=== PATIENT | female | born 1985 | race Caucasian/White ===

== ENCOUNTER 2025-08-10 18:17 | Emergency (ER) | payer MEDICAID, SELFPAY ==
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
--- OUTSIDE RECORDS SUMMARY | 2025-07-23 18:41 | XMS_ITS | Encounter Summary ---
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 [address] [facility] , [place] [address] * (ABNORMAL) SEDIMENTATION RATE AUTOMATED (07/23/2025 9:02 PM EDT) [facility] Sed Rate 26(H) 0 - 20 mm/hr 07/23/2025 9:26 PM EDT [facility] Blood VENOUS BLOOD / Unknown Venipuncture / Unknown 07/23/2025 9:02 PM EDT 07/23/2025 9:14 PM EDT Suzanne Donovan APRN HEMATOLOGY ORDERABLES Barbara l Result [facility] [address] [place] [address] * HUMAN CHORIONIC GONADOTROPIN QUANTITATIVE (07/23/2025 9:02 PM EDT) [facility] Hcg Quant <1 <5 mIU/mL 07/23/2025 9:34 PM EDT [facility] Blood VENOUS BLOOD / Unknown Venipuncture / Unknown 07/23/2025 9:02 PM EDT 07/23/2025 9:14 PM EDT Narrative [facility] - 07/23/2025 9:34 PM EDT Female (non-): 0-4.9 mIU/mL Female (postmenopausal): 0-8.1 mIU/mL Indeterminate values for (e.g., 5-25 mIU/mL) may be confirmed with a repeat test in 48-72 hours. Values in should double every 2-3 days for the first six weeks. Ingestion of alise doses of biotin (>5 mg/day) taken within 8 hours of drawing blood sample can interfere with this immunoassay test. Suzanne Donovan APRN CHEMISTRY ORDERABLES Final Result Performing Organization Address City/[facility]/ZIP Co de Phone Number [facility] [address] [place] [address] * PROCALCITONIN (07/23/2025 9:02 PM EDT) Procalcitonin 0.05 <=0.49 ng/mL 07/24/2025 9:41 AM EDT [facility] Blood VENOUS BLOOD / Unknown Venipuncture / Unknown 07/23/2025 9:02 PM EDT 07/23/2025 9:14 PM EDT Narrative [facility] - 07/24/2025 9:41 AM EDT Procalcitonin <0.50 ng/mL: Procalcitonin levels below 0.50 ng/mL on the first day of ICU admission represent a low risk for progression to severe sepsis and/or septic shock Procalcitonin >=0.50 ng/mL and <=2.00 ng/mL: If the procalcitonin measurement is performed shortly after the systemic infection process has started (usually less than 6 hours), this value may still be low. As various non-infectious conditions are known to induce procalcitonin as well, procalcitonin levels between 0.50 ng/mL and 2.00 ng/mL should be reviewed carefully to take into account the specific clinical background and condition(s) of the patient. Procalcitonin >2.00 ng/mL: Procalcitonin levels above 2.00 ng/mL on the first day of ICU admission represent a high risk for progression to severe sepsis and/or septic shock. Suzannenorth Donovan APRN CHEMISTRY ORDERABLES Final Result [facility] [address] [facility] , [place] [address] * LACTIC ACID (07/23/2025 9:02 PM EDT) Pathologist [facility] Lactic Acid 1.0 0.5 - 1.9 mmol/L 07/23/2025 9:31 PM EDT [facility] Blood VENOUS BLOOD / Unknown Venipuncture / Unknown 07/23/2025 9:02 PM EDT 07/23/2025 9:14 PM EDT Suzanne Donovan EQUINE DENTIST CHEMISTRY ORDERABLES Final Result [facility] [address] [place] [address] * (ABNORMAL) COMPREHENSIVE METABOLIC PANEL (07/23/2025 9:02 PM EDT) Pathologist [facility] Sodium 136 136 - 145 mmol/L 07/23/2025 9:35 PM EDT [facility] Potassium 3.2(L) 3.5 - 5.0 mmol/L 07/23/2025 9:35 PM EDT [facility] Chloride 103 98 - 107 mmol/L 07/23/2025 9:35 PM EDT [facility] Total CO2 22 22 - 29 mmol/L 07/23/2025 9:35 PM EDT [facility] Anion Gap 11 7 - 16 mmol/L 07/23/2025 9:35 PM EDT [facility] Calcium 8.9 8.6 - 10.4 mg/dL 07/23/2025 9:35 PM EDT [facility] Glucose Lvl 91 70 - 99 mg/dL 07/23/2025 9:35 PM EDT [facility] BUN 5(L) 6 - 20 mg/dL 07/23/2025 9:35 PM EDT [facility] Creatinine 0.74 0.51 - 1.30 mg/dL 07/23/2025 9:35 PM EDT [facility] Albumin 4.0 3.5 - 5.2 gm/dL 07/23/2025 9:35 PM EDT [facility] Total Protein 7.2 6.4 - 8.3 gm/dL 07/23/2025 9:35 PM EDT [facility] Bili Total 1.0 0.2 - 1.3 mg/dL 07/23/2025 9:35 PM EDT [facility] ALT 9 <=41 U/L 07/23/2025 9:35 PM EDT [facility] AST 18 <=40 U/L 07/23/2025 9:35 PM EDT [facility] Alk Phos 100 36 - 123 U/L 07/23/2025 9:35 PM EDT [facility] eGFR (CKD-EPIcr 2020) 105 >=60 mL/min/1.7 3 m2 07/23/2025 9:35 PM EDT [facility] Comment:Estimated GFR was ca lculated using the CKD-EPIcr (2020) equation refit without race. The equation is recommended by the [employer] - [place] [employer] of Nephrology Task Force. Blood VENOUS BLOOD / Unknown Venipuncture / Unknown 07/23/2025 9:02 PM EDT 07/23/2025 9:14 PM EDT us Suzanne Donovan EQUINE DENTIST CHEMISTRY ORDERABLES Final Result [facility] [address] [place] [address] * (ABNORMAL) CBC WITH DIFF (07/23/2025 9:02 PM EDT) WBC 8.8 3.7 - 10.3 x10(3)/mcL 07/23/2025 9:17 PM EDT [facility] RBC 3.36(L) 3.90 - 5.20 x10(6)/mcL 07/23/2025 9:17 PM EDT [facility] Hgb 10.8(L) 11.2 - 15.7 g/dL 07/23/2025 9:17 PM EDT [facility] Hct 32.8(L) 34.0 - 45.0 % 07/23/2025 9:17 PM EDT [facility] MCV 97.6 80.0 - 100.0 fL 07/23/2025 9:17 PM [facility] MCH 32.1 26.0 - 34.0 pg 07/23/2025 9:17 PM [facility] MCHC 32.9 30.7 - 35.5 g/dL 07/23/2025 9:17 PM [facility] RDW 13.2 <=14.9 % 07/23/2025 9:17 PM [facility] Platelet 307 155 - 369 x10(3)/mcL 07/23/2025 9:17 PM [facility] MPV 9.8 8.8 - 12.5 fL 07/23/2025 9:17 PM [facility] Neut Percent 75.9 % 07/23/2025 9:17 PM [facility] Comment:Neutrophils equals s egs plus bands Imm Gran% 0.1 % 07/23/2025 9:17 PM [facility] Comment:Automated count of m etamyelocytes, myelocytes and promyelocytes. Lymph Percent 17.8 % 07/23/2025 9:17 PM [facility] [place] Percent 5.7 % 07/23/2025 9:17 PM [facility] Eos Percent 0.3 % 07/23/2025 9:17 PM [facility] Baso Percent 0.2 % 07/23/2025 9:17 PM [facility] Neut # 6.7(H) 1.6 - 6.1 x10(3)/mcL 07/23/2025 9:17 PM [facility] Comment:Neutrophils equals s egs plus bands IMMGRAN# 0.0 0.0 - 0.1 x10(3)/mcL 07/23/2025 9:17 PM [facility] Comment:Automated count of m etamyelocytes, myelocytes and promyelocytes. An absolute IG <0.1 is reported as 0.0. Lymph # 1.6 1.2 - 3.9 x10(3)/mcL 07/23/2025 9:17 PM [facility] [place] # 0.5 0.3 - 0.9 x10(3)/mcL 07/23/2025 9:17 PM EDT [facility] Eos# 0.0 0.0 - 0.5 x10(3)/mcL 07/23/2025 9:17 PM EDT [facility] Baso # 0.0 0.0 - 0.1 x10(3)/mcL 07/23/2025 9:17 PM EDT [facility] Blood VENOUS BLOOD / Unknown Venipuncture / Unknown 07/23/2025 9:02 PM EDT 07/23/2025 9:14 PM EDT us Suzanne Komichelle EQUINE DENTIST HEMATOLOGY ORDERABLES Barbara l Result [facility] [address] [place], [place] [id number] * XR RADIUS ULNA RIGHT AP AND LATERAL (07/23/2025 8:46 PM EDT) Anatomical Region Laterality Modality Forearm Radiographic Rosio ging 07/23/2025 8:46 PM EDT Impressions 07/23/2025 8:48 PM EDT No change compared with 07/20/2025 in the fracture of the distal radius along the lateral margin This exam does not constitute a diagnostic evaluation of either the wrist or the elbow. If symptoms are centered over those areas, dedicated imaging recommended. - Note: Radiology results need to be interpreted within a comprehensive clinical context. If you have questions about the radiology report, please contact the office of the ordering clinician. Narrative 07/23/2025 8:48 PM EDT XR RADIUS ULNA RIGHT AP AND LATERAL, 07/23/2025 8:46 PM CLINICAL HISTORY: -recent dog bit with fracture now with increased swelling and infection. COMPARISON: 07/20/2025 PROCEDURE COMMENTS: Orthogonal views of the forearm. Minimum two views. FINDINGS: No change in the appearance of the comminuted fracture along the lateral margin of the distal radius. No new osseous destruction. Small bone fragments are present. Soft tissue swelling is present. Procedure Note Norman Gusman MD - 07/23/2025 XR RADIUS ULNA RIGHT AP AND LATERAL, 07/23/2025 8:46 PM CLINICAL HISTORY: -recent dog bit with fracture now with increasedswelling and infection. COMPARISON: 07/20/2025 PROCEDURE COMMENTS: Orthogonal views of the forearm. Minimum two views. FINDINGS: No change in the appearance of the comminuted fracture alongthe lateral margin of the distal radius. No new osseous destruction. Smallbone fragments are present. Soft tissue swelling is present. IMPRESSION: No change compared with 07/20/2025 in the fracture of the distal radius along the lateral margin This exam does not constitute a diagnostic evaluation of either the wristor the elbow. If symptoms are centered over those areas, dedicated imagingrecommended. - Note: Radiology results need to be interpreted within a comprehensiveclinical context. If you have questions about the radiology report, please contactthe office of the ordering clinician. Suzanne Donovan APRN IMG DIAGNOSTIC IMAGING ORD ERABLES Final Result documented in this encounter Visit Diagnoses Diagnosis Wound infection Posttraumatic wound infection not elsewhere classified Type I or II open fracture of distal end of right radius, unspecified fracture morphology, initial encounter History of dog bite Non compliance w medication regimen Personal history of noncompliance with medical treatment, presenting hazards to health Hypokalemia Hypopotassemia Wound infection Posttraumatic wound infection not elsewhere classified documented in this encounter Administered Medications Inactive Administered Medications - up to 1 most recent administrations Medication Order MAR Action Action Date Dose Rate Site acetaminophen (TYLENOL) tablet 650 mg 650 mg, Oral, EVERY 4 HOURS PRN, Starting on 07/23/25 at 2023, Until 07/24/25 at 0214, Pain, Fever, Maximum adult dose of acetaminophen is 4000 mg from all sources in 24 hours. ampicillin-sulbactam (UNASYN) 3 g in sodium chloride 0.9 % 100 mL IVPB 3 g, Intravenous, ONCE, 1 dose, On 07/23/25 at 2230, Administer over 30 Minutes, Reason for Therapy: Infection Documented, Indication: Skin/soft tissue IV Started 07/23/2025 10:44 PM EDT 3 g 200 mL/hr ketorolac (TORADOL) injection 15 mg 15 mg, Intravenous, ONCE, 1 dose, On 07/23/25 at 2015, For IV Administration: Give undiluted over at least 15 seconds. Maximum IV dose is 30mg. For IM Administration: Give undiluted, slowly and deeply into the muscle. Given 07/23/2025 10:02 PM EDT 15 mg melatonin tablet 5-10 mg 5-10 mg, Oral, NIGHTLY PRN, Starting on 07/23/25 at 2023, Until 07/24/25 at 021, Sleep morphine injection 4 mg 4 mg, Intravenous, ONCE, 1 dose, On 07/23/25 at 2014 Given 07/23/2025 9:58 PM EDT 4 mg ondansetron (ZOFRAN) injection 4 mg 4 mg, Intravenous, ONCE, 1 dose, On 07/23/25 at 2014 Given 07/23/2025 9:56 PM EDT 4 mg ondansetron (ZOFRAN) injection 4 mg 4 mg, Intravenous, EVERY 6 HOURS PRN, Starting on 07/23/25 at 2023, Until 07/24/25 at 021, Nausea pantoprazole (PROTONIX) 40 mg in sodium chloride 0.9% 10 mL injection 40 mg, Intravenous, DAILY, First dose on 07/23/25 at 2030, Until Discontinued, Administer IV Push if patient cannot swallow pantoprazole tablets Given 07/23/2025 10:05 PM EDT 40 mg pantoprazole (PROTONIX) tablet 40 mg 40 mg, Oral, DAILY, First dose on 07/23/25 at 2030, Until Discontinued, Do not crush or chew potassium chloride (KLOR-CON) tablet 40 mEq 40 mEq, Oral, ONCE, 1 dose, On 07/23/25 at 2145 Given 07/23/2025 10:11 PM EDT 40 mEq sodium chloride 0.9 % 1,000 mL IV bolus Intravenous, ONCE, 1 dose, On 07/23/25 at 2014, at 983.6 mL/hr IV Started 07/23/2025 10:15 PM EDT 983.6 mL/hr sodium chloride 0.9% IV line flush 50 mL 50 mL, Intravenous, at 999 mL/hr, PRN, Starting on 07/23/25 at 1956, Until 07/24/25 at 021, Line Care, Flush with 50 mL after IVPB to insure complete administration of the dose. May use the saline infusion to back flush IVPB tubing as needed., Use this order to document priming and flushing IV line after medication administration. sodium chloride 0.9% syringe 5-10 mL 5-10 mL, Intravenous, PRN, Starting on 07/23/25 at 1956, Until 07/24/25 at 0214, Line Care, Flush with 5 mL saline pre/post IVP, and 5 mL prior to IVPB or blood product administration. Protocol for PERIPHERAL IV saline lock maintenance, flush with 3-5 mL saline syringe every 8 hours., Flush peripheral lines every 12 hours, central lines every 8 hours, and after IV medication documented in this encounter Active and Recently Administered Medications Times are shown in EDT. Scheduled Medication Order 07/22/2025 07/23/2025 07/24/2025 ampicillin-sulbactam (UNASYN) 3 g in sodium chloride 0.9 % 100 mL IVPB (COMPLETED) 3 g, Intravenous, ONCE, 1 dose, On 07/23/25 at 2230, Administer over 30 Minutes, Reason for Therapy: Infection Documented, Indication: Skin/soft tissue 2244 (IV Started - Provider: Gabriel Garza RN) 0024 (Stopped - Provider: Gabriel Garza RN) ketorolac (TORADOL) injection 15 mg (COMPLETED) 15 mg, Intravenous, ONCE, 1 dose, On 07/23/25 at 2014, For IV Administration: Give undiluted over at least 15 seconds. Maximum IV dose is 30mg. For IM Administration: Give undiluted, slowly and deeply into the muscle. 2201 (Given - Provider: Gabriel Garza RN - Comment: Pt very difficulty IV stick) morphine injection 4 mg (COMPLETED) 4 mg, Intravenous, ONCE, 1 dose, On 07/23/25 at 2014 2157 (Given - Provider: Gabriel Garza RN - Comment: pt very difficulty IV stick) ondansetron (ZOFRAN) injection 4 mg (COMPLETED) 4 mg, Intravenous, ONCE, 1 dose, On 07/23/25 at 2014 2155 (Given - Provider: Gabriel Garza RN - Comment: Pt very difficult IV stick) pantoprazole (PROTONIX) 40 mg in sodium chloride 0.9% 10 mL injection(Linked Group 1) 40 mg, Intravenous, DAILY, First dose on 07/23/25 at 2030, Until Discontinued, Administer IV Push if patient cannot swallow pantoprazole tablets 2204 (Given - Provider: Gabriel Garza, SHANIA) pantoprazole (PROTONIX) tablet 40 mg(Linked Group 1) 40 mg, Oral, DAILY, First dose on 07/23/25 at 2030, Until Discontinued, Do not crush or chew 2204 (See Alternative - Provider: Gabriel Garza, SHANIA) potassium chloride (KLOR-CON) tablet 40 mEq (COMPLETED) 40 mEq, Oral, ONCE, 1 dose, On 07/23/25 at 2145 221 (Given - Provider: Gabriel Garza, SHANIA) sodium chloride 0.9 % 1,000 mL IV bolus (COMPLETED) Intravenous, ONCE, 1 dose, On 07/23/25 at 2014, at 983.6 mL/hr 2214 (IV Started - Provider: Gabriel Garza RN - Comment: pt. very difficulty IV stick) 0024 (Stopped - Provider: Gabriel Garza RN) PRN Medication Order 07/22/2025 07/23/2025 07/24/2025 acetaminophen (TYLENOL) tablet 650 mg 650 mg, Oral, EVERY 4 HOURS PRN, Starting on 07/23/25 at 2023, Until 07/24/25 at 213, Pain, Fever, Maximum adult dose of acetaminophen is 4000 mg from all sources in 24 hours. melatonin tablet 5-10 mg 5-10 mg, Oral, NIGHTLY PRN, Starting on 07/23/25 at 2023, Until 07/24/25 at 213, Sleep ondansetron (ZOFRAN) injection 4 mg 4 mg, Intravenous, EVERY 6 HOURS PRN, Starting on 07/23/25 at 2023, Until 07/24/25 at 213, Nausea sodium chloride 0.9% IV line flush 50 mL 50 mL, Intravenous, at 999 mL/hr, PRN, Starting on 07/23/25 at 1955, Until 07/24/25 at 213, Line Care, Flush with 50 mL after IVPB to insure complete administration of the dose. May use the saline infusion to back flush IVPB tubing as needed., Use this order to document priming and flushing IV line after medication administration. sodium chloride 0.9% syringe 5-10 mL 5-10 mL, Intravenous, PRN, Starting on 07/23/25 at 1956, Until 07/24/25 at 0214, Line Care, Flush with 5 mL saline pre/post IVP, and 5 mL prior to IVPB or blood product administration. Protocol for PERIPHERAL IV saline lock maintenance, flush with 3-5 mL saline syringe every 8 hours., Flush peripheral lines every 12 hours, central lines every 8 hours, and after IV medication Linked Groups Order Group 1: pantoprazole (PROTONIX) 40 mg in sodium chloride 0.9% 10 mL injectionJump to med 40 mg, Intravenous, DAILY, First dose on 07/23/25 at 2030, Until Discontinued, Administer IV Push if patient cannot swallow pantoprazole tablets Or pantoprazole (PROTONIX) tablet 40 mgJump to med 40 mg, Oral, DAILY, First dose on 07/23/25 at 2030, Until Discontinued, Do not crush or chew documented in this encounter Orders Medications Ordered That Jorge Alberto ht Not Have Been Administered Count Last Ordered Date First Ordered Date acetaminophen (TYLENOL) tablet 650 mg 1 ampicillin-sulbactam (UNASYN ) 3 gram injection 3 g 1 07/23/2025 melatonin tablet 5-10 mg 1 07/23/2025 ondansetron (ZOFRAN) injection 4 mg 1 07/23 pantoprazole (PROTONIX) tablet 40 mg 1 07/06 sodium chloride 0.9% IV line flush 50 mL 1 07/23/2025 sodium chloride 0.9% syringe 5-10 mL 1 07/06 Nursing Count Last Ordered Date First Orde red Date SHORT ARM SPLINT 1 07/23/2025 Admission Count Last Ordered Date First Orde red Date ADMIT 1 07/23/2025 documented in this encounter 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
--- OUTSIDE RECORDS SUMMARY | 2025-07-24 01:14 | XMS_ITS | Encounter Summary ---
Author Organization [place] [address] Care Team Providers Care Beauty Advisor Name Role Phone Nonstaff, Referring Primary Care Provider Troy francois Reason for Referral * Consultation (Routine) - Pending Review Specialty Diagnoses / Procedures Referred By Norma oliveros Referred To Contact Cardiology Diagnoses Acute on chronic HFrEF (heart failure with reduced ejection fraction) ([facility]) Procedures OR OFFICE/OUTPATIENT NEW MODERATE MDM 45 MINUTES Danielle Mclean APRN [address] [place] [address] Phone: tel: fax: [facility] [address] [place] [address] Phone: tel: fax: Referral ID Status Reason Start Date Expiration Date V isits Requested Visits Authorized [id number] Pending Review 08/01/2025 08/01/2026 1 1 Question Answer Requested Services Heart Failure Management Reason for Visit * Auth/Cert/Inpt Specialty Diagnoses / Procedures Referred By Norma oliveros Referred To Contact Diagnoses Wound infection distal radial fracture Procedures N/A Referral ID Status Reason Start Date Expiration Date Visits Re quested Visits Authorized [id number] 1 1 Encounter Details Date Type Department Care Team (Latest Contact Info) Description 07/24/2025 2:14 AM EDT - 08/03/2025 6:10 PM EDT Hospital Encounter [facility] [address] [place] [address] Freddie Cruz MD [address] [place] [address] Acute on chronic HFrEF (heart failure with reduced ejection fraction) (HCC) (Primary Dx); Dog bite, initial encounter Discharge Disposition: Jail Facility Social History Tobacco Use Types Packs/Day Years [...] and heating? Not hard at all 07/24/2025 [facility] [place] [facility] - Occupational Stress [...] money to get more. Never true 07/24/2025 [facility] Utilities Answer Date Recorded In the past 12 months has th e electric, gas, oil, or water company threatened to shut off services in your home? No 07/24/2025 [facility] IP Transportation Answer D ate Recorded In [...] Sign Reading Time Taken Comments Blood Pressure 131/89 08/03/2025 5:52 PM EDT Pulse 106 08/03/2025 5:52 PM EDT Temperature 36.7 C (98.1 F) 08/03/2025 1:05 PM EDT Respiratory Rate 14 08/03/2025 1:05 PM EDT Oxygen Saturation 100% 08/03/2025 1:05 PM EDT Inhaled Oxygen Concentration - - Weight 60.3 kg (132 lb 15 oz) 08/03/2025 5:03 AM EDT Height 165.1 cm (5' 5 ) 07/24/2025 2:18 AM EDT Body Mass Index 22.12 07/24/2025 2:18 AM EDT documented in this encounter Functional Status * Alcohol Screening Score Answer Date of Assessment Author 0 07/24/2025 2:00 AM EDT Adi Avilez RN * Question Answer Date of Assessment Author How often do you have a drin k containing alcohol? 0 07/24/2025 2:00 AM EDT Abbi Avilez R N How many drinks containing a lcohol do you have on a typical day when you are drinking? 0 07/24/2025 2:00 AM EDT Abbi Avilez R N How often do you have six or more drinks on one occasion? 0 07/24/2025 2:00 AM EDT Pipe Avilez RN AUDIT-C to Determine Rows 4-10 0 07/24/2025 2:00 AM EDT Abbi Avilez RN * Question Answer Date of Assessment Author Drug Screening Score 1 07/24/2025 2:00 AM E DT Abbi Avilez RN * Question Answer Date of Assessment Author Little interest or pleasure in doing things 0 07/24/2025 4:03 PM EDT Lori Jones RN Feeling down, depressed, or hopeless 0 07/06 4:03 PM EDT Lori Jones RN PHQ-2 Total Score 0 07/24/2025 4:03 PM EDT Lori Jones RN * PHQ-9 Total Score Answer Date of Assessment Author 0 07/24/2025 4:03 PM EDT Ovidio Jones RN * PHQ-2 Total Score Answer Date of Assessment Author 0 07/24/2025 4:03 PM EDT Ovidio Jones RN * Suicide Severity Rating Answer Date of Assessment Author No Risk 07/24/2025 2:16 AM EDT Adi Avilez RN * [place] Suicide Severity Rating Scale (Q shift for moderate and high) Question Answer Date of Assessment Author 1. In the past month, have y ou wished you were or wished you could go to sleep and not wake up? 0 07/24/2025 2:16 AM EDT Abbi Mae RN 2. In the past month, have y ou actually had any thoughts of killing yourself? (If no, skip to question 6) 0 07/24/2025 2:16 AM EDT Abbi Avilez R N 6. Have you ever done anythi ng, started to do anything, or prepared to do anything to end your life? 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 CT RUE 07/24: Acute comminuted fracture oflateral distal radial metaphysis with complete fracture extraction and displaced fracture cortical bone fragment. Vertical Cortical bone with focal acute inflammation (being treated as osteomyelitis)S/p OR Right type II open distal radius fracture irrigation and debridement 07-25-2025 of Radial fracture. Osteomyelitis could not be ruled out on imaging and ID managing antibiotics. Hx of IVDU and plans Continue IV ampicillin-sulbactam to cover for these streps, but also anaerobes given nature ofwound. Per ortho no further interventions. Given bone involvement will need to do 6 weeks of IV ABX1 - 09/04/25 . D/c to [facility]. Need to complete rest of Rabies Vaccine Schedule 7 (08/01), 14 (08/08/25), and 28 (08/22/25) Needs to follow up with ortho Return to see Dr. Sen in clinic in 10 to 14 days after discharge for wound check Of note, consulted cardiology for acute HFrEF, VHD. Echo 07/31/25 EF 15-20%, global HK, G2DD, mild MR. Medications adjusted/added. Entresto added 07/31. Coreg decreased to 3.125mg due to soft pressures on 03.30. Labs and imaging follow-up needed: Pending Labs Order Current Status Collection Date and Time FUNGUS CULTURE (NO STAIN) Preliminary result 07/25/2025 5:29 PM Consultants: Treatment Team: Consulting Physician: Helder Pham DO Consulting Physician: Jeromy Austin MD Discharge Exam: Vitals: 08/03/25 1305 BP: 105/70 Pulse: 90 Resp: 14 Temp: 98.1 ??F (36.7 ??C) SpO2: 100% CONSTITUTIONAL: Alert and oriented x 3. NAD. CARDIOVASCULAR: normal rate and regular rhythm. No murmur heard. PULMONARY/CHEST: CTA bilat.. No W/R/R. ABDOMINAL: soft, non-tender; normal BS. MUSCULOSKELETAL: no atrophy or effusions. No edema. NEURO: non-focal, no lateralizing weakness. PSYCHIATRIC: normal mood and affect. Not suicidal/homicidal. Correct Full Discharge Med List: Medication List START taking these medications acetaminophen 325 mg Tab Dose: 650 mg Refills: 0 Commonly known as: TYLENOL 650 mg, Oral, EVERY 4 HOURS PRN ampicillin-sulbactam 3 g in sodium chloride 0.9 % 100 mL Dose: 3 g Refills: 0 3 g, Intravenous, EVERY 6 HOURS SCHEDULED carvediloL 6.25 mg Tab Dose: 3.125 mg Refills: 0 Commonly known as: COREG 3.125 mg, Oral, 2 TIMES DAILY WITH MEALS, Hold for sbp <110 or hr <60 pantoprazole 40 mg Tbec Dose: 40 mg Refills: 0 Start: August 04, 2025 Commonly known as: PROTONIX 40 mg, Oral, DAILY prochlorperazine edisylate 10 mg/2 mL (5 mg/mL) Soln Dose: 10 mg Refills: 0 Commonly known as: COMPAZINE 10 mg, Intravenous, EVERY 6 HOURS PRN Saccharomyces boulardii 250 mg Cap Dose: 250 mg Refills: 0 Commonly known as: FLORASTOR 250 mg, Oral, 2 TIMES DAILY sacubitriL-valsartan 49-51 mg Tab Dose: 1 Tablet Refills: 0 Commonly known as: ENTRESTO 1 Tablet, Oral, 2 TIMES DAILY CONTINUE taking these medications dapagliflozin propanediol 10 mg Tab Dose: 10 mg Qty: 90 Tablet Refills: 3 Commonly known as: FARXIGA 10 mg, Oral, DAILY fUROsemide 40 mg Tab Dose: 40 mg Qty: 90 Tablet Refills: 3 Commonly known as: LASix 40 mg, Oral, DAILY naproxen 500 mg Tab Dose: 500 mg Qty: 30 Tablet Refills: 0 Commonly known as: NAPROSYN 500 mg, Oral, 2 TIMES DAILY PRN potassium chloride SA 10 mEq Tbtq Dose: 10 mEq Qty: 90 Tablet Refills: 3 Commonly known as: KLOR-CON M 10 mEq, Oral, DAILY spironolactone 25 mg Tab Dose: 25 mg Qty: 90 Tablet Refills: 3 Commonly known as: ALDACTONE 25 mg, Oral, DAILY STOP taking these medications amoxicillin-clavulanate 875-125 mg Tab Commonly known as: AUGMENTIN losartan 50 mg Tab Commonly known as: COZAAR Where to Get Your Medications Information about where to get these medications is not yet available Ask your nurse or doctor about these medications acetaminophen 325 mg Tab ampicillin-sulbactam 3 g in sodium chloride 0.9 % 100 mL carvediloL 6.25 mg Tab pantoprazole 40 mg Tbec prochlorperazine edisylate 10 mg/2 mL (5 mg/mL) Soln Saccharomyces boulardii 250 mg Cap sacubitriL-valsartan 49-51 mg Tab Condition at Discharge: stable 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 [phone] Follow up [facility] [address] [facility] [address] Helder Arriaga MD [address] [place] [address] Follow up in 1 week(s) Andre Sen MD [address] [place] [address] Follow up hospital follow up Spent 34 minutes CAROL Robertson 08/03/2025 Cosigned by Ashvin Belcher MD at 08/03/2025 4:14 PM EDT Associated attestation - Ashvin Belcher MD - 08/03/2025 4:14 PM EDT Agree w CAROL GREEN Summary as below documented in this encounter Discharge Instructions * Discharge Instructions* Sanjuanita Byrd RN - 07/25/2025 3:47 PM EDT Images from the original note were not included. Call [facility] at to schedule the remaining 3 injections of your vaccine series. These are due on approximately day 3, day 7 and day 14. +++++++++++++++++++++++++++++++++++++++++++++++++++++++++++++++++++ [facility] Discharge Instructions - Following Anesthesia We appreciate the opportunity to care for you today! Here are a few reminders as you head home: A responsible adult, 18 years or older must be in attendance until tomorrow morning. Rest quietly today. May resume usual diet as tolerated or as directed by your surgeon. Do not drive or operate any machinery until tomorrow morning or as instructed. Do not make any legal or important decisions for the next 24 hours. Do not drink alcoholic beverages or take sleeping pills for 24 hours unless otherwise directed. If you received a nerve block for post-operative pain control, protect your blocked arm/leg. It maybe numb. Carefully pad your limb to prevent pressure sores and other injuries. Be careful with applying cold/warm to the blocked limb. Numbness will alter the sensation of the limb and could damage your skin if you cannot correctly feel the temperature. If you have questions or concerns regarding your anesthesia experience, please call our office at . Get Well Soon! [facility] +++++++++++++++++++++++++++++++++++++++++++++++++++++++++++++++++++ [facility] Failure [facility] [address], [place] [address] Call: [phone] Check out our web site: [email or web address], Right Here At [facility] [place], we have assembled an entire team of experts to help patients with heart failure. If you have a diagnosis of heart failure, sometimes called congestive heart failure, you can be assured that there are a number of things you can do to manage this chronic illness and live a full life. Our experts have the experience and the tools to help youdo just that. What Is Heart Failure? Your heart is a muscle that pumps blood to all parts of your body. Heart failure means that your body may not be getting all the blood or oxygen it needs to function properly. A weakness of the heartmuscle may lead to decreased pump power and less blood being supplied to your body. It does not mean that your heart has stopped working. Although it may sound frightening, heart failure is usually achronic condition treated with medications and your symptoms can be managed. Often the power of theheart can improve with specific medical management alone. Your Heart Failure Team We offer some of the most comprehensive heart failure care in [facility] and [facility]. Our heart failure team has vast experience treating some of the most complex heart failure patients. Our team includes: Dr. Charlie Devine, Religion Department Chair Dr. Alexandre Song All of our heart failure specialists have experience in some of the busiest heart failure centers in the country. Our team also includes nurse practitioners, physician assistants, pharmacists, dietitians, palliative care providers and nurse navigators who provide added personalized care for our alla ents. The heart failure team works closely with your current billet heater operator and primary care providerin managing your congestive heart failure. How to prepare for your visit: Write down any symptoms you are experiencing. Write down bishop family medical history. Make a list of all of your medications, including vitamins. Bring all pill bottles to your first appointment. If possible, bring a family member or friend. Sometimes it is hard to remember all the information discussed during your visit. Write down your questions to discuss with your physician. Make An Appointment Our heart failure navigators and coordinators understand that heart failure can be frightening and are committed to providing you a supportive patient experience. To learn more about your diagnosis, or to make an appointment at the [facility] [place], we encourage you to call us at . Dressing change: Xeroform and oswaldo wrap daily and PRN * Attachments The following attachments cannot be sent through Care Everywhere. * Heart failure in adults ??? Discharge instructions (Czech) documented in this encounter Medications at Time [...] by mouth daily. 90 Tablet 3 11/04/2024 documented as of this encounter Ordered Prescriptions Prescription Sig Dispense Quantity Refills Last Filled Start Date End Date Saccharomyces boulardii (FLORASTOR) 250 mg Oral Capsule Take 1 Capsule by mouth 2 times daily. 08/03/2025 sacubitriL-valsart an (ENTRESTO) 49-51 mg Oral Tablet Take 1 Tablet by mouth 2 times daily. 08/03/2025 pantoprazole (PROTONIX) 40 mg Oral Tablet, Delayed Release (E.C.) Take 1 Tablet by mouth daily. 08/04/2025 prochlorperazine edisylate (COMPAZINE) 10 mg/2 mL (5 mg/mL) Inj Solution Inject 2 mL into the vein every 6 hours as needed for Nausea or Vomiting. 08/03/2025 carvediloL (COREG) 6.25 mg Oral Tablet Take 0.5 Tablets by mouth 2 times daily (with meals). Hold for sbp <110 or hr <60 08/03/2025 acetaminophen 325 mg Oral Tab Take 2 Tablets by mouth every 4 hours as needed for Pain or Fever. 08/03/2025 ampicillin-sulbact am 3 g in sodium chloride 0.9 % 100 mL Inject 3 g into the vein every 6 hours for 131 doses. 08/03/2025 5 documented in this encounter Discharge Disposition Disposition Code Departure Means Destination Comment s Jail Facility Ambulance [facility] documented in this encounter Progress Notes * Jaclyn Issa RN - 08/03/2025 6:12 PM EDT Report called and given to RN at [facility]. * Marely Fernández BSW - 08/03/2025 4:05 PM EDT 08/03/25 1604 Ongoing Discharge Planning Evaluation Actual Discharge Plan 08/03 SW: [facility] insurance approval and able to accept pttoday. Per [facility] policy pt must transport via ambulance to their facility. [facility] arranged ambulance for 6pm pickup. Facility aware. SW will SIGN OFF. * Porsche Storey, Clerical Staff - 08/03/2025 2:58 PM EDT Received referral for Post Acute form. Post Acute form provided and patient signed. Post Acute FormFax or Electronic: E-consent located in Chart Review/Consent activity 08/03/25 0469 Discharge Planning Evaluation Referral Type Post Acute Consent Post Acute Facility [facility] Post Acute Form Completed Yes * Porsche Storey, Clerical Staff - 08/03/2025 2:36 PM EDT Followed up with patient re: request for transportation assistance. Scheduled with: [facility]. Trip #: [id number] @ 1800 for 08-03-25 to T [facility]. Patient and RN aware of tentative plan. 08/03/25 1435 Discharge Planning Evaluation Referral Type Transportation Transportation at Discharge Ambulance (Trip #: [id number]) Transportation Options Private Pay Date Expected 08/03/25 Time Expected 1800 Transportation Location [facility] Transportation setup completed by [employer] Yes * Naima Oconnor PA - 08/03/2025 2:19 PM EDTAssociated Problem(s): Infection of wound due to dog bite - Dog bite on 07/20 - 07/20: Received tetanus vaccine, PO Augmentin, wounds were sutured - 07/23: in ED with worsening swelling to her R arm, sutures removed, wound cleansed at bedside - CT RUE 07/24: Acute comminuted fracture of lateral distal radial metaphysis with complete fracture extraction and displaced fracture cortical bone fragment. Vertical Cortical bone with focal acute inflammation (being treated as osteomyelitis) - Rabies IG 07/25, 07/28, Will need 08/01, 08/08/25, and 08/22/25 - Ortho consulted, 07/25: I & D open distal radial fracture - Wound culture: Rare GNR - Intra-OP cultures: + S. Galloyticus, S. Sanguinis - Plans for 6 wks IV ATB per ID, cannot be at home w/HX of IVDU - On IV Unasyn - asked RN to reach out to ortho for dressing orders --PRN xeroform and soft wrap * Naima Oconnor PA - 08/03/2025 2:19 PM EDTAssociated Problem(s): Fracture of right radius - Dog bite on 07/20 - 07/20: Received tetanus vaccine, PO Augmentin, wounds were sutured - 07/23: in ED with worsening swelling to her R arm, sutures removed, wound cleansed at bedside - CT RUE 07/24: Acute comminuted fracture of lateral distal radial metaphysis with complete fracture extraction and displaced fracture cortical bone fragment. Vertical Cortical bone with focal acute inflammation (being treated as osteomyelitis) - Rabies IG 07/25, 07/28, Will need 08/01, 08/08/25, and 08/22/25 - Ortho consulted, 07/25: I & D open distal radial fracture - Wound culture: Rare GNR - Intra-OP cultures: + S. Galloyticus, S. Sanguinis - Plans for 6 wks IV ATB per ID, cannot be at home w/HX of IVDU - On IV Unasyn - asked RN to reach out to ortho for dressing orders --PRN xeroform and soft wrap * Naima Oconnor PA - 08/03/2025 2:18 PM EDTAssociated Problem(s): Nonischemic cardiomyopathy (HCC) - NICM - LVSF: 26% per NEG stress test 12/13/2024 - Lost to f/u w/cardiology - CXR 07/30: NAF - NT-ProBNP >18,000 07/30 - EF 15-20% 07/31 - PO lasix 40 daily BOX TURNER - GDMT: Coreg, Entresto, Jardiance, IV Lasix, spironolactone - K 3.8 today - Follow BMP - Cardiology following - appears compensated with fluid restriction * Naima Oconnor PA - 08/03/2025 2:18 PM EDTAssociated Problem(s): Acute on chronic HFrEF (heart failure with reduced ejection fraction) (HCC) - NICM - LVSF: 26% per NEG stress test 12/13/2024 - Lost to f/u w/cardiology - CXR 07/30: NAF - NT-ProBNP >18,000 07/30 - EF 15-20% 07/31 - PO lasix 40 daily BOX TURNER - GDMT: Coreg, Entresto, Jardiance, IV Lasix, spironolactone - K 3.8 today - Follow BMP - Cardiology following - appears compensated with fluid restriction * Naima Oconnor PA - 08/03/2025 2:18 PM EDTAssociated Problem(s): Primary hypertension - 105/70 - Continue Coreg, Entresto, Lasix, spironolactone, Jardiance - Improved w/IV diuresis & addition of Coreg this admission - Monitor * Naima Oconnor PA - 08/03/2025 2:18 PM EDTAssociated Problem(s): Anxiety -Mood stable * Marely Fernández BSW - 08/03/2025 11:49 AM EDT 08/03/25 1148 Ongoing Discharge Planning Evaluation Actual Discharge Plan 08/03 SW: Await insurance determination for [facility]. If approved, facility has beds available. SW continue to follow. * Naima Oconnor PA - 08/03/2025 10:34 AM EDTAssociated Problem(s): JUAN (obstructive sleep apnea) -Home CPAP * Naima Oconnor PA - 08/03/2025 10:34 AM EDTAssociated Problem(s): Antibiotic-associated diarrhea -resolved -Cont Florastor * Naima Oconnor PA - 08/03/2025 10:34 AM EDT PROGRESS NOTE Admit date: 07/24/2025 LOS: 8 days Medically Ready for Discharge?: No EDOD: 08/03/2025 Not Ready for Discharge because: precert to [facility] pending Assessment & Plan Infection of wound due to dog bite Fracture of right radius - Dog bite on 07/20 - 07/20: Received tetanus vaccine, PO Augmentin, wounds were sutured - 07/23: in ED with worsening swelling to her R arm, sutures removed, wound cleansed at bedside - CT RUE 07/24: Acute comminuted fracture of lateral distal radial metaphysis with complete fracture extraction and displaced fracture cortical bone fragment. Vertical Cortical bone with focal acute inflammation (being treated as osteomyelitis) - Rabies IG 07/25, 07/28, Will need 08/01, 08/08/25, and 08/22/25 - Ortho consulted, 07/25: I & D open distal radial fracture - Wound culture: Rare GNR - Intra-OP cultures: + S. Galloyticus, S. Sanguinis - Plans for 6 wks IV ATB per ID, cannot be at home w/HX of IVDU - On IV Unasyn - asked RN to reach out to ortho for dressing orders --PRN xeroform and soft wrap Nonischemic cardiomyopathy (HCC) Acute on chronic HFrEF (heart failure with reduced ejection fraction) ([facility]) - NICM - LVSF: 26% per NEG stress test 12/13/2024 - Lost to f/u w/cardiology - CXR 07/30: NAF - NT-ProBNP >18,000 07/30 - EF 15-20% 07/31 - PO lasix 40 daily BOX TURNER - GDMT: Coreg, Entresto, Jardiance, IV Lasix, spironolactone - K 3.8 today - Follow BMP - Cardiology following - appears compensated with fluid restriction Primary hypertension - 105/70 - Continue Coreg, Entresto, Lasix, spironolactone, Jardiance - Improved w/IV diuresis & addition of Coreg this admission - Monitor Anxiety -Mood stable JUAN (obstructive sleep apnea) -Home CPAP Antibiotic-associated diarrhea -resolved -Cont Florastor VTE Prophylaxis: Qualifying Pharmacologic Prophylaxis enoxaparin (LOVENOX) injection 40 mg DAILY - LMWH/Xa Active Hospital Problems Diagnosis *Infection of wound due to dog bite Acute on chronic HFrEF (heart failure with reduced ejection fraction) ([facility]) Antibiotic-associated diarrhea Primary hypertension 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 Denies shortness of breath or cp. Objective: BP 127/76 (BP Location: Left leg) Pulse 85 Temp 97.5 ??F (36.4 ??C) (Oral) Resp 14 Ht 5' 5 (1.651 m) Wt 132 lb 15 oz (60.3 kg) LMP 07/18/2025 Comment: SERUM HCG NEGATIVE SpO2 100% BMI 22.12 kg/m?? I/O last 3 completed shifts: In: 1323 [P.O.:901; I.V.:40.4; IV Piggyback:381.6] Out: 1450 [Urine:1450] Weight: 132 lb 15 oz (60.3 kg) Constitutional: Alert and oriented to person, place, and time. No distress. Cardiovascular: Normal rate and regular rhythm. Exam reveals no friction rub. No murmur heard. Pulmonary/Chest: Effort normal and breath sounds normal. No respiratory distress. There are no wheezes. Abdominal: Soft. Bowel sounds are normal. No distension. There is no tenderness. There is no rebound and no guarding. Musculoskeletal: No edema. Dressing appears c/d/i Neurological: Grossly normal. Skin: Skin is warm and dry. No erythema. Labs: Laboratory data and diagnostic testing reviewed 08/03/25. CAROL Robertson 08/03/2025 10:34 AM * Timi Forman MD - 08/03/2025 10:04 AM EDT SEP Infectious Diseases Progress Note Date of Admission: 07/24/2025 Hospital Day: 11 Primary Care Physician: Nonstaff, Referring Antibiotics: Current Antibiotics - IV Amp/Sul Assessment: # Infected dog bite right arm// Right Radial Fracture On 07/20 patient sustained a bite from an unknown dog. Went to the ED where she was found to have right radial fracture. She was given tetanus vaccine, prescribed Augmentin and wounds were sutured. Presented again to the ED on 07/23 with worsening swelling to her right arm. Sutures removed at bedside and wound spread open/cleansed to allow drainage. ESR [address] right upper extremity done on 07/24 which showed acute comminuted fracture ofthe lateral distal radial metastasis with complete fracture extraction and displaced fracture cortical bone fragment. Patient evaluated by Ortho SP I/D of open distal radius fracture on 09/24/25. Wound Cx with rare GNR. Path with Viable cortical bone with focal acute inflammation. Must treat as osteomyelitis. Intra-op cx growing S. gallolyticus and S. sanguinis. MRSA nares +. # History of IV drug use # Rabies PEP SP Rabies IG 07/25 SP Rabies Vaccine 07/25/25 (Day 0), Day 3 (07/28), Day 7 (08/01) Plan - Continue IV Ampicillin-Sulbactam to cover for these streps, but also anaerobes given nature of wound. Per ortho no further interventions. Given bone involvement will need to do 6 weeks of IV ABX 07/24 - 09/04/25 - Cannot do IV at home due to hx of IVDU. - Need to complete rest of Rabies Vaccine Schedule (08/08/25), and (08/22/25) - Will be transferred to [facility] ([facility]), please consult ID once arrives Subjective: No episodes of fever. No major overnight events. Physical Exam General Appearance: Alert, cooperative, no distress Head: Normocephalic Eyes: conjunctiva/corneas clear Nose: Nares normal, no drainage Mouth: mucosa moist, teeth and gums normal Lungs: Good AE B/L, respirations unlabored Heart: Regular rate and rhythm, S1 and S2 normal, no murmur, rub or gallop Abdomen: Soft, non-tender, bowel sounds active Extremities: + RUE with dressing in place, RUE swelling Skin: no rashes or lesions, + tattoos Neurologic: Grossly normal Line: +PIV Active LDAs PICC Line Duration PICC Single Lumen 07/29/25 Left Basilic 4 days Wound Duration Incision/Wound Arm Right 10 days Incision/Wound Closed Surgical Arm Right 8 days Vitals Patient Vitals for the past 24 hrs: BP Temp Temp src Pulse Resp SpO2 Weight 08/03/25 0959 90/81 97.5 ??F (36.4 ??C) Oral 85 14 100 % -- 08/03/25 0503 -- -- -- -- -- -- 132 lb 15 oz (60.3 kg) 08/02/252041 112/57 97.5 ??F (36.4 ??C) Oral 89 14 99 % -- 08/02/25 1839 -- -- -- -- -- -- 122 lb 12.7 oz (55.7 kg) 08/02/25 1828 108/49 -- -- 113 -- -- -- 08/02/25 1556 104/62 -- -- 79 -- -- -- 08/02/25 1303 92/68 98.1 ??F (36.7 ??C) Oral 83 16 99 % -- Oxygenation Oxygen Therapy Flowsheet Row Most Recent Value Oxygen Therapy SpO2 100 % Pulse Oximeter Location Left hand Patient Position/Status Resting Awake O2 Device Room Air O2 Flow Rate (L/min) 2 lpm FiO2 (%) 21 % Assistive Devices Flowsheet Row Most Recent Value Assistive Devices Assistive Devices None Respiratory Assistive Devices BiPap/CPAP Home BiPap/CPAP settings? CPAP Home BIPAP/CPAP Frequency PRN (as needed) DME At Home Flowsheet Row Most Recent Value DME Used at Home None Weight Weight: 132 lb 15 oz (60.3 kg) Intake/Output past 24 hours Intake/Output Summary (Last 24 hours) at 08/03/2025 1004 Last data filed at 08/03/2025 0115 Gross per 24 hour Intake 1187.69 ml Output 1450 ml Net -262.31 ml Intake/Output throughout Admission Net IO Since Admission: 12,367.51 mL [08/03/25 1004] Allergies Allergies[1] Current Outpatient Medications Medication Instructions dapagliflozin propanediol (FARXIGA) 10 mg, Oral, DAILY fUROsemide (LASIX) 40 mg, Oral, DAILY losartan (COZAAR) 50 mg, Oral, DAILY naproxen (NAPROSYN) 500 mg, Oral, 2 TIMES DAILY PRN potassium chloride SA (KLOR-CON M) 10 mEq Oral Tab Sust.Rel. Particle/Crystal 10 mEq, Oral, DAILY spironolactone (ALDACTONE) 25 mg, Oral, DAILY Current Medications[2] Immunization History Administered Date(s) Administered [employer] SARS-CoV-2 Vaccine 01/01/2021 Moderna SARS-CoV-2 Vaccine 12+ Yrs (Light blue border) 05/16/2022 Pfizer SARS-CoV-2 Bivalent Booster Vaccine 12+ Years (Wiley border) 07/25/2022 Pfizer SARS-CoV-2 Vaccine Gil-sucrose 12+ Yrs 08/26/2024 Rabies IM, Fibroblast Culture 07/25/2025, 07/28/2025, 08/01/2025 Tdap 07/20/2025 Labs: Lab Results Component Value Date WBC 9.7 08/03/2025 HGB 12.6 08/03/2025 HCT 37.8 08/03/2025 MCV 95.9 08/03/2025 PLT 437 (H) 08/03/2025 Lab Results Component Value Date GLU 96 08/03/2025 NA 136 08/03/2025 K 3.8 08/03/2025 CO2 24 08/03/2025 CL 104 08/03/2025 BUN 15 08/03/2025 CREATININE 0.79 08/03/2025 Results for orders placed or performed during the hospital encounter of 07/24/25 (from the past 2 weeks) BLOOD CULTURE (NO STAIN) Collection Time: 07/24/25 2:52 AM Specimen: Blood, Venous Result Value Ref Range Culture Result No Growth at 120 hours. BLOOD CULTURE (NO STAIN) Collection Time: 07/24/25 2:52 AM Specimen: Blood, Venous Result Value Ref Range Culture Result No Growth at 120 hours. STAPHYLOCOCCUS AUREUS SCREEN Collection Time: 07/24/25 10:58 AM Specimen: Nares; Swab Result Value Ref Range Staph aureus PCR Detected (A) Not Detected MRSA PCR Detected (A) Not Detected ANAEROBIC CULTURE (NO STAIN) Collection Time: 07/25/25 5:29 PM Specimen: Hand, Right; Swab Result Value Ref Range Culture Positive Growth (A) Culture Sparse growth of Anaerobic gram negative marlena, suspect Prevotella species. Beta Lactamase Positive Culture Sparse growth of Anaerobic Gram Positive Rods WOUND CULTURE (STAIN INCLUDED) Collection Time: 07/25/25 5:29 PM Specimen: Hand, Right; Swab Result Value Ref Range Culture Positive Growth (A) Culture Very sparse growth of Streptococcus gallolyticus Culture Very sparse growth of Streptococcus sanguinis Stain Rare WBCs (A) Stain Rare Gram negative rods (A) Susceptibility Streptococcus sanguinis - SUSCEPTIBILITY RESULT Amoxicillin/Clavulanate Ampicillin <=0.06 Susceptible ug/mL Azithromycin <=0.25 Susceptible ug/mL Cefaclor Cefepime <=0.25 Susceptible ug/mL Cefotaxime <=0.25 Susceptible ug/mL Ceftriaxone <=0.25 Susceptible ug/mL Cefuroxime Chloramphenicol <=1 Susceptible ug/mL Clindamycin <=0.06 Susceptible ug/mL Erythromycin <=0.06 Susceptible ug/mL Gatifloxacin Levofloxacin <=0.25 Susceptible ug/mL Meropenem <=0.06 Susceptible ug/mL Penicillin 0.12 Susceptible ug/mL Tetracycline <=0.5 Susceptible ug/mL Trimethoprim/Sulfamethoxazole Vancomycin 0.5 Susceptible ug/mL Streptococcus gallolyticus - SUSCEPTIBILITY RESULT Amoxicillin/Clavulanate Ampicillin <=0.06 Susceptible ug/mL Azithromycin <=0.25 Susceptible ug/mL Cefaclor Cefepime <=0.25 Susceptible ug/mL Cefotaxime <=0.25 Susceptible ug/mL Ceftriaxone <=0.25 Susceptible ug/mL Cefuroxime Chloramphenicol <=1 Susceptible ug/mL Clindamycin 0.12 Susceptible ug/mL Erythromycin <=0.06 Susceptible ug/mL Gatifloxacin Levofloxacin 1 Susceptible ug/mL Meropenem <=0.06 Susceptible ug/mL Penicillin 0.06 Susceptible ug/mL Tetracycline <=0.5 Susceptible ug/mL Trimethoprim/Sulfamethoxazole Vancomycin 0.5 Susceptible ug/mL FUNGUS CULTURE (NO STAIN) Collection Time: 07/25/25 5:29 PM Specimen: Hand, Right; Swab Result Value Ref Range Culture No growth of fungus at 5 days. FECAL WHITE BLOOD CELLS Collection Time: 07/30/25 3:14 PM Specimen: Colon; Stool Result Value Ref Range Fecal WBCs Negative Negative Lab Results Component Value Date SEDRATE 18 08/03/2025 Lab Results Component Value Date CRP <3.00 08/03/2025 No results found. Pertinent laboratory and imaging results personally reviewed. Patient seen and examined. Timi Neville MD [1] No Known Allergies [2] Current Facility-Administered Medications Medication Dose Route Frequency Provider Last Rate Last Admin acetaminophen (TYLENOL) tablet 650 mg 650 mg Oral Q4H PRN Andre Sen MD 650 mg at 08/02/25 1542 alteplase (ACTIVASE) injection 1 mg 1 mg Intercatheter PRN Timi Forman MD ampicillin-sulbactam (UNASYN) 3 g in sodium chloride 0.9 % 100 mL IVPB 3 g Intravenous 4 times per day Timi Forman MD Stopped at 08/03/25 0533 carvediloL (COREG) tablet 6.25 mg 6.25 mg Oral BID Vida Kruger APRN 6.25 mg at 08/02/25 1828 empagliflozin (JARDIANCE) tablet 25 mg 25 mg Oral Daily Andre Sen MD 25 mg at 08/02/25 1008 enoxaparin (LOVENOX) injection 40 mg 40 mg Subcutaneous Daily - LMWH/Xa Edmond Cannon MD 40 mgat 08/02/25 1542 fUROsemide (LASix) tablet 40 mg 40 mg Oral Daily Danielle Mclean APRN 40 mg at 08/02/25 1005 loperamide (IMODIUM) capsule 2 mg 2 mg Oral QID PRN Vida Kruger APRN melatonin tablet 5-10 mg 5-10 mg Oral Nightly PRN Andre Sen MD 10 mg at 08/02/252131 mupirocin (BACTROBAN) 2 % ointment Nasal BID Timi Forman MD Given at 08/02/252049 naproxen (NAPROSYN) tablet 500 mg 500 mg Oral BID PRN Andre Sen MD 500 mg at 07/29/25 155 pantoprazole (PROTONIX) 40 mg in sodium chloride 0.9% 10 mL injection 40 mg Intravenous Daily Andre Sen MD Or pantoprazole (PROTONIX) tablet 40 mg 40 mg Oral Daily Andre Sen MD 40 mg at potassium chloride (KLOR-CON) tablet 10 mEq 10 mEq Oral Daily WM Andre Sne MD 10 mEqat 08/02/25 1005 prochlorperazine edisylate (COMPAZINE) injection 10 mg 10 mg Intravenous Q6H PRN Edmond Cannon MD 10 mg at 08/02/25 1541 [START ON 08/08/2025] rabies vaccine, PCEC (RABAVERT) injection 1 mL 1 mL Intramuscular Once Timi Forman MD Saccharomyces boulardii (FLORASTOR) capsule 250 mg 250 mg Oral BID Vida Kruger APRN 250 mg at 08/02/252049 sacubitriL-valsartan (ENTRESTO) 49-51 mg tablet 1 Tablet 1 Tablet Oral BID Adalbertoato, Jacqueline R, DO 1 Tablet at 08/02/25 2050 sodium chloride 0.9% IV line flush 20-50 mL 20-50 mL Intravenous PRN Timi Forman MD 150 mL/hr at 08/02/25 1550 50 mL at 08/02/25 1550 sodium chloride 0.9% IV line flush 20-50 mL 20-50 mL Intravenous PRN Juju, S, DO Stopped at 07/29/25 1122 sodium chloride 0.9% syringe 10 mL 10 mL Intravenous 3 times per day Timi Forman MD 10 mL at 08/03/25 0503 sodium chloride 0.9% syringe Intravenous PRN Timi Forman MD sodium chloride 0.9% syringe Intravenous PRN Juju S, DO spironolactone (ALDACTONE) tablet 25 mg 25 mg Oral Daily Andre Sen MD 25 mg at 08/02/25 1005 * Naima Oconnor PA - 08/02/2025 2:53 PM EDTAssociated Problem(s): Infection of wound due to dog bite - Dog bite on 07/20 - 07/20: Received tetanus vaccine, PO Augmentin, wounds were sutured - 07/23: in ED with worsening swelling to her R arm, sutures removed, wound cleansed at bedside - CT RUE 07/24: Acute comminuted fracture of lateral distal radial metaphysis with complete fracture extraction and displaced fracture cortical bone fragment. Vertical Cortical bone with focal acute inflammation (being treated as osteomyelitis) - Rabies IG 07/25, 07/28, Will need 08/01, 08/08/25, and 08/22/25 - Ortho consulted, 07/25: I & D open distal radial fracture - Wound culture: Rare GNR - Intra-OP cultures: + S. Galloyticus, S. Sanguinis - Plans for 6 wks IV ATB per ID, cannot be at home w/HX of IVDU -On IV Unasyn * Naima Oconnor PA - 08/02/2025 2:53 PM EDTAssociated Problem(s): Fracture of right radius - Dog bite on 07/20 - 07/20: Received tetanus vaccine, PO Augmentin, wounds were sutured - 07/23: in ED with worsening swelling to her R arm, sutures removed, wound cleansed at bedside - CT RUE 07/24: Acute comminuted fracture of lateral distal radial metaphysis with complete fracture extraction and displaced fracture cortical bone fragment. Vertical Cortical bone with focal acute inflammation (being treated as osteomyelitis) - Rabies IG 07/25, 07/28, Will need 08/01, 08/08/25, and 08/22/25 - Ortho consulted, 07/25: I & D open distal radial fracture - Wound culture: Rare GNR - Intra-OP cultures: + S. Galloyticus, S. Sanguinis - Plans for 6 wks IV ATB per ID, cannot be at home w/HX of IVDU -On IV Unasyn * Naima Oconnor PA - 08/02/2025 2:53 PM EDTAssociated Problem(s): Nonischemic cardiomyopathy (HCC) - NICM - LVSF: 26% per NEG stress test 12/13/2024 - Lost to f/u w/cardiology - CXR 07/30: NAF - NT-ProBNP >18,000 07/30 - EF 15-20% 07/31 - PO lasix 40 daily BOX TURNER - GDMT: Coreg, Entresto, Jardiance, IV Lasix, spironolactone - Repleted K 3.1 w/40 PO x 1 dose - Follow BMP - Cardiology following * Naima Oconnor PA - 08/02/2025 2:53 PM EDTAssociated Problem(s): Acute on chronic HFrEF (heart failure with reduced ejection fraction) (HCC) - NICM - LVSF: 26% per NEG stress test 12/13/2024 - Lost to f/u w/cardiology - CXR 07/30: NAF - NT-ProBNP >18,000 07/30 - EF 15-20% 07/31 - PO lasix 40 daily BOX TURNER - GDMT: Coreg, Entresto, Jardiance, IV Lasix, spironolactone - Repleted K 3.1 w/40 PO x 1 dose - Follow BMP - Cardiology following * Naima Oconnor PA - 08/02/2025 2:53 PM EDTAssociated Problem(s): Primary hypertension - - Continue Coreg, Entresto, Lasix, spironolactone, Jardiance - Improved w/IV diuresis & addition of Coreg this admission - Monitor * Naima Oconnor PA - 08/02/2025 2:53 PM EDTAssociated Problem(s): Anxiety -Mood stable 07/30 * Naima Oconnor PA - 08/02/2025 2:53 PM EDTAssociated Problem(s): JUAN (obstructive sleep apnea) -Home CPAP * Naima Oconnor PA - 08/02/2025 2:53 PM EDTAssociated Problem(s): Antibiotic-associated diarrhea -resolved -Cont Florastor * Naima Oconnor PA - 08/02/2025 2:47 PM EDT PROGRESS NOTE Admit date: 07/24/2025 LOS: 7 days Medically Ready for Discharge?: No EDOD: 08/03/2025 Not Ready for Discharge because: pending LTACH precert Assessment & Plan Infection of wound due to dog bite Fracture of right radius - Dog bite on 07/20 - 07/20: Received tetanus vaccine, PO Augmentin, wounds were sutured - 07/23: in ED with worsening swelling to her R arm, sutures removed, wound cleansed at bedside - CT RUE 07/24: Acute comminuted fracture of lateral distal radial metaphysis with complete fracture extraction and displaced fracture cortical bone fragment. Vertical Cortical bone with focal acute inflammation (being treated as osteomyelitis) - Rabies IG 07/25, 07/28, Will need 08/01, 08/08/25, and 08/22/25 - Ortho consulted, 07/25: I & D open distal radial fracture - Wound culture: Rare GNR - Intra-OP cultures: + S. Galloyticus, S. Sanguinis - Plans for 6 wks IV ATB per ID, cannot be at home w/HX of IVDU -On IV Unasyn Nonischemic cardiomyopathy (HCC) Acute on chronic HFrEF (heart failure with reduced ejection fraction) (HCC) - NICM - LVSF: 26% per NEG stress test 12/13/2024 - Lost to f/u w/cardiology - CXR 07/30: NAF - NT-ProBNP >18,000 07/30 - EF 15-20% 07/31 - PO lasix 40 daily BOX TURNER - GDMT: Coreg, Entresto, Jardiance, IV Lasix, spironolactone - Repleted K 3.1 w/40 PO x 1 dose - Follow BMP - Cardiology following Primary hypertension - - Continue Coreg, Entresto, Lasix, spironolactone, Jardiance - Improved w/IV diuresis & addition of Coreg this admission - Monitor Anxiety -Mood stable 07/30 JUAN (obstructive sleep apnea) -Home CPAP Antibiotic-associated diarrhea -resolved -Cont Florastor VTE Prophylaxis: Qualifying Pharmacologic Prophylaxis enoxaparin (LOVENOX) injection 40 mg DAILY - LMWH/Xa Active Hospital Problems Diagnosis *Infection of wound due to dog bite Acute on chronic HFrEF (heart failure with reduced ejection fraction) ([facility]) Antibiotic-associated diarrhea Primary hypertension 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 JUAN (obstructive sleep apnea) Nonischemic cardiomyopathy (HCC) Hypokalemia Fracture of right radius Anxiety Subjective: Feeling ok. No fevers. Shortness of breath is better. Denies cp. Objective: BP 92/68 (BP Location: Left leg) Pulse 83 Temp 98.1 ??F (36.7 ??C) (Oral) Resp 16 Ht 5' 5 (1.651 m) Wt 125 lb 1 oz (56.7 kg) LMP 07/18/2025 Comment: SERUM HCG NEGATIVE SpO2 99% BMI 20.81 kg/m?? I/O last 3 completed shifts: In: 2965.3 [P.O.:2676; IV Piggyback:289.3] Out: 700 [Urine:700] Weight: 125 lb 1 oz (56.7 kg) Constitutional: Alert and oriented to person, place, and time. No distress. Cardiovascular: Normal rate and regular rhythm. Exam reveals no friction rub. No murmur heard. Pulmonary/Chest: Effort normal and breath sounds normal. No respiratory distress. There are no wheezes. Abdominal: Soft. Bowel sounds are normal. No distension. There is no tenderness. There is no rebound and no guarding. Musculoskeletal: No lower extremity edema. R arm in dressing Neurological: Grossly normal. Skin: Skin is warm and dry. No erythema. Labs: Laboratory data and diagnostic testing reviewed 08/02/25. CAROL Robertson 08/02/2025 2:47 PM * Haley Souza RN - 08/02/2025 12:05 PM EDT Clinical Outcomes Saw patient for Heart Failure education. LWHF book and HF Zone Card given and reviewed. Reinforced sodium and fluid restrictions, daily weights and early symptom recognition. Encouraged compliance and adherence to all HF management guidelines. Discussed importance of close hospital follow up including scheduling/attending MD appts, timely symptom reporting, and medication adjustments based on DC instructions from the physician. Patient verbalized understanding and able to make own MD appts, declined my help at this time. She states non-compliance with meds and f/u prior to admit. Agreeable to [id number] expresses importance of obtaining MD. She cannot identify barriers to taking meds or f/u with MD. Reviewed all her medications and their purpose and compared them to meds cardio prescribed back in October. She talked about how she wore a LifeVest in the past while she was in halfway. Pt was engaged in the HF education. * Vida Kruger APRN - 08/01/2025 8:33 PM EDTAssociated Problem(s): Infection of wound due to dog bite -Dog bite on 07/20 -07/20: Received tetanus vaccine, PO Augmentin, wounds were sutured -07/23: in ED with worsening swelling to her R arm, sutures removed, wound cleansed at bedside -CT RUE 07/24: Acute comminuted fracture of lateral distal radial metaphysis with complete fractureextraction and displaced fracture cortical bone fragment. Vertical Cortical bone with focal acute inflammation (being treated as osteomyelitis) -Rabies IG 07/25, 07/28, Will need 08/01, 08/08/25, and 08/22/25 -Ortho consulted, 07/25: I & D open distal radial fracture -Wound culture: Rare GNR -Intra-OP cultures: + S. Galloyticus, S. Sanguinis -Plans for 6 wks IV ATB per ID, cannot be at home w/HX of IVDU -On IV Unasyn * Vida Kruger APRN - 08/01/2025 8:33 PM EDTAssociated Problem(s): Fracture of right radius -Dog bite on 07/20 -07/20: Received tetanus vaccine, PO Augmentin, wounds were sutured -07/23: in ED with worsening swelling to her R arm, sutures removed, wound cleansed at bedside -CT RUE 07/24: Acute comminuted fracture of lateral distal radial metaphysis with complete fractureextraction and displaced fracture cortical bone fragment. Vertical Cortical bone with focal acute inflammation (being treated as osteomyelitis) -Rabies IG 07/25, 07/28, Will need 08/01, 08/08/25, and 08/22/25 -Ortho consulted, 07/25: I & D open distal radial fracture -Wound culture: Rare GNR -Intra-OP cultures: + S. Galloyticus, S. Sanguinis -Plans for 6 wks IV ATB per ID, cannot be at home w/HX of IVDU -On IV Unasyn * Vida Kruger APRN - 08/01/2025 8:33 PM EDTAssociated Problem(s): Nonischemic cardiomyopathy (HCC) - NICM - LVSF: 26% per NEG stress test 12/13/2024 - Lost to f/u w/cardiology - CXR 07/30: NAF - NT-ProBNP >18,000 07/30 - EF 15-20% 07/31 - PO lasix 40 daily BOX TURNER - GDMT: Coreg, Entresto, Jardiance, IV Lasix, spironolactone - Repleted K 3.1 w/40 PO x 1 dose - Follow BMP - Cardiology following * Vida Kruger APRN - 08/01/2025 8:33 PM EDTAssociated Problem(s): Acute on chronic HFrEF (heart failure with reduced ejection fraction) (HCC) - NICM - LVSF: 26% per NEG stress test 12/13/2024 - Lost to f/u w/cardiology - CXR 07/30: NAF - NT-ProBNP >18,000 07/30 - EF 15-20% 07/31 - PO lasix 40 daily BOX TURNER - GDMT: Coreg, Entresto, Jardiance, IV Lasix, spironolactone - Repleted K 3.1 w/40 PO x 1 dose - Follow BMP - Cardiology following * Vida Kruger APRN - 08/01/2025 8:33 PM EDTAssociated Problem(s): Primary hypertension - Improved 08/01 - Continue Coreg, Entresto, Lasix, spironolactone, Jardiance - Improved w/IV diuresis & addition of Coreg this admission - Monitor * Vida Kruger APRN - 08/01/2025 8:33 PM EDTAssociated Problem(s): Anxiety -Mood stable 07/30 * Vida Kruger APRN - 08/01/2025 8:33 PM EDTAssociated Problem(s): Antibiotic-associated diarrhea -resolved -Cont Florastor * Vida Kruger APRN - 08/01/2025 8:46 AM EDTAssociated Problem(s): Leukocytosis (Resolved 08/01/2025) -WBC 12.3 07/30, most recently WNL -Denies, fever/chills -On IV Atb for wound infection as above, ID following -UA: reviewed and OK -Fecal WBC: Reviewed and NEG - Follow CBC * Vida Kruger APRN - 08/01/2025 8:46 AM EDTAssociated Problem(s): JUAN (obstructive sleep apnea) -Home CPAP * Vida Kruger APRN - 08/01/2025 8:46 AM EDT PROGRESS NOTE Handoff Completed: Yes Disposition Perspective - Medically ready for discharge: No Anticipated ready for discharge timeframe?: 2 days Ready for discharge when / if?: pending precert to select specialty. Admitted on 07/24/2025: with: Infected bite wound from an unknown dog. She went to OR 07/25 for ORIF of R Radial Fracture. Osteomyelitis could not be ruled out on imaging. ID managing ATB. Receiving Rabies Vaccines. HX of IVDU, plans for 6 wks ATB per ID in SNF/[facility]. Estimated Date of Discharge: 08/02-08/03/2025 Assessment & Plan Infection of wound due to dog bite Fracture of right radius -Dog bite on 07/20 -07/20: Received tetanus vaccine, PO Augmentin, wounds were sutured -07/23: in ED with worsening swelling to her R arm, sutures removed, wound cleansed at bedside -CT RUE 07/24: Acute comminuted fracture of lateral distal radial metaphysis with complete fractureextraction and displaced fracture cortical bone fragment. Vertical Cortical bone with focal acute inflammation (being treated as osteomyelitis) -Rabies IG 07/25, 07/28, Will need 08/01, 08/08/25, and 08/22/25 -Ortho consulted, 07/25: I & D open distal radial fracture -Wound culture: Rare GNR -Intra-OP cultures: + S. Galloyticus, S. Sanguinis -Plans for 6 wks IV ATB per ID, cannot be at home w/HX of IVDU -On IV Unasyn Nonischemic cardiomyopathy (HCC) Acute on chronic HFrEF (heart failure with reduced ejection fraction) ([facility]) - NICM - LVSF: 26% per NEG stress test 12/13/2024 - Lost to f/u w/cardiology - CXR 07/30: NAF - NT-ProBNP >18,000 07/30 - EF 15-20% 07/31 - PO lasix 40 daily BOX TURNER - GDMT: Coreg, Entresto, Jardiance, IV Lasix, spironolactone - Repleted K 3.1 w/40 PO x 1 dose - Follow BMP - Cardiology following Leukocytosis (Resolved: 08/01/2025) -WBC 12.3 07/30, most recently WNL -Denies, fever/chills -On IV Atb for wound infection as above, ID following -UA: reviewed and OK -Fecal WBC: Reviewed and NEG - Follow CBC Primary hypertension - Improved 08/01 - Continue Coreg, Entresto, Lasix, spironolactone, Jardiance - Improved w/IV diuresis & addition of Coreg this admission - Monitor Anxiety -Mood stable 07/30 JUAN (obstructive sleep apnea) -Home CPAP Antibiotic-associated diarrhea -resolved -Cont Florastor FEN: CARDIAC DIET Dispo: Pending Pre-cert to [facility] Prophylaxis: Qualifying Pharmacologic Prophylaxis enoxaparin (LOVENOX) injection 40 mg DAILY - LMWH/Xa Active Hospital Problems Diagnosis *Infection of wound due to dog bite Acute on chronic HFrEF (heart failure with reduced ejection fraction) (HCC) Leukocytosis Antibiotic-associated diarrhea Primary hypertension 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 Not SOB at rest. Still feels SOB w/exertion, even walking to the bathroom. Denies fevers/chills. Slept OK overnight. Reports urinating a lot since getting IV lasix. Objective: BP 130/87 (BP Location: Left leg, Patient Position: Semi Fowlers) Pulse 76 Temp 97.5 ??F (36.4 ??C) (Oral) Resp 14 Ht 5' 5 (1.651 m) Wt 125 lb 1 oz (56.7 kg) LMP 07/18/2025 Comment: SERUM HCG NEGATIVE SpO2 100% BMI 20.81 kg/m?? I/O last 3 completed shifts: In: 3614.8 [P.O.:2147; I.V.:393.3; IV Piggyback:1074.4] Out: 4000 [Urine:4000] Weight: 125 lb 1 oz (56.7 kg) Constitutional: A&O to person, place, and time. No acute distress. Cardiovascular: RRR. Pulmonary/Chest:Normal Effort and breath sounds are normal. No respiratory distress. There are no wheezes. Abdominal: Soft. Bowel sounds are normal. No distension. There is no tenderness. There is no rebound and no guarding. Musculoskeletal: RUE surgical site, w/dressing/OSWALDO in place. Neurological: Grossly normal. Skin: Skin is warm and dry. No erythema. Labs: Laboratory data and diagnostic testing personally reviewed 08/01/25. Findings are detailed above. Imaging: I have personally reviewed all new imaging as of 08/01/25. Findings are detailed above. Vida Devine APRN 08/01/2025 8:46 AM * Sunday Heard MD - 08/01/2025 8:30 AM EDT Heart & Vascular Progress Note PATIENT: Nita B Arslan 7 Cardiology following for: HFrEF Subjective: Feeling well this morning, laying flat. No leg swelling. States she is still getting short of breath with exertion. Objective: Vitals: 08/01/25 0359 BP: 130/87 Pulse: 76 Resp: 14 Temp: 97.5 ??F (36.4 ??C) SpO2: 100% I/O 24 hours: Intake/Output Summary (Last 24 hours) at 08/01/2025 0830 Last data filed at 08/01/2025 0629 Gross per 24 hour Intake 3134.77 ml Output 4000 ml Net -865.23 ml Physical Exam: Physical Exam Cardiovascular: Pulses: Normal pulses. Heart sounds: Normal heart sounds. No murmur heard. Pulmonary: Effort: Pulmonary effort is normal. No respiratory distress. Breath sounds: Normal breath sounds. Musculoskeletal: Cervical back: Normal range of motion and neck supple. Right lower leg: No edema. Left lower leg: No edema. Skin: General: Skin is warm and dry. Neurological: Mental Status: She is alert and oriented to person, place, and time. Medication: ampicillin-sulbactam (UNASYN) IVPB (Orderable) 3 g Intravenous 4 times per day carvediloL 6.25 mg Oral BID WM empagliflozin 25 mg Oral Daily enoxaparin 40 mg Subcutaneous Daily - LMWH/Xa fUROsemide 40 mg Intravenous BID Diuretic mupirocin Nasal BID pantoprazole (PROTONIX) 40 mg Intravenous Daily Or pantoprazole 40 mg Oral Daily potassium chloride 10 mEq Oral Daily WM rabies vaccine, PCEC 1 mL Intramuscular Once Followed by [START ON 08/08/2025] rabies vaccine, PCEC 1 mL Intramuscular Once Saccharomyces boulardii 250 mg Oral BID sacubitriL-valsartan 1 Tablet Oral BID sodium chloride 0.9% 10 mL Intravenous 3 times per day spironolactone 25 mg Oral Daily Labs & Studies: All pertinent labs & radiologic studies for the past 24 hours have been reviewed Telemetry: not on tele Assessment: Ao HFrEF VHD -Echo 07/31/25 EF 15-20%, global HK, G2DD, mild MR -nonischemic stress 12/13/24 but with low EF -BNP 18,000 -BOX TURNER Farxiga, lasix, losartan, aldactone - unclear if she was taking -losartan changed to Entresto 07/31 -s/p IV lasix -does not appear overloaded by exam -continue coreg, aldactone, Entresto -consider cMRI as outpatient Infected dog bite Right radial fracture -abx per primary Tobacco use Cannabis use History substance abuse -needs cessation Hypokalemia -K+ 3.1 -replete potassium Plan: - Will give additional dose IV lasix today, then transition back to PO -Continue coreg, Jardiance, Entresto, aldactone -Consider cMRI as outpatient -Replace potassium Further input from Dr Heard. Danielle Mclean APRN, Heart and Vascular 08/01/2025 Disposition Perspective - Medically Ready for Discharge: No Anticipated Discharge: tomorrow Discharge when / if: Pending improvement in shortness of breath Pt was seen in conjunction with a mid-level provider. Pt has no chest pain, sob is better Head atraumatic. Neck supple, no JVD CVS-s1,s2 rrr. RS- no rales or rhonchi. Abd soft Ext no edema. Alert and oriented. Plan: CHF Diuresis Now compensated Compliance with HF meds strongly advised. Rt UE dressing Dog bite Per pcp Close FU, labs. I personally performed medical decision making in its entirety. Sunday Heard MD, FACC * Vida Kruger APRN - 07/31/2025 11:21 AM EDTAssociated Problem(s): Infection of wound due to dog bite -Dog bite on 07/20, unknown dog -07/20: Received tetanus vaccine, PO Augmentin, wounds were sutured -07/23: At ED with worsening swelling to her right arm, sutures removed wound cleansed at bedside -CT RUE 07/24: Acute comminuted fracture of lateral distal radial metaphysis with complete fractureextraction and displaced fracture cortical bone fragment. Vertical Cortical bone with focal acute inflammation (being treated as osteomyelitis) -Rabies IG 07/25, 07/28, Will need 08/01, 08/08/25, and 08/22/25 -Ortho consulted, 07/25: I & D open distal radial fracture -Wound culture: Rare GNR -Intra-OP cultures: + S. Galloyticus, S. Sanguinis -Plans for 6 wks IV ATB per ID, cannot be at home w/HX of IVDU -On IV Unasyn * Vida Kruger APRN - 07/31/2025 11:21 AM EDTAssociated Problem(s): Fracture of right radius -Dog bite on 07/20, unknown dog -07/20: Received tetanus vaccine, PO Augmentin, wounds were sutured -07/23: At ED with worsening swelling to her right arm, sutures removed wound cleansed at bedside -CT RUE 07/24: Acute comminuted fracture of lateral distal radial metaphysis with complete fractureextraction and displaced fracture cortical bone fragment. Vertical Cortical bone with focal acute inflammation (being treated as osteomyelitis) -Rabies IG 07/25, 07/28, Will need 08/01, 08/08/25, and 08/22/25 -Ortho consulted, 07/25: I & D open distal radial fracture -Wound culture: Rare GNR -Intra-OP cultures: + S. Galloyticus, S. Sanguinis -Plans for 6 wks IV ATB per ID, cannot be at home w/HX of IVDU -On IV Unasyn * Vida Kruger APRN - 07/31/2025 11:21 AM EDTAssociated Problem(s): Nonischemic cardiomyopathy (HCC) - Presumed Non-ischemic w/Nml Stress test and HX of Substance abuse - LVSF: 26% per stress test 12/13/2024 - Lost to f/u w/cardiology since, never completed ECHO as OP - Compensated on RA, but feels very SOB, no edema, LCTA 07/30 - CXR 07/30: NAF - GDMT: Coreg, Losartan, Jardiance, Lasix, spironolactone - NT-ProBNP >18,000 07/30 - IV Lasix - Strict I/O (There is ZERO Output documented in last 24hrs. This was discussed w/mid level developer Margie,Primary RN and PROJECT OFFICER) - Daily Wts - 2g Fluid Restriction, 2L Fluid restriction - Monitor Renal function and Electrolytes w/IV diuresis - ECHO today - Cardiology involved * Vida Kruger APRN - 07/31/2025 11:21 AM EDTAssociated Problem(s): Acute on chronic HFrEF (heart failure with reduced ejection fraction) (HCC) - Presumed Non-ischemic w/Nml Stress test and HX of Substance abuse - LVSF: 26% per stress test 12/13/2024 - Lost to f/u w/cardiology since, never completed ECHO as OP - Compensated on RA, but feels very SOB, no edema, LCTA 07/30 - CXR 07/30: NAF - GDMT: Coreg, Losartan, Jardiance, Lasix, spironolactone - NT-ProBNP >18,000 07/30 - IV Lasix - Strict I/O (There is ZERO Output documented in last 24hrs. This was discussed w/mid level developer Margie,Primary RN and PROJECT OFFICER) - Daily Wts - 2g Fluid Restriction, 2L Fluid restriction - Monitor Renal function and Electrolytes w/IV diuresis - ECHO today - Cardiology involved * Vida Kruger APRN - 07/31/2025 11:21 AM EDTAssociated Problem(s): Leukocytosis (Resolved 08/01/2025) -WBC 12.3 07/30, most recently WNL -Denies, fever/chills -On IV Atb for wound infection as above, ID following -UA: reviewed and OK -Fecal WBC: Reviewed and NEG - Follow CBC * Vida Kruger APRN - 07/31/2025 11:21 AM EDTAssociated Problem(s): Primary hypertension - Slight improvement 07/31, does remain labile - Continue Coreg, losartan, Lasix, spironolactone, Jardiance - Suspect some of this is in setting of volume overload - Monitor with continued IV diuresis - Cardiology is also involved * Vida Kruger APRN - 07/31/2025 9:58 AM EDTAssociated Problem(s): Anxiety -Stable 07/30 * Vida Kruger APRN - 07/31/2025 9:58 AM EDTAssociated Problem(s): JUAN (obstructive sleep apnea) -Home CPAP * Vida Kruger APRN - 07/31/2025 9:58 AM EDTAssociated Problem(s): Antibiotic-associated diarrhea -Reported episodes following IV ATB administration -Improving -Cont Florastor -Monitor daily BMP * Vida Kruger APRN - 07/31/2025 9:58 AM EDT PROGRESS NOTE Assessment & Plan Infection of wound due to dog bite Fracture of right radius -Dog bite on 07/20, unknown dog -07/20: Received tetanus vaccine, PO Augmentin, wounds were sutured -07/23: At ED with worsening swelling to her right arm, sutures removed wound cleansed at bedside -CT RUE 07/24: Acute comminuted fracture of lateral distal radial metaphysis with complete fractureextraction and displaced fracture cortical bone fragment. Vertical Cortical bone with focal acute inflammation (being treated as osteomyelitis) -Rabies IG 07/25, 07/28, Will need 08/01, 08/08/25, and 08/22/25 -Ortho consulted, 07/25: I & D open distal radial fracture -Wound culture: Rare GNR -Intra-OP cultures: + S. Galloyticus, S. Sanguinis -Plans for 6 wks IV ATB per ID, cannot be at home w/HX of IVDU -On IV Unasyn Nonischemic cardiomyopathy (HCC) Acute on chronic HFrEF (heart failure with reduced ejection fraction) (HCC) - Presumed Non-ischemic w/Nml Stress test and HX of Substance abuse - LVSF: 26% per stress test 12/13/2024 - Lost to f/u w/cardiology since, never completed ECHO as OP - Compensated on RA, but feels very SOB, no edema, LCTA 07/30 - CXR 07/30: NAF - GDMT: Coreg, Losartan, Jardiance, Lasix, spironolactone - NT-ProBNP >18,000 07/30 - IV Lasix - Strict I/O (There is ZERO Output documented in last 24hrs. This was discussed w/mid level developer Margie,Primary RN and PROJECT OFFICER) - Daily Wts - 2g Fluid Restriction, 2L Fluid restriction - Monitor Renal function and Electrolytes w/IV diuresis - ECHO today - Cardiology involved Leukocytosis -WBC 12.3 07/30, most recently WNL -Denies, fever/chills -On IV Atb for wound infection as above, ID following -UA: reviewed and OK -Fecal WBC: Reviewed and NEG - Follow CBC Primary hypertension - Slight improvement 07/31, does remain labile - Continue Coreg, losartan, Lasix, spironolactone, Jardiance - Suspect some of this is in setting of volume overload - Monitor with continued IV diuresis - Cardiology is also involved Anxiety -Stable 07/30 JUAN (obstructive sleep apnea) -Home CPAP Antibiotic-associated diarrhea -Reported episodes following IV ATB administration -Improving -Cont Florastor -Monitor daily BMP FEN: CARDIAC DIET Dispo: 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 Patient tells me patient tells me she had some shortness ofbreath overnight but is overall feeling slightly better since having IV Lasix yesterday. She reports frequent urination with the IV Lasix feels she is urinating more. Denies any chest pain, fever, chills, nausea. Objective: BP (!) 150/101 (BP Location: Left leg, Patient Position: Semi Fowlers) Pulse 99 Temp 98.1 ??F (36.7 ??C) (Oral) Resp 15 Ht 5' 5 (1.651 m) Wt 125 lb 1 oz (56.7 kg) LMP 07/18/2025 Comment:SERUM HCG NEGATIVE SpO2 99% BMI 20.81 kg/m?? No intake/output data recorded. Weight: 125 lb 1 oz (56.7 kg) Constitutional: A&O to person, place, and time. No acute distress. Cardiovascular: IRRR. Pulmonary/Chest:Normal Effort and breath sounds are normal. No respiratory distress. There are no wheezes. Abdominal: Soft. Bowel sounds are normal. No distension. There is no tenderness. There is no rebound and no guarding. Musculoskeletal: RUE surgical site, w/dressing/OSWALDO in place. Neurological: Grossly normal. Skin: Skin is warm and dry. No erythema. Labs: Laboratory data and diagnostic testing personally reviewed 07/31/25. Findings are detailed above. Imaging: I have personally reviewed all new imaging as of 07/31/25. Findings are detailed above. Vida Devine APRN 07/31/2025 9:58 AM * Vida Kruger APRN - 07/30/2025 12:46 PM EDTAssociated Problem(s): Leukocytosis (Resolved 08/01/2025) -WBC 12.3 07/30, most recently WNL -Afebrile -On IV Atb for wound infection as above, ID following -Check UA -Check Fecal WBC -Monitor CBC * Vida Kruger APRN - 07/30/2025 12:42 PM EDTAssociated Problem(s): Nonischemic cardiomyopathy (HCC) - Presumed Non-ischemic w/Nml Stress test and HX of Substance abuse - LVSF estimated 26% on stress test 12/13/2024 - Lost to f/u w/cardiology since, never completed ECHO as OP - Compensated on RA, but feels very SOB, no edema, LCTA 07/30 - CXR 07/30: NAF - GDMT: Losartan, Jardiance, furosemide 40mg daily - Increase Coreg - NT-ProBNP >18,000 07/30 - 1 x IV Lasix 20mg additional - Hold PO lasix, needing IV diuresis - Strict I/O - Daily Wts - 2g Fluid Restriction, 2L Fluid restriction - Monitor Renal function and Electrolytes w/IV diuresis - Check ECHO today w/low EF and progressive SOB - Cardiology C/s, appreciate recs * Vida Kruger APRN - 07/30/2025 12:42 PM EDTAssociated Problem(s): Primary hypertension - labile, but still higher than acceptable - Increase Coreg, cont losartan - Monitor BP's w/need for IV diuresis * Vida Kruger APRN - 07/30/2025 12:42 PM EDTAssociated Problem(s): Acute on chronic HFrEF (heart failure with reduced ejection fraction) (HCC) - Presumed Non-ischemic w/Nml Stress test and HX of Substance abuse - LVSF estimated 26% on stress test 12/13/2024 - Lost to f/u w/cardiology since, never completed ECHO as OP - Compensated on RA, but feels very SOB, no edema, LCTA 07/30 - CXR 07/30: NAF - GDMT: Losartan, Jardiance, furosemide 40mg daily - Increase Coreg - NT-ProBNP >18,000 07/30 - 1 x IV Lasix 20mg additional - Hold PO lasix, needing IV diuresis - Strict I/O - Daily Wts - 2g Fluid Restriction, 2L Fluid restriction - Monitor Renal function and Electrolytes w/IV diuresis - Check ECHO today w/low EF and progressive SOB - Cardiology C/s, appreciate recs * Vida Kruger APRN - 07/30/2025 12:38 PM EDTAssociated Problem(s): Anxiety -Stable 07/30 * Vida Kruger APRN - 07/30/2025 12:38 PM EDTAssociated Problem(s): JUAN (obstructive sleep apnea) -Home CPAP * Vida Kruger APRN - 07/30/2025 12:38 PM EDTAssociated Problem(s): Antibiotic-associated diarrhea -Reported episodes following IV ATB administration -Improving -Cont Florastor -Monitor daily BMP * Vida Kruger APRN - 07/30/2025 9:41 AM EDTAssociated Problem(s): Infection of wound due to dog bite -Dog bite on 07/20, unknown dog -07/20: Received tetanus vaccine, PO Augmentin, wounds were sutured -07/23: Again at ED with worsening swelling to her right arm, sutures removed wound cleansed at bedside -CT RUE 07/24: Acute comminuted fracture of lateral distal radial metaphysis with complete fractureextraction and displaced fracture cortical bone fragment. Vertical Cortical bone with focal acute inflammation (being treated as osteomyelitis) -Rabies IG 07/25, 07/28, Will need 08/01, 08/08/25, and 08/22/25 -Ortho consulted, 07/25: I & D open distal radial fracture -Wound culture: Rare GNR -Intra-OP cultures: S. Galloyticus, S. Sanguinis -Will need 6 wks IV ATB per ID, not at home w/HX of IVDU -On IV Unasyn, S/P PICC insertion * Vida Kruger APRN - 07/30/2025 9:41 AM EDTAssociated Problem(s): Fracture of right radius -Dog bite on 07/20, unknown dog -07/20: Received tetanus vaccine, PO Augmentin, wounds were sutured -07/23: Again at ED with worsening swelling to her right arm, sutures removed wound cleansed at bedside -CT RUE 07/24: Acute comminuted fracture of lateral distal radial metaphysis with complete fractureextraction and displaced fracture cortical bone fragment. Vertical Cortical bone with focal acute inflammation (being treated as osteomyelitis) -Rabies IG 07/25, 07/28, Will need 08/01, 08/08/25, and 08/22/25 -Ortho consulted, 07/25: I & D open distal radial fracture -Wound culture: Rare GNR -Intra-OP cultures: S. Galloyticus, S. Sanguinis -Will need 6 wks IV ATB per ID, not at home w/HX of IVDU -On IV Unasyn, S/P PICC insertion * Vida Kruger APRN - 07/30/2025 9:41 AM EDTAssociated Problem(s): Nausea (Resolved 07/30/2025) -On initial admission -Now resolved, currently denies * Vida Kruger APRN - 07/30/2025 9:41 AM EDT PROGRESS NOTE Assessment & Plan Infection of wound due to dog bite Fracture of right radius -Dog bite on 07/20, unknown dog -07/20: Received tetanus vaccine, PO Augmentin, wounds were sutured -07/23: Again at ED with worsening swelling to her right arm, sutures removed wound cleansed at bedside -CT RUE 07/24: Acute comminuted fracture of lateral distal radial metaphysis with complete fractureextraction and displaced fracture cortical bone fragment. Vertical Cortical bone with focal acute inflammation (being treated as osteomyelitis) -Rabies IG 07/25, 07/28, Will need 08/01, 08/08/25, and 08/22/25 -Ortho consulted, 07/25: I & D open distal radial fracture -Wound culture: Rare GNR -Intra-OP cultures: S. Galloyticus, S. Sanguinis -Will need 6 wks IV ATB per ID, not at home w/HX of IVDU -On IV Unasyn, S/P PICC insertion Nonischemic cardiomyopathy (HCC) Acute on chronic HFrEF (heart failure with reduced ejection fraction) (HCC) - Presumed Non-ischemic w/Nml Stress test and HX of Substance abuse - LVSF estimated 26% on stress test 12/13/2024 - Lost to f/u w/cardiology since, never completed ECHO as OP - Compensated on RA, but feels very SOB, no edema, LCTA 07/30 - CXR 07/30: NAF - GDMT: Losartan, Jardiance, furosemide 40mg daily - Increase Coreg - NT-ProBNP >18,000 07/30 - 1 x IV Lasix 20mg additional - Hold PO lasix, needing IV diuresis - Strict I/O - Daily Wts - 2g Fluid Restriction, 2L Fluid restriction - Monitor Renal function and Electrolytes w/IV diuresis - Check ECHO today w/low EF and progressive SOB - Cardiology C/s, appreciate recs Leukocytosis -WBC 12.3 07/30, most recently WNL -Afebrile -On IV Atb for wound infection as above, ID following -Check UA -Check Fecal WBC -Monitor CBC Primary hypertension - labile, but still higher than acceptable - Increase Coreg, cont losartan - Monitor BP's w/need for IV diuresis Anxiety -Stable 07/30 JUAN (obstructive sleep apnea) -Home CPAP Nausea (Resolved: 07/30/2025) -On initial admission -Now resolved, currently denies Antibiotic-associated diarrhea -Reported episodes following IV ATB administration -Improving -Cont Florastor -Monitor daily BMP FEN: REGULAR DIET Dispo: Pre-Cert pending for [facility]. 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 Feeling very SOB today, feels worse than yesterday. Denies Fevers/chillsor nausea. Diarrhea is a little better. She does not appear in acute respiratory distress. She denies acute complaints overnight. No c/o pain. Objective: BP (!) 150/108 (BP Location: Left leg, Patient Position: Semi Fowlers) Pulse 107 Temp 97.5 ??F (36.4 ??C) (Oral) Resp 15 Ht 5' 5 (1.651 m) Wt 137 lb (62.1 kg) LMP 07/18/2025 Comment: SERUM HCG NEGATIVE SpO2 99% BMI 22.80 kg/m?? I/O last 3 completed shifts: In: 2494.7 [P.O.:1080; I.V.:271.2; IV Piggyback:1143.6] Out: - Weight: 137 lb (62.1 kg) Constitutional: A&O to person, place, and time. No acute distress. Cardiovascular: IRRR. Pulmonary/Chest:Normal Effort and breath sounds are normal. No respiratory distress. There are no wheezes. Abdominal: Soft. Bowel sounds are normal. No distension. There is no tenderness. There is no rebound and no guarding. Musculoskeletal: RUE surgical site, w/dressing/OSWALDO in place. Neurological: Grossly normal. Skin: Skin is warm and dry. No erythema. Labs: Laboratory data and diagnostic testing personally reviewed 07/30/25. Findings are detailed above. Imaging: I have personally reviewed all new imaging as of 07/30/25. Findings are detailed above. Vida Devine APRN 07/30/2025 9:41 AM * Vida Kruger APRN - 07/29/2025 4:54 PM EDTAssociated Problem(s): Primary hypertension - BP's trending up - Cont Losartan, Lasix - Start Coreg as above - Monitor BP's * Vida Kruger APRN - 07/29/2025 4:53 PM EDTAssociated Problem(s): Antibiotic-associated diarrhea -Reports episodes following IV Antibiotic. -Start Florastor -Monitor BMP * Vida Kruger APRN - 07/29/2025 4:52 PM EDTAssociated Problem(s): Infection of wound due to dog bite -Dog bite on 07/20, unknown dog -07/20: Received tetanus vaccine, PO Augmentin, wounds were sutured -07/23: Again at ED with worsening swelling to her right arm, sutures removed wound cleansed at bedside -CT RUE 07/24: Acute comminuted fracture of lateral distal radial metaphysis with complete fractureextraction and displaced fracture cortical bone fragment. Vertical Cortical bone with focal acute inflammation (being treated as osteomyelitis) -Rabies IG 07/25, 07/28, Will need 08/01, 08/08/25, and 08/22/25 -Ortho consulted, 07/25: I & D open distal radial fracture -Wound culture: Rare GNR -Intra-OP cultures: S. Galloyticus, S. Sanguinis -Will need 6 wks IV ATB per ID, not at home w/HX of IVDU -On IV Unasyn, S/P PICC insertion * Vida Kruger APRN - 07/29/2025 4:52 PM EDTAssociated Problem(s): Fracture of right radius -Dog bite on 07/20, unknown dog -07/20: Received tetanus vaccine, PO Augmentin, wounds were sutured -07/23: Again at ED with worsening swelling to her right arm, sutures removed wound cleansed at bedside -CT RUE 07/24: Acute comminuted fracture of lateral distal radial metaphysis with complete fractureextraction and displaced fracture cortical bone fragment. Vertical Cortical bone with focal acute inflammation (being treated as osteomyelitis) -Rabies IG 07/25, 07/28, Will need 08/01, 08/08/25, and 08/22/25 -Ortho consulted, 07/25: I & D open distal radial fracture -Wound culture: Rare GNR -Intra-OP cultures: S. Galloyticus, S. Sanguinis -Will need 6 wks IV ATB per ID, not at home w/HX of IVDU -On IV Unasyn, S/P PICC insertion * Vida Kruger APRN - 07/29/2025 4:52 PM EDTAssociated Problem(s): Anxiety -Mood stable 07/29 * Vida Kruger APRN - 07/29/2025 4:52 PM EDTAssociated Problem(s): JUAN (obstructive sleep apnea) -Home CPAP nightly * Vida Kruger APRN - 07/29/2025 4:52 PM EDTAssociated Problem(s): Nonischemic cardiomyopathy (HCC) - Compensated, euvolemic by exam - LVSF estimated 26% on stress test 12/13/2024 - Cont GDMT: Losartan, Jardiance, furosemide - Chart reviewed, No noted contraindication to BB therapy - Start Carvedilol 3.125 mg to help w/DBP & HR - Monitor VS - Lost to f/u w/cardiology - Check ECHO * Vida Kruger APRN - 07/29/2025 4:52 PM EDTAssociated Problem(s): Nausea (Resolved 07/30/2025) -On initial admission -Now resolved, currently denies * Marely Fernández BSW - 07/29/2025 3:06 PM EDT 07/29/25 1505 Ongoing Discharge Planning Evaluation Repisodic List provided Yes, Provided information, demonstrated how to access quality and resource utilization data for post acute provider and offered assistance and [facility] Financial Disclosure completed Actual Discharge Plan 07/29 SW: Noted pt need 6 weeks IV abx in a facility. LTACH discussed with ptand agreeable to [facility]. Referral sent and [facility] will start insurance [facility]. SW continue to follow. * Durga Walker RPH - 07/29/2025 12:19 PM EDT S: Nita Oquendo is a(n) 39 y.o. female with female admitted with infected right wrist wound andright radial fracture from a dog bite on 07/20. Allergies: Patient has no known allergies. Day 5 of pharmacy managed vancomycin therapy. ID is following. Other antimicrobials include: Ampicillin/sulbactam (07/23- ) O: Most Recent Labs: Temp Min: 97.3 ??F (36.3 ??C) Max: 98 ??F (36.7 ??C) Recent Labs 07/23/25 2102 07/25/25 0604 07/25/25 0624 07/26/25 0512 07/27/25 0631 07/28/25 0652 07/29/25 0545 WBC 8.8 -- 8.9 10.0 -- -- -- BUN 5* < > -- 9 10 7 8 CREATININE 0.74 < > -- 0.83 0.87 0.72 0.74 < > = values in this interval not displayed. Estimated Creatinine Clearance: 101.1 mL/min (by C-G formula based on SCr of 0.74 mg/dL). Recent Labs 07/26/25 1551 07/26/25 2046 07/29/25 1119 VANCOTROUGH -- -- 12.6 VANCOAUC1 22.9 -- -- VANCOAUC2 -- 15.1 -- Recent Labs 07/23/25 2102 PROCLCTNIN 0.05 Recent Labs 07/23/25 2102 LACTA 1.0 Recent Labs 07/23/25 210 CRP 51.74* No intake/output data recorded. I/O this shift: In: 1774.7 [P.O.:360; I.V.:271.2; IV Piggyback:1143.6] Out: - Height: 5' 5 (165.1 cm) Weight: 137 lb (62.1 kg) Culture & Sensitivities: Results for orders placed or performed during the hospital encounter of 07/24/25 (from the past 2 weeks) BLOOD CULTURE (NO STAIN) Collection Time: 07/24/25 2:52 AM Specimen: Blood, Venous Result Value Ref Range Culture Result No Growth at 120 hours. BLOOD CULTURE (NO STAIN) Collection Time: 07/24/25 2:52 AM Specimen: Blood, Venous Result Value Ref Range Culture Result No Growth at 120 hours. STAPHYLOCOCCUS AUREUS SCREEN Collection Time: 07/24/25 10:58 AM Specimen: Nares; Swab Result Value Ref Range Staph aureus PCR Detected (A) Not Detected MRSA PCR Detected (A) Not Detected ANAEROBIC CULTURE (NO STAIN) Collection Time: 07/25/25 5:29 PM Specimen: Hand, Right; Swab Result Value Ref Range Culture No anaerobic growth to date. WOUND CULTURE (STAIN INCLUDED) Collection Time: 07/25/25 5:29 PM Specimen: Hand, Right; Swab Result Value Ref Range Culture Positive Growth (A) Culture Very sparse growth of Streptococcus gallolyticus Culture Very sparse growth of Streptococcus sanguinis Stain Rare WBCs (A) Stain Rare Gram negative rods (A) A/P: Physician orders and progress notes reviewed. Patient's renal function is stable. Initiated vancomycin therapy with a loading dose of 1,250 mg (~20 mg/kg), followed by a maintenancedose of 1,000 mg (~16 mg/kg) every 12 hours for goal AUC of 400-600. Patient's calculated kinetic parameters based off this regimen at approximately steady state: - Ke = 0.0847 hr^-1 - Half-life = 8.2 hr - Cmax = 29.36 mcg/mL - Cmin = 12.06 mcg/mL - AUCss = 471 mg??hr/L Vancomycin trough today therapeutic 12.6 mcg/mL (~12 hours after dose) Will continue patient's current dosing regimen of 1,000 mg (~16 mg/kg) every 12 hours and check a surveillance trough on 08/01 for goal trough >/= 10 mcg/mL. Pharmacy will continue to follow patient for changes in renal function, efficacy, and signs of toxicity. Other labs: as ordered. Addendum Vancomycin discontinued. Pharmacy will sign off. Please re-consult if needed. Durga Arnold PharmD * Vida Kruger APRN - 07/29/2025 11:34 AM EDT PROGRESS NOTE Assessment & Plan Infection of wound due to dog bite Fracture of right radius -Dog bite on 07/20, unknown dog -07/20: Received tetanus vaccine, PO Augmentin, wounds were sutured -07/23: Again at ED with worsening swelling to her right arm, sutures removed wound cleansed at bedside -CT RUE 07/24: Acute comminuted fracture of lateral distal radial metaphysis with complete fractureextraction and displaced fracture cortical bone fragment. Vertical Cortical bone with focal acute inflammation (being treated as osteomyelitis) -Rabies IG 07/25, 07/28, Will need 08/01, 08/08/25, and 08/22/25 -Ortho consulted, 07/25: I & D open distal radial fracture -Wound culture: Rare GNR -Intra-OP cultures: S. Galloyticus, S. Sanguinis -Will need 6 wks IV ATB per ID, not at home w/HX of IVDU -On IV Unasyn, S/P PICC insertion Nonischemic cardiomyopathy (HCC) - Compensated, euvolemic by exam - LVSF estimated 26% on stress test 12/13/2024 - Cont GDMT: Losartan, Jardiance, furosemide - Chart reviewed, No noted contraindication to BB therapy - Start Carvedilol 3.125 mg to help w/DBP & HR - Monitor VS - Lost to f/u w/cardiology - Check ECHO Primary hypertension - BP's trending up - Cont Losartan, Lasix - Start Coreg as above - Monitor BP's Anxiety -Mood stable 07/29 JUAN (obstructive sleep apnea) -Home CPAP nightly Nausea -On initial admission -Now resolved, currently denies Antibiotic-associated diarrhea -Reports episodes following IV Antibiotic. 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 Is starting to feel little restless after being here 1 week when she can go home. Denies any issues overnight, slept well. Denies pain at this time to me no fevers chills. Objective: BP 130/92 (BP Location: Left arm, Patient Position: Semi Fowlers) Pulse 108 Temp 97.5 ??F (36.4??C) (Oral) Resp 18 Ht 5' 5 (1.651 m) Wt 137 lb (62.1 kg) LMP 07/18/2025 Comment: SERUM HCG NEGATIVE SpO2 99% BMI 22.80 kg/m?? No intake/output data recorded. Weight: 137 lb (62.1 kg) Constitutional: Alert and oriented to person, place, and time. No distress. Cardiovascular: RRR. Pulmonary/Chest: Effort normal and breath sounds normal. No respiratory distress. There are no wheezes. Abdominal: Soft. Bowel sounds are normal. No distension. There is no tenderness. There is no rebound and no guarding. Musculoskeletal: RUE surgical site, w/dressing/OSWALDO in place. Neurological: Grossly normal. Skin: Skin is warm and dry. No erythema. Labs: Laboratory data and diagnostic testing personally reviewed 07/29/25. Findings are detailed above. Imaging: I have personally reviewed all new imaging as of 07/29/25. Findings are detailed above. Vida Devine APRN 07/29/2025 11:34 AM * Timi Forman MD - 07/29/2025 9:21 AM EDT [facility] Infectious Diseases Progress Note Date of Admission: 07/24/2025 Hospital Day: 6 Primary Care Physician: Nonstaff, Referring Antibiotics: Current Antibiotics - IV Amp/Sul - IV VAncomycin Assessment: # Infected dog bite right arm// Right Radial Fracture On 07/20 patient sustained a bite from an unknown dog. Went to the ED where she was found to have right radial fracture. She was given tetanus vaccine, prescribed Augmentin and wounds were sutured. Presented again to the ED on 07/23 with worsening swelling to her right arm. Sutures removed at bedside and wound spread open/cleansed to allow drainage. ESR [address] right upper extremity done on 07/24 which showed acute comminuted fracture ofthe lateral distal radial metastasis with complete fracture extraction and displaced fracture cortical bone fragment. Patient evaluated by Ortho SP I/D of open distal radius fracture on 09/24/25. Wound Cx with rare GNR. Path with Viable cortical bone with focal acute inflammation. Must treat as osteomyelitis. Intra-op cx growing S. gallolyticus and S. sanguinis. MRSA nares +. # History of IV drug use # Rabies PEP SP Rabies IG 07/25 SP Rabies Vaccine 07/25/25 (Day 0), Day 3 (07/28), Plan - Continue IV ampicillin-sulbactam to cover for these streps, but also anaerobes given nature of wound. Per ortho no further interventions. Given bone involvement will need to do 6 weeks of IV ABX 07/24 - 09/04/25 - Stop IV Vancomycin, no growth of MRSA - Cannot do IV at home due to hx of IVDU. Discussed with Dr. Cannon, [employer] and [employer] Project Manager - Need to complete rest of Rabies Vaccine Schedule 7 (08/01), 14 (08/08/25), and 28 (08/22/25) - Ok for PICC insertion. Remove once IV ABX completed - Called lab, they are working on sensitivities for Streps - ID will continue to follow. If trasnferred to [facility] or [facility] consult ID Subjective: Nausea is MUCH improved. She is in better spirits today. No episodes of fever. No major overnight events. Physical Exam General Appearance: Alert, cooperative, no distress Head: Normocephalic Eyes: conjunctiva/corneas clear Nose: Nares normal, no drainage Mouth: mucosa moist, teeth and gums normal Lungs: Good AE B/L, respirations unlabored Heart: Regular rate and rhythm, S1 and S2 normal, no murmur, rub or gallop Abdomen: Soft, non-tender, bowel sounds active Extremities: + RUE with dressing in place, RUE swelling Skin: no rashes or lesions, + tattoos Neurologic: Grossly normal Line: +PIV Active LDAs PIV Line Duration Peripheral IV 07/27/253 Left Forearm 1 day Wound Duration Incision/Wound Arm Right 5 days Incision/Wound Closed Surgical Arm Right 3 days Vitals Patient Vitals for the past 24 hrs: BP Temp Temp src Pulse Resp SpO2 07/29/25 0518 130/95 98 ??F (36.7 ??C) Oral 102 18 100 % 07/28/25 1928 124/95 97.9 ??F (36.6 ??C) Oral 112 18 100 % 07/28/25 1536 120/92 97.3 ??F (36.3 ??C) Oral 75 18 100 % 07/28/25 1119 134/96 97.9 ??F (36.6 ??C) Oral 95 18 100 % Oxygenation Oxygen Therapy Flowsheet Row Most Recent Value Oxygen Therapy SpO2 100 % Pulse Oximeter Location Left hand Patient Position/Status Resting Awake O2 Device Room Air O2 Flow Rate (L/min) 2 lpm FiO2 (%) 21 % Assistive Devices Flowsheet Row Most Recent Value Assistive Devices Assistive Devices None Respiratory Assistive Devices BiPap/CPAP Home BiPap/CPAP settings? CPAP Home BIPAP/CPAP Frequency PRN (as needed) DME At Home Flowsheet Row Most Recent Value DME Used at Home None Weight Weight: 137 lb (62.1 kg) Intake/Output past 24 hours Intake/Output Summary (Last 24 hours) at 07/29/2025 09 Last data filed at 07/29/2025 0727 Gross per 24 hour Intake 1314.71 ml Output -- Net 1314.71 ml Intake/Output throughout Admission Net IO Since Admission: 9,434.46 mL [07/29/25 0921] Allergies Allergies[1] Current Outpatient Medications Medication Instructions amoxicillin-clavulanate (AUGMENTIN) 875-125 mg Oral Tablet 1 Tablet, Oral, 2 TIMES DAILY dapagliflozin propanediol (FARXIGA) 10 mg, Oral, DAILY fUROsemide (LASIX) 40 mg, Oral, DAILY losartan (COZAAR) 50 mg, Oral, DAILY naproxen (NAPROSYN) 500 mg, Oral, 2 TIMES DAILY PRN potassium chloride SA (KLOR-CON M) 10 mEq Oral Tab Sust.Rel. Particle/Crystal 10 mEq, Oral, DAILY spironolactone (ALDACTONE) 25 mg, Oral, DAILY Current Medications[2] Immunization History Administered Date(s) Administered [employer] SARS-CoV-2 Vaccine 01/01/2021 Moderna SARS-CoV-2 Vaccine 12+ Yrs (Light blue border) 05/16/2022 Pfizer SARS-CoV-2 Bivalent Booster Vaccine 12+ Years (Wiley border) 07/25/2022 Pfizer SARS-CoV-2 Vaccine Gil-sucrose 12+ Yrs 08/26/2024 Rabies IM, Fibroblast Culture 07/25/2025, 07/28/2025 Tdap 07/20/2025 Labs: Lab Results Component Value Date WBC 10.0 07/26/2025 HGB 9.3 (L) 07/27/2025 HCT 28.2 (L) 07/27/2025 MCV 96.3 07/26/2025 PLT 286 07/26/2025 Lab Results Component Value Date GLU 103 (H) 07/29/2025 NA 138 07/29/2025 K 4.0 07/29/2025 CO2 17 (L) 07/29/2025 CL 110 (H) 07/29/2025 BUN 8 07/29/2025 CREATININE 0.74 07/29/2025 Results for orders placed or performed during the hospital encounter of 07/24/25 (from the past 2 weeks) BLOOD CULTURE (NO STAIN) Collection Time: 07/24/25 2:52 AM Specimen: Blood, Venous Result Value Ref Range Culture Result No Growth at 120 hours. BLOOD CULTURE (NO STAIN) Collection Time: 07/24/25 2:52 AM Specimen: Blood, Venous Result Value Ref Range Culture Result No Growth at 120 hours. STAPHYLOCOCCUS AUREUS SCREEN Collection Time: 07/24/25 10:58 AM Specimen: Nares; Swab Result Value Ref Range Staph aureus PCR Detected (A) Not Detected MRSA PCR Detected (A) Not Detected ANAEROBIC CULTURE (NO STAIN) Collection Time: 07/25/25 5:29 PM Specimen: Hand, Right; Swab Result Value Ref Range Culture No anaerobic growth to date. WOUND CULTURE (STAIN INCLUDED) Collection Time: 07/25/25 5:29 PM Specimen: Hand, Right; Swab Result Value Ref Range Culture Positive Growth (A) Culture Very sparse growth of Streptococcus gallolyticus Culture Very sparse growth of Streptococcus sanguinis Stain Rare WBCs (A) Stain Rare Gram negative rods (A) Lab Results Component Value Date SEDRATE 26 (H) 07/23/2025 Lab Results Component Value Date CRP 51.74 (H) 07/23/2025 No results found. Pertinent laboratory and imaging results personally reviewed. Patient seen and examined. Timi Neville MD [1] No Known Allergies [2] Current Facility-Administered Medications Medication Dose Route Frequency Provider Last Rate Last Admin acetaminophen (TYLENOL) tablet 650 mg 650 mg Oral Q4H PRN Andre Sen MD 650 mg at 07/28/252011 ampicillin-sulbactam (UNASYN) 3 g in sodium chloride 0.9 % 100 mL IVPB 3 g Intravenous 4 times per day Andre Sen MD Stopped at 07/29/25 0547 empagliflozin (JARDIANCE) tablet 25 mg 25 mg Oral Daily Andre Sen MD 25 mg at 07/28/25 1121 enoxaparin (LOVENOX) injection 40 mg 40 mg Subcutaneous Daily - LMWH/Xa Edmond Cannon MD 40 mgat 07/28/25 1130 fUROsemide (LASix) tablet 40 mg 40 mg Oral Daily Andre Sen MD 40 mg at 07/26/25 1013 losartan (COZAAR) tablet 50 mg 50 mg Oral Daily Andre Sen MD 50 mg at 07/28/25 1121 melatonin tablet 5-10 mg 5-10 mg Oral Nightly PRN Andre Sen MD naproxen (NAPROSYN) tablet 500 mg 500 mg Oral BID PRN Andre Sen MD 500 mg at 07/28/25 1606 pantoprazole (PROTONIX) 40 mg in sodium chloride 0.9% 10 mL injection 40 mg Intravenous Daily Andre Sen MD Or pantoprazole (PROTONIX) tablet 40 mg 40 mg Oral Daily Andre Sen MD 40 mg at 121 potassium chloride (KLOR-CON) tablet 10 mEq 10 mEq Oral Daily WM Andre Sen MD 10 mEqat 07/28/25 1121 prochlorperazine edisylate (COMPAZINE) injection 10 mg 10 mg Intravenous Q6H PRN Edmond Cannon MD 10 mg at 07/28/25 1700 [START ON 08/01/2025] rabies vaccine, PCEC (RABAVERT) injection 1 mL 1 mL Intramuscular Once Timi Forman MD Followed by [START ON 08/08/2025] rabies vaccine, PCEC (RABAVERT) injection 1 mL 1 mL Intramuscular Once Timi Forman MD sodium chloride 0.9% IV line flush 20-50 mL 20-50 mL Intravenous PRN Troy Matute S, DO Stopped at 07/29/25 0608 sodium chloride 0.9% syringe Intravenous PRN Troy Matute S, DO spironolactone (ALDACTONE) tablet 25 mg 25 mg Oral Daily Andre Sen MD 25 mg at 07/28/25 1121 vancomycin (VANCOCIN) 1,000 mg in sodium chloride 0.9 % 275 mL IVPB 1,000 mg Intravenous *Q12H Andre Sen MD Stopped at 07/29/25 0038 * Harshad Lewis, PharmD - 07/28/2025 1:35 PM EDT Pharmacy Consult - Vancomycin S: Nita Oquendo is a(n) 39 y.o. female with female admitted with infected right wrist wound andright radial fracture from a dog bite on 07/20. Allergies: Patient has no known allergies. Day 4 of pharmacy managed vancomycin therapy. Other antimicrobials include: Ampicillin/sulbactam (07/23- ) O: Most Recent Labs: Temp Min: 97.5 ??F (36.4 ??C) Max: 97.9 ??F (36.6 ??C) Recent Labs 07/23/25 2102 07/25/25 0604 07/25/25 0624 07/26/25 0512 07/27/25 0631 07/28/25 0652 WBC 8.8 -- 8.9 10.0 -- -- BUN 5* < > -- 9 10 7 CREATININE 0.74 < > -- 0.83 0.87 0.72 < > = values in this interval not displayed. Estimated Creatinine Clearance: 103.9 mL/min (by C-G formula based on SCr of 0.72 mg/dL). Recent Labs 07/26/25 1551 07/26/252045 VANCOAUC1 22.9 -- VANCOAUC2 -- 15.1 Recent Labs 07/23/252101 PROCLCTNIN 0.05 Recent Labs 07/23/252101 LACTA 1.0 Recent Labs 07/23/252101 CRP 51.74* I/O last 3 completed shifts: In: 2486 [P.O.:720; I.V.:305; IV Piggyback:1461] Out: - No intake/output data recorded. Height: 5' 5 (165.1 cm) Weight: 137 lb (62.1 kg) Culture & Sensitivities: Results for orders placed or performed during the hospital encounter of 07/24/25 (from the past 2 weeks) BLOOD CULTURE (NO STAIN) Collection Time: 07/24/25 2:52 AM Specimen: Blood, Venous Result Value Ref Range Culture Result No Growth at 96 hours. BLOOD CULTURE (NO STAIN) Collection Time: 07/24/25 2:52 AM Specimen: Blood, Venous Result Value Ref Range Culture Result No Growth at 96 hours. STAPHYLOCOCCUS AUREUS SCREEN Collection Time: 07/24/25 10:58 AM Specimen: Nares; Swab Result Value Ref Range Staph aureus PCR Detected (A) Not Detected MRSA PCR Detected (A) Not Detected ANAEROBIC CULTURE (NO STAIN) Collection Time: 07/25/25 5:29 PM Specimen: Hand, Right; Swab Result Value Ref Range Culture Culture in progress. WOUND CULTURE (STAIN INCLUDED) Collection Time: 07/25/25 5:29 PM Specimen: Hand, Right; Swab Result Value Ref Range Culture Positive Growth (A) Culture Very sparse growth of Streptococcus gallolyticus Stain Rare WBCs (A) Stain Rare Gram negative rods (A) A/P: Physician orders and progress notes reviewed. Patient's renal function is stable. Initiated vancomycin therapy with a loading dose of 1,250 mg (~20 mg/kg), followed by a maintenancedose of 1,000 mg (~16 mg/kg) every 12 hours. Goal AUC is 400-600. Patient's calculated kinetic parameters based off this regimen at approximately steady state: - Ke = 0.0847 hr^-1 - Half-life = 8.2 hr - Cmax = 29.36 mcg/mL - Cmin = 12.06 mcg/mL - AUCss = 471 mg??hr/L Will continue patient's current dosing regimen of 1,000 mg (~16 mg/kg) every 12 hours and check a surveillance trough on 07/29 for goal trough >/= 10 mcg/mL. Pharmacy will continue to follow patient for changes in renal function, efficacy, and signs of toxicity. Other labs: as ordered. Thank you, Harshad Lewis, PharmYudi * Edmond Cannon MD - 07/28/2025 11:37 AM EDT [facility] Progress Note Name: Nita Oquendo ADDRESS: [address] [place], [place] [id number] : 1985 AGE: 39 y.o. HPI: 39 y.o., female patient admitted for Wound infection [T14.8XXA, L08.9] SUBJECTIVE: Patient seen and examined at bedside Reports some nausea No fever overnight No chest pain Continues to complain of periods of gasping for air . She says that it happens only when she is relaxing . Afebrile OBJECTIVE: I personally reviewed this patient???s laboratories results: CBC: Lab Results Component Value Date WBC 10.0 07/26/2025 RBC 2.99 (L) 07/26/2025 HGB 9.3 (L) 07/27/2025 HCT 28.2 (L) 07/27/2025 MCV 96.3 07/26/2025 MCHC 33.3 07/26/2025 RDW 13.0 07/26/2025 MPV 9.7 07/26/2025 BMP: Lab Results Component Value Date NA 137 07/28/2025 K 4.5 07/28/2025 CL 110 (H) 07/28/2025 CO2 16 (L) 07/28/2025 BUN 7 07/28/2025 CREATININE 0.72 07/28/2025 CALCIUM 8.6 07/28/2025 GLU 114 (H) 07/28/2025 RADIOGRAPHIC DATA REVIEWED BY ME: No results found. Results for orders placed during the hospital encounter of 11/15/18 EK EKG 12 LEAD Impression Stationary ECG Study [facility] Interpretive Statements SINUS TACHYCARDIA NONSPECIFIC T-WAVE ABNORMALITY No prior studies available for comparison Electronically Signed On 11-15-2018 10:21:40 EST by Ananda Arndt MD PHYSICAL EXAM: BP 134/96 (BP Location: Left arm, Patient Position: Semi Fowlers) Pulse 95 Temp 97.9 ??F (36.6 ??C) (Oral) Resp 18 Ht 5' 5 (1.651 m) Wt 137 lb (62.1 kg) LMP 07/18/2025 Comment: SERUM HCGNEGATIVE SpO2 100% BMI 22.80 kg/m?? GENERAL APPEARANCE: not in any distress, appears comfortable. PSYCHIATRIC: alert and oriented x 4 (time, place, person and situation), normal affect, stable mood. HEENT: head atraumatic, normocephalic NECK: supple, no lymph node palpated LUNGS: clear breath sounds bilaterally, no rales, no wheezes HEART: Regular S1-S2 ABDOMEN: Nondistended and nontender : Not examined EXTREMITIES: Right upper extremity immobilized in a sling SKIN: No new rash, IV site is clean w/o signs of infection NEURO: no tremors ASSESSMENT/PLAN: Active Hospital Problems Diagnosis *Wound infection JUAN (obstructive sleep apnea) Cardiomyopathy (HCC) Hypokalemia Fracture of right radius Anxiety Patient seen and examined at bedside. Continue complain of nausea off-and-on. Will continue IV antiemetics. She is saturating 100% on room air. Auscultation is unremarkable. She was advised to continue the use of the incentive spirometry and to get out of bed and sit up in the chair. Acute hypokalemia Potassium level reviewed personally by me today is 4.5 Dyspnea? Good air entry on auscultation still. Continues to saturate 100% on room air No signs of any acute issues Patient advised to get out of bed and to sit in the chair. Incentive spirometry Intractable nausea Continue IV antiemetics as needed Acute postoperative pain, right wrist Continue pain control Caution with narcotics Continue bowel regimen Type II open distal right radius fracture From dog bite Status post irrigation debridement of right type II open distal fracture of the radius Postop day #3 Continue with the incentive spirometer Continue pain control Out of bed to chair Most recent hemoglobin reviewed by me today is stable at 9.3 Infected dog bite Continue IV antibiotics Cultures are positive for MRSA Will continue to monitor for nephrotoxicity Personally reviewed her renal function today and creatinine is stable at 0.72 Acute metabolic acidosis with normal anion gap CO2 has fluctuate CO2 today is 16 Patient is chronically on diuretics Encourage p.o. intake Incentive spirometry Out of bed to chair No particular acute intervention needed at this time. Will continue to monitor electrolytes and renal function. Acute blood loss anemia Baseline hemoglobin is around 12-14 Most recent hemoglobin reviewed by me today is stable at 9.3 Cardiomyopathy Compensated Continue spironolactone Continue Farxiga Continue Lasix Obstructive sleep apnea CPAP at manager engine respiratory status DVT prophylaxis D/C planning: Will probably need long-term IV antibiotics. Awaiting ID final recommendations. This note was completed using voice recognition technology. Despite this telegraphic typewriter mechanic's best efforts, it may still contain unintended errors. Please contact us if any questions. Edmond Cannon MD07/28/2025 11:38 AM * Timi Forman MD - 07/28/2025 9:09 AM EDT [facility] Infectious Diseases Progress Note Date of Admission: 07/24/2025 Hospital Day: 5 Primary Care Physician: Billtaff, Referring Antibiotics: Current Antibiotics - IV Amp/Sul - IV VAncomycin Assessment: # Infected dog bite right arm// Right Radial Fracture On 07/20 patient sustained a bite from an unknown dog. Went to the ED where she was found to have right radial fracture. She was given tetanus vaccine, prescribed Augmentin and wounds were sutured. Presented again to the ED on 07/23 with worsening swelling to her right arm. Sutures removed at bedside and wound spread open/cleansed to allow drainage. ESR [address] right upper extremity done on 07/24 which showed acute comminuted fracture ofthe lateral distal radial metastasis with complete fracture extraction and displaced fracture cortical bone fragment. Patient evaluated by Ortho SP I/D of open distal radius fracture on 09/24/25. Wound Cx with rare GNR on stain, now growing Strep gallolyticus. MRSA nares +. # History of IV drug use # Rabies PEP SP Rabies IG 07/25 SP Rabies Vaccine 07/25/25 (Day 0), Day 3 (07/28) Plan - Continue IV ampicillin-sulbactam and IV Vancomycin - Need to complete rest of Rabies Vaccine Schedule 7 (08/01), 14 (08/08/25), and 28 (08/22/25) - Follow-up further plans per Ortho - ID will continue to follow Subjective: Patient feels very nauseous still. No fever or chills. Physical Exam General Appearance: Alert, cooperative, no distress Head: Normocephalic Eyes: conjunctiva/corneas clear Nose: Nares normal, no drainage Mouth: mucosa moist, teeth and gums normal Lungs: Good AE B/L, respirations unlabored Heart: Regular rate and rhythm, S1 and S2 normal, no murmur, rub or gallop Abdomen: Soft, non-tender, bowel sounds active Extremities: + RUE with dressing in place, RUE swelling Skin: no rashes or lesions, + tattoos Neurologic: Grossly normal Line: +PIV Active LDAs PIV Line Duration Peripheral IV 07/27/253 Left Forearm <1 day Wound Duration Incision/Wound Arm Right 4 days Incision/Wound Closed Surgical Arm Right 2 days Vitals Patient Vitals for the past 24 hrs: BP Temp Temp src Pulse Resp SpO2 07/28/25 0507 135/94 97.7 ??F (36.5 ??C) Oral 104 -- 94 % 07/27/25 2047 127/88 97.5 ??F (36.4 ??C) Oral 96 19 95 % 07/27/25 1308 131/99 97.3 ??F (36.3 ??C) Oral 92 18 98 % 07/27/25 0956 -- -- -- -- -- 100 % Oxygenation Oxygen Therapy Flowsheet Row Most Recent Value Oxygen Therapy SpO2 94 % Pulse Oximeter Location Left hand Patient Position/Status Resting Awake O2 Device Room Air O2 Flow Rate (L/min) 2 lpm FiO2 (%) 21 % Assistive Devices Flowsheet Row Most Recent Value Assistive Devices Assistive Devices None Respiratory Assistive Devices BiPap/CPAP Home BiPap/CPAP settings? CPAP Home BIPAP/CPAP Frequency PRN (as needed) DME At Home Flowsheet Row Most Recent Value DME Used at Home None Weight Weight: 137 lb (62.1 kg) Intake/Output past 24 hours Intake/Output Summary (Last 24 hours) at 07/28/2025 0909 Last data filed at 07/28/2025 0624 Gross per 24 hour Intake 1988.23 ml Output -- Net 1988.23 ml Intake/Output throughout Admission Net IO Since Admission: 8,119.75 mL [07/28/25 0909] Allergies Allergies[1] Current Outpatient Medications Medication Instructions amoxicillin-clavulanate (AUGMENTIN) 875-125 mg Oral Tablet 1 Tablet, Oral, 2 TIMES DAILY dapagliflozin propanediol (FARXIGA) 10 mg, Oral, DAILY fUROsemide (LASIX) 40 mg, Oral, DAILY losartan (COZAAR) 50 mg, Oral, DAILY naproxen (NAPROSYN) 500 mg, Oral, 2 TIMES DAILY PRN potassium chloride SA (KLOR-CON M) 10 mEq Oral Tab Sust.Rel. Particle/Crystal 10 mEq, Oral, DAILY spironolactone (ALDACTONE) 25 mg, Oral, DAILY Current Medications[2] Immunization History Administered Date(s) Administered [employer] SARS-CoV-2 Vaccine 01/01/2021 Moderna SARS-CoV-2 Vaccine 12+ Yrs (Light blue border) 05/16/2022 Pfizer SARS-CoV-2 Bivalent Booster Vaccine 12+ Years (Wiley border) 07/25/2022 Pfizer SARS-CoV-2 Vaccine Gil-sucrose 12+ Yrs 08/26/2024 Rabies IM, Fibroblast Culture 07/25/2025 Tdap 07/20/2025 Labs: Lab Results Component Value Date WBC 10.0 07/26/2025 HGB 9.3 (L) 07/27/2025 HCT 28.2 (L) 07/27/2025 MCV 96.3 07/26/2025 PLT 286 07/26/2025 Lab Results Component Value Date GLU 114 (H) 07/28/2025 NA 137 07/28/2025 K 4.5 07/28/2025 CO2 16 (L) 07/28/2025 CL 110 (H) 07/28/2025 BUN 7 07/28/2025 CREATININE 0.72 07/28/2025 Results for orders placed or performed during the hospital encounter of 07/24/25 (from the past 2 weeks) BLOOD CULTURE (NO STAIN) Collection Time: 07/24/25 2:52 AM Specimen: Blood, Venous Result Value Ref Range Culture Result No Growth at 96 hours. BLOOD CULTURE (NO STAIN) Collection Time: 07/24/25 2:52 AM Specimen: Blood, Venous Result Value Ref Range Culture Result No Growth at 96 hours. STAPHYLOCOCCUS AUREUS SCREEN Collection Time: 07/24/25 10:58 AM Specimen: Nares; Swab Result Value Ref Range Staph aureus PCR Detected (A) Not Detected MRSA PCR Detected (A) Not Detected ANAEROBIC CULTURE (NO STAIN) Collection Time: 07/25/25 5:29 PM Specimen: Hand, Right; Swab Result Value Ref Range Culture Culture in progress. WOUND CULTURE (STAIN INCLUDED) Collection Time: 07/25/25 5:29 PM Specimen: Hand, Right; Swab Result Value Ref Range Culture Culture in progress. Stain Rare WBCs (A) Stain Rare Gram negative rods (A) Lab Results Component Value Date SEDRATE 26 (H) 07/23/2025 Lab Results Component Value Date CRP 51.74 (H) 07/23/2025 No results found. Pertinent laboratory and imaging results personally reviewed. Patient seen and examined. Timi Neville MD [1] No Known Allergies [2] Current Facility-Administered Medications Medication Dose Route Frequency Provider Last Rate Last Admin acetaminophen (TYLENOL) tablet 650 mg 650 mg Oral Q4H PRN Andre Sen MD 650 mg at 07/27/25 205 ampicillin-sulbactam (UNASYN) 3 g in sodium chloride 0.9 % 100 mL IVPB 3 g Intravenous 4 times per day Andre Sen MD Stopped at 07/28/25 0535 empagliflozin (JARDIANCE) tablet 25 mg 25 mg Oral Daily Andre Sen MD 25 mg at 07/27/25 0834 enoxaparin (LOVENOX) injection 40 mg 40 mg Subcutaneous Daily - LMWH/Xa Edmond Cannon MD 40 mgat 07/27/25 1055 fUROsemide (LASix) tablet 40 mg 40 mg Oral Daily Andre Sen MD 40 mg at 07/26/25 1013 losartan (COZAAR) tablet 50 mg 50 mg Oral Daily Andre Sen MD 50 mg at 07/27/25 0834 melatonin tablet 5-10 mg 5-10 mg Oral Nightly PRN Andre Sen MD naproxen (NAPROSYN) tablet 500 mg 500 mg Oral BID PRN Andre Sen MD 500 mg at 07/27/258 pantoprazole (PROTONIX) 40 mg in sodium chloride 0.9% 10 mL injection 40 mg Intravenous Daily Andre Sen MD Or pantoprazole (PROTONIX) tablet 40 mg 40 mg Oral Daily Andre Sen MD 40 mg at 834 potassium chloride (KLOR-CON) tablet 10 mEq 10 mEq Oral Daily WM Andre Sen MD 10 mEqat 07/27/25 0834 prochlorperazine edisylate (COMPAZINE) injection 10 mg 10 mg Intravenous Q6H PRN Edmond Cannon MD 10 mg at 07/27/25 1527 rabies vaccine, PCEC (RABAVERT) injection 1 mL 1 mL Intramuscular Once Timi Forman MD Followed by [START ON 08/01/2025] rabies vaccine, PCEC (RABAVERT) injection 1 mL 1 mL Intramuscular Once Timi Forman MD Followed by [START ON 08/08/2025] rabies vaccine, PCEC (RABAVERT) injection 1 mL 1 mL Intramuscular Once Timi Forman MD sodium chloride 0.9% IV line flush 20-50 mL 20-50 mL Intravenous PRN Juju, Troy S, DO Stopped at 07/28/25 0557 sodium chloride 0.9% syringe Intravenous PRN Juju, S, DO spironolactone (ALDACTONE) tablet 25 mg 25 mg Oral Daily Andre Sen MD 25 mg at 07/27/25 0834 vancomycin (VANCOCIN) 1,000 mg in sodium chloride 0.9 % 275 mL IVPB 1,000 mg Intravenous *Q12H Andre Sen MD Stopped at 07/28/25 0056 * Andre Sen MD - 07/27/2025 7:30 PM EDT Orthopaedic Surgery Progress Note Admit Date: 07/24/2025 Subjective: Resting in bed comfortably. Reports some improvement in her numbness and tingling in the hand, but unchanged in the dorsal middle finger. Pain has been well-controlled. Objective: Right upper extremity: Dressing is clean dry and intact. Able to flex, extend, abduct, adduct, and oppose digits and thumb. Sensation intact to light touch in the radial, ulnar, and median distributions. Digits are pink with adequate capillary refill. Other Studies: Pathology from 07-25-2025: Viable cortical bone with focal acute inflammation Cultures from 07-25-2025: Strep gallolyticus and strep sanguinous Assessment and Plan: Nita Oquendo is a 39 y.o. female with Right type II open distal radius fracture irrigation and debridement 07-25-2025 - 1 pound weightbearing to the right upper extremity, okay for full range of motion and light dailyuse - Okay for discharge from my perspective once antibiotic plan in place - Appreciate infectious disease recommendations, agreed to treat as osteomyelitis given pathology and prolonged period without antibiotic prophylaxis - Return to see me in clinic in 10 to 14 days after discharge for wound check Andre Sen MD Orthopaedic Surgery [facility] * Dalton Virk - 07/27/2025 4:12 PM EDT Images from the original note were not included. 07/27/25 1302 Reason for Visit Date of visit 07/27/25 Visited With Patient Visited By [employer] Operator Reason for Visit Spiritual, emotional or social support Patient Assessment Patient Appears Sad Patient Cheondoism at Registration None Spiritual Strengths and Coping Resources Other (Comment) (Patient credits God for help in her life.) Patient Spiritual Wellbeing Low Acuity - Spiritual Discomfort Interventions with Patient Relationship Building Interventions Cultivated a relationship of care and support;Listened empathetically Latter Day Interventions Prayer with patient or family Exploration Interventions Provided caring and supportive presence Outcomes Expressed Outcomes Appreciative of prayer/ritual;Appreciative of visit Care Plan Plan for Follow-Up Unionmelt Operator(s) remains available as needed Dalton Virk Unionmelt Operator, Pastoral and Spiritual Care For non-urgent requests, please place a Pastoral Care consult in [facility]. For all urgent matters, please send an urgent [facility] Secure Chat to the Pastoral Care group at your location. Between 11pm and 7am, please use On-Call Finder to send an [employer] Secure Chat to the on-call paper cutting machine operator. [facility] office phone numbers: EDG/COV/GRT [phone], [place]LIN [phone], FTT [phone], DBN [phone] * Timi Forman MD - 07/27/2025 9:26 AM EDT SEP Infectious Diseases Progress Note Date of Admission: 07/24/2025 Hospital Day: 4 Primary Care Physician: Annmarie, Referring Antibiotics: Current Antibiotics - IV Amp/Sul - IV VAncomycin Assessment: # Infected dog bite right arm// Right Radial Fracture On 07/20 patient sustained a bite from an unknown dog. Went to the ED where she was found to have right radial fracture. She was given tetanus vaccine, prescribed Augmentin and wounds were sutured. Presented again to the ED on 07/23 with worsening swelling to her right arm. Sutures removed at bedside and wound spread open/cleansed to allow drainage. ESR [address] right upper extremity done on 07/24 which showed acute comminuted fracture ofthe lateral distal radial metastasis with complete fracture extraction and displaced fracture cortical bone fragment. Patient evaluated by Ortho SP I/D of open distal radius fracture on 09/24/25. Wound Cx with rare GNR. MRSA nares +. # History of IV drug use # Rabies PEP SP Rabies IG 07/25 SP Rabies Vaccine 07/25/25 (Day 0) Plan - Continue IV ampicillin-sulbactam and IV Vancomycin - Need to complete rest of Rabies Vaccine Schedule Day 3 (07/28), 7 (08/01), 14 (08/08/25), and 28 (08/22/25) - Follow-up further plans per Ortho - ID will continue to follow Subjective: Patient feels nauseous since early this AM. Otherwise no major complains. Physical Exam General Appearance: Alert, cooperative, no distress Head: Normocephalic Eyes: conjunctiva/corneas clear Nose: Nares normal, no drainage Mouth: mucosa moist, teeth and gums normal Lungs: Good AE B/L, respirations unlabored Heart: Regular rate and rhythm, S1 and S2 normal, no murmur, rub or gallop Abdomen: Soft, non-tender, bowel sounds active Extremities: + RUE with dressing in place, RUE swelling Skin: no rashes or lesions, + tattoos Neurologic: Grossly normal Line: +PIV Active LDAs PIV Line Duration Peripheral IV 07/26/25 1551 Left;Anterior Forearm Ultrasound guided <1 day Wound Duration Incision/Wound Arm Right 3 days Incision/Wound Closed Surgical Arm Right 1 day Vitals Patient Vitals for the past 24 hrs: BP Temp Temp src Pulse Resp SpO2 07/27/25 0832 110/83 97.7 ??F (36.5 ??C) Oral 99 18 100 % 07/27/25 0248 114/85 98.1 ??F (36.7 ??C) Oral 93 20 100 % 07/26/25 2149 106/80 98.2 ??F (36.8 ??C) Oral 99 16 99 % 07/26/25 1601 118/85 97.9 ??F (36.6 ??C) Oral 98 16 100 % 07/26/25 0935 -- -- -- -- 18 -- Oxygenation Oxygen Therapy Flowsheet Row Most Recent Value Oxygen Therapy SpO2 100 % Pulse Oximeter Location Left hand Patient Position/Status Resting Awake O2 Device Room Air O2 Flow Rate (L/min) 2 lpm FiO2 (%) 21 % Assistive Devices Flowsheet Row Most Recent Value Assistive Devices Assistive Devices None Respiratory Assistive Devices BiPap/CPAP Home BiPap/CPAP settings? CPAP Home BIPAP/CPAP Frequency PRN (as needed) DME At Home Flowsheet Row Most Recent Value DME Used at Home None Weight Weight: 137 lb (62.1 kg) Intake/Output past 24 hours Intake/Output Summary (Last 24 hours) at 07/27/2025925 Last data filed at 07/27/2025 0726 Gross per 24 hour Intake 2245.29 ml Output -- Net 2245.29 ml Intake/Output throughout Admission Net IO Since Admission: 6,131.52 mL [07/27/25925] Allergies Allergies[1] Current Outpatient Medications Medication Instructions amoxicillin-clavulanate (AUGMENTIN) 875-125 mg Oral Tablet 1 Tablet, Oral, 2 TIMES DAILY dapagliflozin propanediol (FARXIGA) 10 mg, Oral, DAILY fUROsemide (LASIX) 40 mg, Oral, DAILY losartan (COZAAR) 50 mg, Oral, DAILY naproxen (NAPROSYN) 500 mg, Oral, 2 TIMES DAILY PRN potassium chloride SA (KLOR-CON M) 10 mEq Oral Tab Sust.Rel. Particle/Crystal 10 mEq, Oral, DAILY spironolactone (ALDACTONE) 25 mg, Oral, DAILY Current Medications[2] Immunization History Administered Date(s) Administered [employer] SARS-CoV-2 Vaccine 01/01/2021 Moderna SARS-CoV-2 Vaccine 12+ Yrs (Light blue border) 05/16/2022 Pfizer SARS-CoV-2 Bivalent Booster Vaccine 12+ Years (Wiley border) 07/25/2022 Pfizer SARS-CoV-2 Vaccine Gil-sucrose 12+ Yrs 08/26/2024 Rabies IM, Fibroblast Culture 07/25/2025 Tdap 07/20/2025 Labs: Lab Results Component Value Date WBC 10.0 07/26/2025 HGB 9.3 (L) 07/27/2025 HCT 28.2 (L) 07/27/2025 MCV 96.3 07/26/2025 PLT 286 07/26/2025 Lab Results Component Value Date GLU 98 07/27/2025 NA 137 07/27/2025 K 3.1 (L) 07/27/2025 CO2 20 (L) 07/27/2025 CL 106 07/27/2025 BUN 10 07/27/2025 CREATININE 0.87 07/27/2025 Results for orders placed or performed during the hospital encounter of 07/24/25 (from the past 2 weeks) BLOOD CULTURE (NO STAIN) Collection Time: 07/24/25 2:52 AM Specimen: Blood, Venous Result Value Ref Range Culture Result No Growth at 72 hours. BLOOD CULTURE (NO STAIN) Collection Time: 07/24/25 2:52 AM Specimen: Blood, Venous Result Value Ref Range Culture Result No Growth at 72 hours. STAPHYLOCOCCUS AUREUS SCREEN Collection Time: 07/24/25 10:58 AM Specimen: Nares; Swab Result Value Ref Range Staph aureus PCR Detected (A) Not Detected MRSA PCR Detected (A) Not Detected ANAEROBIC CULTURE (NO STAIN) Collection Time: 07/25/25 5:29 PM Specimen: Hand, Right; Swab Result Value Ref Range Culture Culture in progress. WOUND CULTURE (STAIN INCLUDED) Collection Time: 07/25/25 5:29 PM Specimen: Hand, Right; Swab Result Value Ref Range Culture No growth at 16 hours. Stain Rare WBCs (A) Stain Rare Gram negative rods (A) Lab Results Component Value Date SEDRATE 26 (H) 07/23/2025 Lab Results Component Value Date CRP 51.74 (H) 07/23/2025 No results found. Pertinent laboratory and imaging results personally reviewed. Patient seen and examined. Timi Neville MD [1] No Known Allergies [2] Current Facility-Administered Medications Medication Dose Route Frequency Provider Last Rate Last Admin acetaminophen (TYLENOL) tablet 650 mg 650 mg Oral Q4H PRN Andre Sen MD 650 mg at 07/27/25 0249 ampicillin-sulbactam (UNASYN) 3 g in sodium chloride 0.9 % 100 mL IVPB 3 g Intravenous 4 times per day Andre Sen MD Stopped at 07/27/25 0458 empagliflozin (JARDIANCE) tablet 25 mg 25 mg Oral Daily Andre Sen MD 25 mg at 07/27/25 0834 enoxaparin (LOVENOX) injection 40 mg 40 mg Subcutaneous Daily - LMWH/Xa Edmond Cannon MD 40 mgat 07/26/25 1359 fUROsemide (LASix) tablet 40 mg 40 mg Oral Daily Andre Sen MD 40 mg at 07/26/25 1013 losartan (COZAAR) tablet 50 mg 50 mg Oral Daily Andre Sen MD 50 mg at 07/27/25 0834 melatonin tablet 5-10 mg 5-10 mg Oral Nightly PRN Andre Sen MD naproxen (NAPROSYN) tablet 500 mg 500 mg Oral BID PRN Andre Sen MD 500 mg at 07/27/25 0424 pantoprazole (PROTONIX) 40 mg in sodium chloride 0.9% 10 mL injection 40 mg Intravenous Daily Andre Sen MD Or pantoprazole (PROTONIX) tablet 40 mg 40 mg Oral Daily Andre Sen MD 40 mg at 834 potassium chloride (KLOR-CON) tablet 10 mEq 10 mEq Oral Daily Andre Sen MD 10 mEqat 07/27/25 0834 prochlorperazine edisylate (COMPAZINE) injection 10 mg 10 mg Intravenous Q6H PRN Edmond Cannon MD 10 mg at 07/27/25 0911 sodium chloride 0.9% IV line flush 20-50 mL 20-50 mL Intravenous PRN Juju, S, DO Stopped at 07/27/25 0511 sodium chloride 0.9% syringe Intravenous PRN Juju S, DO spironolactone (ALDACTONE) tablet 25 mg 25 mg Oral Daily Andre Sen MD 25 mg at 07/27/25 0834 vancomycin (VANCOCIN) 1,000 mg in sodium chloride 0.9 % 275 mL IVPB 1,000 mg Intravenous *Q12H Andre Sen MD Stopped at 07/27/25 0117 * Edmond Cannon MD - 07/27/2025 8:41 AM EDT [facility] Progress Note Name: Nita Oquendo ADDRESS: [address] [place], [place] [id number] : 1985 AGE: 39 y.o. HPI: 39 y.o., female patient admitted for Wound infection [T14.8XXA, L08.9] SUBJECTIVE: Patient was seen at bedside C/o nausea+ Did not sleep overnight + Afebrile C/o not getting enough air but cannot really explain/describe what she is feeling. No abdominal pain No nausea No vomiting OBJECTIVE: I personally reviewed this patient???s laboratories results: CBC: Lab Results Component Value Date WBC 10.0 07/26/2025 RBC 2.99 (L) 07/26/2025 HGB 9.3 (L) 07/27/2025 HCT 28.2 (L) 07/27/2025 MCV 96.3 07/26/2025 MCHC 33.3 07/26/2025 RDW 13.0 07/26/2025 MPV 9.7 07/26/2025 BMP: Lab Results Component Value Date NA 137 07/27/2025 K 3.1 (L) 07/27/2025 CL 106 07/27/2025 CO2 20 (L) 07/27/2025 BUN 10 07/27/2025 CREATININE 0.87 07/27/2025 CALCIUM 8.2 (L) 07/27/2025 GLU 98 07/27/2025 RADIOGRAPHIC DATA REVIEWED BY ME: No results found. Results for orders placed during the hospital encounter of 11/15/18 EK EKG 12 LEAD Impression Stationary ECG Study [facility] Interpretive Statements SINUS TACHYCARDIA NONSPECIFIC T-WAVE ABNORMALITY No prior studies available for comparison Electronically Signed On 11-15-2018 10:21:40 EST by Ananda Arndt MD PHYSICAL EXAM: BP 110/83 (BP Location: Left arm, Patient Position: Supine) Pulse 99 Temp 97.7 ??F (36.5 ??C) (Oral) Resp 18 Ht 5' 5 (1.651 m) Wt 137 lb (62.1 kg) LMP 07/18/2025 Comment: SERUM HCG NEGATIVE SpO2 100% BMI 22.80 kg/m?? GENERAL APPEARANCE: not in any distress, appears comfortable. PSYCHIATRIC: alert and oriented x 4 (time, place, person and situation), normal affect, stable mood. HEENT: head atraumatic, normocephalic NECK: supple, no lymph node palpated LUNGS: good air entry bilaterally, no rales, no wheezes HEART: Regular S1-S2 ABDOMEN: Nondistended and nontender. : Not examined EXTREMITIES: Right arm is in a clean dressing and bandage, pulses present and equal bilaterally SKIN: No signs of active oozing or bleeding to the dressing on the right upper extremity, IV site is clean w/o signs of infection NEURO: no tremors ASSESSMENT/PLAN: Active Hospital Problems Diagnosis *Wound infection JUAN (obstructive sleep apnea) Cardiomyopathy (HCC) Hypokalemia Fracture of right radius Anxiety Acute hypokalemia Potassium level reviewed by me today is 3.1 Potassium supplement Repeat potassium level in the morning Dyspnea? Good air entry on auscultation Saturation 100% at the time of this encounter. Patient reports that she feels like she is not getting enough air . But she denies being short of breath. She also reports that she does not like the CPAP machine that she was wearing overnight here. She was advised to have family/friends bring her on if that would help. Intractable nausea Zofran discontinued I ordered IV Compazine Acute postoperative pain, right wrist Continue pain control Caution with narcotics Continue bowel regimen Type II open distal right radius fracture From dog bite Status post irrigation debridement of right type II open distal fracture of the radius Postop day #2 Continue pain control Incentive Spirometry Out of bed to chair H&H is stable with a hemoglobin of 9.3 today Infected dog bite IV antibiotics Cultures positive for MRSA Continue IV antibiotics Monitor for nephrotoxicity Labs reviewed personally by me today shows renal function at baseline with a creatinine at 0.87 Acute metabolic acidosis with normal anion gap Her CO2 today is 20 Continue to encourage p.o. intake IV antiemetics switched to Compazine as she is having persistent nausea. Acute blood loss anemia Baseline hemoglobin is around 12-14 Hemoglobin reviewed by me today is 9.3 and stable Will continue to monitor for bleeding Cardiomyopathy Per chart review Currently not on any IV fluids Continue Farxiga Continue Lasix Continue spironolactone Obstructive sleep apnea Per chart review Continue CPAP at night Patient advised to have her friend/family bring her own. DVT prophylaxis D/C planning: Not stable for discharge This note was completed using voice recognition technology. Despite this telegraphic typewriter mechanic's best efforts, it may still contain unintended errors. Please contact us if any questions. Edmond Cannon MD07/27/2025 8:41 AM * Harshad Lewis, PharmD - 07/27/2025 7:49 AM EDT Pharmacy Consult - Vancomycin S: Nita Oquendo is a(n) 39 y.o. female admitted with infected right wrist wound and right radial fracture from a dog bite on 07/20. Allergies: Patient has no known allergies. Day 3 of pharmacy managed vancomycin therapy. Other antimicrobials include: Ampicillin/sulbactam (07/23- ) O: Most Recent Labs: Temp Min: 97.9 ??F (36.6 ??C) Max: 98.2 ??F (36.8 ??C) Recent Labs 07/23/25 2102 07/25/25 0604 07/25/25 0624 07/26/25 0512 07/27/25 0631 WBC 8.8 -- 8.9 10.0 -- BUN 5* 6 -- 9 10 CREATININE 0.74 0.77 -- 0.83 0.87 Estimated Creatinine Clearance: 86 mL/min (by C-G formula based on SCr of 0.87 mg/dL). Recent Labs 07/26/25 1551 07/26/25 2046 VANCOAUC1 22.9 -- VANCOAUC2 -- 15.1 Recent Labs 07/23/25 210 PROCLCTNIN 0.05 Recent Labs 07/23/252101 LACTA 1.0 Recent Labs 07/23/252101 CRP 51.74* I/O last 3 completed shifts: In: 3164.2 [P.O.:1320; I.V.:1445.9; IV Piggyback:398.3] Out: - I/O this shift: In: 497.8 [IV Piggyback:497.8] Out: - Height: 5' 5 (165.1 cm) Weight: 137 lb (62.1 kg) Culture & Sensitivities: Results for orders placed or performed during the hospital encounter of 07/24/25 (from the past 2 weeks) BLOOD CULTURE (NO STAIN) Collection Time: 07/24/25 2:52 AM Specimen: Blood, Venous Result Value Ref Range Culture Result No Growth at 72 hours. BLOOD CULTURE (NO STAIN) Collection Time: 07/24/25 2:52 AM Specimen: Blood, Venous Result Value Ref Range Culture Result No Growth at 72 hours. STAPHYLOCOCCUS AUREUS SCREEN Collection Time: 07/24/25 10:58 AM Specimen: Nares; Swab Result Value Ref Range Staph aureus PCR Detected (A) Not Detected MRSA PCR Detected (A) Not Detected ANAEROBIC CULTURE (NO STAIN) Collection Time: 07/25/25 5:29 PM Specimen: Hand, Right; Swab Result Value Ref Range Culture Culture in progress. WOUND CULTURE (STAIN INCLUDED) Collection Time: 07/25/25 5:29 PM Specimen: Hand, Right; Swab Result Value Ref Range Culture No growth at 16 hours. Stain Rare WBCs (A) Stain Rare Gram negative rods (A) A/P: Physician orders and progress notes reviewed. Patient's renal function is stable. Initiated vancomycin therapy with a loading dose of 1,250 mg (~20 mg/kg), followed by a maintenancedose of 1,000 mg (~16 mg/kg) every 12 hours. This dosing regimen was estimated to result in a predicted AUCss of No data recorded; Goal AUC is 400-600. Patient's calculated kinetic parameters based off this regimen at approximately steady state: - Ke = 0.0847 hr^-1 - Half-life = 8.2 hr - Cmax = 29.36 mcg/mL - Cmin = 12.06 mcg/mL - AUCss = 471 mg??hr/L Will continue patient's current dosing regimen of 1,000 mg (~16 mg/kg) every 12 hours and check a surveillance trough on 07/29 for goal trough >/= 10 mcg/mL. Pharmacy will continue to follow patient for changes in renal function, efficacy, and signs of toxicity. Other labs: as ordered. Thank you, Harshad Lewis, PamelaD * Argelia Lin PharmD - 07/26/2025 9:35 PM EDT Pharmacy Consult: Vancomycin Follow-Up A/P: infected right wrist wound and right radial fracture from a dog bite on 07/20. Initiated vancomycin therapy with a loading dose of 1250 mg (~20 mg/kg), followed by a maintenance dose of 1000 mg (~16 mg/kg) every 12 hours. This dosing regimen was estimated to result in a predicted AUCss of 541 mg??hr/L; Goal AUC is 400-600. Patient's measured first concentration resulted as 22.9 mcg/mL (07/26 1551). Patient's measured second concentration resulted as 15.1 mcg/mL (07/26 2046). Prior dose was administered on 07/26 at 1125. Patient's calculated kinetic parameters based off these concentrations at approximately steady state: - Ke = 0.0847 hr^-1 - Half-life = 8.2 hr - Cmax = 29.36 mcg/mL - Cmin = 12.06 mcg/mL - AUCss = 471 mg??hr/L Will continue patient's current dosing regimen of 1000 mg (~16 mg/kg) every 12 hours and check a surveillance trough on 07/29 for goal trough >/= 10 mcg/mL. Pharmacy will continue to follow patient for changes in renal function, efficacy, and signs of toxicity. Other labs: BMP. Thanks!! Argelia Lin PharmD * Edmond Cannon MD - 07/26/2025 8:37 AM EDT [facility] Progress Note Name: Nita Oquendo ADDRESS: [address] [place], [place] [id number] : 1985 AGE: 39 y.o. HPI: 39 y.o., female patient admitted for Wound infection [T14.8XXA, L08.9] SUBJECTIVE: Patient seen and examined at the bedside Laying in bed Reports significant pain in her right wrist and forearm. Afebrile overnight Denies any chest pain No palpitations No cough No SOB No abdominal pain No nausea No vomiting OBJECTIVE: I personally reviewed this patient???s laboratories results: CBC: Lab Results Component Value Date WBC 10.0 07/26/2025 RBC 2.99 (L) 07/26/2025 HGB 9.6 (L) 07/26/2025 HCT 28.8 (L) 07/26/2025 MCV 96.3 07/26/2025 MCHC 33.3 07/26/2025 RDW 13.0 07/26/2025 MPV 9.7 07/26/2025 BMP: Lab Results Component Value Date NA 136 07/26/2025 K 3.9 07/26/2025 CL 108 (H) 07/26/2025 CO2 19 (L) 07/26/2025 BUN 9 07/26/2025 CREATININE 0.83 07/26/2025 CALCIUM 8.1 (L) 07/26/2025 GLU 137 (H) 07/26/2025 RADIOGRAPHIC DATA REVIEWED BY ME: No results found. Results for orders placed during the hospital encounter of 11/15/18 EK EKG 12 LEAD Impression Stationary ECG Study [facility] Interpretive Statements SINUS TACHYCARDIA NONSPECIFIC T-WAVE ABNORMALITY No prior studies available for comparison Electronically Signed On 11-15-2018 10:21:40 EST by Ananda Arndt MD PHYSICAL EXAM: BP 120/90 Pulse 93 Temp 98 ??F (36.7 ??C) (Oral) Resp 18 Ht 5' 5 (1.651 m) Wt 137 lb (62.1 kg) LMP 07/18/2025 Comment: SERUM HCG NEGATIVE SpO2 94% BMI 22.80 kg/m?? GENERAL APPEARANCE: Not in any apparent distress PSYCHIATRIC: alert and oriented x 4 (time, place, person and situation), normal affect, stable mood. HEENT: head atraumatic, normocephalic NECK: supple, no lymph node palpated LUNGS: Clear breath sounds bilateral auscultation HEART: Regular S1-S2 ABDOMEN: Nondistended and nontender EXTREMITIES: No pitting edema of the lower extremities. Right upper extremity immobilized, pulses present and equal bilaterally SKIN: Right forearm/wrist surgical site covered with a clean dressing and wrapped with clean bandage. No signs of active oozing or bleeding. NEURO: Can move the fingers of the right hand. ASSESSMENT/PLAN: Active Hospital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 08/03/2025 8:06 AM EDT [facility] Blood VENOUS BLOOD / Unknown Venipuncture / Unknown 08/03/2025 4:55 AM EDT 08/03/2025 5:20 AM EDT Peyton Barrett [employer] CHEMISTRY ORDERABLES Final Result [facility] [address] [facility] , [place] [address] * SEDIMENTATION RATE AUTOMATED (08/03/2025 4:55 AM EDT) Pathologist [facility] Sed Rate 18 0 - 20 mm/hr 08/03/2025 5:36 AM EDT [facility] Blood VENOUS BLOOD / Unknown Venipuncture / Unknown 08/03/2025 4:55 AM EDT 08/03/2025 5:20 AM EDT Peyton Barrett [employer] HEMATOLOGY ORDERABLE S Final Result [facility] [address] [place] [address] * (ABNORMAL) CBC WITH DIFF (08/03/2025 4:55 AM EDT) Pathologist [facility] WBC 9.7 3.7 - 10.3 x10(3)/mcL 08/03/2025 5:36 AM EDT [facility] RBC 3.94 3.90 - 5.20 x10(6)/mcL 08/03/2025 5:36 AM EDT [facility] Hgb 12.6 11.2 - 15.7 g/dL 08/03/2025 5:36 AM EDT [facility] Hct 37.8 34.0 - 45.0 % 08/03/2025 5:[address] [facility] MCV 95.9 80.0 - 100.0 fL 08/03/2025 5:[address] [facility] MCH 32.0 26.0 - 34.0 pg 08/03/2025 5:[address] [facility] MCHC 33.3 30.7 - 35.5 g/dL 08/03/2025 5:[address] [facility] RDW 14.5 <=14.9 % 08/03/2025 5:[address] [facility] Platelet 437(H) 155 - 369 x10(3)/mcL 08/03/2025 5:[address] [facility] MPV 9.0 8.8 - 12.5 fL 08/03/2025 5:[address] [facility] Neut Percent 62.4 % 08/03/2025 5:36 AM EDT [facility] Comment:Neutrophils equals s egs plus bands Imm Gran% 0.3 % 08/03/2025 5:36 AM EDT [facility] Comment:Automated count of m etamyelocytes, myelocytes and promyelocytes. Lymph Percent 25.6 % 08/03/2025 5:36 AM EDT [facility] Sanders Percent 9.7 % 08/03/2025 5:36 AM EDT [facility] Eos Percent 1.5 % 08/03/2025 5:36 AM EDT [facility] Baso Percent 0.5 % 08/03/2025 5:36 AM EDT [facility] Neut # 6.1 1.6 - 6.1 x10(3)/mcL 08/03/2025 5:36 AM EDT [facility] Comment:Neutrophils equals s egs plus bands IMMGRAN# 0.0 0.0 - 0.1 x10(3)/mcL 08/03/2025 5:36 AM EDT [facility] Comment:Automated count of m etamyelocytes, myelocytes and promyelocytes. An absolute IG <0.1 is reported as 0.0. Lymph # 2.5 1.2 - 3.9 x10(3)/mcL 08/03/2025 5:36 AM EDT [facility] Sanders # 0.9 0.3 - 0.9 x10(3)/mcL 08/03/2025 5:36 AM EDT [facility] Eos# 0.2 0.0 - 0.5 x10(3)/mcL 08/03/2025 5:36 AM EDT [facility] Baso # 0.1 0.0 - 0.1 x10(3)/mcL 08/03/2025 5:36 AM EDT [facility] Blood VENOUS BLOOD / Unknown Venipuncture / Unknown 08/03/2025 4:55 AM EDT 08/03/2025 5:20 AM EDT Peyton Barrett [employer] HEMATOLOGY ORDERABLE S Final Result [facility] [address] [place] [phone] * COMPREHENSIVE METABOLIC PANEL (08/02/2025 5:01 AM EDT) Sodium 136 136 - 145 mmol/L 08/02/2025 5:58 AM EDT [facility] Potassium 3.7 3.5 - 5.0 mmol/L 08/02/2025 5:58 AM EDT [facility] Chloride 102 98 - 107 mmol/L 08/02/2025 5:58 AM EDT [facility] Total CO2 25 22 - 29 mmol/L 08/02/2025 5:58 AM EDT [facility] Anion Gap 9 7 - 16 mmol/L 08/02/2025 5:58 AM EDT [facility] Calcium 8.6 8.6 - 10.4 mg/dL 08/02/2025 5:58 AM EDT [facility] Glucose Lvl 96 70 - 99 mg/dL 08/02/2025 5:58 AM EDT [facility] BUN 19 6 - 20 mg/dL 08/02/2025 5:58 AM EDT [facility] Creatinine 0.86 0.51 - 1.30 mg/dL 08/02/2025 5:58 AM EDT [facility] Albumin 3.6 3.5 - 5.2 gm/dL 08/02/2025 5:58 AM EDT [facility] Total Protein 6.8 6.4 - 8.3 gm/dL 08/02/2025 5:58 AM EDT [facility] Bili Total 0.5 0.2 - 1.3 mg/dL 08/02/2025 5:58 AM EDT [facility] ALT 29 <=41 U/L 08/02/2025 5:58 AM EDT [facility] AST 33 <=40 U/L 08/02/2025 5:58 AM EDT [facility] Alk Phos 87 36 - 123 U/L 08/02/2025 5:58 AM EDT [facility] eGFR (CKD-EPIcr 2020) 88 >=60 mL/min/1.7 3 m2 08/02/2025 5:58 AM EDT [facility] Comment:Estimated GFR was ca lculated using the CKD-EPIcr (2020) equation refit without race. The equation is recommended by the [employer] - [place] [employer] Neph[employer] Task Force. Blood VENOUS BLOOD / Unknown Venipuncture / Unknown 08/02/2025 5:01 AM EDT 08/02/2025 5:32 AM EDT Vida Devine APRN CHEMISTRY ORDERABLES Fin al Result Performing Organization Address City/State/[facility] Co de Phone Number [facility] [address] [phone] * (ABNORMAL) CBC (08/02/2025 5:01 AM EDT) WBC 11.6(H) 3.7 - 10.3 x10(3)/mcL 08/02/2025 5:35 AM EDT [facility] RBC 4.11 3.90 - 5.20 x10(6)/mcL 08/02/2025 5:35 AM EDT [facility] Hgb 13.4 11.2 - 15.7 g/dL 08/02/2025 5:35 AM EDT [facility] Hct 38.7 34.0 - 45.0 % 08/02/2025 5:35 AM EDT [facility] MCV 94.2 80.0 - 100.0 fL 08/02/2025 5:35 AM EDT [facility] MCH 32.6 26.0 - 34.0 pg 08/02/2025 5:[address] [facility] MCHC 34.6 30.7 - 35.5 g/dL 08/02/2025 5:35 AM EDT [facility] RDW 14.5 <=14.9 % 08/02/2025 5:35 AM EDT [facility] Platelet 479(H) 155 - 369 x10(3)/mcL 08/02/2025 5:35 AM EDT [facility] MPV 9.4 8.8 - 12.5 fL 08/02/2025 5:35 AM EDT [facility] Blood VENOUS BLOOD / Unknown Venipuncture / Unknown 08/02/2025 5:01 AM EDT 08/02/2025 5:32 AM EDT Vida Devine APRN HEMATOLOGY ORDERABLES Fi nal Result Performing Organization Address City/State/[facility] Co de Phone Number [facility] [address] [place] [address] * (ABNORMAL) COMPREHENSIVE METABOLIC PANEL (08/01/2025 5:38 AM EDT) Sodium 136 136 - 145 mmol/L 08/01/2025 6:23 AM EDT [facility] Potassium 3.1(L) 3.5 - 5.0 mmol/L 08/01/2025 6:23 AM EDT [facility] Chloride 99 98 - 107 mmol/L 08/01/2025 6:23 AM EDT [facility] Total CO2 24 22 - 29 mmol/L 08/01/2025 6:23 AM EDT [facility] Anion Gap 13 7 - 16 mmol/L 08/01/2025 6:23 AM EDT [facility] Calcium 8.5(L) 8.6 - 10.4 mg/dL 08/01/2025 6:23 AM EDT [facility] Glucose Lvl 117(H) 70 - 99 mg/dL 08/01/2025 6:23 AM EDT [facility] BUN 15 6 - 20 mg/dL 08/01/2025 6:23 AM EDT [facility] Creatinine 0.86 0.51 - 1.30 mg/dL 08/01/2025 6:23 AM EDT [facility] Albumin 3.5 3.5 - 5.2 gm/dL 08/01/2025 6:23 AM EDT [facility] Total Protein 6.8 6.4 - 8.3 gm/dL 08/01/2025 6:23 AM EDT [facility] Bili Total 0.6 0.2 - 1.3 mg/dL 08/01/2025 6:23 AM EDT [facility] ALT 16 <=41 U/L 08/01/2025 6:23 AM EDT [facility] AST 19 <=40 U/L 08/01/2025 6:23 AM EDT [facility] Alk Phos 86 36 - 123 U/L 08/01/2025 6:23 AM EDT [facility] eGFR (CKD-EPIcr 2020) 88 >=60 mL/min/1.7 3 m2 08/01/2025 6:23 AM EDT [facility] Comment:Estimated GFR was ca lculated using the CKD-EPIcr (2020) equation refit without race. The equation is recommended by the [employer] - [place] [employer] Neph[employer] Task Force. Blood VENOUS BLOOD / Unknown Venipuncture / Unknown 08/01/2025 5:38 AM EDT 08/01/2025 5:42 AM EDT us Vida Devine APRN CHEMISTRY ORDERABLES Fin al Result [facility] [address] [place] [address] * (ABNORMAL) CBC (08/01/2025 5:38 AM EDT) WBC 12.5(H) 3.7 - 10.3 x10(3)/mcL 08/01/2025 5:55 AM EDT [facility] RBC 3.98 3.90 - 5.20 x10(6)/mcL 08/01/2025 5:[address] [facility] Hgb 12.7 11.2 - 15.7 g/dL 08/01/2025 5:55 AM EDT [facility] Hct 37.3 34.0 - 45.0 % 08/01/2025 5:55 AM EDT [facility] MCV 93.7 80.0 - 100.0 fL 08/01/2025 5:55 AM EDT [facility] MCH 31.9 26.0 - 34.0 pg 08/01/2025 5:[address] [facility] MCHC 34.0 30.7 - 35.5 g/dL 08/01/2025 5:55 AM EDT [facility] RDW 14.1 <=14.9 % 08/01/2025 5:55 AM EDT [facility] Platelet 469(H) 155 - 369 x10(3)/mcL 08/01/2025 5:55 AM EDT [facility] MPV 9.4 8.8 - 12.5 fL 08/01/2025 5:55 AM EDT [facility] Blood VENOUS BLOOD / Unknown Venipuncture / Unknown 08/01/2025 5:38 AM EDT 08/01/2025 5:42 AM EDT Vida Devine APRN HEMATOLOGY ORDERABLES Fi nal Result [facility] [address] [place] [address] * (ABNORMAL) DRUG CONFIRMATION, CANNABINOIDS - URINE (07/31/2025 1:59 PM EDT) THC 22(H) Cutoff 10 ng/mL ng/mL 08/02/2025 11:09 AM EDT [facility] THC Glucuronide >200(H) Cutoff 10 ng/mL ng/mL 08/02/2025 11:09 AM EDT [facility] Urine STRUCTURE OF URINARY TRACT PROPER / Unknown 07/31/2025 1:59 PM EDT 07/31/2025 2:02 PM EDT us Jacqueline Payton DO URINE ORDERABLES Final Result [facility] [address] [facility] , [place] [address] * (ABNORMAL) DRUGS OF ABUSE WITH REFLEX TO CONFIRMATION, URINE (07/31/2025 1:59 PM EDT) [facility] Signature 6 AM (Heroin) Absent Cutoff 10 ng/mL 07/31/2025 2:[address] [facility] Amphetamines Absent Cutoff 500 ng/mL 07/31/2025 2:[address] [facility] Barbiturates Absent Cutoff 200 ng/mL 07/31/2025 2:[address] [facility] Benzodiazepines Absent Cutoff 200 ng/mL 07/31/2025 2:[address] [facility] Buprenorphine Absent Cutoff 5 ng/mL 07/31/2025 2:[address] [facility] Cannabinoid Metabolite Presumptive Pos(A) Cutoff 50 ng/mL 07/31/2025 2:[address] [facility] Cocaine Metabolite Absent Cutoff 150 ng/mL 07/31/2025 2:[address] [facility] Fentanyl Absent Cutoff 5 ng/mL 07/31/2025 2:[address] [facility] Methadone and Metabolite Absent Cutoff 300 ng/mL 07/31/2025 2:[address] [facility] Opiate Absent Cutoff 300 ng/mL 07/31/2025 2:[address] [facility] Oxycodone Lvl Absent Cutoff 100 ng/mL 07/31/2025 2:[address] [facility] Urine Creatinine 43.5 mg/dL 07/31/20 2:[address] [facility] Comment: Greater than 20: Consistent with valid sample Greater than 2 but less than 20: Possible dilution Less than 2: Questionable valid sample Urine STRUCTURE OF URINARY TRACT PROPER / Unknown 07/31/2025 1:59 PM EDT 07/31/2025 2:[address] [facility] - 07/31/2025 2:26 PM EDT These drug classes have been qualitatively screened by immunoassay and are for medical purposes only. Results should not be used for non-medical purposes. Results reported as presumptive positive will be sent for confirmation. Due to possible factors, such as, dilute/adulterated urine, concentration of drug/metabolite being below the cut-off, or antibody specificity of test reagent, a negative result does not rule out drug use. These results are only valid for urine specimens. Any contamination with vaginal pool/amniotic fluid could cause erroneous results. us Jacqueline Payton DO URINE ORDERABLES Final Result [facility] [address] [place] [address] * EC ECHOCARDIOGRAM COMPLETE W DOPPLER AND COLOR FLOW MAPPING (07/31/2025 12:31 PM EDT) LV DIASTOLIC PLAX 6.55 cm PYRAMIS AORTIC STENOSIS no PYRAMIS MITRAL REGURGITATION mild PYRAMIS Ejection Fraction 15-20% PYRAMIS Anatomical Region Laterality Modality Electrocardiogra phy 07/31/2025 11:4 4 AM EDT Impressions 07/31/2025 2:03 PM EDT Conclusions * Left ventricular chamber dimension is severely enlarged. * Left ventricular function is severely reduced with an estimated ejection fraction of 15-20%. * Global hypokinesis of the left ventricle. * The left ventricular diastolic function is consistent with grade II diastolic dysfunction (elevated left atrial pressure). * There is mild mitral valve regurgitation. * Right ventricular systolic function is reduced. * Unable to estimate the pulmonary artery systolic pressure. Narrative Procedure Note Jacqueline Payton DO - 07/31/2025 IMPRESSION Conclusions * Left ventricular chamber dimension is severely enlarged. * Left ventricular function is severely reduced with an estimatedejection fraction of 15-20%. * Global hypokinesis of the left ventricle. * The left ventricular diastolic function is consistent with grade II diastolic dysfunction (elevated left atrial pressure). * There is mild mitral valve regurgitation. * Right ventricular systolic function is reduced. * Unable to estimate the pulmonary artery systolic pressure. us Vida Devine APRN IMOnur ECHO ORDERABLES Barbara l Result * (ABNORMAL) COMPREHENSIVE METABOLIC PANEL (07/31/2025 4:21 AM EDT) Sodium 138 136 - 145 mmol/L 07/31/2025 5:04 AM EDT [facility] Potassium 3.5 3.5 - 5.0 mmol/L 07/31/2025 5:04 AM EDT [facility] Chloride 104 98 - 107 mmol/L 07/31/2025 5:04 AM EDT [facility] Total CO2 21(L) 22 - 29 mmol/L 07/31[facility]2025 5:[facility] Anion Gap 13 7 - 16 mmol/L 07/31/2025 5:04 AM EDT [facility] Calcium 8.6 8.6 - 10.4 mg/dL 07/31/2025 5:04 AM EDT [facility] Glucose Lvl 140(H) 70 - 99 mg/dL 07/31/2025 5:04 AM EDT [facility] BUN 13 6 - 20 mg/dL 07/31/2025 5:04 AM EDT [facility] Creatinine 0.82 0.51 - 1.30 mg/dL 07/31/2025 5:04 AM EDT [facility] Albumin 3.4(L) 3.5 - 5.2 gm/dL 07/31/2025 5:04 AM EDT [facility] Total Protein 6.3(L) 6.4 - 8.3 gm/dL 07/31/2025 5:04 AM EDT [facility] Bili Total 0.9 0.2 - 1.3 mg/dL 07/31/2025 5:04 AM EDT [facility] ALT 13 <=41 U/L 07/31/2025 5:04 AM EDT [facility] AST 15 <=40 U/L 07/31/2025 5:04 AM EDT [facility] Alk Phos 77 36 - 123 U/L 07/31/2025 5:04 AM EDT [facility] eGFR (CKD-EPIcr 2020) 93 >=60 mL/min/1.7 3 m2 07/31/2025 5:04 AM EDT [facility] Comment:Estimated GFR was ca lculated using the CKD-EPIcr (2020) equation refit without race. The equation is recommended by the [employer] - [place] [employer] Neph[employer] Task Force. Blood VENOUS BLOOD / Unknown Line / Unknown 07/31/2025 4:21 AM EDT 07/31/2025 4:31 AM EDT Vida Devine APRN CHEMISTRY ORDERABLES Fin al Result [facility] [address] [place] [address] * (ABNORMAL) CBC (07/31/2025 4:21 AM EDT) WBC 11.8(H) 3.7 - 10.3 x10(3)/mcL 07/31/2025 4:34 AM EDT [facility] RBC 3.08(L) 3.90 - 5.20 x10(6)/mcL 07/31/2025 4:34 AM EDT [facility] Hgb 10.2(L) 11.2 - 15.7 g/dL 07/31/2025 4:34 AM EDT [facility] Hct 29.4(L) 34.0 - 45.0 % 07/31/2025 4:34 AM EDT [facility] MCV 95.5 80.0 - 100.0 fL 07/31/2025 4:34 AM EDT [facility] MCH 33.1 26.0 - 34.0 pg 07/31/2025 4:34 AM EDT [facility] MCHC 34.7 30.7 - 35.5 g/dL 07/31/2025 4:34 AM EDT [facility] RDW 13.7 <=14.9 % 07/31/2025 4:34 AM EDT [facility] Platelet 364 155 - 369 x10(3)/mcL 07/31/2025 4:34 AM EDT [facility] MPV 9.5 8.8 - 12.5 fL 07/31/2025 4:34 AM EDT [facility] Blood VENOUS BLOOD / Unknown Line / Unknown 07/31/2025 4:21 AM EDT 07/31/2025 4:31 AM EDT Vida Devine APRN HEMATOLOGY ORDERABLES Fi nal Result Performing Organization Address City/[facility]/ZIP Co de Phone Number [facility] [address] [place] [address] * FECAL WHITE BLOOD CELLS (07/30/2025 3:14 PM EDT) Fecal WBCs Negative Negative 07/30/2025 11:26 PM EDT [facility] Stool COLON STRUCTURE / Unknown 07/30/2025 3:14 PM EDT 07/30/2025 3:20 PM EDT Narrative [facility] - 07/30/2025 11:26 PM EDT NEGATIVE for elevated levels of lactoferrin from white blood cells. Vida Devine APRN MICROBIOLOGY - GENERAL O RDERABLES Final Result Performing Organization Address City/[facility] Co de Phone Number [facility] [address] [facility] , [address] [place] [phone] * EXTRA [place]LEY URINE CX (07/30/2025 2:56 PM EDT) Urine STRUCTURE OF URINARY TRACT PROPER / Unknown 07/30/2025 2:56 PM EDT 07/30/2025 2:59 PM EDT Vida Devine APRN MICROBIOLOGY - GENERAL O RDERABLES Final Result Performing Organization Address [facility]/ZIP Co de Phone Number [facility] [address] [place] [address] * (ABNORMAL) URINALYSIS REFLEX (07/30/2025 2:56 PM EDT) UA Color Yellow 07/30/2025 3:[address] [facility] UA Appear Clear Clear 07/30/2025 3:[address] [facility] UA Glucose 500(A) Negative mg/dL 07/30/2025 3:[address] [facility] UA Ketones Negative Negative mg/dL 07/30/2025 3:[address] [facility] UA Blood Negative Negative 07/30/2025 3:[address] [facility] UA pH 6.5 5.0 - 8.0 pH 07/30/2025 3:[address] [facility] UA Protein Negative Negative mg/dL 07/30/2025 3:[address] [facility] UA Urobilinogen 0.2 <=1 mg/dL 3:[address] [facility] UA Bili Negative Negative 07/30/2025 3:[address] [facility] UA Nitrite Negative Negative 07/30/2025 3:[address] [facility] UA Leuk Est Negative Negative 07/30/2025 3:[address] [facility] UA Spec Grav 1.015 1.001 - 1.035 no units 07/30/2025 3:[address] [facility] Comment:Reference range taylor d for random specimens only. UA WBC <1 0 - 4 /HPF 07/30/2025 3:[address] [facility] UA RBC <1 0 - 3 /HPF 07/30/2025 3:[address] [facility] UA Squam Epi Few /LPF 07/30/2025 3:[address] [facility] Urine STRUCTURE OF URINARY TRACT PROPER / Unknown 07/30/2025 2:56 PM EDT 07/30/2025 2:59 PM EDT us Vida Devine APRN URINE ORDERABLES Final R esult [facility] [address] [place] [address] * (ABNORMAL) BASIC METABOLIC PANEL (07/30/2025 11:31 AM EDT) Sodium 138 136 - 145 mmol/L 07/30/2025 11:56 AM EDT [facility] Potassium 4.2 3.5 - 5.0 mmol/L 07/30/2025 11:56 AM EDT [facility] Chloride 108(H) 98 - 107 mmol/L 07/30/2025 11:56 AM EDT [facility] Total CO2 19(L) 22 - 29 mmol/L 07/30/2025 11:56 AM EDT [facility] Anion Gap 11 7 - 16 mmol/L 07/30/2025 11:56 AM EDT [facility] Calcium 8.4(L) 8.6 - 10.4 mg/dL 07/30/2025 11:56 AM EDT [facility] Glucose Lvl 97 70 - 99 mg/dL 07/30/2025 11:56 AM EDT [facility] BUN 10 6 - 20 mg/dL 07/30/2025 11:56 AM EDT [facility] Creatinine 0.74 0.51 - 1.30 mg/dL 07/30/2025 11:56 AM EDT [facility] eGFR (CKD-EPIcr 2020) 105 >=60 mL/min/1.7 3 m2 07/30/2025 11:56 AM EDT [facility] Comment:Estimated GFR was ca lculated using the CKD-EPIcr (2020) equation refit without race. The equation is recommended by the [employer] Kid[employer] - [place] [employer] Neph[employer] Task Force. Blood VENOUS STRUCTURE / Unknown Arterial / Unknown 07/30/2025 11:31 AM EDT 07/30/2025 11:37 AM EDT Vida Devine APRN CHEMISTRY ORDERABLES Fin al Result [facility] [address] [place] [address] * (ABNORMAL) NT PROBNP (07/30/2025 11:31 AM EDT) NT Pro-BNP 18,119(H) <=192 pg/mL 07/30/2025 11:[address] [facility] Blood VENOUS STRUCTURE / Unknown Arterial / Unknown 07/30/2025 11:31 AM EDT 07/30/2025 11:37 AM EDT Narrative [facility] - 07/30/2025 11:56 AM EDT An NT pro-BNP level less than 300 pg/mL in any patient, regardless of age, effectively rules out acute CHF with a 99% negative predictive value. Ingestion of alise doses of biotin (>5 mg/day) taken within 8 hours of drawing blood sample can interfere with this immunoassay test. Vida Devine APRN CHEMISTRY ORDERABLES Fin al Result Performing Organization Address City/State/[facility] Co de Phone Number [facility] [address] [place] [address] * (ABNORMAL) CBC (07/30/2025 10:23 AM EDT) Pathologist [facility] WBC 12.3(H) 3.7 - 10.3 x10(3)/mcL 07/30/2025 10:29 AM EDT [facility] RBC 3.00(L) 3.90 - 5.20 x10(6)/mcL 07/30/2025 10:29 AM EDT [facility] Hgb 9.9(L) 11.2 - 15.7 g/dL 07/30/2025 10:29 AM EDT [facility] Hct 28.3(L) 34.0 - 45.0 % 07/30/2025 10:29 AM EDT [facility] MCV 94.3 80.0 - 100.0 fL 07/30/2025 10:29 AM EDT [facility] MCH 33.0 26.0 - 34.0 pg 07/30/2025 10:29 AM EDT [facility] MCHC 35.0 30.7 - 35.5 g/dL 07/30/2025 10:29 AM EDT [facility] RDW 13.9 <=14.9 % 07/30/2025 10:29 AM EDT [facility] Platelet 364 155 - 369 x10(3)/mcL 07/30/2025 10:29 AM EDT [facility] MPV 9.3 8.8 - 12.5 fL 07/30/2025 10:29 AM EDT [facility] Blood VENOUS BLOOD / Unknown Venipuncture / Unknown 07/30/2025 10:23 AM EDT 07/30/2025 10:27 AM EDT Vida Devine APRN HEMATOLOGY ORDERABLES Fi nal Result [facility] [address] [place] [address] * XR CHEST AP PORTABLE (07/30/2025 10:06 AM EDT) Anatomical Region Laterality Modality Chest Radiographic Rosio ging 07/30/2025 10:0 6 AM EDT Impressions 07/30/2025 10:10 AM EDT No acute finding. - Note: Radiology results need to be interpreted within a comprehensive clinical context. If you have questions about the radiology report, please contact the office of the ordering clinician. Narrative 07/30/2025 10:10 AM EDT XR CHEST AP PORTABLE, 07/30/2025 10:06 AM CLINICAL HISTORY: -SOB COMPARISON: 11/15/2018 PROCEDURE COMMENTS: AP portable technique. FINDINGS: Support devices: Left upper cavity PICC tip projects over the lower SVC. Heart and mediastinal contours within normal limits for technique. No active failure, pneumonia, or visible effusion. No visible pneumothorax. Procedure Note Ralph Calvo MD - 07/30/2025 XR CHEST AP PORTABLE, 07/30/2025 10:06 AM CLINICAL HISTORY: -SOB COMPARISON: 11/15/2018 PROCEDURE COMMENTS: AP portable technique. FINDINGS: Support devices: Left upper cavity PICC tip projects over the lower SVC. Heart and mediastinal contours within normal limits for technique. Noactive failure, pneumonia, or visible effusion. No visible pneumothorax. IMPRESSION: No acute finding. - Note: Radiology results need to be interpreted within a comprehensiveclinical context. If you have questions about the radiology report, please contactthe office of the ordering clinician. us Edmond Cannon MD IMG DIAGNOSTIC IMAGING ORDER ASHLEY Final Result * EK EKG 12 LEAD (07/30/2025 1:12 AM EDT) Anatomical Region Laterality Modality Electrocardiogra phy 07/30/2025 1:37 AM EDT Impressions 07/30/2025 9:[address] [facility] Test Date: 2025-07-30 Pat Name: [facility] Department: DEPID Room: [facility] Gender: Female Assistance Representative: : 1985 Requested By: FAHAD PEARSON Order Number: [id number] Reading MD: Jacqueline Payton DO Measurements Intervals [place] Rate: 105 P: 51 OR: 172 QRS: 25 QRSD: 158 T: 42 QT: 409 QTc: 541 Interpretive Statements SINUS TACHYCARDIA LEFT ATRIAL ENLARGEMENT LEFT BUNDLE BRANCH BLOCK Electronically Signed On 07-30-2025 09:41:26 EDT by Jacqueline Payton DO Narrative Procedure Note Jacqueline Payton DO - 07/30/[address] [facility] Test Date: 2025-07-30 Pat Name: [facility] Department: DEPID Room: [facility] Gender: Female Assistance Representative: : 1985 Requested By: FAHAD PEARSON Order Number: [id number] Reading MD: Jacqueline Payton DO Measurements Intervals [place] Rate: 105 P: 51 OR: 172 QRS: 25 QRSD: 158 T: 42 QT: 409 QTc: 541 Interpretive Statements SINUS TACHYCARDIA LEFT ATRIAL ENLARGEMENT LEFT BUNDLE BRANCH BLOCK Electronically Signed On 07-30-2025 09:41:26 EDT by Jacqueline Payton DO us Fahad Pearson APRN IMG ECG ORDERABLES Final Resu lt * BEDSIDE PICC INSERTION (PICC TEAM RN) (07/29/2025 2:10 PM EDT) Narrative [facility] - 07/29/2025 2:10 PM EDT Rodolfo Vyas RN 07/29/2025 2:12 PM Procedure was performed by Krystal Jeffery RN VAT. Patient was informed of risks and benefit of procedure and consent was given. Ultrasound interrogation performed of the left basilic vein. Left side PICC due to Infected dog bite right arm// Right Radial Fracture. It is shown to be patent and compressible. This was documented with a permanent image. The catheter was placed using all elements of maximal sterile barrier technique as well as all elements of sterile ultrasound technique. Following sterile skin preparation and local anesthesia under ultrasound guidance the vein was punctured. This allowed guide wire and introducer sheath insertion. Guidewire was removed and verified by second individual. Through the introducer sheath a PICC was inserted. Catheter tip was positioned in the lower 1/3 cavoatrial junction per measurement/3cg technology. Catheter was cut to 43 cm with internal measurement at 43 cm. Catheter aspirated and flushed freely. The catheter was secured to the skin surface. Sterile CHG dressing was applied. Patient tolerated the procedure well. us Timi Neville MD PROCEDURE/MINOR SURG ICAL ORDERABLES Final Result [facility] [address] [place] [address] * VANCOMYCIN LEVEL TROUGH (07/29/2025 11:19 AM EDT) Vanco Tr 12.6 10.0 - <20.0 mcg/mL 07/29/2025 12:03 PM EDT [facility] Blood VENOUS BLOOD / Unknown Venipuncture / Unknown 07/29/2025 11:19 AM EDT 07/29/2025 11:41 AM EDT Narrative [facility] - 07/29/2025 12:03 PM EDT Minimum serum concentration for infection control is 10 mcg/mL; a target therapeutic range of 15-20 mcg/mL is recommended for significant infections such as S. aureus. Toxicity does not correlate well with serum concentrations. Supratherapeutic levels are considered to be > 20 mcg/mL. Edmond Cannon MD CHEMISTRY ORDERABLES Final R esult [facility] [address] [place] [address] * (ABNORMAL) BASIC METABOLIC PANEL (07/29/2025 5:45 AM EDT) Sodium 138 136 - 145 mmol/L 07/29/2025 6:22 AM EDT [facility] Potassium 4.0 3.5 - 5.0 mmol/L 07/29/2025 6:22 AM EDT [facility] Chloride 110(H) 98 - 107 mmol/L 07/29/2025 6:22 AM EDT [facility] Total CO2 17(L) 22 - 29 mmol/L 07/29/2025 6:22 AM EDT [facility] Anion Gap 11 7 - 16 mmol/L 07/29/2025 6:22 AM EDT [facility] Calcium 8.3(L) 8.6 - 10.4 mg/dL 07/29/2025 6:22 AM EDT [facility] Glucose Lvl 103(H) 70 - 99 mg/dL 07/29/2025 6:22 AM EDT [facility] BUN 8 6 - 20 mg/dL 07/29/2025 6:22 AM EDT [facility] Creatinine 0.74 0.51 - 1.30 mg/dL 07/29/2025 6:22 AM EDT [facility] eGFR (CKD-EPIcr 2020) 105 >=60 mL/min/1.7 3 m2 07/29/2025 6:22 AM EDT [facility] Comment:Estimated GFR was ca lculated using the CKD-EPIcr (2020) equation refit without race. The equation is recommended by the National Kid[employer] - [place] [employer] Nephrology Task Force. Blood VENOUS BLOOD / Unknown Venipuncture / Unknown 07/29/2025 5:45 AM EDT 07/29/2025 5:53 AM EDT Troy S Juju DO CHEMISTRY ORDERABLES Final Re sult Performing Organization Address City/[facility] Co de Phone Number [facility] [address] [place] [address] * MAGNESIUM LEVEL (07/28/2025 6:52 AM EDT) Pathologist [facility] Magnesium 1.8 1.6 - 2.4 mg/dL 07/28/2025 7:22 AM EDT [facility] Blood VENOUS BLOOD / Unknown Venipuncture / Unknown 07/28/2025 6:52 AM EDT 07/28/2025 6:57 AM EDT us Edmond Cannon MD CHEMISTRY ORDERABLES Final R esult Performing Organization Address [facility] Co de Phone Number [facility] [address] [place] [address] * (ABNORMAL) BASIC METABOLIC PANEL (07/28/2025 6:52 AM EDT) [facility] Sodium 137 136 - 145 mmol/L 07/28/2025 7:22 AM EDT [facility] Potassium 4.5 3.5 - 5.0 mmol/L 07/28/2025 7:22 AM EDT [facility] Chloride 110(H) 98 - 107 mmol/L 07/28/2025 7:22 AM EDT [facility] Total CO2 16(L) 22 - 29 mmol/L 07/28/2025 7:22 AM EDT [facility] Anion Gap 11 7 - 16 mmol/L 07/28/2025 7:22 AM EDT [facility] Calcium 8.6 8.6 - 10.4 mg/dL 07/28/2025 7:22 AM EDT [facility] Glucose Lvl 114(H) 70 - 99 mg/dL 07/28/2025 7:22 AM EDT [facility] BUN 7 6 - 20 mg/dL 07/28/2025 7:22 AM EDT [facility] Creatinine 0.72 0.51 - 1.30 mg/dL 07/28/2025 7:22 AM EDT [facility] eGFR (CKD-EPIcr 2020) 108 >=60 mL/min/1.7 3 m2 07/28/2025 7:22 AM EDT [facility] Comment:Estimated GFR was ca lculated using the CKD-EPIcr (2020) equation refit without race. The equation is recommended by the [employer] - [place] [employer] Nephrology Task Force. Blood VENOUS BLOOD / Unknown Venipuncture / Unknown 07/28/2025 6:52 AM EDT 07/28/2025 6:57 AM EDT Troy Matute DO CHEMISTRY ORDERABLES Final Re sult Performing Organization Address [facility]/ZIP Co de Phone Number [facility] [address] [place] [address] * (ABNORMAL) HEMOGLOBIN AND HEMATOCRIT (07/27/2025 6:31 AM EDT) Hgb 9.3(L) 11.2 - 15.7 g/dL 07/27/2025 6:37 AM EDT [facility] Hct 28.2(L) 34.0 - 45.0 % 07/27/2025 6:[address] [facility] Blood VENOUS BLOOD / Unknown Venipuncture / Unknown 07/27/2025 6:31 AM EDT 07/27/2025 6:34 AM EDT Edmond Cannon MD HEMATOLOGY ORDERABLES Final Result Performing Organization Address [facility] Co de Phone Number [facility] [address] [place] [address] * (ABNORMAL) BASIC METABOLIC PANEL (07/27/2025 6:31 AM EDT) Sodium 137 136 - 145 mmol/L 07/27/2025 6:54 AM EDT [facility] Potassium 3.1(L) 3.5 - 5.0 mmol/L 07/27/2025 6:54 AM EDT [facility] Chloride 106 98 - 107 mmol/L 07/27/2025 6:54 AM EDT [facility] Total CO2 20(L) 22 - 29 mmol/L 07/27/2025 6:54 AM EDT [facility] Anion Gap 11 7 - 16 mmol/L 07/27/2025 6:54 AM EDT [facility] Calcium 8.2(L) 8.6 - 10.4 mg/dL 07/27/2025 6:54 AM EDT [facility] Glucose Lvl 98 70 - 99 mg/dL 07/27/2025 6:54 AM EDT [facility] BUN 10 6 - 20 mg/dL 07/27/2025 6:54 AM EDT [facility] Creatinine 0.87 0.51 - 1.30 mg/dL 07/27/2025 6:54 AM EDT [facility] eGFR (CKD-EPIcr 2020) 86 >=60 mL/min/1.7 3 m2 07/27/2025 6:54 AM EDT [facility] Comment:Estimated GFR was ca lculated using the CKD-EPIcr (2020) equation refit without race. The equation is recommended by the [employer] - [place] [employer] Nephrology Task Force. Blood VENOUS BLOOD / Unknown Venipuncture / Unknown 07/27/2025 6:31 AM EDT 07/27/2025 6:34 AM EDT us S Juju DO CHEMISTRY ORDERABLES Final Re sult [facility] [address] [place] [address] * (ABNORMAL) GLUCOSE METER POC (07/26/2025 9:14 PM EDT) [facility] Glucose Meter POC 106(H) 70 - 100 mg/dL 07/26/2025 9:15 PM EDT [facility] Sample Type Capillary 07/26/2025 9:15 PM EDT [facility] Patient Status Non-Critical Patient 07/26/2025 9:15 PM EDT [facility] Blood BLOOD SPECIMEN / Unknown 07/26/2025 9:14 PM EDT 07/26/2025 9:15 PM EDT Freddie Cruz MD POINT OF CARE TEST ORDERABLES F inal Result Performing Organization Address [facility] de Phone Number [facility] [address] [place] [address] * VANCOMYCIN LEVEL AUC2 (07/26/2025 8:46 PM EDT) Pathologist [facility] Vancomycin AUC2 15.1 mcg/mL 9:09 PM EDT [facility] Blood VENOUS BLOOD / Unknown Venipuncture / Unknown 07/26/2025 8:46 PM EDT 07/26/2025 8:51 PM EDT Edmond Cannon MD CHEMISTRY ORDERABLES Final R esult Performing Organization Address [facility] de Phone Number [facility] [address] [place] [address] * VANCOMYCIN LEVEL AUC1 (07/26/2025 3:51 PM EDT) [facility] Vancomycin AUC1 22.9 mcg/mL 4:17 PM EDT [facility] Blood VENOUS BLOOD / Unknown Venipuncture / Unknown 07/26/2025 3:51 PM EDT 07/26/2025 3:55 PM EDT Edmond Cannon MD CHEMISTRY ORDERABLES Final R esult Performing Organization Address [facility] de Phone Number [facility] [address] [place] [address] * (ABNORMAL) BASIC METABOLIC PANEL (07/26/2025 5:12 AM EDT) [facility] Sodium 136 136 - 145 mmol/L 07/26/2025 5:51 AM EDT [facility] Potassium 3.9 3.5 - 5.0 mmol/L 07/26/2025 5:51 AM EDT [facility] Chloride 108(H) 98 - 107 mmol/L 07/26/2025 5:51 AM EDT [facility] Total CO2 19(L) 22 - 29 mmol/L 07/26/2025 5:51 AM EDT [facility] Anion Gap 9 7 - 16 mmol/L 07/26/2025 5:51 AM EDT [facility] Calcium 8.1(L) 8.6 - 10.4 mg/dL 07/26/2025 5:51 AM EDT [facility] Glucose Lvl 137(H) 70 - 99 mg/dL 07/26/2025 5:51 AM EDT [facility] BUN 9 6 - 20 mg/dL 07/26/2025 5:51 AM EDT [facility] Creatinine 0.83 0.51 - 1.30 mg/dL 07/26/2025 5:51 AM EDT [facility] eGFR (CKD-EPIcr 2020) 91 >=60 mL/min/1.7 3 m2 07/26/2025 5:51 AM EDT [facility] Comment:Estimated GFR was ca lculated using the CKD-EPIcr (2020) equation refit without race. The equation is recommended by the [employer] Kid[employer] - [place] [employer] Nephrology Task Force. Blood VENOUS BLOOD / Unknown Venipuncture / Unknown 07/26/2025 5:12 AM EDT 07/26/2025 5:23 AM EDT us Andre Sen MD CHEMISTRY ORDERABLES F inal Result [facility] [address] [place] [address] * (ABNORMAL) CBC (07/26/2025 5:12 AM EDT) WBC 10.0 3.7 - 10.3 x10(3)/mcL 07/26/2025 5:28 AM EDT [facility] RBC 2.99(L) 3.90 - 5.20 x10(6)/mcL 07/26/2025 5:28 AM EDT [facility] Hgb 9.6(L) 11.2 - 15.7 g/dL 07/26/2025 5:28 AM EDT [facility] Hct 28.8(L) 34.0 - 45.0 % 07/26/2025 5:28 AM EDT [facility] MCV 96.3 80.0 - 100.0 fL 07/26/2025 5:28 AM EDT [facility] MCH 32.1 26.0 - 34.0 pg 07/26/2025 5:28 AM EDT [facility] MCHC 33.3 30.7 - 35.5 g/dL 07/26/2025 5:28 AM EDT [facility] RDW 13.0 <=14.9 % 07/26/2025 5:28 AM EDT [facility] Platelet 286 155 - 369 x10(3)/mcL 07/26/2025 5:28 AM EDT [facility] MPV 9.7 8.8 - 12.5 fL 07/26/2025 5:28 AM EDT [facility] Blood VENOUS BLOOD / Unknown Venipuncture / Unknown 07/26/2025 5:12 AM EDT 07/26/2025 5:23 AM EDT us Andre Sen MD HEMATOLOGY ORDERABLES Final Result [facility] [address] [place], [place] [id number] * ECG AND WAVEFORMS - TELEMETRY (07/25/2025 6:30 PM EDT) ECG INTERPRET [facility]R [facility] Comment:BBB 07/25/2025 6:[address] [facility] - 07/25/2025 6:38 PM EDT OR 0.14 QRS 0.13 See Clinical Report link for waveform capture us Unknown Provider POINT OF CARE CARDIOLOGY Final Result Performing Organization Address [facility]/ZIP Co de Phone Number [facility] [address] [place] [address] * PATHOLOGY TISSUE REQUEST (07/25/2025 5:37 PM EDT) CASE REPORT Surgical Pathology Case: [id number] Authorizing Provider: Andre Sen, Collected: 07/25/2025 1737 Ordering Location: [facility] Received: 07/25/2025 1833 Pathologist: Leticia Nye MD Specimen: Arm, Right, right distal radius bone for pathology 07/28/2025 3:[address] [facility] FINAL DIAGNOSIS Bone, right distal radius, excision: - Viable cortical bone with focal acute inflammation. 07/28/2025 3:[address] [facility] at 1516 EDT GROSS DESCRIPTION A. Received in formalin in a container labeled with the patient's name, hospital number, and right distal radius bone for pathology , is a 1.7 x 0.5 x 0.2 cm luna-white, irregular, jagged bone fragment. The specimen entirely submitted following decalcification in A1. MARIN Delgado PA (ASCP) 07/26/2025 07/28/2025 3:16 PM EDT [facility] MICROSCOPIC DESCRIPTION The microscopic examination may have been rendered in whole, or in part, by analyzing high-resolution digital images (whole slide images) on the PROFICIOra Digital Pathology platform validated at [facility]. 07/28/2025 3:[address] [facility] EMBEDDED IMAGES 07/28/2025 3:[address] [facility] Tissue STRUCTURE OF PART OF RIGHT UPPER LIMB / Unknown 07/25/2025 5:37 PM EDT 07/25/2025 6:33 PM EDT us Andre Sen MD PATHOLOGY ORDERABLES F inal Result [facility] [address] [place] [address] [address] * (ABNORMAL) WOUND CULTURE (STAIN INCLUDED) (07/25/2025 5:29 PM EDT) Culture Positive Growth(A) 07/31/2025 9:59 AM EDT [facility] Culture Very sparse growth of Streptococcus gallolyticus SUSCEPTIBI LITY RESULT 07/31/2025 9:59 AM EDT [facility] Culture Very sparse growth of Streptococcus sanguinis SUSCEPTIBI LITY RESULT 07/31/2025 9:59 AM EDT [facility] Stain Rare WBCs(A) 07/31/2025 9:59 AM EDT [facility] Stain Rare Gram negative rods(A) 07/31/2025 9:59 AM EDT [facility] Swab STRUCTURE OF RIGHT HAND / Unknown 07/25/2025 5:29 PM EDT 07/25/2025 6:35 PM EDT Narrative Organism Antibiotic Method Susceptibility Streptococcus gallolyticus Amoxicillin/Clavulanat e SUSCEPTIBILITY RESULT Streptococcus gallolyticus Ampicillin SUSCEPTIBILITY RESULT <=0.06 ug/mL: Susceptible Streptococcus gallolyticus Azithromycin SUSCEPTIBILITY RESULT <=0.25 ug/mL: Susceptible Streptococcus gallolyticus Cefaclor SUSCEPTIBILITY RESULT Streptococcus gallolyticus Cefepime SUSCEPTIBILITY RESULT <=0.25 ug/mL: Susceptible Streptococcus gallolyticus Cefotaxime SUSCEPTIBILITY RESULT <=0.25 ug/mL: Susceptible Streptococcus gallolyticus Ceftriaxone SUSCEPTIBILITY RESULT <=0.25 ug/mL: Susceptible Streptococcus gallolyticus Cefuroxime SUSCEPTIBILITY RESULT Streptococcus gallolyticus Chloramphenicol SUSCEPTIBILITY RESULT <=1 ug/mL: Susceptible Streptococcus gallolyticus Clindamycin SUSCEPTIBILITY RESULT 0.12 ug/mL: Susceptible Streptococcus gallolyticus Erythromycin SUSCEPTIBILITY RESULT <=0.06 ug/mL: Susceptible Streptococcus gallolyticus Gatifloxacin SUSCEPTIBILITY RESULT Streptococcus gallolyticus Levofloxacin SUSCEPTIBILITY RESULT 1 ug/mL: Susceptible Streptococcus gallolyticus Meropenem SUSCEPTIBILITY RESULT <=0.06 ug/mL: Susceptible Streptococcus gallolyticus Penicillin SUSCEPTIBILITY RESULT 0.06 ug/mL: Susceptible Streptococcus gallolyticus Tetracycline SUSCEPTIBILITY RESULT <=0.5 ug/mL: Susceptible Streptococcus gallolyticus Trimethoprim/Sulfameth oxazole SUSCEPTIBILITY RESULT Streptococcus gallolyticus Vancomycin SUSCEPTIBILITY RESULT 0.5 ug/mL: Susceptible Streptococcus sanguinis Amoxicillin/Clavulanat e SUSCEPTIBILITY RESULT Streptococcus sanguinis Ampicillin SUSCEPTIBILITY RESULT <=0.06 ug/mL: Susceptible Streptococcus sanguinis Azithromycin SUSCEPTIBILITY RESULT <=0.25 ug/mL: Susceptible Streptococcus sanguinis Cefaclor SUSCEPTIBILITY RESULT Streptococcus sanguinis Cefepime SUSCEPTIBILITY RESULT <=0.25 ug/mL: Susceptible Streptococcus sanguinis Cefotaxime SUSCEPTIBILITY RESULT <=0.25 ug/mL: Susceptible Streptococcus sanguinis Ceftriaxone SUSCEPTIBILITY RESULT <=0.25 ug/mL: Susceptible Streptococcus sanguinis Cefuroxime SUSCEPTIBILITY RESULT Streptococcus sanguinis Chloramphenicol SUSCEPTIBILITY RESULT <=1 ug/mL: Susceptible Streptococcus sanguinis Clindamycin SUSCEPTIBILITY RESULT <=0.06 ug/mL: Susceptible Streptococcus sanguinis Erythromycin SUSCEPTIBILITY RESULT <=0.06 ug/mL: Susceptible Streptococcus sanguinis Gatifloxacin SUSCEPTIBILITY RESULT Streptococcus sanguinis Levofloxacin SUSCEPTIBILITY RESULT <=0.25 ug/mL: Susceptible Streptococcus sanguinis Meropenem SUSCEPTIBILITY RESULT <=0.06 ug/mL: Susceptible Streptococcus sanguinis Penicillin SUSCEPTIBILITY RESULT 0.12 ug/mL: Susceptible Streptococcus sanguinis Tetracycline SUSCEPTIBILITY RESULT <=0.5 ug/mL: Susceptible Streptococcus sanguinis Trimethoprim/Sulfameth oxazole SUSCEPTIBILITY RESULT Streptococcus sanguinis Vancomycin SUSCEPTIBILITY RESULT 0.5 ug/mL: Susceptible Andre Sen MD MICROBIOLOGY - GENERAL ORDERABLES Final Result [facility] [address] [facility] , [place] [address] * (ABNORMAL) ANAEROBIC CULTURE (NO STAIN) (07/25/2025 5:29 PM EDT) Culture Positive Growth(A) 07/31/2025 10:20 AM EDT [facility] Culture Sparse growth of Anaerobic gram negative marlena, suspect Prevotella species. SUSCEPTIBI LITY RESULT 07/31/2025 10:20 AM EDT [facility] Comment:No further workup. Beta Lactamase Positive 07/31/2025 10:20 AM EDT [facility] Culture Sparse growth of Anaerobic Gram Positive Rods SUSCEPTIBI LITY RESULT 07/31/2025 10:20 AM EDT [facility] Comment: Unable to identify by Maldi-tof. No further workup. Swab STRUCTURE OF RIGHT HAND / Unknown 07/25/2025 5:29 PM EDT 07/25/2025 6:35 PM EDT us Andre Sen MD MICROBIOLOGY - GENERAL ORDERABLES Final Result [facility] [employer] [facility] [address] [facility], [address] [place] [id number] * (ABNORMAL) CBC (07/25/2025 6:24 AM EDT) WBC 8.9 3.7 - 10.3 x10(3)/mcL 07/25/2025 6:30 AM EDT [facility] RBC 2.90(L) 3.90 - 5.20 x10(6)/mcL 07/25/2025 6:30 AM EDT [facility] Hgb 9.5(L) 11.2 - 15.7 g/dL 07/25/2025 6:30 AM EDT [facility] Hct 27.4(L) 34.0 - 45.0 % 07/25/2025 6:30 AM EDT [facility] MCV 94.5 80.0 - 100.0 fL 07/25/2025 6:30 AM EDT [facility] MCH 32.8 26.0 - 34.0 pg 07/25/2025 6:30 AM EDT [facility] MCHC 34.7 30.7 - 35.5 g/dL 07/25/2025 6:30 AM EDT [facility] RDW 13.3 <=14.9 % 07/25/2025 6:30 AM EDT [facility] Platelet 259 155 - 369 x10(3)/mcL 07/25/2025 6:30 AM EDT [facility] MPV 9.5 8.8 - 12.5 fL 07/25/2025 6:30 AM EDT [facility] Blood VENOUS BLOOD / Unknown Venipuncture / Unknown 07/25/2025 6:24 AM EDT 07/25/2025 6:28 AM EDT us Juju DO HEMATOLOGY ORDERABLES Final R esult [facility] [address] [place] [address] * (ABNORMAL) BASIC METABOLIC PANEL (07/25/2025 6:04 AM EDT) Sodium 140 136 - 145 mmol/L 07/25/2025 6:30 AM EDT [facility] Potassium 4.1 3.5 - 5.0 mmol/L 07/25/2025 6:30 AM EDT [facility] Chloride 110(H) 98 - 107 mmol/L 07/25/2025 6:30 AM EDT [facility] Total CO2 20(L) 22 - 29 mmol/L 07/25/2025 6:30 AM EDT [facility] Anion Gap 10 7 - 16 mmol/L 07/25/2025 6:30 AM EDT [facility] Calcium 8.6 8.6 - 10.4 mg/dL 07/25/2025 6:30 AM EDT [facility] Glucose Lvl 86 70 - 99 mg/dL 07/25/2025 6:30 AM EDT [facility] BUN 6 6 - 20 mg/dL 07/25/2025 6:30 AM EDT [facility] Creatinine 0.77 0.51 - 1.30 mg/dL 07/25/2025 6:30 AM EDT [facility] eGFR (CKD-EPIcr 2020) 100 >=60 mL/min/1.7 3 m2 07/25/2025 6:30 AM EDT [facility] Comment:Estimated GFR was ca lculated using the CKD-EPIcr (2020) equation refit without race. The equation is recommended by the [employer] - [place] [employer]ph[employer] Task Force. Blood VENOUS BLOOD / Unknown Venipuncture / Unknown 07/25/2025 6:04 AM EDT 07/25/2025 6:09 AM EDT S Juju DO CHEMISTRY ORDERABLES Final Re sult [facility] [address] [place] [id number] * CT UPPER EXTREMITY RIGHT WO CONTRAST (07/24/2025 1:16 PM EDT) Anatomical Region Laterality Modality Arm Computed Tomogra phy 07/24/2025 1:16 PM EDT Impressions 07/24/2025 1:29 PM EDT 1. Acute comminuted fracturing of the lateral distal radial metadiaphysis with complete fracture extension and displaced fracture cortical bone fragments. 2. Soft tissue laceration injury compatible with dogbite noted at and proximal to the aforementioned distal radial fracture. Suspect injury to the extensor carpi radialis regional to the fracture. 3. Additional proximal forearm soft tissue injury also compatible with dogbite. - Note: Radiology results need to be interpreted within a comprehensive clinical context. If you have questions about the radiology report, please contact the office of the ordering clinician. Narrative 07/24/2025 1:[address] UPPER EXTREMITY RIGHT WO CONTRAST, 07/24/2025 1:16 PM CLINICAL HISTORY: -right radius fracture from dog bite, eval for complete fracture / evidence of punctures in bone COMPARISON: Radiographs 07/23/2025, 07/20/2025. PROCEDURE COMMENTS: Noncontrast multidetector CT with multiplanar reconstructions per ordered protocol. Dose 1 : CT DLP Total : 257.56 mGycm DLP Spiral Max : 252.21 mGycm Maximum CTDI Vol : 6.96 mGy FINDINGS: BONES & JOINTS: Redemonstrated acute comminuted fracturing of the lateral distal radial metadiaphysis with extension from the volar to dorsal margins of the bone indicating complete fracture. Cortical fracture fragment displacement noted including within the medullary cavity and in the regional soft tissues. No fracture of the more proximal radius. No ulnar fracture. The distal radioulnar joint is congruent. Status post scaphoid ORIF. No carpal bone fracture. Joint spaces are maintained. SOFT TISSUES: Soft tissue laceration injury compatible with dogbite noted at and proximal to the aforementioned distal radial fracture. Suspect injury to the extensor carpi radialis regional to the fracture. Subcutaneous edema noted at this area as well as in the distal portions of the forearm. Additional soft tissue injury noted proximally towards the elbow. No evidence of fluid collection. No worrisome tracking soft tissue gas. -- Procedure Note Dragan Herrera MD - 07/24/2025 CT UPPER EXTREMITY RIGHT WO CONTRAST, 07/24/2025 1:16 PM CLINICAL HISTORY: -right radius fracture from dog bite, eval forcomplete fracture / evidence of punctures in bone COMPARISON: Radiographs 07/23/2025, 07/20/2025. PROCEDURE COMMENTS: Noncontrast multidetector CT with multiplanar reconstructions per ordered protocol. Dose 1 : CT DLP Total : 257.56 mGycm DLP Spiral Max : 252.21 mGycm Maximum CTDI Vol : 6.96 mGy FINDINGS: BONES & JOINTS: Redemonstrated acute comminuted fracturing of thelateral distal radial metadiaphysis with extension from the volar to dorsalmargins of the bone indicating complete fracture. Cortical fracture fragmentdisplacement noted including within the medullary cavity and in the regional softtissues. No fracture of the more proximal radius. No ulnar fracture. The distalradioulnar joint is congruent. Status post scaphoid ORIF. No carpal bone fracture. Joint spaces aremaintained. SOFT TISSUES: Soft tissue laceration injury compatible with dogbite notedat and proximal to the aforementioned distal radial fracture. Suspect injury tothe extensor carpi radialis regional to the fracture. Subcutaneous edema notedat this area as well as in the distal portions of the forearm. Additionalsoft tissue injury noted proximally towards the elbow. No evidence of fluid collection. No worrisome tracking soft tissue gas. -- IMPRESSION: 1. Acute comminuted fracturing of the lateral distal radial metadiaphysiswith complete fracture extension and displaced fracture cortical bonefragments. 2. Soft tissue laceration injury compatible with dogbite noted at andproximal to the aforementioned distal radial fracture. Suspect injury to theextensor carpi radialis regional to the fracture. 3. Additional proximal forearm soft tissue injury also compatible withdogbite. - Note: Radiology results need to be interpreted within a comprehensiveclinical context. If you have questions about the radiology report, please contactthe office of the ordering clinician. Andre Sen MD IM CT ORDERABLES Barbara l Result * (ABNORMAL) STAPHYLOCOCCUS AUREUS SCREEN (07/24/2025 10:58 AM EDT) Staph aureus PCR Detected( A) Not Detected 07/24/2025 2:38 PM EDT [facility] MRSA PCR Detected( A) Not Detected 07/24/2025 2:38 PM EDT [facility] Swab BOTH ANTERIOR NARES / Unknown 07/24/2025 10:58 AM EDT 07/24/2025 11:02 AM EDT Narrative [facility] - 07/24/2025 2:38 PM EDT MRSA target DNA sequences are detected. SA target DNA sequence is detected. This qualitative assay is intended for the detection of Staphylococcus aureus proprietary sequences for the staphylococcal protein A (spa) gene, the gene for methicillin resistance (mecA), and the staphylococcal cassette chromosome mec (SCCmec) inserted into the SA chromosomal attB site. This assay utilizes real time PCR on the [employer] Inf[employer], and its performance has been verified by the [facility]. A negative result does not rule out the presence of the Staphylococcus aureus or Methicillin resistant Staphylococcus aureus in concentrations below the limit of detection for the assay. This assay is FDA cleared to test on nares swabs collected on patients >21 years of age. Testing on patients < 21 years of age and on umbilicus sources is not FDA approved by this methodology, but has been developed and validated by the [facility] laboratory. Detailed methodology is available upon request. S Juju DO MICROBIOLOGY - GENERAL ORDERA BLES Final Result [id number] , [address] [place], [place] [id number] * BLOOD CULTURE (NO STAIN) (07/24/2025 2:52 AM EDT) Pathologist [facility] Culture Result No Growth at 120 hours. BLOOD CULTURE (NO STAIN) 07/29/2025 6:00 AM EDT [facility] Blood VENOUS BLOOD / Unknown Venipuncture / Unknown 07/24/2025 2:52 AM EDT 07/24/2025 2:54 AM EDT Fahad Pearson APRN MICROBIOLOGY - GENERAL ORDERA BLES Final Result Performing Organization Address City/[facility]/ZIP Co de Phone Number [facility] [address] [facility] , [place] [address] * BLOOD CULTURE (NO STAIN) (07/24/2025 2:52 AM EDT) Culture Result No Growth at 120 hours. BLOOD CULTURE (NO STAIN) 07/29/2025 6:00 AM EDT [facility] Blood VENOUS BLOOD / Unknown Venipuncture / Unknown 07/24/2025 2:52 AM EDT 07/24/2025 2:54 AM EDT Fahad Pearson APRN MICROBIOLOGY - GENERAL ORDERA BLES Final Result Performing Organization Address [facility] Co de Phone Number [facility] [address] [facility] , [place] [address] documented in this encounter Visit Diagnoses Diagnosis Infection of wound due to dog bite- Primary Dog bite, initial encounter Acute on chronic HFrEF (heart failure with reduced ejection fraction) (HCC) Hypokalemia Hypopotassemia Fracture of right radius Closed fracture of unspecified part of radius (alone) Anxiety Anxiety state, unspecified JUAN (obstructive sleep apnea) Obstructive sleep apnea (adult) (pediatric) Nonischemic cardiomyopathy (HCC) Other primary cardiomyopathies 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 Nausea Nausea alone Antibiotic-associated diarrhea Diarrhea Primary hypertension Unspecified essential hypertension Acute on chronic HFrEF (heart failure with reduced ejection fraction) (HCC) Leukocytosis Leukocytosis, unspecified documented in this encounter Admitting Diagnoses Diagnosis Wound infection Posttraumatic wound infection not elsewhere classified documented in this encounter Administered Medications Inactive Administered Medications - up to 1 most recent administrations Medication Order MAR Action Action Date Dose Rate Site acetaminophen (TYLENOL) tablet 650 mg 650 mg, Oral, EVERY 4 HOURS PRN, Starting on Fri07/24/25 at 0234, Until Fri08/03/25 at 1847, Pain, Fever, Maximum adult dose of acetaminophen is 4000 mg from all sources in 24 hours. Given 08/02/2025 3:42 PM EDT 650 mg alteplase (ACTIVASE) injection 1 mg 1 mg, Intercatheter, PRN, Starting on Fri07/29/25 at 1401, Until Fri08/03/25 at 1847, Clotted line, For catheter occlusion. Instill alteplase into occluded catheter and allow to dwell for 30 minutes. If catheter function not restored, continue to dwell for an additional 90 minutes (120 minutes total). May repeat x 1 for a total of 2 mg. Contact pharmacy for dose. ampicillin-sulbactam (UNASYN) 3 g in sodium chloride 0.9 % 100 mL IVPB 3 g, Intravenous, EVERY 6 HOURS SCHEDULED (4 times per day), 171 doses, First dose on Fri07/24/25 at 1200, Last dose on Fri09/04/25 at 2200, Administer over 30 Minutes, Reason for Therapy: Infection Suspected, Indication: Skin/soft tissue IV Started 08/03/2025 3:43 PM EDT 3 g 200 mL/hr carvediloL (COREG) tablet 3.125 mg 3.125 mg, Oral, 2 TIMES DAILY WITH MEALS, First dose on Fri07/29/25 at 1815, Until Discontinued, Take with a meal. Given 07/30/2025 8:13 AM EDT 3.125 mg carvediloL (COREG) tablet 6.25 mg 6.25 mg, Oral, 2 TIMES DAILY WITH MEALS, First dose (after last modification) on Fri07/30/25 at 1800, Until Discontinued, Hold for sbp <110 or HR <60 Take with a meal. Given 08/03/2025 5:53 PM EDT 6.25 mg empagliflozin (JARDIANCE) tablet 25 mg 25 mg, Oral, DAILY, First dose on Fri07/24/25 at 0900, Until Discontinued, Therapeutic interchange for dapagliflozin (FARXIGA) tablet Given 08/03/2025 10:29 AM EDT 25 mg enoxaparin (LOVENOX) injection 40 mg 40 mg, Subcutaneous, DAILY - LMWH/Xa, First dose on Fri07/26/25 at 1445, Until Discontinued Given 08/03/2025 11:40 AM EDT 40 mg Abdominal Tissue fentaNYL (SUBLIMAZE) injection 25 mcg 25 mcg, Intravenous, EVERY 5 MIN PRN, Starting on Fri07/25/25 at 1804, Until Fri07/25/25 at 2000, Pain, For initial pain. Maximum dose not to exceed 100 mcg., PACU Given 07/25/2025 7:14 PM EDT 25 mcg fUROsemide (LASix) injection 20 mg 20 mg, Intravenous, ONCE, 1 dose, On 07/30/25 at 1200, Give IV push at 20 to 40 mg/min. MAX ADMIN RATE = 40 mg/min Given 07/30/2025 11:39 AM EDT 20 mg fUROsemide (LASix) injection 20 mg 20 mg, Intravenous, ONCE, 1 dose, On [facility] 07/30/25 at 2045, Give IV push at 20 to 40 mg/min. MAX ADMIN RATE = 40 mg/min Given 07/30/2025 8:39 PM EDT 20 mg fUROsemide (LASix) injection 40 mg 40 mg, Intravenous, TWICE DAILY DIURETIC, First dose on Fri07/31/25 at 0900, Until Discontinued, Give IV push at 20 to 40 mg/min. MAX ADMIN RATE = 40 mg/min Given 07/31/2025 8:22 AM EDT 40 mg fUROsemide (LASix) injection 40 mg 40 mg, Intravenous, TWICE DAILY DIURETIC, First dose (after last reorder) on [place] 07/31/25 at 1700, Until Discontinued, Give IV push at 20 to 40 mg/min. MAX ADMIN RATE = 40 mg/min Given 08/01/2025 4:28 PM EDT 40 mg fUROsemide (LASix) tablet 40 mg 40 mg, Oral, DAILY, First dose on Fri07/24/25 at 0900, Until Discontinued Given 07/26/2025 10:13 AM EDT 40 mg fUROsemide (LASix) tablet 40 mg 40 mg, Oral, DAILY, First dose on Fri08/02/25 at 0900, Until Discontinued Given 08/03/2025 10:29 AM EDT 40 mg lidocaine 10 mg/mL (1 %) injection (PF) 1 mL 1 mL, Subcutaneous, ONCE, 1 dose, On Fri07/29/25 at 1545, Use 1% Lidocaine 1 mL intradermally and subcutaneously at insertion site for local anesthetic. Given by Other 07/29/2025 2:10 PM EDT 1 mL Left Arm loperamide (IMODIUM) capsule 2 mg 2 mg, Oral, 4 TIMES DAILY PRN, 2 doses, Starting on Fri07/29/25 at 1043, Until Fri08/03/25 at 1847, Diarrhea, After each loose stool - Max 16 mg (8 caps) per 24 hours. If administering via enteral tube, empty contents of the capsules into 30 ml of water. losartan (COZAAR) tablet 50 mg 50 mg, Oral, DAILY, First dose on Fri07/24/25 at 0900, Until Discontinued, +++ARB Medication+++ Given 07/31/2025 8:19 AM EDT 50 mg magnesium oxide (MAG-OX) tablet 400 mg 400 mg, Oral, ONCE, 1 dose, On Fri07/24/25 at 1200 Given 07/24/2025 12:07 PM EDT 400 mg melatonin tablet 5-10 mg 5-10 mg, Oral, NIGHTLY PRN, Starting on Fri07/24/25 at 0234, Until Fri08/03/25 at 1847, Sleep Given 08/02/2025 9:32 PM EDT 10 mg metoclopramide HCl (REGLAN) injection 10 mg 10 mg, Intravenous, ONCE, 1 dose, On Fri07/27/25 at 0645 Given 07/27/2025 5:13 AM EDT 10 mg mupirocin (BACTROBAN) 2 % ointment Nasal, 2 TIMES DAILY, 10 doses, First dose on Fri07/29/25 at 2100, Last dose on Fri08/03/25 at 0900 Given 08/03/2025 10:29 AM EDT Both Nares naproxen (NAPROSYN) tablet 500 mg 500 mg, Oral, 2 TIMES DAILY PRN, Starting on Fri07/24/25 at 0235, Until Fri08/03/25 at 1847, Pain Given 07/29/2025 3:53 PM EDT 500 mg ondansetron (ZOFRAN) injection 4 mg 4 mg, Intravenous, EVERY 6 HOURS PRN, Starting on Fri07/24/25 at 0234, Until Fri07/27/25 at 0841, Nausea Given 07/27/2025 4:21 AM EDT 4 mg oxyCODONE (ROXICODONE) immediate release tablet 5 mg 5 mg, Oral, EVERY 1 HOUR PRN, Starting on 07/25/25 at 1804, Until Fri07/25/25 at 2001, Pain, When tolerating oral intake. Maximum dose not to exceed 10 mg unless otherwise directed by the Anesthesia Coordinator., PACU Given 07/25/2025 6:54 PM EDT 5 mg pantoprazole (PROTONIX) 40 mg in sodium chloride 0.9% 10 mL injection 40 mg, Intravenous, DAILY, First dose (after last modification) on Fri07/24/25 at 0900, Until Discontinued, Administer IV Push if patient cannot swallow pantoprazole tablets pantoprazole (PROTONIX) tablet 40 mg 40 mg, Oral, DAILY, First dose (after last modification) on Fri07/24/25 at 0900, Until Discontinued, Do not crush or chew Given 08/03/2025 10:29 AM EDT 40 mg potassium chloride (KLOR-CON) tablet 10 mEq 10 mEq, Oral, DAILY WITH MEAL, First dose on Fri07/24/25 at 0800, Until Discontinued Given 08/03/2025 10:28 AM EDT 10 mEq potassium chloride (KLOR-CON) tablet 40 mEq 40 mEq, Oral, *EVERY 6 HOURS, 2 doses, First dose on Fri07/27/25 at 1100, Last dose on Fri07/27/25 at 1700 Given 07/27/2025 3:31 PM EDT 40 mEq potassium chloride (KLOR-CON) tablet 40 mEq 40 mEq, Oral, ONCE, 1 dose, On Fri08/01/25 at 0900 Given 08/01/2025 11:55 AM EDT 40 mEq prochlorperazine edisylate (COMPAZINE) injection 10 mg 10 mg, Intravenous, EVERY 6 HOURS PRN, Starting on Fri07/27/25 at 0841, Until Fri08/03/25 at 1847, Nausea, Vomiting Given 08/03/2025 10:35 AM EDT 10 mg rabies immune globulin (PF) injection 1,230 Units 1,230 Units (rounded from 1,242 Units = 20 Units/kg 62.1 kg), Intramuscular, ONCE, 1 dose, On Fri07/25/25 at 1245, Do not administer IV. If feasible, the full rabies IG dose should be infiltrated around and into the wound(s); remaining volume should be given IM in the deltoid muscle of the upper arm or lateral thigh muscle. The gluteal area should be avoided. Do not administer rabies vaccine in the same syringe or at the same administration site as rabies IG. For more information on proper administration, please reference clinical skills. Given 07/25/2025 11:55 AM EDT 1,230 Units Other rabies vaccine, PCEC (RABAVERT) injection 1 mL 1 mL, Intramuscular, ONCE, 1 dose, On Fri08/08/25 at 0900, Message the main pharmacy for dose if the patient is still admitted. Saccharomyces boulardii (FLORASTOR) capsule 250 mg 250 mg, Oral, 2 TIMES DAILY, First dose on Fri07/29/25 at 1315, Until Discontinued, If for feeding tube administration, open capsule/packet outside of patient's room and dissolve contents in 8-12 oz. of liquid Given 08/03/2025 10:29 AM EDT 250 mg sacubitriL-valsartan (ENTRESTO) 49-51 mg tablet 1 Tablet 1 Tablet, Oral, 2 TIMES DAILY, First dose on Fri07/31/25 at 1445, Until Discontinued, If switching from an OSWALOD inhibitor, allow a 36-hour washout period after last dose of OSWALDO-I before initiating Entresto. Given 08/03/2025 10:29 AM EDT 1 Tablet sodium chloride 0.9% IV line flush 20-50 mL 20-50 mL, Intravenous, at 150-600 mL/hr, PRN, Starting on Fri07/25/25 at 2229, Until Fri08/03/25 at 1847, Line Care, Flush with a minimum of 20 mL after IVPB to insure complete administration of the dose. May use the saline infusion to back flush IVPB tubing as needed. IV Restarted 07/29/2025 10:56 AM EDT 150 mL/hr sodium chloride 0.9% IV line flush 20-50 mL 20-50 mL, Intravenous, at 150-600 mL/hr, PRN, Starting on Fri07/29/25 at 1401, Until Fri08/03/25 at 1847, Line Care, *Not to be used for red and blue lumen on dialysis catheters* Flush with a minimum of 20 mL after IVPB to insure complete administration of the dose. May use the saline infusion to back flush IVPB tubing as needed. IV Started 08/03/2025 3:43 PM EDT 50 mL 150 mL/hr sodium chloride 0.9% IV line flush 50 mL 50 mL, Intravenous, at 999 mL/hr, PRN, Starting on Fri07/24/25 at 0234, Until Fri07/25/25 at 2133, Line Care, Flush with 50 mL after IVPB to insure complete administration of the dose. May use the saline infusion to back flush IVPB tubing as needed., Use this order to document priming and flushing IV line after medication administration. IV Started 07/25/2025 9:26 PM EDT 50 mL 999 mL/hr sodium chloride 0.9% syringe 10 mL 10 mL, Intravenous, EVERY 8 HOURS SCHEDULED (3 times per day), First dose on Fri07/29/25 at 1545, Until Discontinued, Saline locked lumens on central lines should be checked for blood return and flushed every 8 hours. Lumens with running IVF/drips should be checked for blood return and flushed whenever tubing is changed, a minimum of every 7 days. Given 08/03/2025 3:42 PM EDT 10 mL sodium chloride 0.9% syringe Intravenous, PRN, Starting on Fri07/25/25 at 2229, Until Fri08/03/25 at 1847, Line Care, Flush with 5-10 mL saline pre/post IVP, and 5 mL prior to IVPB or blood product administration. sodium chloride 0.9% syringe Intravenous, PRN, Starting on Fri07/29/25 at 1401, Until Fri08/03/25 at 1847, Line Care, *Not to be used for red and blue lumen on dialysis catheters* Flush with 5-10 mL saline pre/post IVP, 10 mL prior to IVPB or blood product administration, and 20 mL post blood draws for CENTRAL lines. Given 08/03/2025 10:35 AM EDT 10 mL spironolactone (ALDACTONE) tablet 25 mg 25 mg, Oral, DAILY, First dose on 07/24/25 at 0900, Until Discontinued Given 08/03/2025 10:29 AM EDT 25 mg traZODone (DESYREL) tablet 50 mg 50 mg, Oral, ONCE, 1 dose, On 07/30/25 at 0300, Take shortly after a meal or light snack. Given 07/30/2025 2:44 AM EDT 50 mg vancomycin (VANCOCIN) 1,000 mg in sodium chloride 0.9 % 275 mL IVPB 1,000 mg, Intravenous, *EVERY 12 HOURS, 14 doses, First dose on Fri07/25/25 at 2200, Last dose on 08/01/25 at 1130, Administer over 90 Minutes, VESICANT , Reason for Therapy: Infection Documented, Indication: Skin/soft tissue IV Started 07/28/2025 11:08 PM EDT 1,000 mg 183.3 mL/hr vancomycin (VANCOCIN) 1,250 mg in sodium chloride 0.9 % 275 mL IVPB 1,250 mg, Intravenous, ONCE, 1 dose, On Fri07/25/25 at 1000, Administer over 90 Minutes, VESICANT , Reason for Therapy: Infection Documented, Indication: Skin/soft tissue IV Started 07/25/2025 10:18 AM EDT 1,250 mg 183.3 mL/hr documented in this encounter Discontinued Medications Medication Sig Discontinue Reason Start Date End Da te losartan (COZAAR) 50 mg Oral Tablet Take 1 Tablet by mouth daily. Stop Taking at Discharge 11/04/2024 08/03/2025 amoxicillin-clavulanat e (AUGMENTIN) 875-125 mg Oral Tablet Take 1 Tablet by mouth 2 times daily for 10 days. Stop Taking at Discharge 07/20/2025 08/03/2025 documented as of this encounter Active and Recently Administered Medications Times are shown in EDT. Scheduled Medication Order 08/01/2025 08/02/2025 08/03/2025 ampicillin-sulbactam (UNASYN) 3 g in sodium chloride 0.9 % 100 mL IVPB 3 g, Intravenous, EVERY 6 HOURS SCHEDULED (4 times per day), 171 doses, First dose on 07/24/25 at 1200, Last dose on 09/04/25 at 2200, Administer over 30 Minutes, Reason for Therapy: Infection Suspected, Indication: Skin/soft tissue 0359 (IV Started - Provider: Ira Fernández RN)0429 (Stopped - Provider: Ira Fernández RN)1204 (IV Started - Provider: Flori Cagle RN)1234 (Stopped - Provider: Flori Cagle RN)1632 (IV Started - Provider: Flori Cagle RN)1701 (Stopped - Provider: Geovanna Felix RN)1702 (Stopped - Provider: Flori Cagle RN)2130 (IV Started - Provider: Geovanna Felix RN)2200 (Stopped - Provider: Geovanna Felix RN) 0507 (IV Started - Provider: Geovanna Felix RN)0537 (Stopped - Provider: Geovanna Felix RN)0912 (IV Started - Provider: Matteo Browne, Dean Of Women)0942 (Stopped - Provider: Flori Cagle RN)1551 (IV Started - Provider: Flori Cagle RN)1621 (Stopped - Provider: Flori Cagle RN)2132 (IV Started - Provider: Geovanna Felix RN)2202 (Stopped - Provider: Geovanna Felix, SHANIA) 0503 (IV Started - Provider: Geovanna Felix RN)0533 (Stopped - Provider: Geovanna Felix RN)1041 (IV Started - Provider: Jaclyn Issa RN)1111 (Stopped - Provider: Jaclyn Issa RN)1543 (IV Started - Provider: Jaclyn Issa RN)1613 (Stopped - Provider: Jaclyn Issa RN) carvediloL (COREG) tablet 6.25 mg 6.25 mg, Oral, 2 TIMES DAILY WITH MEALS, First dose (after last modification) on 07/30/25 at 1800, Until Discontinued, Hold for sbp <110 or HR <60 Take with a meal. 0850 (Given - Provider: Flori Cagle RN)1719 (Given - Provider: Flori Cagle RN) 1008 (Given - Provider: Flori Cagle RN)1828 (Given - Provider: Flori Cagle RN) 1023 (Hold - Provider: Jaclyn Issa RN - Reason: Hold - Comment: hold per hospitalist)1753 (Given - Provider: Jaclyn Issa RN) empagliflozin (JARDIANCE) tablet 25 mg 25 mg, Oral, DAILY, First dose on 07/24/25 at 0900, Until Discontinued, Therapeutic interchange for dapagliflozin (FARXIGA) tablet 0851 (Given - Provider: Flori Cagle RN) 1008 (Given - Provider: Flori Cagle RN) 1029 (Given - Provider: Jaclyn Issa RN) enoxaparin (LOVENOX) injection 40 mg 40 mg, Subcutaneous, DAILY - LMWH/Xa, First dose on Fri07/26/25 at 1445, Until Discontinued 1154 (Given - Provider: Flori Cagle RN) 1542 (Given - Provider: Flori Cagle RN) 1140 (Given - Provider: Jaclyn Issa, RN) fUROsemide (LASix) injection 40 mg (CANCELED) 40 mg, Intravenous, TWICE DAILY DIURETIC, First dose (after last reorder) on Fri07/31/25 at 1700, Until Discontinued, Give IV push at 20 to 40 mg/min. MAX ADMIN RATE = 40 mg/min 1155 (Given - Provider: Flori Cagle RN)1628 (Given - Provider: Flori Cagle RN) fUROsemide (LASix) tablet 40 mg 40 mg, Oral, DAILY, First dose on Fri08/02/25 at 0900, Until Discontinued 1005 (Given - Provider: Flori Cagle RN) 1029 (Given - Provider: Jaclyn Issa, RN) mupirocin (BACTROBAN) 2 % ointment (COMPLETED) Nasal, 2 TIMES DAILY, 10 doses, First dose on Fri07/29/25 at 2100, Last dose on Fri08/03/25 at 0900 0849 (Given - Provider: Flori Cagle RN)2127 (Given - Provider: Geovanna Felix RN) 1009 (Given - Provider: Flori Cagle RN)2049 (Given - Provider: Geovanna Felix RN) 1029 (Given - Provider: Jaclyn Issa, RN) pantoprazole (PROTONIX) 40 mg in sodium chloride 0.9% 10 mL injection(Linked Group 1) 40 mg, Intravenous, DAILY, First dose (after last modification) on Fri07/24/25 at 0900, Until Discontinued, Administer IV Push if patient cannot swallow pantoprazole tablets 0849 (See Alternative - Provider: Flori Cagle RN) 1008 (See Alternative - Provider: Flori Cagle RN) 1029 (See Alternative - Provider: Jaclyn Issa, SHANIA) pantoprazole (PROTONIX) tablet 40 mg(Linked Group 1) 40 mg, Oral, DAILY, First dose (after last modification) on Fri07/24/25 at 0900, Until Discontinued, Do not crush or chew 0849 (Given - Provider: Flori Cagle RN) 1008 (Given - Provider: Flori Cagle RN) 1029 (Given - Provider: Jaclyn Issa, RN) potassium chloride (KLOR-CON) tablet 10 mEq 10 mEq, Oral, DAILY WITH MEAL, First dose on Fri07/24/25 at 0800, Until Discontinued 0851 (Given - Provider: Flori Cagle RN) 1005 (Given - Provider: Flori Cagle RN) 1028 (Given - Provider: Jaclyn Issa RN) potassium chloride (KLOR-CON) tablet 40 mEq (COMPLETED) 40 mEq, Oral, ONCE, 1 dose, On Fri08/01/25 at 0900 1155 (Given - Provider: Flori Cagle RN) rabies vaccine, PCEC (RABAVERT) injection 1 mL(Linked Group 2) 1 mL, Intramuscular, ONCE, 1 dose, On Fri08/08/25 at 0900, Message the main pharmacy for dose if the patient is still admitted. Saccharomyces boulardii (FLORASTOR) capsule 250 mg 250 mg, Oral, 2 TIMES DAILY, First dose on Fri07/29/25 at 1315, Until Discontinued, If for feeding tube administration, open capsule/packet outside of patient's room and dissolve contents in 8-12 oz. of liquid 0850 (Given - Provider: Flori Cagle RN)2125 (Given - Provider: Geovanna Felix RN) 1007 (Not Given - Provider: Flori Cagle RN - Reason: Patient Declined - Comment: pt. refused due to not having diarrhea)2049 (Given - Provider: Geovanna Felix RN) 102 (Given - Provider: Jaclyn Issa, SHANIA) sacubitriL-valsartan (ENTRESTO) 49-51 mg tablet 1 Tablet 1 Tablet, Oral, 2 TIMES DAILY, First dose on Fri07/31/25 at 1445, Until Discontinued, If switching from an OSWALDO inhibitor, allow a 36-hour washout period after last dose of OSWALDO-I before initiating Entresto. 0850 (Given - Provider: Flori Cagle RN)2125 (Given - Provider: Geovanna Felix RN) 1011 (Given - Provider: Flori Cagle RN)2049 (Given - Provider: Geovanna Felix RN) 1029 (Given - Provider: Jaclyn Issa RN) sodium chloride 0.9% syringe 10 mL 10 mL, Intravenous, EVERY 8 HOURS SCHEDULED (3 times per day), First dose on Fri07/29/25 at 1545, Until Discontinued, Saline locked lumens on central lines should be checked for blood return and flushed every 8 hours. Lumens with running IVF/drips should be checked for blood return and flushed whenever tubing is changed, a minimum of every 7 days. 0538 (Given - Provider: Ira Fernández RN)1631 (Given - Provider: Flori Cagle RN)2130 (Given - Provider: Geovanna Felix, SHANIA) 0509 (Given - Provider: Geovanna Felix RN)1548 (Given - Provider: Flori Cagle RN)2139 (Given - Provider: Geovanna Felix RN) 0503 (Given - Provider: Geovanna Felix RN)1542 (Given - Provider: Jaclyn Issa RN) spironolactone (ALDACTONE) tablet 25 mg 25 mg, Oral, DAILY, First dose on Fri07/24/25 at 0900, Until Discontinued 0851 (Given - Provider: Flori Cagle RN) 1005 (Given - Provider: Flori Cagle RN) 1029 (Given - Provider: Jaclyn Issa RN) PRN Medication Order 08/01/2025 08/02/2025 08/03/2025 acetaminophen (TYLENOL) tablet 650 mg 650 mg, Oral, EVERY 4 HOURS PRN, Starting on Fri07/24/25 at 0234, Until Fri08/03/25 at 1847, Pain, Fever, Maximum adult dose of acetaminophen is 4000 mg from all sources in 24 hours. 0402 (Given - Provider: Ira Fernández RN)0848 (Given - Provider: Flori Cagle RN)1627 (Given - Provider: Flori Cagle RN)2126 (Given - Provider: Geovanna Felix RN) 1005 (Given - Provider: Flori Cagle RN)1542 (Given - Provider: Flori Cagle RN) alteplase (ACTIVASE) injection 1 mg 1 mg, Intercatheter, PRN, Starting on Fri07/29/25 at 1401, Until Fri08/03/25 at 1847, Clotted line, For catheter occlusion. Instill alteplase into occluded catheter and allow to dwell for 30 minutes. If catheter function not restored, continue to dwell for an additional 90 minutes (120 minutes total). May repeat x 1 for a total of 2 mg. Contact pharmacy for dose. loperamide (IMODIUM) capsule 2 mg 2 mg, Oral, 4 TIMES DAILY PRN, 2 doses, Starting on Fri07/29/25 at 1043, Until Fri08/03/25 at 1847, Diarrhea, After each loose stool - Max 16 mg (8 caps) per 24 hours. If administering via enteral tube, empty contents of the capsules into 30 ml of water. melatonin tablet 5-10 mg 5-10 mg, Oral, NIGHTLY PRN, Starting on Fri07/24/25 at 0234, Until Fri08/03/25 at 1847, Sleep 2125 (Given - Provider: Geovanna Felix RN) 213 (Given - Provider: Geovanna Felix RN) naproxen (NAPROSYN) tablet 500 mg 500 mg, Oral, 2 TIMES DAILY PRN, Starting on Fri07/24/25 at 0235, Until Fri08/03/25 at 1847, Pain prochlorperazine edisylate (COMPAZINE) injection 10 mg 10 mg, Intravenous, EVERY 6 HOURS PRN, Starting on Fri07/27/25 at 0841, Until Fri08/03/25 at 1847, Nausea, Vomiting 1217 (Given - Provider: Flori Cagle RN)1844 (Given - Provider: Flori Cagle RN) 0927 (Given - Provider: Matteo Browne, Dean Of Women)1541 (Given - Provider: Flori Cagel RN) 1035 (Given - Provider: Jaclyn Issa RN) sodium chloride 0.9% IV line flush 20-50 mL 20-50 mL, Intravenous, at 150-600 mL/hr, PRN, Starting on 07/25/25 at 2229, Until Fri08/03/25 at 1847, Line Care, Flush with a minimum of 20 mL after IVPB to insure complete administration of the dose. May use the saline infusion to back flush IVPB tubing as needed. sodium chloride 0.9% IV line flush 20-50 mL 20-50 mL, Intravenous, at 150-600 mL/hr, PRN, Starting on Fri07/29/25 at 1401, Until Fri08/03/25 at 1847, Line Care, *Not to be used for red and blue lumen on dialysis catheters* Flush with a minimum of 20 mL after IVPB to insure complete administration of the dose. May use the saline infusion to back flush IVPB tubing as needed. 1203 (IV Started - Provider: Flori Cagle RN)1203 (IV Paused - Provider: Flori Cagle RN)1236 (IV Restarted - Provider: Flori Cagle, RN)1240 (Stopped - Provider: Flori Cagle RN)1240 (Stopped - Provider: Flori Cagle RN)1632 (IV Started - Provider: Flori Cagle RN)1632 (IV Paused - Provider: Flori Cagle, RN)1707 (IV Restarted - Provider: Flori Cagle RN)1718 (Stopped - Provider: Flori Cagle RN) 0911 (IV Started - Provider: Matteo Browne, Dean Of Women)1550 (IV Started - Provider: Flori Cagle RN) 1041 (IV Started - Provider: Jaclyn Issa, SHANIA)1543 (IV Started - Provider: Jaclyn Issa, RN)1635 (Stopped - Provider: Jaclyn Issa, RN) sodium chloride 0.9% syringe Intravenous, PRN, Starting on Fri07/25/25 at 2229, Until Fri08/03/25 at 1847, Line Care, Flush with 5-10 mL saline pre/post IVP, and 5 mL prior to IVPB or blood product administration. sodium chloride 0.9% syringe Intravenous, PRN, Starting on Fri07/29/25 at 1401, Until Fri08/03/25 at 1847, Line Care, *Not to be used for red and blue lumen on dialysis catheters* Flush with 5-10 mL saline pre/post IVP, 10 mL prior to IVPB or blood product administration, and 20 mL post blood draws for CENTRAL lines. 1035 (Given - Provider: Jaclyn Issa RN) Linked Groups Order Group 1: pantoprazole (PROTONIX) 40 mg in sodium chloride 0.9% 10 mL injectionJump to med 40 mg, Intravenous, DAILY, First dose (after last modification) on 07/24/25 at 0900, Until Discontinued, Administer IV Push if patient cannot swallow pantoprazole tablets Or pantoprazole (PROTONIX) tablet 40 mgJump to med 40 mg, Oral, DAILY, First dose (after last modification) on 07/24/25 at 0900, Until Discontinued, Do not crush or chew Group 2: rabies vaccine, PCEC (RABAVERT) injection 1 mL (COMPLETED) 1 mL, Intramuscular, ONCE, 1 dose, On Verena 07/28/25 at 0900, Message the main pharmacy for dose if the patient is still admitted. Followed by rabies vaccine, PCEC (RABAVERT) injection 1 mL (COMPLETED) 1 mL, Intramuscular, ONCE, 1 dose, On 08/01/25 at 0900, Message the main pharmacy for dose if the patient is still admitted. Followed by rabies vaccine, PCEC (RABAVERT) injection 1 mLJump to med 1 mL, Intramuscular, ONCE, 1 dose, On 08/08/25 at 0900, Message the main pharmacy for dose if the patient is still admitted. documented in this encounter Orders Medications Ordered That Jorge Alberto ht Not Have Been Administered Count Last Ordered Date First Ordered Date fUROsemide (LASix) injection 40 mg 2 202407/26/2025 0.9 % NaCl infusion 1 07/29/2025 alteplase (ACTIVASE) injection 1 mg 1 07/29 loperamide (IMODIUM) capsule 2 mg 1 025 rabies vaccine, PCEC (RABAVE RT) injection 1 mL 1 07/27/2025 aprepitant (EMEND) capsule 40 mg 1 07/25/20 25 dimenhyDRINATE (DRAMAMINE) 1 2.5-25 mg in sodium chloride 0.9% injection 1 07/25/2025 droPERidol (INAPSINE) injection 0.625 mg 1 07/25/2025 HYDROmorphone (DILAUDID) injection 0.25 mg 1 07/25/2025 ondansetron (ZOFRAN) injection 4 mg 1 07/25 ondansetron (ZOFRAN-ODT) dis integrating tablet 8 mg 1 07/25/2025 promethazine (PHENERGAN) 12. 5 mg in sodium chloride 0.9% 10 mL injection 1 07/25/2025 promethazine (PHENERGAN) 6.2 5 mg in sodium chloride 0.9% 10 mL injection 1 07/25/2025 sodium chloride 0.9% syringe 1 07/25/2025 pantoprazole (PROTONIX) 40 m g in sodium chloride 0.9% 10 mL injection 1 07/24/2025 sodium chloride 0.9% syringe 5-10 mL 1 07/06 Lab Orders Without Results Count Last Ordered D ate First Ordered Date BASIC METABOLIC PANEL 1 07/30/2025 Consult Count Last Ordered Date First Orde red Date IP CONSULT TO CARDIOLOGY 1 07/30/2025 IP CONSULT TO PHARMACY 3 07/27/202507/25 IP CONSULT TO INFECTIOUS DISEASES 1 025 IP CONSULT TO ORTHOPEDIC SURGERY 1 07/24/20 Admission Count Last Ordered Date First Orde red Date ADMIT 2 07/26/2025 07/24/2025 Discharge Count Last Ordered Date First Orde red Date DISCHARGE PATIENT 1 08/03/2025 documented in this encounter Additional Health Concerns Infection Onset Date Last Indicated Resolved Time MRSA 07/24/2025 07/24/2025 documented as of this encounter Care Teams Beauty Advisor Relationship Specialty Start Date End Date Nonstaff, Referring PCP - General 07/20/25 documented as of this encounter
--- OUTSIDE RECORDS SUMMARY | 2025-07-25 16:00 | XMS_ITS | Encounter Summary ---
Author Organization [place] [address] Care Team Providers Care Shell Sorter Name Role Phone Nonstaff, Referring Primary Care Provider Troy francois Reason for Visit * Auth/Cert/Inpt Specialty Diagnoses / Procedures Referred By Norma t Referred To Contact Diagnoses Wound infection distal radial fracture Procedures N/A Referral ID Status Reason Start Date Expiration Date Visits Re quested Visits Authorized [id number] 1 1 Encounter Details Date Type Department Care Team (Late st Contact Info) Description 07/25/2025 5:00 PM EDT - 07/25/2025 6:10 PM EDT Surgery [facility] [address] [place] [address] Andre Sen MD [address] [place] [address] HAND/ WRIST/FOREARM/ ARM/ INCISION AND DRAINAGE OR DEBRIDEMENT Surgery Details Date/Time Status Location OR Service Patient Class Case Class Case Type Trauma Case? 07/25/2025 5:00 PM Posted [facility] Hand Inpatient Urgent - 24hr Panel 1 Procedure [facility] Anes Op Region Wound Class Comments HAND/ WRIST/FOREARM/ ARM/ INCISION AND DRAINAGE OR DEBRIDEMENT Right General Hand/Wrist Dirty or Infected RIGHT FOREARM AND DISTAL RADIUS INCISION AND DRAINAGE Surgeon Surgeon Role Service Panel Andre Sen MD Primary Hand 1 Special Needs OK to stay on pt bed, supine/hand table, cysto tubing, large basin, 9 Ltr salineMD available at 4:30pm documented in this encounter Social History Tobacco Use Types Packs/Day Years [...] and heating? Not hard at all 07/24/2025 [facility] - Occupational Stress Questionnaire Answer Date Recorded [...] money to get more. Never true 07/24/2025 [facility] Utilities Answer Date Recorded In the past 12 months has e electric, gas, oil, or water company threatened to shut off services in your home? No 07/24/2025 [facility] HRSN CMS IP Transportation Answer D ate Recorded In [...] Sign Reading Time Taken Comments Blood Pressure 126/84 07/25/2025 3:53 PM EDT Pulse 100 07/25/2025 3:53 PM EDT Temperature 37.1 C (98.7 F) 07/25/2025 3:53 PM EDT Respiratory Rate 18 07/25/2025 3:53 PM EDT Oxygen Saturation 98% 07/25/2025 3:53 PM EDT Inhaled Oxygen Concentration - - Weight 62.1 kg (137 lb) 07/24/2025 2:18 AM EDT Height 165.1 cm (5' 5 [...] 2:16 AM EDT Adi Avilez RN * [place] Suicide Severity Rating Scale (Q shift for moderate and high) Question Answer Date of Assessment Author 1. In the past month, have y ou wished you were or wished you could go to sleep and not wake up? 0 07/24/2025 2:16 AM EDT Abbi Mae, RN 2. In the past month, have [...] Oconnor PA - 08/03/2025 2:38 PM EDT [facility] Patient Name: Nita Oquendo : [...] to 3.125mg due to soft pressures on 6.25. Labs and imaging follow-up needed: Pending Labs [...] mg Tab Condition at Discharge: stable Disposition: snf acute care hospital Follow-up: MD Referral Line [id number] Please Call This Number To Establish A Family Physician. [phone] Follow up [facility] [address] [facility] [facility] [address] Helder Arriaga MD [address] [place] [address] [place] [address] Follow up in 1 week(s) Andre Sen MD [address] [facility] [address] Follow up hospital follow up Spent 34 minutes CAROL Robertson 08/03/2025 Cosigned by Ashvin Belcher MD at 08/03/2025 4:14 PM EDT Associated attestation - Ashvin Belcher MD - 08/03/2025 4:14 PM EDT Agree w CAROL DC Summary as below documented in this encounter Discharge Instructions * Discharge Instructions* Sanjuanita Byrd RN - 07/25/2025 3:47 PM EDT Images from the original note were not included. Call [facility] at to schedule the remaining 3 injections of your vaccine series. These are due on approximately day 3, day 7 and day 14. +++++++++++++++++++++++++++++++++++++++++++++++++++++++++++++++++++ [facility] Discharge Instructions - Following Anesthesia We appreciate [...] our office at . Get Well Soon! [facility] +++++++++++++++++++++++++++++++++++++++++++++++++++++++++++++++++++ [facility] [address] [place] [address], [address] [place] [address] Call: [phone] Check out our web site: [email or web address] Failure Experts, Right Here At [facility] [place], we have assembled an entire team of [...] the most comprehensive heart failure care in [facility] and [facility]. Our heart failure team has vast experience treating some of the most complex heart failure patients. Our team includes: Dr. Charlie Devine, Rope Tier Dr. Alexandre Song All of our heart failure specialists have experience in some of the busiest heart failure centers in the country. Our team also includes nurse practitioners, physician assistants, pharmacists, dietitians, palliative care providers and nurse navigators who provide added personalized care for our alla ents. The heart failure team works closely with your current transition assistant and primary care providerin managing your congestive [...] or to make an appointment at the [facility] [place], we encourage you to call us at . Dressing change: Xeroform and oswaldo wrap daily and PRN * Attachments The following attachments cannot be sent through Care Everywhere. * Heart failure in adults ??? Discharge instructions (Gambian) documented in this encounter Medications at Time [...] Disposition Code Departure Means Destination Comment s Assisted Facility [facility] documented in this encounter Progress Notes * Jaclyn Issa RN - 08/03/2025 6:12 PM EDT Report called and given to RN at [facility]. * Marely Fernández BSW - 08/03/2025 4:05 PM EDT 08/03/25 1604 Ongoing Discharge Planning Evaluation Actual Discharge Plan 08/03 SW[facility]. Per [facility] policy pt must transport via ambulance to their facility. [facility] arranged ambulance for 6pm pickup. Facility aware. SW will SIGN OFF. * Porsche Storey, Clerical Staff - 08/03/2025 2:58 PM EDT Received referral for Post Acute form. Post Acute form provided and patient signed. Post Acute FormFax or Electronic: E-consent located in Chart Review/Consent activity 08/03/25 5545 Discharge Planning Evaluation Referral Type Post Acute Consent Post Acute Facility [facility] Form Completed Yes * Porsche Storey, Clerical Staff - 08/03/2025 2:36 PM EDT Followed up with patient re: request for transportation assistance. Scheduled with: [facility]. Trip #: [id number] @ 1800 for 08-03-25 to [facility]. Patient and RN aware of tentative plan. 08/03/25 1435 Discharge Planning Evaluation Referral Type Transportation Transportation at Discharge Ambulance (Trip #: [phone]) Transportation Options Private Pay Date Expected 08/03/25 Time Expected 1800 Transportation Location [facility]tt [facility] Transportation setup completed by PETER Mann Yes * Naima Oconnor PA - 08/03/2025 [...] 15-20% 07/31 - PO lasix 40 daily FINANCIAL SALES PROFESSIONAL - GDMT: Coreg, Entresto, Jardiance, IV Lasix, [...] 15-20% 07/31 - PO lasix 40 daily FINANCIAL SALES PROFESSIONAL - GDMT: Coreg, Entresto, Jardiance, IV Lasix, [...] PM EDTAssociated Problem(s): Anxiety -Mood stable * Maerly Fernández BSW - 08/03/2025 11:49 AM EDT [...] HFrEF (heart failure with reduced ejection fraction) ([facility]) - NICM - LVSF: 26% per NEG stress test 12/13/2024 - Lost to f/u w/cardiology - CXR 07/30: NAF - NT-ProBNP >18,000 07/30 - EF 15-20% 07/31 - PO lasix 40 daily FINANCIAL SALES PROFESSIONAL - GDMT: Coreg, Entresto, Jardiance, IV Lasix, [...] HFrEF (heart failure with reduced ejection fraction) ([facility]) Antibiotic-associated diarrhea Primary hypertension Infection due to [...] 07/24/2025 Hospital Day: 11 Primary Care Physician: Billtaff, Referring Antibiotics: Current [...] to complete rest of Rabies Vaccine Schedule 14 (08/08/25), and 28 (08/22/25) - Will be transferred to [facility] (FTT), please consult ID once arrives Subjective: [...] -- 132 lb 15 oz (60.3 kg) 08/02/25 2042 112/57 97.5 ??F (36.4 ??C) Oral 89 [...] Current Medications[2] Immunization History Administered Date(s) Administered Eons SARS-CoV-2 Vaccine 01/01/2021 Moderna SARS-CoV-2 Vaccine 12+ [...] Daily WM Andre Sen MD 10 mEqat 08/02/25 100 prochlorperazine edisylate (COMPAZINE) injection 10 mg 10 [...] tablet 1 Tablet 1 Tablet Oral BID Pivato, Jacqueline R, DO 1 Tablet at 08/02/252049 sodium chloride 0.9% IV line flush 20-50 mL 20-50 mL Intravenous PRN Timi Forman MD 150 mL/hr at 08/02/25 1550 50 mL at 08/02/25 155 sodium chloride 0.9% IV line flush 20-50 mL 20-50 mL Intravenous PRN Troy Matute S, DO Stopped at 07/29/25 1122 sodium chloride 0.9% syringe 10 mL 10 mL Intravenous 3 times per day Timi Forman MD 10 mL at 08/03/25 0503 sodium chloride 0.9% syringe Intravenous PRN Timi Forman MD sodium chloride 0.9% syringe Intravenous PRN Troy Matute S, spironolactone (ALDACTONE) tablet 25 mg 25 mg [...] 15-20% 07/31 - PO lasix 40 daily FINANCIAL SALES PROFESSIONAL - GDMT: Coreg, Entresto, Jardiance, IV Lasix, [...] 15-20% 07/31 - PO lasix 40 daily FINANCIAL SALES PROFESSIONAL - GDMT: Coreg, Entresto, Jardiance, IV Lasix, [...] Problem(s): Antibiotic-associated diarrhea -resolved -Cont Florastor * aNima Oconnor PA - 08/02/2025 2:47 PM EDT [...] HFrEF (heart failure with reduced ejection fraction) ([facility]) - NICM - LVSF: 26% per NEG stress test 12/13/2024 - Lost to f/u w/cardiology - CXR 07/30: NAF - NT-ProBNP >18,000 07/30 - EF 15-20% 07/31 - PO lasix 40 daily FINANCIAL SALES PROFESSIONAL - GDMT: Coreg, Entresto, Jardiance, IV Lasix, [...] HFrEF (heart failure with reduced ejection fraction) ([facility]) Antibiotic-associated diarrhea Primary hypertension 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 Agreeable to [id number] expresses importance of obtaining MD. She cannot identify barriers to taking meds or f/u with MD. Reviewed all her medications and their purpose and compared them to meds cardio prescribed back in October. She talked about how she wore a LifeVest in the past while she was in retirement. Pt was engaged in the HF education. [...] 15-20% 07/31 - PO lasix 40 daily FINANCIAL SALES PROFESSIONAL - GDMT: Coreg, Entresto, Jardiance, IV Lasix, [...] 15-20% 07/31 - PO lasix 40 daily FINANCIAL SALES PROFESSIONAL - GDMT: Coreg, Entresto, Jardiance, IV Lasix, [...] Problem(s): Anxiety -Mood stable 07/30 * Vida Kurger APRN - 08/01/2025 8:33 PM EDTAssociated Problem(s): [...] HFrEF (heart failure with reduced ejection fraction) ([facility]) - NICM - LVSF: 26% per NEG stress test 12/13/2024 - Lost to f/u w/cardiology - CXR 07/30: NAF - NT-ProBNP >18,000 07/30 - EF 15-20% 07/31 - PO lasix 40 daily FINANCIAL SALES PROFESSIONAL - GDMT: Coreg, Entresto, Jardiance, IV Lasix, [...] HFrEF (heart failure with reduced ejection fraction) ([facility]) Leukocytosis Antibiotic-associated diarrhea Primary hypertension 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 This was discussed w/plastic sewer Margie,Primary RN and FIBERGLASS BOAT BUILDER) - Daily Wts - 2g Fluid Restriction, [...] documented in last 24hrs. This was discussed w/plastic sewer Margie,Primary RN and FIBERGLASS BOAT BUILDER) - Daily Wts - 2g Fluid Restriction, [...] documented in last 24hrs. This was discussed w/plastic sewer Kaila,Primary RN and FIBERGLASS BOAT BUILDER) - Daily Wts - 2g Fluid Restriction, [...] of 07/31/25. Findings are detailed above. Vida Kruger I, POULTRY SLAUGHTERER 07/31/2025 9:58 AM * Vida Kruger APRN [...] post acute provider and offered assistance and [facility] Financial Disclosure completed Actual Discharge Plan 07/29 [...] of 0.74 mg/dL). Recent Labs 07/26/25 1551 07/26/256 07/29/25 1119 VANCOTROUGH -- -- 12.6 VANCOAUC1 22.9 -- -- VANCOAUC2 -- 15.1 -- Recent Labs 07/23/252101 PROCLCTNIN 0.05 Recent Labs 07/23/252101 LACTA 1.0 Recent Labs 07/23/252101 CRP 51.74* No intake/output data recorded. I/O [...] Dispo: Plan for DC to LTAC or [place] 7D VTE Prophylaxis: Qualifying Pharmacologic Prophylaxis enoxaparin [...] 07/24/2025 Hospital Day: 6 Primary Care Physician: Billtaff, Referring Antibiotics: Current [...] due to hx of IVDU. Discussed with Slick Donahue APRN and Eyeglass Lens Generator - Need to complete rest of Rabies [...] Active LDAs PIV Line Duration Peripheral IV 07/27/25 2233 Left Forearm 1 day Wound Duration Incision/Wound [...] hours Intake/Output Summary (Last 24 hours) at 07/29/2025920 Last data filed at 07/29/2025 0727 Gross [...] Current Medications[2] Immunization History Administered Date(s) Administered Eons SARS-CoV-2 Vaccine 01/01/2021 Moderna SARS-CoV-2 Vaccine 12+ [...] tablet 40 mg 40 mg Oral Daily Ander Sen MD 40 mg at 07/26/25 1013 [...] flush 20-50 mL 20-50 mL Intravenous PRN Juju Troy S, DO Stopped at 07/29/25 0608 sodium chloride 0.9% syringe Intravenous PRN Juju [...] of 0.72 mg/dL). Recent Labs 07/26/25 1551 07/26/25 2046 [...] Other labs: as ordered. Thank you, Harshad Lewis PharmD * Edmond Cannon MD - 07/28/2025 11:37 AM EDT [facility] Progress Note Name: Nita Oquendo ADDRESS: [address] [place] [id number] : 1985 AGE: 39 y.o. HPI: 38 [...] EKG 12 LEAD Impression Stationary ECG Study [facility] Interpretive Statements SINUS TACHYCARDIA NONSPECIFIC T-WAVE ABNORMALITY [...] Continue Lasix Obstructive sleep apnea CPAP at fire observer respiratory status DVT prophylaxis D/C planning: Will probably need long-term IV antibiotics. Awaiting ID final recommendations. This note was completed using voice recognition technology. Despite this keno writer/runner's best efforts, it may still contain unintended [...] Active LDAs PIV Line Duration Peripheral IV 07/27/252232 Left Forearm <1 day Wound Duration Incision/Wound [...] hours Intake/Output Summary (Last 24 hours) at 07/28/2025908 Last data filed at 07/28/2025 0624 Gross per 24 hour Intake 1987.23 ml Output -- Net 1987.23 ml Intake/Output throughout Admission Net IO Since Admission: 8,119.75 mL [07/28/2509] Allergies Allergies[1] Current Outpatient Medications Medication Instructions [...] Current Medications[2] Immunization History Administered Date(s) Administered Eons SARS-CoV-2 Vaccine 01/01/2021 Moderna SARS-CoV-2 Vaccine 12+ [...] PRN Andre Sen MD 650 mg at 07/27/252051 ampicillin-sulbactam (UNASYN) 3 g in sodium chloride [...] PRN Andre Sen MD 500 mg at 07/27/252147 pantoprazole (PROTONIX) 40 mg in sodium chloride 0.9% 10 mL injection 40 mg Intravenous Daily Andre Sen MD Or pantoprazole (PROTONIX) tablet 40 mg 40 mg Oral Daily Andre Sen MD 40 mg at 834 potassium chloride (KLOR-CON) tablet 10 mEq 10 mEq Oral Daily Andre Sen MD 10 mEqat 07/27/25 0834 prochlorperazine edisylate (COMPAZINE) injection 10 mg 10 mg Intravenous Q6H PRN dEmond Cannon MD 10 mg at 07/27/25 1527 [...] Intravenous PRN Juju, S, DO Stopped at 07/28/25 0557 sodium [...] wound check [facility] * Dalton Virk - 07/27/2025 4:12 PM EDT Images from the original note were not included. 07/27/25 1302 Reason for Visit Date of visit 07/27/25 Visited With Patient Visited By Newborn Photographer Reason for Visit Spiritual, emotional or social support Patient Assessment Patient Appears Sad Patient Congregational at Registration None Spiritual Strengths and Coping Resources Other (Comment) (Patient credits God for help in her life.) Patient Spiritual Wellbeing Low Acuity - Spiritual Discomfort Interventions with Patient Relationship Building Interventions Cultivated a relationship of care and support;Listened empathetically Rastafari Interventions Prayer with patient or family Exploration Interventions Provided caring and supportive presence Outcomes Expressed Outcomes Appreciative of prayer/ritual;Appreciative of visit Care Plan Plan for Follow-Up Newborn Photographer(s) remains available as needed Dalton Virk Newborn Photographer, Pastoral and Spiritual Care For non-urgent requests, please place a Pastoral Care consult in [facility]. For all urgent matters, please send an urgent [facility] Secure Chat to the Pastoral Care group at your location. Between 11pm and 7am, please use On-Call Finder to send an [facility] Secure Chat to the on-call percussion instructor. Pastoral Care office phone numbers: EDG/COV/GRT [phone], [place] [phone], FTT [phone], DBN [phone] * Timi Forman MD - 07/27/2025 9:26 [...] hours Intake/Output Summary (Last 24 hours) at 07/27/2025 09 Last data filed at 07/27/2025 07 Gross per 24 hour Intake 2245.29 ml [...] Current Medications[2] Immunization History Administered Date(s) Administered Gabriella SARS-CoV-2 [...] 0511 sodium chloride 0.9% syringe Intravenous PRN Juju, S, DO spironolactone (ALDACTONE) tablet 25 mg 25 mg Oral Daily Andre Sen MD 25 mg at 07/27/25 0834 vancomycin (VANCOCIN) 1,000 mg in sodium chloride 0.9 % 275 mL IVPB 1,000 mg Intravenous *Q12H Andre Sen MD Stopped at 07/27/25 0117 * Edmond Cannon MD - 07/27/2025 8:41 AM EDT [facility] Progress Note Name: Nita Oquendo ADDRESS: [address] [place], [place] [phone] : 1985 AGE: 39 y.o. HPI: 38 [...] EKG 12 LEAD Impression Stationary ECG Study [facility] Interpretive Statements SINUS TACHYCARDIA NONSPECIFIC T-WAVE ABNORMALITY [...] completed using voice recognition technology. Despite this keno writer/runner's best efforts, it may still contain unintended [...] Other labs: as ordered. Thank you, Harshad Lewis PharmD * Argelia Lin PharmD - 07/26/2025 9:35 [...] Cannon MD - 07/26/2025 8:37 AM EDT [facility] Progress Note Name: Nita Oquendo ADDRESS: [address] [place], [place] [id number] : 1985 AGE: 39 y.o. HPI: 38 [...] EKG 12 LEAD Impression Stationary ECG Study [facility] Interpretive Statements SINUS TACHYCARDIA NONSPECIFIC T-WAVE ABNORMALITY [...] completed using voice recognition technology. Despite this keno writer/runner's best efforts, it may still contain unintended [...] on SCr of 0.83 mg/dL). Recent Labs 07/23/252101 PROCLCTNIN 0.05 Recent Labs 07/23/252101 LACTA 1.0 Recent Labs 07/23/25 210 CRP 51.74* I/O last 3 completed shifts: [...] Other labs: BMP daily. Thank you, Harshad Lewis PharmD * Anali Novoa RN - 07/25/2025 6:48 [...] daily. Thank you, Harshad Lewis, PharmD * Troy Matute Rachelle DO - 07/25/2025 8:24 AM EDT PROGRESS [...] Matute DO 07/25/2025 8:24 AM * Lori Jones RN - 07/24/2025 4:14 PM EDT 07/24/25 1607 Discharge Planning Evaluation Completed by CC/SW Yes [...] Raine Oquendo- Mother Caregiver Does patient need red leader? No Activities of Daily Living Prior to Admission Independent with ADLS DME Used at Home None Patient's Living Arrangments Prior to Admission? Private Residence Alone Private Residence With Other(s) Spouse/Significant Other Support Systems Spouse/Significant Other Is PCP listed on facesheet correct? (301- DOCS added to AVS) Quality of Support System Good Follow Up Assigned To: Referral not needed concern identified and addressed by Eyeglass Lens Generator APS/CPS Report Made No Anticipated post-acute care needs Home Discussed discharge plans with Patient/Family/Caregiver/Support Person Yes, Discussed with patient Discussed discharge plans with Care Team at [facility] Yes, with nurse in attendance Patient's goals [...] completed- no concerns. Family to transport at [place]. * Lori Jones RN - 07/24/2025 4:04 [...] has the electric, gas, oil, or water [employer] threatened to shut off services in your [...] Do you speak a language other than Gambian at home? No Do you want help [...] from the original note were not included. [facility] History and Physical Name: Nita Oquendo : 1985 AGE: 39 y.o. PCP: Annmarie, Referring Admitting Physician: Troy Matute DO Date [...] -Monitor I/Os while admitted DVT Prophylaxis -SCDs Rachelle Matute DO 07/24/2025 7:52 AM [1] Past [...] Insecurity: No Food Insecurity (04/15/2024) Received from [employer] ([place], [place], [place], [place]) Food Insecurity Food run out past 12 months: Not on file Food did not last past 12 months: Not on file Social Connections: Low Risk (04/15/2024) Received from [employer] ([place], [place], [place], [place]) Family and Community Support Help with [...] Nita Oquendo 5 PCP: Nonstaff, Referring Primary Wetlands Conservation Laborer: Bart I would like to thank Freddie [...] melena. Past Medical History Past Medical History[2] FINANCIAL SALES PROFESSIONAL Medications: Prior to Admission medications Medication Sig [...] most recent cardiovascular imaging studies available in [facility] EMR were reviewed at time of consultation [...] -on good GDMT with losartan, aldacton SGLT2i FINANCIAL SALES PROFESSIONAL -added coreg this admit Dog bite -per ID Tobacco abuse Plan: Continue IV lasix await echo. Daily weights, strict I&O. Further input from Dr. Fito Valente APRN [facility] Disposition Perspective - Medically Ready for Discharge: No Anticipated Discharge: 1-2 days Discharge when / if: diuresis and echo Attending Addendum: Ms. Oquendo is a 39 year old F with a history of HFrEF/NICM, tobacco use, HTN, JUAN, h/o IVDU whopresented following a dog bite. We are consulted for CHF. She admits to havign chronic JUAREZ with moderate or more exertion. States [...] - We will follow. Jacqueline Payton DO [facility] [1] Family History Problem Relation Age of [...] AND DRAINAGE; Surgeon: Andre Sen MD; Location: [facility] MAIN OR; Service: Hand WRIST SURGERY 2014 [...] true Transportation Needs: No Transportation Needs (07/24/2025) [facility] Transportation In the past 12 months, has lack of reliable transportation kept you from medical appointments, meetings, work or from getting things needed for daily living?: No Physical Activity: Inactive (07/24/2025) Exercise Vital Sign Days of Exercise per Week: 0 days Minutes of Exercise per Session: 0 min Stress: No Stress Concern Present (07/24/2025) [facility] [place] [facility] - Occupational Stress Questionnaire Feeling of Stress: Only a little Social Connections: Low Risk (04/15/2024) Received from [employer] ([place], [place], [place], [place]) Family and Community [...] weight gain, weight loss, loss of appetite PRODUCT DEVELOPMENT SPECIALIST: Negative for dizzy/vertigo, headache, focal weakness, numbness/tingling, [...] ??C) Oral 103 16 100 % 07/24/25 205 119/88 98 ??F (36.7 ??C) Oral 104 16 100 % 07/24/25 1247 123/96 97.5 ??F (36.4 ??C) Oral 101 16 100 % Weight: 137 lb (62.1 kg) Immunization History Administered Date(s) Administered Eons SARS-CoV-2 Vaccine 01/01/2021 Moderna SARS-CoV-2 Vaccine 12+ Yrs (Light blue border) 05/16/2022 Ceres SARS-CoV-2 Bivalent Booster Vaccine 12+ Years (Wiley border) 07/25/2022 Ceres SARS-CoV-2 Vaccine Gil-sucrose 12+ Yrs 08/26/2024 Tdap [...] ID will continue to follow. Peyton Barrett, POULTRY SLAUGHTERER 07/25/25 [1] Past Medical History: Diagnosis Date [...] 650 mg 650 mg Oral Q4H PRN Michel, Fahad, POULTRY SLAUGHTERER 650 mg at 07/25/25 0438 ampicillin-sulbactam (UNASYN) 3 g in sodium chloride 0.9 % 100 mL IVPB 3 g Intravenous 4 times per day Troy Matute S, DO Stopped at 07/25/25 0514 empagliflozin (JARDIANCE) tablet 25 mg 25 mg Oral Daily Michel, Fahad, POULTRY SLAUGHTERER 25 mg at 07/24/25 0755 fUROsemide (LASix) tablet 40 mg 40 mg Oral Daily Pearson, Fahad, POULTRY SLAUGHTERER losartan (COZAAR) tablet 50 mg 50 mg Oral Daily Pearson, Fahad, POULTRY SLAUGHTERER 50 mg at 07/24/25 0755 melatonin tablet 5-10 mg 5-10 mg Oral Nightly PRN Pearson, Fahad, POULTRY SLAUGHTERER naproxen (NAPROSYN) tablet 500 mg 500 mg Oral BID PRN Pearson, Fahad, POULTRY SLAUGHTERER 500 mg at 07/25/25 0757 ondansetron (ZOFRAN) injection 4 mg 4 mg Intravenous Q6H PRN Pearson, Fahad, POULTRY SLAUGHTERER pantoprazole (PROTONIX) 40 mg in sodium chloride 0.9% 10 mL injection 40 mg Intravenous Daily Pearson, Fahad, POULTRY SLAUGHTERER Or pantoprazole (PROTONIX) tablet 40 mg 40 mg Oral Daily Pearson, Fahad, POULTRY SLAUGHTERER 40 mg at 07/25/25 0756 potassium chloride (KLOR-CON) tablet 10 mEq 10 mEq Oral Daily WM Michel, Fahad, POULTRY SLAUGHTERER 10 mEq at 07/24/25 0755 sodium chloride 0.9% IV line flush 50 mL 50 mL Intravenous PRN Pearson, Fahad, POULTRY SLAUGHTERER 999 mL/hr at 07/25/25 0443 50 mL at 07/25/25 0443 sodium chloride 0.9% syringe 5-10 mL 5-10 mL Intravenous PRN Fahad Pearson APRN spironolactone (ALDACTONE) tablet 25 mg 25 mg Oral Daily Fahad Pearson APRN 25 mg at 07/24/25 0755 Cosigned by [...] with Jayne Barrett APRN. Reviewed documentation per JOSÉ MIGUEL. Timi Neville MD * Andre Sen MD [...] ordering clinician. 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 Ip order in [facility]. Cont stay review.sp 07/25/25 RIGHT FOREARM AND [...] Admit as ip 07/26/25. Ip order in [facility]. Cont stay review. 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 Farxiga, lasix, losartan, aldactone - unclear if [...] Cannon MD - 07/29/2025 2:46 PM EDT [facility] CDI / HIM Coding Query Documentation PATIENT: NITA OQUENDO : 1985 ADMIT DATE: 07/24/2025 2:14 AM DISCH DATE: RESPONDING PROVIDER #: [id number] PROVIDER QUERY RESPONSE TEXT: Anemia Unspecified CDI [...] patient's clinical indicators include: H/H: 07/25 - .5/.4 07/26 - ./.8 PLEASE ALSO DOCUMENT DIAGNOSIS IN PROVIDER NOTES [...] or assistance please contact Piyush Rivas, CDI Crtts [phone]) Options provided: -- Anemia Unspecified -- Other - I will add my own diagnosis -- Disagree - Not applicable / Not valid Query created by: Cecilia Herrera on 07/26/2025 11:44 AM Electronically signed by: Edmond Cannon MD 07/29/2025 2:46 PM * Utilization Review Notes - Gill Kessler RN - 07/29/2025 9:54 AM EDT Admit as ip 07/26/25 ip order in [facility]. Cont stay review. Sp 07/25/25 RIGHT FOREARM [...] Admit as ip 1 ip orde rin [facility]. Cont stay review. Dx Wound Infection Sp [...] Admit as ip 07/26/25 ip order in [facility]. Cont stay review. Sp 07/25/25 RIGHT FOREARM [...] Admit as ip 07/26/25. ip order in epic. Cont stay review. [...] Admit as obs 07/24/25. Obs order in epic. Cont stay review. Sp [...] EDT ADMIT OBS 07/24/25. OBS ORDER IN [facility]. CONT STAY REVIEW. DX Wound Infection CONSULT [...] EST Appointment [facility] [address] [place] [address] [place] [address] VonCorona hernandez MD [address] [place] [address] Pending Results Name Type Priority Associated Diagnoses Date /Time FUNGUS CULTURE (NO STAIN) Microbiology Routine Dog bite, initial encounter 07/25/2025 5:29 PM EDT Scheduled Orders Name Type Priority Associated Diagnoses Orde r Schedule BASIC METABOLIC PANEL Lab Routine Acute on chronic HFrEF (heart failure with reduced ejection fraction) ([facility]) Expected: 08/08/2025, Expires: 08/01/2026 Scheduled Referrals Name Type Priority Associated Diagnoses Orde r Schedule AMB REFERRAL TO HEART FAILURE CENTER Outpatient Referral Routine Acute on chronic HFrEF (heart failure with reduced ejection fraction) ([facility]) Ordered: 08/01/2025 documented as of this encounter [...] 12:15 PM EDT Procedure Note - Jacqueline Payton, DO - 07/31/2025 7:57 AM EDTThis note is in progress. Heart & Vascular Consult Note PATIENT: Nita Oquendo 6 PCP: Nonstaff, Referring Primary Wetlands Conservation Laborer: Bart I would like to thank Freddie Cruz MD for requesting me to see Nita Raza for cardiac consultation for HFrEF. History provided [...] melena. 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 11/04/24 07/23/2025 Helder Arriaga MD fUROsemide (LASIX) 40 mg Oral Tablet Take 1 Tablet by mouth daily. 11/04/2509 Helder Arraiga MD losartan (COZAAR) 50 mg Oral Tablet Take 1 Tablet by mouth daily. 11/04/2509 at 9:00 AM Helder Arriaga MD naproxen (NAPROSYN) 500 mg Oral Tablet Take 1 Tablet by mouth 2 timesdaily as needed for Pain for up to 30 days. 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 Daily weights, strict I&O. Further input from Dr. Fito Valente, JOSÉ MIGUEL [facility] Disposition Perspective - Medically Ready for Discharge: No Anticipated Discharge: 1-2 days Discharge when / if: diuresis and echo Attending Addendum: Ms. Oquendo is a 39 year old F with a history of HFrEF/NICM, tobaccouse, HTN, JUAN, h/o IVDU who presented following a dog bite. We areconsulted for CHF. [facility] with moderate or more exertion. Statesshe [...] - We will follow. Jacqueline Payton DO [facility] [1] Family History Problem Relation Age of [...] INCISION AND DRAINAGE; Surgeon:Andre Sen MD; Location: [facility] MAIN OR; Service: Hand WRIST SURGERY 2014 [...] of the donovan and bit her. XR right radiusrevealed a radial fracture. She was given a tdap vaccine, prescribedAugmentin, and provided an ortho referral for outpatient evaluation. Susanurned to the ED on 07/23 due to [...] true Transportation Needs: No Transportation Needs (07/24/2025) [facility] In the past 12 months, has lack of reliable transportation kept you frommedical appointments, meetings, work or from getting things needed fordaily living?: No Physical Activity: Inactive (07/24/2025) Exercise Vital Sign Days of Exercise per Week: 0 days Minutes of Exercise per Session: 0 min Stress: No Stress Concern Present (07/24/2025) [employer] [place] [employer] - Occupational StressQuestionnaire Feeling of Stress: Only a little Social Connections: Low Risk (04/15/2024) Received from [employer] ([place], [place], [place], [place]) Family and Community Support Help with Day to Day Activities: Not on file Feeling Lonely or Isolated: Not on file Intimate Partner Violence: Not on file Housing Stability: Not on file Prescriptions Prior to Admission[4] Current Medications[5] Review of Systems: Constitutional: negative for fever, chills and night sweats, feels ill,fatigued, generally weak, weight gain, weight loss, loss of appetite PRODUCT DEVELOPMENT SPECIALIST: Negative for dizzy/vertigo, headache, focal weakness,numbness/tingling, speech [...] (36.5 C) Oral 107 16 100 % 10/20/25 0437 -- 98.5 F (36.9 C) Oral 103 16 100 % 07/24/252055 119/88 98 F (36.7 C) Oral 104 16 100 % 07/24/25 1247 123/96 97.5 F (36.4 C) Oral 101 16 100 % Weight: 137 lb (62.1 kg) Immunization History Administered Date(s) Administered Eons SARS-CoV-2 Vaccine 01/01/2021 Moderna SARS-CoV-2 Vaccine 12+ Yrs (Light blue border) 05/16/2022 Pfizer SARS-CoV-2 Bivalent Booster Vaccine 12+ Years (Wiley border)07/25/2022 Pfizer SARS-CoV-2 Vaccine Gil-sucrose 12+ Yrs 08/26/2024 [...] permanent lines until surveillance blood cx negative [id number] hours. Monitor fever/BP curve, I/O's, serum electrolytes, WBC & platelet trend,Liver and renal function Case reviewed and patient seen with Dr. Adams Discussed with patient. Thanks for consulting. ID will continue tofollow. Peyton Barrett, POULTRY SLAUGHTERER 07/25/25 [1] Past Medical History: Diagnosis Date [...] 650 mg 650 mg Oral Q4H PRN Pearson,Fahad, POULTRY SLAUGHTERER 650 mg at 07/25/25 0438 ampicillin-sulbactam (UNASYN) 3 g in sodium chloride 0.9 % 100 mL IVPB 3g Intravenous 4 times per day Juju, S, DO Stopped at 514 empagliflozin (JARDIANCE) tablet 25 mg 25 mg Oral Daily Pearson, Fahad,POULTRY SLAUGHTERER 25 mg at 07/24/25 0755 fUROsemide (LASix) tablet 40 mg 40 mg Oral Daily Pearson, Fahad, POULTRY SLAUGHTERER losartan (COZAAR) tablet 50 mg 50 mg Oral Daily Pearson, Fahad, APRN50 mg at 07/24/25 0755 melatonin tablet 5-10 mg 5-10 mg Oral Nightly PRN Pearson, Fahad, POULTRY SLAUGHTERER naproxen (NAPROSYN) tablet 500 mg 500 mg Oral BID PRN Michel, Fahad,POULTRY SLAUGHTERER 500 mg at 07/25/25 0757 ondansetron (ZOFRAN) injection 4 mg 4 mg Intravenous Q6H PRN Pearson,Fahad, POULTRY SLAUGHTERER pantoprazole (PROTONIX) 40 mg in sodium chloride 0.9% 10 mL injection 40mg Intravenous Daily Pearson, Fahad, POULTRY SLAUGHTERER Or pantoprazole (PROTONIX) tablet 40 mg 40 mg Oral Daily Pearson, Fahad,POULTRY SLAUGHTERER 40 mg at 07/25/25 0756 potassium chloride (KLOR-CON) tablet 10 mEq 10 mEq Oral Daily WM Aline Pearsone, POULTRY SLAUGHTERER 10 mEq at 07/24/25 0755 sodium chloride 0.9% IV line flush 50 mL 50 mL Intravenous PRN Pearson,Fahad, POULTRY SLAUGHTERER 999 mL/hr at 07/25/25 0443 50 mL at 07/25/25 0443 sodium chloride 0.9% syringe 5-10 mL 5-10 mL Intravenous PRN Pearson,Fahad, POULTRY SLAUGHTERER spironolactone (ALDACTONE) tablet 25 mg 25 mg Oral Daily Pearson, Fahad,POULTRY SLAUGHTERER 25 mg at 07/24/25 0755 STAPHYLOCOCCUS AUREUS [...] infected dog bites with open radius fracture [id number] -Sutures removed at bedside and wounds spread [...] theordering clinician. Andre Sen MD Orthopaedic Surgery [facility] [1] Past Medical History: Diagnosis Date Acid [...] - 145 mmol/L 08/03/2025 5:43 AM EDT [facility] Potassium 3.8 3.5 - 5.0 mmol/L 08/03/2025 5:43 AM EDT [facility] Chloride 104 98 - 107 mmol/L 08/03/2025 5:43 AM EDT [facility] Total CO2 24 22 - 29 mmol/L 08/03/2025 5:43 AM EDT [facility] Anion Gap 8 7 - 16 mmol/L 08/03/2025 5:43 AM EDT [facility] Calcium 8.8 8.6 - 10.4 mg/dL 08/03/2025 5:43 AM EDT [facility] Glucose Lvl 96 70 - 99 mg/dL 08/03/2025 5:43 AM EDT [facility] BUN 15 6 - 20 mg/dL 08/03/2025 5:43 AM EDT [facility] Creatinine 0.79 0.51 - 1.30 mg/dL 08/03/2025 5:43 AM EDT [facility] Albumin 3.6 3.5 - 5.2 gm/dL 08/03/2025 5:43 AM EDT [facility] Total Protein 6.7 6.4 - 8.3 gm/dL 08/03/2025 5:43 AM EDT [facility] Bili Total 0.5 0.2 - 1.3 mg/dL 08/03/2025 5:43 AM EDT [facility] ALT 22 <=41 U/L 08/03/2025 5:43 AM EDT [facility] AST 20 <=40 U/L 08/03/2025 5:43 AM EDT [facility] Alk Phos 81 36 - 123 U/L 08/03/2025 5:43 AM EDT [facility] eGFR (CKD-EPIcr 2020) 97 >=60 mL/min/1.7 3 m2 08/03/2025 5:43 AM EDT [facility] Comment:Estimated GFR was ca lculated using the CKD-EPIcr (2020) equation refit without race. The equation is recommended by the National Kidney Foundation - [place] [employer] Nephrology Task Force. Blood VENOUS BLOOD / Unknown Venipuncture / Unknown 08/03/2025 4:55 AM EDT 08/03/2025 5:20 AM EDT Vida Devine APRN CHEMISTRY ORDERABLES Fin al Result [facility] [address] [place] [address] * C-REACTIVE PROTEIN (08/03/2025 4:55 AM EDT) CRP <3.00 <=5.00 mg/L 08/03/2025 8:06 AM EDT [facility], [facility] Blood VENOUS BLOOD / Unknown Venipuncture / Unknown 08/03/2025 4:55 AM EDT 08/03/2025 5:20 AM EDT Peyton Barrett POULTRY SLAUGHTERER CHEMISTRY ORDERABLES Final Result [facility] [place], [facility] [address] [place] [address] * SEDIMENTATION RATE AUTOMATED (08/03/2025 4:55 AM EDT) Sed Rate 18 0 - 20 mm/hr 08/03/2025 5:36 AM EDT [facility] Blood VENOUS BLOOD / Unknown Venipuncture / Unknown 08/03/2025 4:55 AM EDT 08/03/2025 5:20 AM EDT Peyton Barrett POULTRY SLAUGHTERER HEMATOLOGY ORDERABLE S Final Result Performing Organization Address City/[facility]/ZIP Co de Phone Number [facility] [address] [phone] * (ABNORMAL) CBC WITH DIFF (08/03/2025 4:55 AM EDT) Pathologist [facility] WBC 9.7 3.7 - 10.3 x10(3)/mcL 08/03/2025 5:36 AM EDT [facility] RBC 3.94 3.90 - 5.20 x10(6)/mcL 08/03/2025 5:36 AM EDT [facility] Hgb 12.6 11.2 - 15.7 g/dL 08/03/2025 5:36 AM EDT [facility] Hct 37.8 34.0 - 45.0 % 08/03/2025 5:36 AM EDT [facility] MCV 95.9 80.0 - 100.0 fL 08/03/2025 5:36 AM EDT [facility] MCH 32.0 26.0 - 34.0 pg 08/03/2025 5:36 AM EDT [facility] MCHC 33.3 30.7 - 35.5 g/dL 08/03/2025 5:36 AM EDT [facility] RDW 14.5 <=14.9 % 08/03/2025 5:36 AM EDT [facility] Platelet 437(H) 155 - 369 x10(3)/mcL 08/03/2025 5:36 AM EDT [facility] MPV 9.0 8.8 - 12.5 fL 08/03/2025 5:36 AM EDT [facility] Neut Percent 62.4 % 08/03/2025 5:36 AM EDT [facility] Comment:Neutrophils equals s egs plus bands Imm Gran% 0.3 % 08/03/2025 5:36 AM EDT [facility] Comment:Automated count of m etamyelocytes, myelocytes and promyelocytes. Lymph Percent 25.6 % 08/03/2025 5:36 AM EDT [facility] Schley Percent 9.7 % 08/03/2025 5:36 AM EDT [facility] Eos Percent 1.5 % 08/03/2025 5:36 AM EDT [facility] Baso Percent 0.5 % 08/03/2025 5:36 AM EDT [facility] Neut # 6.1 1.6 - 6.1 x10(3)/mcL 08/03/2025 5:36 AM EDT [facility] Comment:Neutrophils equals s egs plus bands IMMGRAN# 0.0 0.0 - 0.1 x10(3)/mcL 08/03/2025 5:36 AM EDT [facility] Comment:Automated count of m etamyelocytes, myelocytes and promyelocytes. An absolute IG <0.1 is reported as 0.0. Lymph # 2.5 1.2 - 3.9 x10(3)/mcL 08/03/2025 5:36 AM EDT [facility] Schley # 0.9 0.3 - 0.9 x10(3)/mcL 08/03/2025 5:36 AM EDT [facility] Eos# 0.2 0.0 - 0.5 x10(3)/mcL 08/03/2025 5:36 AM EDT [facility] Baso # 0.1 0.0 - 0.1 x10(3)/mcL 08/03/2025 5:36 AM EDT [facility] Blood VENOUS BLOOD / Unknown Venipuncture / Unknown 08/03/2025 4:55 AM EDT 08/03/2025 5:20 AM EDT Peyton Barrett POULTRY SLAUGHTERER HEMATOLOGY ORDERABLE S Final Result [facility] [address] [place] [address] * COMPREHENSIVE METABOLIC PANEL (08/02/2025 5:01 AM EDT) Sodium 136 136 - 145 mmol/L 08/02/2025 5:58 AM EDT [facility] Potassium 3.7 3.5 - 5.0 mmol/L 08/02/2025 5:58 AM EDT [facility] Chloride 102 98 - 107 mmol/L 08/02/2025 5:58 AM EDT [facility] Total CO2 25 22 - 29 mmol/L 08/02/2025 5:58 AM EDT [facility] Anion Gap 9 7 - 16 mmol/L 08/02/2025 5:58 AM EDT [facility] Calcium 8.6 8.6 - 10.4 mg/dL 08/02/2025 5:58 AM EDT [facility] Glucose Lvl 96 70 - 99 mg/dL 08/02/2025 5:58 AM EDT [facility] BUN 19 6 - 20 mg/dL 08/02/2025 5:58 AM EDT [facility] Creatinine 0.86 0.51 - 1.30 mg/dL 08/02/2025 5:58 AM EDT [facility] Albumin 3.6 3.5 - 5.2 gm/dL 08/02/2025 5:58 AM EDT [facility] Total Protein 6.8 6.4 - 8.3 gm/dL 08/02/2025 5:58 AM EDT [facility] Bili Total 0.5 0.2 - 1.3 mg/dL 08/02/2025 5:58 AM EDT [facility] ALT 29 <=41 U/L 08/02/2025 5:58 AM EDT [facility] AST 33 <=40 U/L 08/02/2025 5:58 AM EDT [facility] Alk Phos 87 36 - 123 U/L 08/02/2025 5:58 AM EDT [facility] eGFR (CKD-EPIcr 2020) 88 >=60 mL/min/1.7 3 m2 08/02/2025 5:58 AM EDT [facility] Comment:Estimated GFR was ca lculated using the CKD-EPIcr (2020) equation refit without race. The equation is recommended by the National Kidney Foundation - [place] [employer] of Nephrology Task Force. Blood VENOUS BLOOD / Unknown Venipuncture / Unknown 08/02/2025 5:01 AM EDT 08/02/2025 5:32 AM EDT Vida Devine APRN CHEMISTRY ORDERABLES Fin al Result Performing Organization Address City/State/[facility] Co de Phone Number [facility] [address] [place] [address] * (ABNORMAL) CBC (08/02/2025 5:01 AM EDT) WBC 11.6(H) 3.7 - 10.3 x10(3)/mcL 08/02/2025 5:35 AM EDT [facility] RBC 4.11 3.90 - 5.20 x10(6)/mcL 08/02/2025 5:35 AM EDT [facility] Hgb 13.4 11.2 - 15.7 g/dL 08/02/2025 5:35 AM EDT [facility] Hct 38.7 34.0 - 45.0 % 08/02/2025 5:35 AM EDT [facility] MCV 94.2 80.0 - 100.0 fL 08/02/2025 5:35 AM EDT [facility] MCH 32.6 26.0 - 34.0 pg 08/02/2025 5:35 AM EDT [facility] MCHC 34.6 30.7 - 35.5 g/dL 08/02/2025 5:35 AM EDT [facility] RDW 14.5 <=14.9 % 08/02/2025 5:35 AM EDT [facility] Platelet 479(H) 155 - 369 x10(3)/mcL 08/02/2025 5:35 AM EDT [facility] MPV 9.4 8.8 - 12.5 fL 08/02/2025 5:35 AM EDT [facility] Blood VENOUS BLOOD / Unknown Venipuncture / Unknown 08/02/2025 5:01 AM EDT 08/02/2025 5:32 AM EDT Vida Devine APRN HEMATOLOGY ORDERABLES Fi nal Result [facility] [address] [place], [place] [id number] * (ABNORMAL) COMPREHENSIVE METABOLIC PANEL (08/01/2025 5:38 AM EDT) Sodium 136 136 - 145 mmol/L 08/01/2025 6:23 AM EDT [facility] Potassium 3.1(L) 3.5 - 5.0 mmol/L 08/01/2025 6:23 AM EDT [facility] Chloride 99 98 - 107 mmol/L 08/01/2025 6:23 AM EDT [facility] Total CO2 24 22 - 29 mmol/L 08/01/2025 6:23 AM EDT [facility] Anion Gap 13 7 - 16 mmol/L 08/01/2025 6:23 AM EDT [facility] Calcium 8.5(L) 8.6 - 10.4 mg/dL 08/01/2025 6:23 AM EDT [facility] Glucose Lvl 117(H) 70 - 99 mg/dL 08/01/2025 6:23 AM EDT [facility] BUN 15 6 - 20 mg/dL 08/01/2025 6:23 AM EDT [facility] Creatinine 0.86 0.51 - 1.30 mg/dL 08/01/2025 6:23 AM EDT [facility] Albumin 3.5 3.5 - 5.2 gm/dL 08/01/2025 6:23 AM EDT [facility] Total Protein 6.8 6.4 - 8.3 gm/dL 08/01/2025 6:23 AM EDT [facility] Bili Total 0.6 0.2 - 1.3 mg/dL 08/01/2025 6:23 AM EDT [facility] ALT 16 <=41 U/L 08/01/2025 6:23 AM EDT [facility] AST 19 <=40 U/L 08/01/2025 6:23 AM EDT [facility] Alk Phos 86 36 - 123 U/L 08/01/2025 6:23 AM EDT [facility] eGFR (CKD-EPIcr 2020) 88 >=60 mL/min/1.7 3 m2 08/01/2025 6:23 AM EDT [facility] Comment:Estimated GFR was ca lculated using the CKD-EPIcr (2020) equation refit without race. The equation is recommended by the National Kidney Foundation - [place] [employer] of Nephrology Task Force. Blood VENOUS BLOOD / Unknown Venipuncture / Unknown 08/01/2025 5:38 AM EDT 08/01/2025 5:42 AM EDT Vida Devine APRN CHEMISTRY ORDERABLES Fin al Result [facility] [address] [phone] * (ABNORMAL) CBC (08/01/2025 5:38 AM EDT) WBC 12.5(H) 3.7 - 10.3 x10(3)/mcL 08/01/2025 5:55 AM EDT [facility] RBC 3.98 3.90 - 5.20 x10(6)/mcL 08/01/2025 5:55 AM EDT [facility] Hgb 12.7 11.2 - 15.7 g/dL 08/01/2025 5:55 AM EDT [facility] Hct 37.3 34.0 - 45.0 % 08/01/2025 5:55 AM EDT [facility] MCV 93.7 80.0 - 100.0 fL 08/01/2025 5:55 AM EDT [facility] MCH 31.9 26.0 - 34.0 pg 08/01/2025 5:55 AM EDT [facility] MCHC 34.0 30.7 - 35.5 g/dL 08/01/2025 5:55 AM EDT [facility] RDW 14.1 <=14.9 % 08/01/2025 5:55 AM EDT [facility] Platelet 469(H) 155 - 369 x10(3)/mcL 08/01/2025 5:55 AM EDT [facility] MPV 9.4 8.8 - 12.5 fL 08/01/2025 5:55 AM EDT [facility] Blood VENOUS BLOOD / Unknown Venipuncture / Unknown 08/01/2025 5:38 AM EDT 08/01/2025 5:42 AM EDT Vida Devine APRN HEMATOLOGY ORDERABLES Fi nal Result [facility] [address] [place] [address] * (ABNORMAL) DRUG CONFIRMATION, CANNABINOIDS - URINE (07/31/2025 1:59 PM EDT) THC 22(H) Cutoff 10 ng/mL ng/mL 08/02/2025 11:09 AM EDT [facility], [facility] THC Glucuronide >200(H) Cutoff 10 ng/mL ng/mL 08/02/2025 11:09 AM EDT [facility] Urine STRUCTURE OF URINARY TRACT PROPER / Unknown 07/31/2025 1:59 PM EDT 07/31/2025 2:02 PM EDT Jacqueline Payton DO URINE ORDERABLES Final Result [facility] [address] [place] [address], [address] [place], [place] [id number] * (ABNORMAL) DRUGS OF ABUSE WITH REFLEX TO CONFIRMATION, URINE (07/31/2025 1:59 PM EDT) 6 AM (Heroin) Absent Cutoff 10 ng/mL 07/31/2025 2:26 PM EDT [facility] Amphetamines Absent Cutoff 500 ng/mL 07/31/2025 2:26 PM EDT [facility] Barbiturates Absent Cutoff 200 ng/mL 07/31/2025 2:26 PM EDT [facility] Benzodiazepines Absent Cutoff 200 ng/mL 07/31/2025 2:26 PM EDT [facility] Buprenorphine Absent Cutoff 5 ng/mL 07/31/2025 2:26 PM EDT [facility] Cannabinoid Metabolite Presumptive Pos(A) Cutoff 50 ng/mL 07/31/2025 2:26 PM EDT [facility] Cocaine Metabolite Absent Cutoff 150 ng/mL 07/31/2025 2:26 PM EDT [facility] Fentanyl Absent Cutoff 5 ng/mL 07/31/2025 2:26 PM EDT [facility] Methadone and Metabolite Absent Cutoff 300 ng/mL 07/31/2025 2:26 PM EDT [facility] Opiate Absent Cutoff 300 ng/mL 07/31/2025 2:26 PM EDT [facility] Oxycodone Lvl Absent Cutoff 100 ng/mL 07/31/2025 2:26 PM EDT [facility] Urine Creatinine 43.5 mg/dL 07/31/20 2:26 PM T [facility] Comment: Greater than 20: Consistent with valid sample Greater than 2 but less than 20: Possible dilution Less than 2: Questionable valid sample Urine STRUCTURE OF URINARY TRACT PROPER / Unknown 07/31/2025 1:59 PM EDT 07/31/2025 2:02 PM EDT Narrative [facility] - 07/31/2025 2:26 PM EDT These [...] vaginal pool/amniotic fluid could cause erroneous results. Jacqueline Payton DO URINE ORDERABLES Final Result [facility] [id number] [id number] * EC ECHOCARDIOGRAM COMPLETE W DOPPLER AND [...] to estimate the pulmonary artery systolic pressure. Vida Devine APRN IMG ECHO ORDERABLES Barbara l Result * (ABNORMAL) COMPREHENSIVE METABOLIC PANEL (07/31/2025 4:21 AM EDT) Sodium 138 136 - 145 mmol/L 07/31/2025 5:04 AM [facility] Potassium 3.5 3.5 - 5.0 mmol/L 07/31/2025 5:04 AM [facility] Chloride 104 98 - 107 mmol/L 07/31/2025 5:04 AM [facility] Total CO2 21(L) 22 - 29 mmol/L 07/31/2025 5:04 AM [facility] Anion Gap 13 7 - 16 mmol/L 07/31/2025 5:04 AM [facility] Calcium 8.6 8.6 - 10.4 mg/dL 07/31/2025 5:04 AM [facility] Glucose Lvl 140(H) 70 - 99 mg/dL 07/31/2025 5:04 AM [facility] BUN 13 6 - 20 mg/dL 07/31/2025 5:04 AM [facility] Creatinine 0.82 0.51 - 1.30 mg/dL 07/31/2025 5:04 AM [facility] Albumin 3.4(L) 3.5 - 5.2 gm/dL 07/31/2025 5:04 AM [facility] Total Protein 6.3(L) 6.4 - 8.3 gm/dL 07/31/2025 5:04 AM [facility] Bili Total 0.9 0.2 - 1.3 mg/dL 07/31/2025 5:04 AM [facility] ALT 13 <=41 U/L 07/31/2025 5:04 AM [facility] AST 15 <=40 U/L 07/31/2025 5:04 AM [facility] Alk Phos 77 36 - 123 U/L 07/31/2025 5:04 AM [facility] eGFR (CKD-EPIcr 2020) 93 >=60 mL/min/1.7 3 m2 07/31/2025 5:04 AM [facility] Comment:Estimated GFR was ca lculated using the CKD-EPIcr (2020) equation refit without race. The equation is recommended by the [employer] Kid[employer] - [place] [employer] Nephrology Task Force. Blood VENOUS BLOOD / Unknown Line / Unknown 07/31/2025 4:21 AM EDT 07/31/2025 4:31 AM EDT Vida Devine APRN CHEMISTRY ORDERABLES Fin al Result [facility] [address] [id number] * (ABNORMAL) CBC (07/31/2025 4:21 AM EDT) WBC 11.8(H) 3.7 - 10.3 x10(3)/mcL 07/31/2025 4:34 AM EDT [facility] RBC 3.08(L) 3.90 - 5.20 x10(6)/mcL 07/31/2025 4:34 AM EDT [facility] Hgb 10.2(L) 11.2 - 15.7 g/dL 07/31/2025 4:34 AM EDT [facility] Hct 29.4(L) 34.0 - 45.0 % 07/31/2025 4:34 AM EDT [facility] MCV 95.5 80.0 - 100.0 fL 07/31/2025 4:34 AM EDT [facility] MCH 33.1 26.0 - 34.0 pg 07/31/2025 4:34 AM EDT [facility] MCHC 34.7 30.7 - 35.5 g/dL 07/31/2025 4:34 AM EDT [facility] RDW 13.7 <=14.9 % 07/31/2025 4:34 AM EDT [facility] Platelet 364 155 - 369 x10(3)/mcL 07/31/2025 4:34 AM EDT [facility] MPV 9.5 8.8 - 12.5 fL 07/31/2025 4:34 AM EDT [facility] Blood VENOUS BLOOD / Unknown Line / Unknown 07/31/2025 4:21 AM EDT 07/31/2025 4:31 AM EDT Vida Devine APRN HEMATOLOGY ORDERABLES Fi nal Result Performing Organization Address [facility] de Phone Number [facility] [address] [place] [address] * FECAL WHITE BLOOD CELLS (07/30/2025 3:14 PM EDT) Fecal WBCs Negative Negative 07/30/2025 11:26 PM EDT [facility] Stool COLON STRUCTURE / Unknown 07/30/2025 3:14 PM EDT 07/30/2025 3:20 PM EDT Narrative [facility] - 07/30/2025 11:26 PM EDT NEGATIVE for elevated levels of lactoferrin from white blood cells. us Vida Devine APRN MICROBIOLOGY - GENERAL O RDERABLES Final Result Performing Organization Address [facility] de Phone Number [facility] [address] , [place] [address] * EXTRA WILEY URINE CX (07/30/2025 2:56 PM EDT) Urine STRUCTURE OF URINARY TRACT PROPER / Unknown 07/30/2025 2:56 PM EDT 07/30/2025 2:59 PM EDT us Vida Devine APRN MICROBIOLOGY - GENERAL O RDERABLES Final Result Performing Organization Address [facility] de Phone Number [facility] [address] [place] [address] * (ABNORMAL) URINALYSIS REFLEX (07/30/2025 2:56 PM EDT) UA Color Yellow 07/30/2025 3:14 PM EDT [facility] UA Appear Clear Clear 07/30/2025 3:14 PM EDT [facility] UA Glucose 500(A) Negative mg/dL 07/30/2025 3:14 PM EDT [facility] UA Ketones Negative Negative mg/dL 07/30/2025 3:14 PM EDT [facility] UA Blood Negative Negative 07/30/2025 3:14 PM EDT [facility] UA pH 6.5 5.0 - 8.0 pH 07/30/2025 3:14 PM EDT [facility] UA Protein Negative Negative mg/dL 07/30/2025 3:14 PM EDT [facility] UA Urobilinogen 0.2 <=1 mg/dL 3:14 PM EDT [facility]A Bili Negative Negative 07/30/2025 3:14 PM EDT [facility] UA Nitrite Negative Negative 07/30/2025 3:14 PM EDT [facility]A Leuk Est Negative Negative 07/30/2025 3:14 PM EDT [facility] UA Spec Grav 1.015 1.001 - 1.035 no units 07/30/2025 3:14 PM EDT [facility] Comment:Reference range taylor d for random specimens only. UA WBC <1 0 - 4 /HPF 07/30/2025 3:14 PM EDT [facility] UA RBC <1 0 - 3 /HPF 07/30/2025 3:14 PM EDT [facility] UA Squam Epi Few /LPF 07/30/2025 3:14 PM EDT [facility] Urine STRUCTURE OF URINARY TRACT PROPER / Unknown 07/30/2025 2:56 PM EDT 07/30/2025 2:59 PM EDT Vida Kruger I, JOSÉ MIGUEL URINE ORDERABLES Final R esult [facility] [address] [place] [address] * (ABNORMAL) BASIC METABOLIC PANEL (07/30/2025 11:31 AM EDT) Sodium 138 136 - 145 mmol/L 07/30/2025 11:56 AM EDT [facility] Potassium 4.2 3.5 - 5.0 mmol/L 07/30/2025 11:56 AM EDT [facility] Chloride 108(H) 98 - 107 mmol/L 07/30/2025 11:56 AM EDT [facility] Total CO2 19(L) 22 - 29 mmol/L 07/30/2025 11:56 AM EDT [facility] Anion Gap 11 7 - 16 mmol/L 07/30/2025 11:56 AM EDT [facility] Calcium 8.4(L) 8.6 - 10.4 mg/dL 07/30/2025 11:56 AM EDT [facility] Glucose Lvl 97 70 - 99 mg/dL 07/30/2025 11:56 AM EDT [facility] BUN 10 6 - 20 mg/dL 07/30/2025 11:56 AM EDT [facility] Creatinine 0.74 0.51 - 1.30 mg/dL 07/30/2025 11:56 AM EDT [facility] eGFR (CKD-EPIcr 2020) 105 >=60 mL/min/1.7 3 m2 07/30/2025 11:56 AM EDT [facility] Comment:Estimated GFR was ca lculated using the CKD-EPIcr (2020) equation refit without race. The equation is recommended by the National Kidney Foundation - [place] [employer] of Nephrology Task Force. Blood VENOUS STRUCTURE / Unknown Arterial / Unknown 07/30/2025 11:31 AM EDT 07/30/2025 11:37 AM EDT Vida Devine APRN CHEMISTRY ORDERABLES Fin al Result [facility] [address] [place], [place] [id number] * (ABNORMAL) NT PROBNP (07/30/2025 11:31 AM EDT) NT Pro-BNP 18,119(H) <=192 pg/mL 07/30/2025 11:56 AM EDT [facility] Blood VENOUS STRUCTURE / Unknown Arterial / Unknown 07/30/2025 11:31 AM EDT 07/30/2025 11:37 AM EDT Narrative [facility] - 07/30/2025 11:56 AM EDT An NT pro-BNP level less than 300 pg/mL in any patient, regardless of age, effectively rules out acute CHF with a 99% negative predictive value. Ingestion of alise doses of biotin (>5 mg/day) taken within 8 hours of drawing blood sample can interfere with this immunoassay test. Vida Devine APRN CHEMISTRY ORDERABLES Fin al Result [facility] [address] [facility] [place] [address] * (ABNORMAL) CBC (07/30/2025 10:23 AM EDT) WBC 12.3(H) 3.7 - 10.3 x10(3)/mcL 07/30/2025 10:29 AM EDT [facility] RBC 3.00(L) 3.90 - 5.20 x10(6)/mcL 07/30/2025 10:29 AM EDT [facility] Hgb 9.9(L) 11.2 - 15.7 g/dL 07/30/2025 10:29 AM EDT [facility] Hct 28.3(L) 34.0 - 45.0 % 07/30/2025 10:29 AM EDT [facility] MCV 94.3 80.0 - 100.0 fL 07/30/2025 10:29 AM EDT [facility] MCH 33.0 26.0 - 34.0 pg 07/30/2025 10:29 AM EDT [facility] MCHC 35.0 30.7 - 35.5 g/dL 07/30/2025 10:29 AM EDT [facility] RDW 13.9 <=14.9 % 07/30/2025 10:29 AM EDT [facility] Platelet 364 155 - 369 x10(3)/mcL 07/30/2025 10:29 AM EDT [facility] MPV 9.3 8.8 - 12.5 fL 07/30/2025 10:29 AM EDT [facility] Blood VENOUS BLOOD / Unknown Venipuncture / Unknown 07/30/2025 10:23 AM EDT 07/30/2025 10:27 AM EDT Vida Devine APRN HEMATOLOGY ORDERABLES Fi nal Result [facility] [address] [place] [address] * XR CHEST AP PORTABLE (07/30/2025 10:06 [...] please contactthe office of the ordering clinician. Edmond Cannon MD IMG DIAGNOSTIC IMAGING ORDER ASHLEY Final Result * EK EKG 12 LEAD (07/30/2025 1:12 AM EDT) Anatomical Region Laterality Modality Electrocardiogra phy 07/30/2025 1:37 AM EDT Impressions 07/30/2025 9:[address] [facility] Test Date: 2025-07-30 Pat Name: [facility] Department: DEPID Room: [facility] Gender: Female Life Coach: Omar : 1985 Requested By: FAHAD PEARSON Order Number: [id number] Reading MD: Jacqueline Payton DO Measurements Intervals [place] Rate: 105 P: 51 MD: 172 QRS: 25 QRSD: 158 T: 42 QT: 409 QTc: 541 Interpretive Statements SINUS TACHYCARDIA LEFT ATRIAL ENLARGEMENT LEFT BUNDLE BRANCH BLOCK Electronically Signed On 07-30-2025 09:41:26 EDT by Jacqueline Payton DO Narrative Procedure Note Jacqueline Payton DO - 07/30/[address] [facility] Test Date: 2025-07-30 Pat Name: [facility] Department: DEPID Room: [facility] Gender: Female Life Coach: Omar : 1985 Requested By: FAHAD PEARSON Order Number: [id number] Reading MD: Jacqueline Payton DO Measurements Intervals [place] Rate: 105 P: 51 MD: 172 QRS: 25 QRSD: 158 T: 42 QT: 409 QTc: 541 Interpretive Statements SINUS TACHYCARDIA LEFT ATRIAL ENLARGEMENT LEFT BUNDLE BRANCH BLOCK Electronically Signed On 07-30-2025 09:41:26 EDT by Jacqueline Payton DO us Fahad Pearson POULTRY SLAUGHTERER IMG ECG ORDERABLES Final Resu lt * BEDSIDE PICC INSERTION (PICC TEAM RN) (07/29/2025 2:10 PM EDT) Narrative [facility] - 07/29/2025 2:10 PM EDT [...] MD PROCEDURE/MINOR SURG ICAL ORDERABLES Final Result Performing Organization Address [facility] de Phone Number [facility] [address] [place] [address] * VANCOMYCIN LEVEL TROUGH (07/29/2025 11:19 AM EDT) Pathologist [facility] Vanco Tr 12.6 10.0 - <20.0 mcg/mL 07/29/2025 12:03 PM EDT [facility] Blood VENOUS BLOOD / Unknown Venipuncture / Unknown 07/29/2025 11:19 AM EDT 07/29/2025 11:41 AM EDT Narrative [facility] - 07/29/2025 12:03 PM EDT Minimum serum concentration for infection control is 10 mcg/mL; a target therapeutic range of 15-20 mcg/mL is recommended for significant infections such as S. aureus. Toxicity does not correlate well with serum concentrations. Supratherapeutic levels are considered to be > 20 mcg/mL. Edmond Cannon MD CHEMISTRY ORDERABLES Final R esult Performing Organization Address [facility]/ZIP Co de Phone Number [facility] [address] [place] [address] * (ABNORMAL) BASIC METABOLIC PANEL (07/29/2025 5:45 AM EDT) Pathologist [facility] Sodium 138 136 - 145 mmol/L 07/29/2025 6:22 AM EDT [facility] Potassium 4.0 3.5 - 5.0 mmol/L 07/29/2025 6:22 AM EDT [facility] Chloride 110(H) 98 - 107 mmol/L 07/29/2025 6:22 AM EDT [facility] Total CO2 17(L) 22 - 29 mmol/L 07/29/2025 6:22 AM EDT [facility] Anion Gap 11 7 - 16 mmol/L 07/29/2025 6:22 AM EDT [facility] Calcium 8.3(L) 8.6 - 10.4 mg/dL 07/29/2025 6:22 AM EDT [facility] Glucose Lvl 103(H) 70 - 99 mg/dL 07/29/2025 6:22 AM EDT [facility] BUN 8 6 - 20 mg/dL 07/29/2025 6:22 AM EDT [facility] Creatinine 0.74 0.51 - 1.30 mg/dL 07/29/2025 6:22 AM EDT [facility] eGFR (CKD-EPIcr 2020) 105 >=60 mL/min/1.7 3 m2 07/29/2025 6:22 AM EDT [facility] Comment:Estimated GFR was ca lculated using the CKD-EPIcr (2020) equation refit without race. The equation is recommended by the National Kidney Foundation - [place] [employer] of Nephrology Task Force. Blood VENOUS BLOOD / Unknown Venipuncture / Unknown 07/29/2025 5:45 AM EDT 07/29/2025 5:53 AM EDT us S Juju DO CHEMISTRY ORDERABLES Final Re sult [facility] [address] [place] [address] * MAGNESIUM LEVEL (07/28/2025 6:52 AM EDT) Magnesium 1.8 1.6 - 2.4 mg/dL 07/28/2025 7:22 AM EDT [facility] Blood VENOUS BLOOD / Unknown Venipuncture / Unknown 07/28/2025 6:52 AM EDT 07/28/2025 6:57 AM EDT Edmond Cannon MD CHEMISTRY ORDERABLES Final R esult [facility] [address] [place] [address] * (ABNORMAL) BASIC METABOLIC PANEL (07/28/2025 6:52 AM EDT) Sodium 137 136 - 145 mmol/L 07/28/2025 7:22 AM EDT [facility] Potassium 4.5 3.5 - 5.0 mmol/L 07/28/2025 7:22 AM EDT [facility] Chloride 110(H) 98 - 107 mmol/L 07/28/2025 7:22 AM EDT [facility] Total CO2 16(L) 22 - 29 mmol/L 07/28/2025 7:22 AM EDT [facility] Anion Gap 11 7 - 16 mmol/L 07/28/2025 7:22 AM EDT [facility] Calcium 8.6 8.6 - 10.4 mg/dL 07/28/2025 7:22 AM EDT [facility] Glucose Lvl 114(H) 70 - 99 mg/dL 07/28/2025 7:22 AM EDT [facility] BUN 7 6 - 20 mg/dL 07/28/2025 7:22 AM EDT [facility] Creatinine 0.72 0.51 - 1.30 mg/dL 07/28/2025 7:22 AM EDT [facility] eGFR (CKD-EPIcr 2020) 108 >=60 mL/min/1.7 3 m2 07/28/2025 7:22 AM EDT [facility] Comment:Estimated GFR was ca lculated using the CKD-EPIcr (2020) equation refit without race. The equation is recommended by the National Kidney [employer] - [place] [employer] of Nephrology Task Force. Blood VENOUS BLOOD / Unknown Venipuncture / Unknown 07/28/2025 6:52 AM EDT 07/28/2025 6:57 AM EDT Troy Matute DO CHEMISTRY ORDERABLES Final Re sult Performing Organization Address City/[facility]/ZIP Co de Phone Number [facility] [address] [place] [address] * (ABNORMAL) HEMOGLOBIN AND HEMATOCRIT (07/27/2025 6:31 AM EDT) Pathologist [facility] Hgb 9.3(L) 11.2 - 15.7 g/dL 07/27/2025 6:37 AM EDT [facility] Hct 28.2(L) 34.0 - 45.0 % 07/27/2025 6:37 AM EDT [facility] Blood VENOUS BLOOD / Unknown Venipuncture / Unknown 07/27/2025 6:31 AM EDT 07/27/2025 6:34 AM EDT Edmond Cannon MD HEMATOLOGY ORDERABLES Final Result Performing Organization Address [facility]/ZIP Co de Phone Number [facility] [address] [place] [address] * (ABNORMAL) BASIC METABOLIC PANEL (07/27/2025 6:31 AM EDT) Pathologist [facility] Sodium 137 136 - 145 mmol/L 07/27/2025 6:54 AM EDT [facility] Potassium 3.1(L) 3.5 - 5.0 mmol/L 07/27/2025 6:54 AM EDT [facility] Chloride 106 98 - 107 mmol/L 07/27/2025 6:54 AM EDT [facility] Total CO2 20(L) 22 - 29 mmol/L 07/27/2025 6:54 AM EDT [facility] Anion Gap 11 7 - 16 mmol/L 07/27/2025 6:54 AM EDT [facility] Calcium 8.2(L) 8.6 - 10.4 mg/dL 07/27/2025 6:54 AM EDT [facility] Glucose Lvl 98 70 - 99 mg/dL 07/27/2025 6:54 AM EDT [facility] BUN 10 6 - 20 mg/dL 07/27/2025 6:54 AM EDT [facility] Creatinine 0.87 0.51 - 1.30 mg/dL 07/27/2025 6:54 AM EDT [facility] eGFR (CKD-EPIcr 2020) 86 >=60 mL/min/1.7 3 m2 07/27/2025 6:54 AM EDT [facility] Comment:Estimated GFR was ca lculated using the CKD-EPIcr (2020) equation refit without race. The equation is recommended by the National Kidney [employer] - [place] [employer] of Nephrology Task Force. Blood VENOUS BLOOD / Unknown Venipuncture / Unknown 07/27/2025 6:31 AM EDT 07/27/2025 6:34 AM EDT Troy Matute DO CHEMISTRY ORDERABLES Final Re sult Performing Organization Address City/[facility]/ZIP Co de Phone Number [facility] [address] [place] [address] * (ABNORMAL) GLUCOSE METER POC (07/26/2025 9:14 PM EDT) [facility] Glucose Meter POC 106(H) 70 - 100 mg/dL 07/26/2025 9:15 PM EDT [facility] Sample Type Capillary 07/26/2025 9:15 PM EDT [facility] Patient Status Non-Critical Patient 07/26/2025 9:15 PM EDT [facility] Blood BLOOD SPECIMEN / Unknown 07/26/2025 9:14 PM EDT 07/26/2025 9:15 PM EDT Freddie Cruz MD POINT OF CARE TEST ORDERABLES F inal Result Performing Organization Address [facility] Co de Phone Number [facility] [address] [place] [address] * VANCOMYCIN LEVEL AUC2 (07/26/2025 8:46 PM EDT) [facility] Vancomycin AUC2 15.1 mcg/mL 9:09 PM EDT [facility] Blood VENOUS BLOOD / Unknown Venipuncture / Unknown 07/26/2025 8:46 PM EDT 07/26/2025 8:51 PM EDT Edmond Cannon MD CHEMISTRY ORDERABLES Final R [facility] Performing Organization Address [facility] de Phone Number [facility] [address] [place] [address] * VANCOMYCIN LEVEL AUC1 (07/26/2025 3:51 PM EDT) [facility] Vancomycin AUC1 22.9 mcg/mL 4:17 PM EDT [facility] Blood VENOUS BLOOD / Unknown Venipuncture / Unknown 07/26/2025 3:51 PM EDT 07/26/2025 3:55 PM EDT Edmond Cannon MD CHEMISTRY ORDERABLES Final R [facility] Performing Organization Address [facility] de Phone Number [facility] [address] [place] [address] * (ABNORMAL) BASIC METABOLIC PANEL (07/26/2025 5:12 AM EDT) [facility] Sodium 136 136 - 145 mmol/L 07/26/2025 5:51 AM EDT [facility] Potassium 3.9 3.5 - 5.0 mmol/L 07/26/2025 5:51 AM EDT [facility] Chloride 108(H) 98 - 107 mmol/L 07/26/2025 5:51 AM EDT [facility] Total CO2 19(L) 22 - 29 mmol/L 07/26/2025 5:51 AM EDT [facility] Anion Gap 9 7 - 16 mmol/L 07/26/2025 5:51 AM EDT [facility] Calcium 8.1(L) 8.6 - 10.4 mg/dL 07/26/2025 5:51 AM EDT [facility] Glucose Lvl 137(H) 70 - 99 mg/dL 07/26/2025 5:51 AM EDT [facility] BUN 9 6 - 20 mg/dL 07/26/2025 5:51 AM EDT [facility] Creatinine 0.83 0.51 - 1.30 mg/dL 07/26/2025 5:51 AM EDT [facility] eGFR (CKD-EPIcr 2020) 91 >=60 mL/min/1.7 3 m2 07/26/2025 5:51 AM EDT [facility] Comment:Estimated GFR was ca lculated using the CKD-EPIcr (2020) equation refit without race. The equation is recommended by the National Kid[employer] - [place] [employer] of Nephrology Task Force. Blood VENOUS BLOOD / Unknown Venipuncture / Unknown 07/26/2025 5:12 AM EDT 07/26/2025 5:23 AM EDT us Andre Sen MD CHEMISTRY ORDERABLES F inal Result [facility] [address] [id number] * (ABNORMAL) CBC (07/26/2025 5:12 AM EDT) WBC 10.0 3.7 - 10.3 x10(3)/mcL 07/26/2025 5:28 AM EDT [facility] RBC 2.99(L) 3.90 - 5.20 x10(6)/mcL 07/26/2025 5:28 AM EDT [facility] Hgb 9.6(L) 11.2 - 15.7 g/dL 07/26/2025 5:28 AM EDT [facility] Hct 28.8(L) 34.0 - 45.0 % 07/26/2025 5:28 AM EDT [facility] MCV 96.3 80.0 - 100.0 fL 07/26/2025 5:28 AM EDT [facility] MCH 32.1 26.0 - 34.0 pg 07/26/2025 5:28 AM EDT [facility] MCHC 33.3 30.7 - 35.5 g/dL 07/26/2025 5:28 AM EDT [facility] RDW 13.0 <=14.9 % 07/26/2025 5:28 AM EDT [facility] Platelet 286 155 - 369 x10(3)/mcL 07/26/2025 5:28 AM EDT [facility] MPV 9.7 8.8 - 12.5 fL 07/26/2025 5:28 AM EDT [facility] Blood VENOUS BLOOD / Unknown Venipuncture / Unknown 07/26/2025 5:12 AM EDT 07/26/2025 5:23 AM EDT Andre Sen MD HEMATOLOGY ORDERABLES Final Result Performing Organization Address City/[facility]/ZIP Co de Phone Number [facility] [address] [place] [address] * ECG AND WAVEFORMS - TELEMETRY (07/25/2025 6:30 PM EDT) ECG INTERPRET NSR [facility] Comment:BBB 07/25/2025 6:30 PM EDT Narrative [facility] - 07/25/2025 6:38 PM EDT MD 0.14 QRS 0.13 See Clinical Report link for waveform capture us Unknown Provider POINT OF CARE CARDIOLOGY Final Result Performing Organization Address City/[facility]/ZIP Co de Phone Number [facility] [address] [place] [address] * PATHOLOGY TISSUE REQUEST (07/25/2025 5:37 PM EDT) CASE REPORT Surgical Pathology Case: [id number] Authorizing Provider: Andre Sen, Collected: 07/25/2025 1737 Ordering Location: [facility] Received: 07/25/2025 1832 Pathologist: Leticai Nye MD Specimen: Arm, Right, right distal radius bone for pathology 07/28/2025 3:16 PM EDT [facility] FINAL DIAGNOSIS Bone, right distal radius, excision: - Viable cortical bone with focal acute inflammation. 07/28/2025 3:16 PM EDT [facility] at 1516 EDT GROSS DESCRIPTION A. Received in formalin in a container labeled with the patient's name, hospital number, and right distal radius bone for pathology , is a 1.7 x 0.5 x 0.2 cm luna-white, irregular, jagged bone fragment. The specimen entirely submitted following decalcification in A1. MARIN Delgado PA (ASCP) 07/26/2025 07/28/2025 3:16 PM EDT [facility] MICROSCOPIC DESCRIPTION The microscopic examination may have been rendered in whole, or in part, by analyzing high-resolution digital images (whole slide images) on the [employer] Digital Pathology platform validated at [facility]. 07/28/2025 3:16 PM EDT [facility] EMBEDDED IMAGES 07/28/2025 3:16 PM EDT [facility] Tissue STRUCTURE OF PART OF RIGHT UPPER LIMB / Unknown 07/25/2025 5:37 PM EDT 07/25/2025 6:33 PM EDT Andre Sen MD PATHOLOGY ORDERABLES F inal Result [facility] [address] [place] [address] [address] * (ABNORMAL) WOUND CULTURE (STAIN [...] 07/31/2025 9:59 AM EDT [facility] Stain Rare Gram negative rods(A) 07/31/2025 9:59 AM EDT [facility] Swab STRUCTURE OF RIGHT HAND / Unknown [...] MD MICROBIOLOGY - GENERAL ORDERABLES Final Result [facility] [place], [facility] [address] , [place] [address] * (ABNORMAL) ANAEROBIC CULTURE (NO STAIN) (07/25/2025 5:29 PM EDT) Pathologist [facility] Culture Positive Growth(A) 07/31/2025 10:20 AM EDT [facility] [place], [facility] Culture Sparse growth of Anaerobic gram negative marlena, suspect Prevotella species. SUSCEPTIBI LITY RESULT 07/31/2025 10:20 AM EDT [facility] [place], [facility] Comment:No further workup. Beta Lactamase Positive 07/31/2025 10:20 AM EDT [facility] [place], [facility] Culture Sparse growth of Anaerobic Gram Positive Rods SUSCEPTIBI LITY RESULT 07/31/2025 10:20 AM EDT [facility] [place], [facility] Comment: Unable to identify by Maldi-tof. No further workup. Swab STRUCTURE OF RIGHT HAND / Unknown 07/25/2025 5:29 PM EDT 07/25/2025 6:35 PM EDT Andre Sen MD MICROBIOLOGY - GENERAL ORDERABLES Final Result [employer] [facility] [address] , [place] [address] * (ABNORMAL) CBC (07/25/2025 6:24 AM EDT) WBC 8.9 3.7 - 10.3 x10(3)/mcL 07/25/2025 6:30 AM EDT [facility] RBC 2.90(L) 3.90 - 5.20 x10(6)/mcL 07/25/2025 6:30 AM EDT [facility] Hgb 9.5(L) 11.2 - 15.7 g/dL 07/25/2025 6:30 AM EDT [facility] Hct 27.4(L) 34.0 - 45.0 % 07/25/2025 6:30 AM EDT [facility] MCV 94.5 80.0 - 100.0 fL 07/25/2025 6:30 AM EDT [facility] MCH 32.8 26.0 - 34.0 pg 07/25/2025 6:30 AM EDT [facility] MCHC 34.7 30.7 - 35.5 g/dL 07/25/2025 6:30 AM EDT [facility] RDW 13.3 <=14.9 % 07/25/2025 6:30 AM EDT [facility] Platelet 259 155 - 369 x10(3)/mcL 07/25/2025 6:30 AM EDT [facility] MPV 9.5 8.8 - 12.5 fL 07/25/2025 6:30 AM EDT [facility] Blood VENOUS BLOOD / Unknown Venipuncture / Unknown 07/25/2025 6:24 AM EDT 07/25/2025 6:28 AM EDT us S Juju DO HEMATOLOGY ORDERABLES Final R esult [facility] [address] [place] [address] * (ABNORMAL) BASIC METABOLIC PANEL (07/25/2025 6:04 AM EDT) Sodium 140 136 - 145 mmol/L 07/25/2025 6:30 AM EDT [facility] Potassium 4.1 3.5 - 5.0 mmol/L 07/25/2025 6:30 AM EDT [facility] Chloride 110(H) 98 - 107 mmol/L 07/25/2025 6:30 AM EDT [facility] Total CO2 20(L) 22 - 29 mmol/L 07/25/2025 6:30 AM EDT [facility] Anion Gap 10 7 - 16 mmol/L 07/25/2025 6:30 AM EDT [facility] Calcium 8.6 8.6 - 10.4 mg/dL 07/25/2025 6:30 AM EDT [facility] Glucose Lvl 86 70 - 99 mg/dL 07/25/2025 6:30 AM EDT [facility] BUN 6 6 - 20 mg/dL 07/25/2025 6:30 AM EDT [facility] Creatinine 0.77 0.51 - 1.30 mg/dL 07/25/2025 6:30 AM EDT [facility] eGFR (CKD-EPIcr 2020) 100 >=60 mL/min/1.7 3 m2 07/25/2025 6:30 AM EDT [facility] Comment:Estimated GFR was ca lculated using the CKD-EPIcr (2020) equation refit without race. The equation is recommended by the National Kid[employer] - [place] [employer] Neph[employer] Task Force. Blood VENOUS BLOOD / Unknown Venipuncture / Unknown 07/25/2025 6:04 AM EDT 07/25/2025 6:09 AM EDT Juju DO CHEMISTRY ORDERABLES Final Re sult [facility] [address] [place], [place] [id number] * CT UPPER EXTREMITY RIGHT WO CONTRAST [...] of the ordering clinician. Andre Sen MD [facility] CT ORDERABLES Barbara l Result * (ABNORMAL) STAPHYLOCOCCUS AUREUS SCREEN (07/24/2025 10:58 AM EDT) Staph aureus PCR Detected( A) Not Detected 07/24/2025 2:38 PM EDT [facility] MRSA PCR Detected( A) Not Detected 07/24/2025 2:38 PM EDT [facility] Swab BOTH ANTERIOR NARES / Unknown 07/24/2025 10:58 AM EDT 07/24/2025 11:02 AM EDT Narrative [facility] - 07/24/2025 2:38 PM EDT MRSA target [...] assay utilizes real time PCR on the [employer] Infinity, and its performance has been verified by the [facility]. A negative result does not rule [...] has been developed and validated by the [facility] laboratory. Detailed methodology is available upon request. Rachelle Matute DO MICROBIOLOGY - GENERAL ORDERA BLES Final Result Performing Organization Address City/[facility]/ZIP Co de Phone Number [facility] [address] , [place] [address] * BLOOD CULTURE (NO STAIN) (07/24/2025 2:52 AM EDT) Culture Result No Growth at 120 hours. BLOOD CULTURE (NO STAIN) 07/29/2025 6:00 AM EDT [facility] Blood VENOUS BLOOD / Unknown Venipuncture / Unknown 07/24/2025 2:52 AM EDT 07/24/2025 2:54 AM EDT Fahad Pearson APRN MICROBIOLOGY - GENERAL ORDERA BLES Final Result Performing Organization Address [facility]/ZIP Co de Phone Number [facility] [address] , [place] [address] * BLOOD CULTURE (NO STAIN) (07/24/2025 2:52 AM EDT) Culture Result No Growth at 120 hours. BLOOD CULTURE (NO STAIN) 07/29/2025 6:00 AM EDT [facility] Blood VENOUS BLOOD / Unknown Venipuncture / Unknown 07/24/2025 2:52 AM EDT 07/24/2025 2:54 AM EDT Fahad Pearson POULTRY SLAUGHTERER MICROBIOLOGY - GENERAL ORDERA BLES Final Result [facility] [address] , [place] [address] documented in this encounter Visit Diagnoses Diagnosis Dog bite, initial encounter Acute on chronic HFrEF (heart failure with reduced ejection fraction) (HCC) Wound infection Posttraumatic wound infection not elsewhere classified Hypokalemia Hypopotassemia Fracture of right radius Closed fracture of unspecified part of radius (alone) Anxiety Anxiety state, unspecified JUAN (obstructive sleep apnea) Obstructive sleep apnea (adult) (pediatric) Cardiomyopathy (HCC) Other primary cardiomyopathies Dog bite, initial encounter documented in this encounter Admitting Diagnoses Diagnosis [...] 3 g 200 mL/hr carvediloL (COREG) tablet 6.25 mg 6.25 mg, [...] 11:40 AM EDT 40 mg Abdominal Tissue fUROsemide (LASix) tablet 40 mg 40 mg, Oral, DAILY, First dose on Fri08/02/25 at 0900, Until Discontinued Given 08/03/2025 10:29 AM EDT 40 mg loperamide (IMODIUM) capsule 2 mg 2 mg, Oral, 4 TIMES DAILY PRN, 2 doses, Starting on Fri07/29/25 at 1043, Until Fri08/03/25 at 1847, Diarrhea, After each loose stool - Max 16 mg (8 caps) per 24 hours. If administering via enteral tube, empty contents of the capsules into 30 ml of water. melatonin tablet 5-10 mg 5-10 mg, Oral, NIGHTLY PRN, Starting on 07/24/25 at 0234, Until Fri08/03/25 at 1847, Sleep Given 08/02/2025 9:32 PM EDT 10 mg naproxen (NAPROSYN) tablet 500 mg 500 mg, Oral, 2 TIMES DAILY PRN, Starting on Fri07/24/25 at 0235, Until Fri08/03/25 at 1847, Pain Given 07/29/2025 3:53 PM EDT 500 mg pantoprazole (PROTONIX) 40 mg in sodium [...] Oral, DAILY WITH MEAL, First dose on 07/24/25 at 0800, Until Discontinued Given 08/03/2025 10:28 AM EDT 10 mEq prochlorperazine edisylate (COMPAZINE) injection 10 mg 10 mg, Intravenous, EVERY 6 HOURS PRN, Starting on Fri07/27/25 at 0841, Until Fri08/03/25 at 1847, Nausea, Vomiting Given 08/03/2025 10:35 AM EDT 10 mg rabies vaccine, PCEC (RABAVERT) injection 1 mL [...] 50 mL 150 mL/hr sodium chloride 0.9% syringe 10 mL [...] on Fri07/24/25 at 0900, Until Discontinued Given 08/03/2025 10:29 AM EDT 25 mg documented in this encounter Discontinued Medications Medication [...] Flori Cagle RN)1234 (Stopped - Provider: Flori Cagle, RN)1632 (IV Started - Provider: Flori Cagle, RN)1701 (Stopped - Provider: Geovanna Felix RN)1702 (Stopped - Provider: Flori Cagle, RN)2130 (IV Started - Provider: Geovanna Felix, SHANIA)2200 (Stopped - Provider: Geovanna Felix RN) 0507 (IV Started - Provider: Geovanna Felix RN)0537 (Stopped - Provider: Geovanna Felix, RN)0912 (IV Started - Provider: Matteo Browne, Fabrication Inspector)0942 (Stopped - Provider: Flori Cagle, SHANIA)1551 (IV Started - Provider: Flori Cagle, SHANIA)1621 (Stopped - Provider: Flori Cagle, RN)2132 (IV Started - Provider: Geovanna Felix, SHANIA)2202 (Stopped - Provider: Geovanna Felix, SHANIA) 0503 (IV Started - Provider: Geovanna Felix, SHANIA)0533 (Stopped - Provider: Geovanna Felix RN)1041 (IV [...] Cagle RN) 1140 (Given - Provider: Jaclyn Issa RN) fUROsemide (LASix) injection 40 mg (CANCELED) [...] RN) 1029 (Given - Provider: Jaclyn Issa, SHANIA) mupirocin (BACTROBAN) 2 % ointment (COMPLETED) Nasal, 2 TIMES DAILY, 10 doses, First dose on Fri07/29/25 at 2100, Last dose on Fri08/03/25 at 0900 0849 (Given - Provider: Flori Cagle RN)2127 (Given - Provider: Geovanna Felix RN) 1009 (Given - Provider: Flori Cagle, SHANIA)2049 (Given - Provider: Geovanna Felix, RN) 1029 (Given - Provider: Jaclyn Issa, SHANIA) pantoprazole (PROTONIX) 40 mg in sodium chloride [...] RN) 1029 (Given - Provider: Jaclyn Issa, SHANIA) potassium chloride (KLOR-CON) tablet 10 mEq 10 mEq, Oral, DAILY WITH MEAL, First dose on 07/24/25 at 0800, Until Discontinued 0851 (Given - [...] Felix RN) 102 (Given - Provider: Jaclyn Issa RN) sacubitriL-valsartan (ENTRESTO) 49-51 mg tablet 1 Tablet [...] Fernández RN)1631 (Given - Provider: Flori Cagle RN)213 (Given - Provider: Geovanna Felix RN) 0509 (Given - Provider: Geovanna Felix RN)1548 (Given - Provider: Flori Cagle RN)2139 (Given - Provider: Geovanna Felix RN) 0503 (Given - Provider: Geovanna Felix RN)1542 (Given - Provider: Jaclyn Issa RN) spironolactone (ALDACTONE) tablet 25 mg 25 mg, Oral, DAILY, First dose on 07/24/25 at 0900, Until Discontinued 0851 (Given - Provider: Flori Cagle RN) 1005 (Given - Provider: Flori Cagle RN) 1029 (Given - Provider: Jaclyn Issa RN) PRN Medication Order 08/01/2025 08/02/2025 08/03/2025 acetaminophen (TYLENOL) tablet 650 mg 650 mg, Oral, EVERY 4 HOURS PRN, Starting on Fri07/24/25 at 0234, Until 08/03/25 at 1847, Pain, Fever, Maximum adult dose of acetaminophen is 4000 mg from all sources in 24 hours. 0402 (Given - Provider: Ira Fernández RN)0848 (Given - Provider: Flori Cagle RN)1627 (Given - Provider: Flori Cagle RN)2126 (Given - Provider: Geovanna Felix RN) 1005 (Given - Provider: lFori Cgale RN)1542 (Given - Provider: Flori Cagle RN) [...] 5-10 mg, Oral, NIGHTLY PRN, Starting on 07/24/25 at 0234, Until Fri08/03/25 at 1847, Sleep 2126 (Given - Provider: Geovanna Felix RN) 213 [...] RN) 0927 (Given - Provider: Matteo Browne, Fabrication Inspector)1541 (Given - Provider: Flori Cagle RN) 1035 (Given - Provider: Jaclyn Issa [...] Cagle RN)1236 (IV Restarted - Provider: Flori Cagle RN)1240 (Stopped - Provider: Flori Cagle, RN)1240 (Stopped - Provider: Flori Cagle RN)1632 (IV Started - Provider: Flori Cagle, RN)1632 (IV Paused - Provider: Flori Cagle RN)1707 (IV Restarted - Provider: Flori Cagle, RN)1718 (Stopped - Provider: Flori Cagle, RN) 0911 (IV Started - Provider: Matteo Browne, Fabrication Inspector)1550 (IV Started - Provider: Flori Cagle RN) 1041 (IV Started - Provider: Jaclyn Issa RN)1543 (IV Started - Provider: Jaclyn Issa, RN)1635 [...] 1 mL, Intramuscular, ONCE, 1 dose, On [facility] 07/28/25 at 0900, Message the main pharmacy for dose if the patient is still admitted. Followed by rabies vaccine, PCEC (RABAVERT) injection 1 mL (COMPLETED) 1 mL, Intramuscular, ONCE, 1 dose, On Fri08/01/25 at 0900, Message the main pharmacy for [...] Ordered Date First Ordered Date fUROsemide (LASix) tablet 40 mg 2 5 07/24/2025 potassium chloride (KLOR-CON ) tablet 40 mEq 2 08/01/2025 07/27/2025 fUROsemide (LASix) injection 40 mg 4 202407/26/2025 sacubitriL-valsartan (ENTRES TO) 49-51 mg tablet 1 Tablet 1 07/31/2025 carvediloL (COREG) tablet 6.25 mg 1 025 fUROsemide (LASix) injection 20 mg 2 2024 traZODone (DESYREL) tablet 50 mg 1 07/30/20 25 0.9 % NaCl infusion 1 07/29/2025 alteplase (ACTIVASE) injection 1 mg 1 07/29 carvediloL (COREG) tablet 3.125 mg 1 2024 lidocaine 10 mg/mL (1 %) inj ection (PF) 1 mL 1 07/29/2025 loperamide (IMODIUM) capsule 2 mg 1 025 mupirocin (BACTROBAN) 2 % ointment 1 2024 Saccharomyces boulardii (MARYLIN RASTOR) capsule 250 mg 1 07/29/2025 sodium chloride 0.9% IV line flush 20-50 mL 2 07/29/2025 07/25/2025 sodium chloride 0.9% syringe 2 07/29/2025 07/25/2025 sodium chloride 0.9% syringe 10 mL 1 2024 metoclopramide HCl (REGLAN) injection 10 mg 1 07/27/2025 prochlorperazine edisylate ( COMPAZINE) injection 10 mg 1 07/27/2025 rabies vaccine, PCEC (RABAVE RT) injection 1 mL 1 07/27/2025 enoxaparin (LOVENOX) injection 40 mg 1 07/07 aprepitant (EMEND) capsule 40 mg 1 07/25/20 25 dimenhyDRINATE (DRAMAMINE) 1 2.5-25 mg in sodium chloride 0.9% injection 1 07/25/2025 droPERidol (INAPSINE) injection 0.625 mg 1 07/25/2025 fentaNYL (SUBLIMAZE) injection 25 mcg 1 HYDROmorphone (DILAUDID) injection 0.25 mg 1 07/25/2025 ondansetron (ZOFRAN) injection 4 mg 2 07/2507/24/2025 ondansetron (ZOFRAN-ODT) dis integrating tablet 8 mg 1 07/25/2025 oxyCODONE (ROXICODONE) immed iate release tablet 5 mg 1 07/25/2025 promethazine (PHENERGAN) 12. 5 mg in sodium chloride 0.9% 10 mL injection 1 07/25/2025 promethazine (PHENERGAN) 6.2 5 mg in sodium chloride 0.9% 10 mL injection 1 07/25/2025 rabies immune globulin (PF) injection 1,230 Units 1 07/25/2025 vancomycin (VANCOCIN) 1,000 mg in sodium chloride 0.9 % 275 mL IVPB 1 07/25/2025 vancomycin (VANCOCIN) 1,250 mg in sodium chloride 0.9 % 275 mL IVPB 1 07/25/2025 acetaminophen (TYLENOL) tablet 650 mg 1 ampicillin-sulbactam (UNASYN ) 3 g in sodium chloride 0.9 % 100 mL IVPB 1 07/24/2025 empagliflozin (JARDIANCE) tablet 25 mg 1 losartan (COZAAR) tablet 50 mg 1 07/24/2025 magnesium oxide (MAG-OX) tablet 400 mg 1 melatonin tablet 5-10 mg 1 07/24/2025 naproxen (NAPROSYN) tablet 500 mg 1 025 pantoprazole (PROTONIX) 40 m g in sodium chloride 0.9% 10 mL injection 1 07/24/2025 pantoprazole (PROTONIX) tablet 40 mg 1 07/06 potassium chloride (KLOR-CON ) tablet 10 mEq 1 07/24/2025 sodium chloride 0.9% IV line flush 50 mL 1 07/24/2025 sodium chloride 0.9% syringe 5-10 mL 1 07/06 spironolactone (ALDACTONE) tablet 25 mg 1 1 Lab Orders Without Results Count Last Ordered [...] documented as of this encounter Care Teams Shell Sorter Relationship Specialty Start Date End Date Nonstaff, Referring PCP - General 07/20/25 documented as of this encounter
--- OUTSIDE RECORDS SUMMARY | 2025-07-25 16:08 | XMS_ITS | Encounter Summary ---
Author Organization [facility] [place] [address] Care Team Providers Care Senior Statistician Name Role Phone Nonstaff, Referring Primary Care Provider Troy francois Reason for Visit * Auth/Cert/Inpt Specialty Diagnoses / Procedures Referred By Norma oliveros Referred To Contact Diagnoses Wound infection distal radial fracture Procedures N/A Referral ID Status Reason Start Date Expiration Date Visits Re quested Visits Authorized [id number] 1 1 Encounter Details Date Type Department Care Team (Late Contact Info) Description 07/25/2025 5:08 PM EDT Anesthesia Event [facility] [address] [facility] [place] [address] Gricelda Garvin MD [address] [facility] [address] [place] [address] Anesthesia Record Procedure Summary Procedure Name Responsible Anesthesiologist Anesthesia Start Time Anesthesia Stop Time HAND/ WRIST/FOREARM/ ARM/ INCISION AND DRAINAGE OR DEBRIDEMENT (Right: Hand/Wrist) Gricelda Garvin MD 07/25/25 1708 07/25/25 1831 Events Date Time Event Comment 07/25/2025 1551 1645 AN Equip Check 1708 An Start 1708 An Start Data 1708 Immediate Pre Anesthetic Ass es 1711 An Induction 1716 An Intubation Very poor dent itian. Many caries,loose,missing 1716 Anesthesia Ready 1722 Time out 1723 Incision 1723 An Tourn Inflated 1745 An Tourn Deflated 1821 An Emergence 1824 An Extubation 1826 an stop data 1831 An Stop 1831 Handoff I completed my SBAR handoff to the receiving nurse which has included the followin. Identification of the patient, family, or patient surrogate 2. Identification of the responsible practitioner 3. Pertinent medical history 4. Surgical procedure and reason for procedure 5. Intraoperative anesthetic management 6. All current lines, drains and respiratory support. 7. Outstanding follow up orders (X-rays, consults etc) 8. Expectations/Plans for the early post-procedure period 9. Opportunity for questions and acknowledgement of understanding from the receiving PACU/ICU sports team manager Meds Name Total fentaNYL 50 MCG/ML INJ 200 mcg succinylcholine (ANECTINE) 20 mg/mL inje ction (EDG, MARYLIN, FTT) 100 mg HYDROmorphone (DILAUDID) injection 1 mg/ ml 1 mg phenylephrine 100 mcg/ml 10ml (syringe) 300 mcg dexamethasone (DECADRON) injection 4 mg/ mL 4 mg ondansetron (ZOFRAN) injection 4 mg /2 m L 4 mg lidocaine injection PF 2% 50 mg etomidate (AMIDATE) injection 20 mg ampicillin-sulbactam (UNASYN) 3 g in sod ium chloride 0.9 % 100 mL IVPB 3 g lactated ringers infusion 500 mL * Agents Name O2 N2O Air Et Sevoflurane * Blood No blood administrations on file. Lines, Drains, and Airways Type Details Placement Removal Peripheral IV 07/23/25; 2150; Left ; Antecubital; Provider under US; 1; Ultrasound guided; None; 07/26/25; 1430; Leaking; Catheter intact, Dressing applied, No Complications 07/23/252150 by Gabriel Garza, SHANIA 07/26/25 143 by Talia Alvarado, [employer] Incision/Wound 07/24/25; 228; Yes; Arm; Right; 08/03/25; 222607/24/25 022 by Abbi Avilez RN 08/03/252226 by Discharge Provider, Automatic Airway Device: ETT- Cuffed; Size: 7.5 mm; Placement Date: 07/25/25; Placement Time: 1713 (created via procedure documentation); Removal Date: 07/25/25; Removal Time: 182307/25/251713 by Marlys Bui CRNA 07/25/251823 by Marlys Bui CRNA Incision/Wound 07/25/25; 1723; Clos ed Surgical; Arm (incisions x3); Right; 08/03/25; 222607/25/25 1723 by Esther Niño RN 08/03/25 2227 by Discharge Provider, Automatic documented in this encounter Social History Tobacco [...] and heating? Not hard at all 07/24/2025 [facility] - Occupational Stress Questionnaire Answer Date [...] money to get more. Never true 07/24/2025 [facility] Utilities Answer Date Recorded In the past 12 months has th e [employer], gas, oil, or water [employer] threatened to shut off services in your home? No 07/24/2025 [facility] IP Transportation Answer D ate Recorded In [...] on file documented as of this encounter Procedure Notes * Mralys Bui CRNA - 07/25/2025 5:17 PM EDTAssociated Order(s): Airway Intraop Airway Placement: Date/Time: 07/25/2025 5:14 PM Induction type: IV Mask size: Standard adult Pre-Oxygenation: Standard Mask ventilation: Easy mask ventilation Technique: Video laryngoscope Laryngoscope blade: Chairez Blade size: 3 Grade view: I Airway type: ETT- cuffed Topical Anesthetic/Lubricant: None Intubation assist devices: Stylet 14fr Airway location: Oral Device size: 7.5mm Secured by: Tape Measured from: Lips Placement verified: Auscultation, End tidal CO2 and Symmetric chest wall motion Condition: Unchanged and Atraumatic Insertion attempts: 1 Title: ATTRACTIONS ASSOCIATE documented in this encounter OR Notes * Anesthesia Postprocedure Evaluation - Gricelda Garvin MD - 07/25/2025 6:49 PM EDT Post-Anesthesia Evaluation Note Patient Name: Vicenta Mcdaniels Patient Date: July 25, 2025 Post-Anesthesia Evaluation Patient Location: PACU Post op vitals: stable Difficult airway: no Nausea controlled: yes Level of consciousness: awake, alert and oriented Post anesthesia pain: adequate analgesia Long acting local anesthetic: n/a Airway patency: patent Respiratory status: room air and spontaneous ventilation Cardiovascular status: stable Hydration status: euvolemic Temperature: Normothermia Perioperative complications: NONE Vitals Value Taken Time BP 122/81 07/25/25 18:32 Resp 19 07/25/25 18:32 SpO2 94 % 07/25/25 18:32 Temp 36.5 ??C (97.7 ??F) 07/25/25 18:32 Pulse 96 07/25/25 18:32 * Anesthesia Preprocedure Evaluation - Gricelda Garvin MD - 07/25/2025 2:19 PM EDT Pre-Anesthesia Evaluation Note Patient Name: Vicenta Mcdaniels Sex: female Patient : 1985 Age: 39 y.o. Patient Date: July 25, 2025 Procedure(s): RIGHT FOREARM AND DISTAL RADIUS INCISION AND DRAINAGE Anesthesia Evaluation No previous anesthesia. 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 Anesthesia Plan ASA 3 Last solid intake: The patient has not eaten within the last 8 hours. Last clear liquid intake: The patient has not had clear liquids within the last 2 hours. Last tobacco use: The patient has not used tobacco today. Anesthesia Plan: general Induction: intravenous Monitors: STD Informed consent Anesthetic plan and risks discussed with: patient. Chart Reviewed and patient examined documented in this encounter Plan of Treatment Upcoming Encounters Date Type Department Care Team (Late st Contact Info) Description 08/17/2025 9:00 AM EST Appointment [facility] [address] [place] [address] [place] [id number] Corona Devine MD [address] [place] [address] [place] [address] documented as of this encounter Goals Goal Patient Goal Type Associated Problems Recent Progress Patient-Stated? Author Maintain a healthy diet, exercise regularly and maintain an ideal body weight General No Greg Urrutia RMA Stay Tobacco Free Lifestyle No Greg Urrutia RMA documented as of this encounter Procedures Procedure Name Priority Date/Time Associated Diagnosis Comments INTRAOP AIRWAY PLACEMENT Routine 07/25/2025 5:14 PM EDT documented in this encounter Results * INTRAOP AIRWAY PLACEMENT (07/25/2025 5:14 PM EDT) Narrative [facility] - 07/25/2025 5:14 PM EDT Marlys Bui, ATTRACTIONS ASSOCIATE 07/25/2025 5:17 PM Intraop Airway Placement: Date/Time: 07/25/2025 5:14 PM Induction type: IV Mask size: Standard adult Pre-Oxygenation: Standard Mask ventilation: Easy mask ventilation Technique: Video laryngoscope Laryngoscope blade: Chairez Blade size: 3 Grade view: I Airway type: ETT- cuffed Topical Anesthetic/Lubricant: None Intubation assist devices: Stylet 14fr Airway location: Oral Device size: 7.5mm Secured by: Tape Measured from: Lips Placement verified: Auscultation, End tidal CO2 and Symmetric chest wall motion Condition: Unchanged and Atraumatic Insertion attempts: 1 Title: ATTRACTIONS ASSOCIATE us Gricelda Garvin MD [place] ANESTHESIA Final Res ult [facility] [address] [place] [id number] documented in this encounter Visit Diagnoses Not on filedocumented in this encounter Administered Medications Inactive Administered Medications - up to 1 most recent administrations Medication Order MAR Action Action Date Dose Rate Site ampicillin-sulbactam (UNASYN) 3 g in sodium chloride 0.9 % 100 mL IVPB 3 g, Intravenous, EVERY 6 HOURS SCHEDULED (4 times per day), 171 doses, First dose on 07/24/25 at 1200, Last dose on 09/04/25 at 2200, Administer over 30 Minutes, Reason for Therapy: Infection Suspected, Indication: Skin/soft tissue IV Started 08/03/2025 3:43 PM EDT 3 g 20 0 mL/hr dexAMETHasone (DECADRON) injection Intravenous, PRN (Anesthesia), Starting on Fri07/25/25 at 1719, Until Fri07/25/25 at 1831, Anesthesia Intra-op Given 07/25/2025 5:19 PM EDT 4 mg etomidate (AMIDATE) injection Intravenous, PRN (Anesthesia), Starting on Fri07/25/25 at 1715, Until Fri07/25/25 at 1831, Anesthesia Intra-op Given 07/25/2025 5:15 PM EDT 20 mg fentaNYL (SUBLIMAZE) injection Intravenous, PRN (Anesthesia), Starting on Fri07/25/25 at 1709, Until Fri07/25/25 at 1831, Anesthesia Intra-op Given 07/25/2025 6:17 PM EDT 50 mcg HYDROmorphone (DILAUDID) injection Intravenous, PRN (Anesthesia), Starting on Fri07/25/25 at 1725, Until Fri07/25/25 at 1831, Anesthesia Intra-op Given 07/25/2025 5:28 PM EDT 0.5 mg lactated ringers infusion Intravenous, CONTINUOUS PRN, Starting on Fri07/25/25 at 1708, Until Fri07/25/25 at 1831, Anesthesia Intra-op New Bag 07/25/2025 5:08 PM EDT lidocaine 20 mg/mL (2 %) injection (PF) Intravenous, PRN (Anesthesia), Starting on Fri07/25/25 at 1715, Until Fri07/25/25 at 1831, Anesthesia Intra-op Given 07/25/2025 5:15 PM EDT 50 mg ondansetron (ZOFRAN) injection Intravenous, PRN (Anesthesia), Starting on Fri07/25/25 at 1719, Until Fri07/25/25 at 1831, Anesthesia Intra-op Given 07/25/2025 5:19 PM EDT 4 mg phenylephrine injection Intravenous, PRN (Anesthesia), Starting on Fri07/25/25 at 1755, Until Fri07/25/25 at 1831, Anesthesia Intra-op Given 07/25/2025 6:09 PM EDT 100 mcg succinylcholine (ANECTINE) injection Intravenous, PRN (Anesthesia), Starting on Fri07/25/25 at 1715, Until Fri07/25/25 at 1831, Anesthesia Intra-op Given 07/25/2025 5:15 PM EDT 100 mg documented in this encounter Additional Health Concerns Infection Onset Date Last Indicated Resolved Time 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
--- OUTSIDE RECORDS SUMMARY | 2025-08-03 17:46 | XMS_ITS | Encounter Summary ---
Author Organization [facility] Address [address] [place] [address] Care Team Providers Care Magnetometer Operator Name Role Phone Yvonne Cordoba DO Primary Care Provider [phone] Encounter Details Date Type Department Care Team (Latest Contact Info) Description 08/03/2025 6:46 PM EDT - 08/08/2025 6:02 PM [facility] Hospital Encounter [address] [address] Rodrigo Trevino MD [address] [place] [id number] Discharge Disposition: Left Against Advice or Discontinued Social History Tobacco Use Types Packs/Day Years Used Date Smoking Tobacco: Every Day Cigarettes Smokeless Tobacco: Former Tobacco Cessation:Ready to Q uit: Not Asked Alcohol Use Standard Drinks/Week Comments Never 0 (1 standard drink = 0.6 oz pur e alcohol) Social Connection and Isolation Panel Answer Date Recorded In a typical week, how many times do you talk on the phone with family, friends, or neighbors? Three times a week 08/04/20 How often do you get togethe r with friends or relatives? Three times a week 08/04/2025 How often do you attend chur ch or restoration services? Never 08/04/2025 Do you belong to any clubs o r organizations such as baptist groups, unions, fraternal or athletic groups, or school groups? No 08/04/2025 How often do you attend meet ings of the clubs or organizations you belong to? Never 08/04/2025 Are you , , di vorced, , never , or living with a partner? Living with partner 08/04/2025 AUDIT-C Answer Date Recorded Q1: How often do you have a drink containing alcohol? Never 08/03/2025 Q2: How many drinks containi ng alcohol do you have on a typical day when you are drinking? Patient does not drink Q3: How often do you have si x or more drinks on one occasion? Never 08/03/2025 Overall Financial Resource Strain (CARDIA) Answe r Date Recorded How hard is it for you to pa y for the very basics like food, housing, medical care, and heating? Not very hard 08/04/2025 [facility] - Occupational Stress Questionnaire Answer Date Recorded Do you feel stress - tense, restless, nervous, or anxious, or unable to sleep at night because your mind is troubled all the time - these days? Not at all 08/04/2025 Hunger Vital Sign Answer Date Recorded Within the past 12 months, y ou worried that your food would run out before you got the money to buy more. Never true 08/04/20 Within the past 12 months, t he food you bought just didn't last and you didn't have money to get more. Never true 08/04/2025 Housing Stability Vital Sign Answer Abilio e Recorded In the last 12 months, was t here a time when you were not able to pay the mortgage or rent on time? Yes 08/04/2025 In the past 12 months, how m any times have you moved where you were living? 0 08/04/2025 Homeless in the Last Year Not on file 2024 [facility] Utilities Answer Date Recorded In the past 12 months has th e [employer], gas, oil, or water the grafter threatened to shut off services in your home? No 08/04/2025 Domestic Abuse Assessment Answer Date R ecorded Do you feel safe in your relationships at home? Yes 08/04/2025 Physical Abuse Denies 08/04/2025 HRSN Domestic Abuse - Type of Abuse Not on file 08/04/2025 HRSN Domestic Abuse - Time Frame Not on file 08/04/2025 HRSN Domestic Abuse - Signs and Symptoms Not on file 08/04/2025 Verbal Abuse Denies 08/04/2025 HRSN Domestic Abuse - Reported To Not on file 08/04/2025 SM SDOH Transportation Source Answer Da te Recorded Has lack of transportation k ept you from medical appointments or from getting medications? No 08/03/2025 Has lack of transportation k ept you from meetings, work, or from getting things needed for daily living? No 08/03/2025 HRSN Depression PHQ-2 Answer Date Recor ded Feeling down, depressed, or hopeless 00 08/04/2025 Little interest or pleasure in doing things 00 08/04/2025 Comments Unknown Sex and Gender Information Value Date Recorded Sex Assigned at Not on file Legal Sex Female 4:05 PM EDT Gender Identity Not on file Sexual Orientation Not on file documented as of this encounter Last Filed Vital Signs Vital Sign Reading Time Taken Comments Blood Pressure 98/49 08/08/2025 4:14 PM EST Pulse 74 08/08/2025 4:14 PM EST Temperature 36.6 C (97.9 F) 08/08/2025 4:14 PM EST Respiratory Rate 14 08/08/2025 4:14 PM EST Oxygen Saturation 96% 08/08/2025 4:14 PM EST Inhaled Oxygen Concentration - - Weight 56.9 kg (125 lb 6.4 oz) 08/07/2025 2:03 A M EST Height 165.1 cm (5' 5 ) 08/03/2025 6:53 PM EDT Body Mass Index 20.87 08/03/2025 6:53 PM EDT documented in this encounter Functional Status * AUDIT-C Score Answer Date of Assessment Author 0 08/03/2025 10:59 PM EDT Jaylin Velazquez RN * Question Answer Date of Assessment Author Q1: How often do you have a drink containing alcohol? Never 08/03/2025 10:59 PM EDT Mario Velazquez RN Q2: How many drinks containing alcohol do you have on a typical day when you are drinking? Patient does not drink 08/03/2025 10:59 PM EDT Jaylin Velazquez RN Q3: How often do you have six or more drinks on one occasion? Never 08/03/2025 10:59 PM EDT Mario Velazquez RN documented as of this encounter Discharge Instructions * Discharge Instr-PT* Maynor Echavarria, PT - 08/04/2025 10:32 AM EDT I bed mobility, transfers and amb without asst device * Discharge Instr-OT* Ashley Palma OT - 08/04/2025 10:37 AM EDT Pt Independent with all mobility and ADL tasks. IND with RUE AROM documented in this encounter Medications at Time of Discharge Dapagliflozin Propanediol (FARXIGA) 5 MG tablet Take 2 tablets (10 mg total) by mouth in the morning. furosemide (LASIX) 40 MG tablet Take 1 tablet (40 mg total) by mouth in the morning. losartan (COZAAR) 50 MG tablet Take 1 tablet (50 mg total) by mouth in the morning. naproxen (NAPROSYN) 500 MG tablet Take 1 tablet (500 mg total) by mouth 2 (two) times a day as needed for mild pain. potassium chloride (K-DUR) 10 MEQ CR tablet Take 1 tablet (10 mEq total) by mouth in the morning. spironolactone (ALDACTONE) 25 MG tablet Take 1 tablet (25 mg total) by mouth in the morning. documented as of this encounter Progress Notes * Manasa Guardado MD - 08/08/2025 2:01 PM EST Images from the original note were not included. [facility] Infectious Diseases Progress Note Date of Admission: 08/03/2025 Primary Care Physician: Yvonne Cordoba, DO Antibiotics: IV Unasyn >> 09/04/2025 Subjective: Afebrile, On room air. 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 BP for now is normal. And she is on room air. Reporting 5/10 headache. No nausea, no vomiting. NB: h/o HCV not treated yet. Physical exam: Vitals (last day) Date/Time Temp Pulse Resp BP SpO2 Weight 08/08/25 1102 -- -- -- 110/69 -- -- 08/08/25 0830 97.6 ??F (36.4 ??C) 70 16 105/66 95 % -- 08/08/25 0650 -- -- -- 113/61 -- -- 08/08/25 0209 -- -- -- 80/50 -- -- 08/08/25 0100 -- -- -- 77/49 -- -- 08/08/25 0046 -- -- -- 62/47 -- -- 08/08/25 0045 97.5 ??F (36.4 ??C) 62 14 53/37 94 % -- 08/07/25 2302 98.1 ??F (36.7 ??C) 83 22 97/56 98 % -- 08/07/252002 98.5 ??F (36.9 ??C) 82 18 91/56 95 % -- 08/07/25 0738 98.1 ??F (36.7 ??C) 79 18 93/54 95 % -- 08/07/25 0631 97.7 ??F (36.5 ??C) 83 18 105/67 99 % -- 08/07/25 0203 -- -- -- -- -- 125 lb 6.4 oz (56.9 kg) Lines/Device: PICC : left arm. No surrounding erythema. General Appearance: Awake, Aox3, comfortable, non toxic appearing. Head: NC/AT conjunctiva/corneas clear, moist oral mucosa, no trush, Neck: no lymphadenophathy/ Neck supple. No JVD. Lungs: Good AE B/L, no crackles, no wheezing Heart: Regular rate and rhythm, no murmur Back: no pain at palpation of spine. No costovertebral tenderness. Abdomen: Soft, no rebound tenterdness, bowel sounds active all four quadrants, no masses or organomegaly Extremities: no cyanosis or edema, right arm wrapped. Wound reviewed. Neurologic: Cranial nerves grossly intact, speech is clear and fluent. Cognitive function intact. Active Lines Active Lines Name Placement date Placement time Site Days PICC Single Lumen Left Brachial -- -- Brachial -- ASSESSMENT: # Transient drop in BP. Unclear why, will need to keep monitoring. RUE Infected Dog Bite Right Radial Fracture Dog bite occurred on 07/20, tetanus vaccine given in ED, wound was sutured and Augmentin prescribed. Patient took one dose. Returned on 07/23 with worsening swelling in RUE 07/24: CT RUE: Acute comminuted fracturing of the lateral distal radial metadiaphysis with completefracture extension and displaced fracture cortical bone fragments. Soft tissue laceration injury compatible with dogbite noted at and proximal to the aforementioned distal radial fracture. Suspect injury to the extensor carpi radialis regional to the fracture. Additional proximal forearm soft tissue injury also compatible with dogbite. Increased ESR and CRP on admission, now normalized 07/24: Blood Cultures NGTD 07/25 s/p Irrigation and debridement of right type II open distal radius fracture including skin, subcutaneous tissue, fascia, and bone Pathology: viable cortical bone with focal acute inflammation Fungus Cx: NGTD Wound Cx: Strep gallolyticus, strep sanguinis Anaerobic Cx: gram positive rods, gram negative rods, suspect Prevotella species Rabies Vaccine: Day 0 (07/25), Day 3 (07/28), Day 7 (08/01) Hepatitis C antibody positive HCV not detected HTN JUAN Anxeity H/o of IVDU Recommendations: Continue on IV Unasyn. Anticipate end date is 09/04/25. Need to continue inpatient. Today : 08/08 got the dose at day 14 Due for other dose of Rabies vaccine on Day 28 (08/22) Hep C antibody positive - HCV RNA : not detected on 08/05/2025 Obtain CBC w/diff, CMP, ESR and CRP weekly while on IV antibiotics Continue wound care. Monitor fever/ Monitor Blood pressure. If fever or hypotension, please obtain blood culture. Monitor I/O's, serum electrolytes, WBC & platelet trend, Liver and renal function, ESR and CRP Discussed with patient. ID will continue to follow Pertinent laboratory results reviewed independently Patient seen and examined. 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 Check UDS. OK for RUE sling for support. Independent. IV Abx till 09/04 and then home. Regular diet. Holding corteg due to soft BP; parameters; On lovenox Rabies vacciine today 08/08 Reviewed vitals, medications, labs, micro Continue abx - unasyn Continue wound care OOB to chair and ambulate bid at least FULL code Scheduled/Continuous Medications Scheduled Acidophilus Lactobacillus 1 each 1 each, PO, BID ampicillin-sulbactam (UNASYN) 3 g in sterile water IV syringe 3 g, IV, Q6H PHANI carvedilol (COREG) tablet 6.25 mg 6.25 mg, PO, BID with meals Electrolyte Replacement No Dose/Rate, XX, Once a day Empagliflozin (JARDIANCE) tablet 25 mg 25 mg, PO, Once a day enoxaparin (LOVENOX) syringe 40 mg 40 mg, SC, Q24H PHANI furosemide (LASIX) tablet 40 mg 40 mg, PO, Once a day melatonin tablet 6 mg 6 mg, PO, Nightly pantoprazole (PROTONIX) EC/DR tablet 40 mg 40 mg, PO, Once a day potassium chloride (MICRO-K) CR capsule 10 mEq 10 mEq, PO, Once a day rabies (RABAVERT) vaccine 1 mL 1 mL, IM, Once sacubitril-valsartan (ENTRESTO) 24-26 MG tablet 2 tablet 2 tablet, PO, BID spironolactone (ALDACTONE) tablet 25 mg 25 mg, PO, Once a day acetaminophen magnesium oxide OR magnesium sulfate Pharmacy Communication potassium OR potassium chloride prochlorperazine traZODone Diet Orders (From admission, onward) Start Ordered 08/03/251911 Adult Diet Regular; 7 Regular (Regular Texture); 0 Thin (All Liquids) Diet effective now End/Expires: Until Specified References: IDDSI Website Question Answer Comment Diet Type: Regular Diet Texture: 7 Regular (Regular Texture) Liquid Consistency: 0 Thin (All Liquids) Place order in third green party system. Done 08/03/251910 Subjective: Seen and examined in am. Denies fever, chills, SOB, CP, NVDC. No acute overnight events. Objective: BP 105/66 Pulse 70 Temp 97.6 ??F (36.4 ??C) (Oral) Resp 16 Ht 5' 5 (1.651 m) Wt 125 lb 6.4 oz (56.9 kg) SpO2 95% BMI 20.87 kg/m?? I/O last 3 completed shifts: In: 2069 [P.O.:1440; I.V.:600; IV Piggyback:30] Out: 0 LAB RESULTS Lab Results Component Value Date WBC 10.5 (H) 08/08/2025 HGB 10.4 (L) 08/08/2025 HCT 31.8 (L) 08/08/2025 PLT 315 08/08/2025 Lab Results Component Value Date NA 131 (L) 08/08/2025 K 4.1 08/08/2025 CO2 21 (L) 08/08/2025 CL 97 (L) 08/08/2025 BUN 24 (H) 08/08/2025 CREATININE 1.12 08/08/2025 Constitutional: AAOx3 Cardiovascular: RRR Pulmonary/Chest: CTAB Abdominal: Soft. NT ND Musculoskeletal: No edema. RUE in [place] CDI Neurological: Grossly normal. Skin: Skin is warm and dry. Labs: Laboratory data and diagnostic testing reviewed Part of this note was dictated using voice recognition technology and may include unintended spelling errors. 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 Open fracture of right radius Cardiomyopathy Dog bite Osteomyelitis Rabies vacciine tomorrow 08/08 Reviewed vitals, medications, labs, micro Continue abx - unasyn Continue wound care OOB to chair and ambulate bid at least FULL code Scheduled/Continuous Medications Scheduled Acidophilus Lactobacillus 1 each 1 each, PO, BID ampicillin-sulbactam (UNASYN) 3 g in sterile water IV syringe 3 g, IV, Q6H PHANI carvedilol (COREG) tablet 6.25 mg 6.25 mg, PO, BID with meals Electrolyte Replacement No Dose/Rate, XX, Once a day Empagliflozin (JARDIANCE) tablet 25 mg 25 mg, PO, Once a day enoxaparin (LOVENOX) syringe 40 mg 40 mg, SC, Q24H PHANI furosemide (LASIX) tablet 40 mg 40 mg, PO, Once a day melatonin tablet 6 mg 6 mg, PO, Nightly pantoprazole (PROTONIX) EC/DR tablet 40 mg 40 mg, PO, Once a day potassium chloride (MICRO-K) CR capsule 10 mEq 10 mEq, PO, Once a day rabies (RABAVERT) vaccine 1 mL 1 mL, IM, Once sacubitril-valsartan (ENTRESTO) 24-26 MG tablet 2 tablet 2 tablet, PO, BID spironolactone (ALDACTONE) tablet 25 mg 25 mg, PO, Once a day acetaminophen magnesium oxide OR magnesium sulfate Pharmacy Communication potassium OR potassium chloride prochlorperazine traZODone Diet Orders (From admission, onward) Start Ordered 08/03/251911 Adult Diet Regular; 7 Regular (Regular Texture); 0 Thin (All Liquids) Diet effective now End/Expires: Until Specified References: IDDSI Website Question Answer Comment Diet Type: Regular Diet Texture: 7 Regular (Regular Texture) Liquid Consistency: 0 Thin (All Liquids) Place order in third green party system. Done 08/03/251910 Subjective: Seen and examined in am. Denies fever, chills, SOB, CP, NVDC. No acute overnight events. Objective: BP 93/54 Pulse 79 Temp 98.1 ??F (36.7 ??C) (Oral) Resp 18 Ht 5' 5 (1.651 m) Wt 125 lb 6.4 oz (56.9 kg) SpO2 95% BMI 20.87 kg/m?? I/O last 3 completed shifts: In: 540 [P.O.:480; I.V.:40; IV Piggyback:20] Out: 0 LAB RESULTS No results found for: WBC , HGB , HCT , PLT No results found for: NA , K , CO2 , CL , BUN , CREATININE , GLU Constitutional: AAOx3 Cardiovascular: RRR Pulmonary/Chest: CTAB Abdominal: Soft. NT ND Musculoskeletal: No edema. RUE in [place] CDI Neurological: Grossly normal. Skin: Skin is warm and dry. Labs: Laboratory data and diagnostic testing reviewed Part of this note was dictated using voice recognition technology and may include unintended spelling errors. 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 Open fracture of right radius Cardiomyopathy Dog bite Osteomyelitis Reviewed vitals, medications, labs, micro Continue abx - unasyn Continue wound care OOB to chair and ambulate bid at least FULL code Scheduled/Continuous Medications Scheduled Acidophilus Lactobacillus 1 each 1 each, PO, BID ampicillin-sulbactam (UNASYN) 3 g in sterile water IV syringe 3 g, IV, Q6H PHANI carvedilol (COREG) tablet 6.25 mg 6.25 mg, PO, BID with meals Electrolyte Replacement No Dose/Rate, XX, Once a day Empagliflozin (JARDIANCE) tablet 25 mg 25 mg, PO, Once a day enoxaparin (LOVENOX) syringe 40 mg 40 mg, SC, Q24H PHANI furosemide (LASIX) tablet 40 mg 40 mg, PO, Once a day melatonin tablet 6 mg 6 mg, PO, Nightly pantoprazole (PROTONIX) EC/DR tablet 40 mg 40 mg, PO, Once a day potassium chloride (MICRO-K) CR capsule 10 mEq 10 mEq, PO, Once a day rabies (RABAVERT) vaccine 1 mL 1 mL, IM, Once sacubitril-valsartan (ENTRESTO) 24-26 MG tablet 2 tablet 2 tablet, PO, BID spironolactone (ALDACTONE) tablet 25 mg 25 mg, PO, Once a day acetaminophen magnesium oxide OR magnesium sulfate Pharmacy Communication potassium OR potassium chloride prochlorperazine traZODone Diet Orders (From admission, onward) Start Ordered 08/03/251911 Adult Diet Regular; 7 Regular (Regular Texture); 0 Thin (All Liquids) Diet effective now End/Expires: Until Specified References: IDDSI Website Question Answer Comment Diet Type: Regular Diet Texture: 7 Regular (Regular Texture) Liquid Consistency: 0 Thin (All Liquids) Place order in third green party system. Done 08/03/251910 Subjective: Seen and examined in am. Denies fever, chills, SOB, CP, NVDC. No acute overnight events. Objective: BP 139/83 Pulse 81 Temp 97.8 ??F (36.6 ??C) (Oral) Resp 18 Ht 5' 5 (1.651 m) Wt 121 lb (54.9 kg) SpO2 97% BMI 20.14 kg/m?? I/O last 3 completed shifts: In: 480 [P.O.:480] Out: - LAB RESULTS Lab Results Component Value Date WBC 6.7 08/04/2025 HGB 12.7 08/04/2025 HCT 39.1 08/04/2025 PLT 420 (H) 08/04/2025 Lab Results Component Value Date NA 135 (L) 08/04/2025 K 4.3 08/04/2025 CO2 23 08/04/2025 CL 103 08/04/2025 BUN 14 08/04/2025 CREATININE 0.82 08/04/2025 Constitutional: AAOx3 Cardiovascular: RRR Pulmonary/Chest: CTAB Abdominal: Soft. NT ND Musculoskeletal: No edema. RUE in [place] CDI Neurological: Grossly normal. Skin: Skin is warm and dry. Labs: Laboratory data and diagnostic testing reviewed Part of this note was dictated using voice recognition technology and may include unintended spelling errors. IRMA CLAY DO * Gilda Giron APRN - 08/05/2025 3:55 PM EDT [facility] Progress Note Date of Admission: 08/03/2025 Primary Care Physician: Yvonne Cordoba, DO Antibiotics: IV Unasyn Subjective: afebrile, on Ra. Patient resting in bed. Reports feeling well today. She is aware of past history of Hep C, says she has never received treatment. O/n events reviewed. Allergies[1] Patient Vitals for the past 24 hrs: BP Temp Temp src Pulse Resp SpO2 08/05/25 1123 (!) 80/43 98.1 ??F (36.7 ??C) Oral 83 16 94 % 08/05/25 0752 113/76 98.1 ??F (36.7 ??C) Oral 88 -- 97 % 08/05/25 0543 97/62 98.4 ??F (36.9 ??C) Oral 79 16 94 % 08/05/25 0101 (!) 87/56 97.7 ??F (36.5 ??C) Oral -- 18 98 % 08/04/25 1929 113/64 98.2 ??F (36.8 ??C) Oral 80 16 98 % 08/04/25 1730 96/61 -- -- -- -- -- Physical Exam: General Appearance: Alert, cooperative, no distress Head: Normocephalic, without obvious abnormality, atraumatic Eyes: PERRL, conjunctiva/corneas clear Nose: Nares normal Mouth: mucosa moist Lungs: Good AE B/L, respirations unlabored Heart: Regular rate and rhythm, S1 and S2 normal Abdomen: Soft, non-tender Extremities: RUE with bandage in place, images reviewed in the media Skin: no rashes, + tattoos Lymph nodes: No Submandibular LAD Neurologic: Grossly normal Line: PICC+ Prescriptions Prior to Admission[2] Current Medications[3] Immunization History Administered Date(s) Administered Rabies, Intradermal 07/25/2025, 07/28/2025, 08/01/2025 Tdap 07/20/2025 Labs: Lab Results Component Value Date WBC 6.7 08/04/2025 HGB 12.7 08/04/2025 HCT 39.1 08/04/2025 MCV 97.0 08/04/2025 PLT 420 (H) 08/04/2025 Lab Results Component Value Date NA 135 (L) 08/04/2025 K 4.3 08/04/2025 CO2 23 08/04/2025 CL 103 08/04/2025 BUN 14 08/04/2025 CREATININE 0.82 08/04/2025 Labs: 08/03: CRP <3 ESR 18 08/04: WBC 6.7 Plt 420 08/04: BUN/Cr: 14/0.82 08/04: T bili 0.7 ALT 17 AST 18 Alk Phos 72 08/05: HIV AG/AB: non reactive 08/05: Acute Hepatitis Panel: Hep C Ab reactive 103: HCV RNA: pending Imagin/19: CT RUE: Acute comminuted fracturing of the lateral distal radial metadiaphysis with completefracture extension and displaced fracture cortical bone fragments. Soft tissue laceration injury compatible with dogbite noted at and proximal to the aforementioned distal radial fracture. Suspect injury to the extensor carpi radialis regional to the fracture. Additional proximal forearm soft tissue injury also compatible with dogbite. Assessment: RUE Infected Dog Bite Right Radial Fracture Dog bite occurred on 07/20, tetanus vaccine given in ED, wound was suture and Augmentin prescribed.Patient took one dose. Returned on 07/23 with worsening swelling in RUE 07/24: CT RUE: Acute comminuted fracturing of the lateral distal radial metadiaphysis with completefracture extension and displaced fracture cortical bone fragments. Soft tissue laceration injury compatible with dogbite noted at and proximal to the aforementioned distal radial fracture. Suspect injury to the extensor carpi radialis regional to the fracture. Additional proximal forearm soft tissue injury also compatible with dogbite. Increased ESR and CRP on admission, now normalized 07/24: Blood Cultures NGTD 07/25 s/p Irrigation and debridement of right type II open distal radius fracture including skin, subcutaneous tissue, fascia, and bone Pathology: viable cortical bone with focal acute inflammation Fungus Cx: NGTD Wound Cx: Strep gallolyticus, strep sanguinis Anaerobic Cx: gram positive rods, gram negative rods, suspect Prevotella species Rabies Vaccine: Day 0 (07/25), Day 3 (07/28), Day 7 (08/01) Hepatitis C Hep C ab reactive HCV RNA pending HTN JUAN Anxeity Hx of IVDU Plan: Continue on IV Unasyn. Anticipate end date is 09/04/25. Patient is not a candidate for outpatient antibiotic therapy Still needs Day 14 (08/08) and Day 28 (08/22) Rabies Vaccine Follow results of HCV RNA Obtain CBC w/diff, CMP, ESR and CRP weekly while on IV antibiotics Wound Care Do not insert permanent lines until surveillance blood cx negative for 48-72 hours. Monitor fever/BP curve, I/O's, serum electrolytes, WBC & platelet trend, Liver and renal function Case reviewed and patient seen with Discussed with patient and RN. ID will continue to follow. Please call with any questions. GILDA GIRON, RADIO PROGRAM DIRECTOR [1] No Known Allergies [2] Medications Prior to Admission Medication Sig Dispense Refill Last Dose/Taking Dapagliflozin Propanediol (FARXIGA) 5 MG tablet Take 2 tablets (10 mg total) by mouth in the morning. Taking furosemide (LASIX) 40 MG tablet Take 1 tablet (40 mg total) by mouth in the morning. Taking losartan (COZAAR) 50 MG tablet Take 1 tablet (50 mg total) by mouth in the morning. Taking naproxen (NAPROSYN) 500 MG tablet Take 1 tablet (500 mg total) by mouth 2 (two) times a day as needed for mild pain. Taking As Needed potassium chloride (K-DUR) 10 MEQ CR tablet Take 1 tablet (10 mEq total) by mouth in the morning. Taking spironolactone (ALDACTONE) 25 MG tablet Take 1 tablet (25 mg total) by mouth in the morning. Taking [3] Current Facility-Administered Medications Medication Dose Route Frequency Provider Last Rate Last Admin acetaminophen (TYLENOL) tablet 650 mg 650 mg Oral Q6H PRN Shilpa Beck MD 650 mg at 08/05/25 1546 Acidophilus Lactobacillus 1 each 1 each Oral 2 times per day Shilpa Beck MD 1 each at 08/05/25 0956 ampicillin-sulbactam (UNASYN) 3 g in sterile water IV syringe 3 g Intravenous Q6H [facility] Rodrigo Trevino MD 3 g at 08/05/25 1354 carvedilol (COREG) tablet 6.25 mg 6.25 mg Oral 2 times per day Shilpa Beck MD 6.25 mg at 08/05/25 0957 Electrolyte Replacement Does not apply Once a day Shilpa Beck MD Empagliflozin (JARDIANCE) tablet 25 mg 25 mg Oral Once a day Shilpa Beck MD 25 mg at 08/05/25 0957 enoxaparin (LOVENOX) syringe 40 mg 40 mg Subcutaneous Q24H PHANI Shilpa Beck MD 40 mg at 08/05/25 0957 furosemide (LASIX) tablet 40 mg 40 mg Oral Once a day Shilpa Beck MD 40 mg at 08/05/25 0955 magnesium oxide tablet 400 mg 400 mg PO/Per Tube Q6H PRN Shilpa Beck MD Or magnesium sulfate infusion 2 g 50 mL 2 g Intravenous PRN Shilpa Beck MD melatonin tablet 6 mg 6 mg Oral Nightly Shilpa Beck MD 6 mg at 08/04/252112 pantoprazole (PROTONIX) EC/DR tablet 40 mg 40 mg Oral Once a day Shilpa Beck MD 40 mg at 08/05/25 0955 potassium chloride (KLOR-CON) ER tablet 40 mEq 40 mEq Oral Q4H PRN Shilpa Beck MD Or potassium chloride 20 mEq in 100 mL IVPB premix 20 mEq Intravenous Q2H PRN Shilpa Beck MD potassium chloride (MICRO-K) CR capsule 10 mEq 10 mEq Oral Once a day Shilpa Beck MD 10 mEq at 08/05/25 0956 prochlorperazine (COMPAZINE) injection 10 mg 10 mg Intravenous Q6H PRN Shilpa Beck MD 10 mg at 08/05/25 1547 [START ON 08/08/2025] rabies (RABAVERT) vaccine 1 mL 1 mL Intramuscular Once Shilpa Beck MD sacubitril-valsartan (ENTRESTO) 24-26 MG tablet 2 tablet 2 tablet Oral 2 times per day Shilpa Beck MD 2 tablet at 08/05/25 0956 spironolactone (ALDACTONE) tablet 25 mg 25 mg Oral Once a day Shilpa Beck MD 25 mg at 08/05/25 0956 Cosigned by Vijay Griffin MD at 08/07/2025 6:49 PM EST Associated attestation - Vijay Griffin MD - 08/07/2025 6:49 PM EST I have interviewed and examined this patient with Gilda Giron APRN. I have participated in the care of this patient and agree with the outlined assessment and plan. Afebrile. Awake, alert and answering questions. Reports feeling ok. O/n events reviewed with RN. Physical exam: General Appearance: Alert, cooperative, NAD Head: Normocephalic, without obvious abnormality, atraumatic Eyes: PERRL, conjunctiva/corneas clear Nose: Nares normal, septum midline, mucosa normal, no drainage Mouth: mucosa moist Neck: trach+ Lungs: decreased bibasilar, ventilated Heart: Regular rate and rhythm, S1 and S2 normal Abdomen: Soft, non-tender Extremities: RUE with dressing in place. Viewed images Skin: no rashes, tattoos present Lymph nodes: No Submandibular LAD Line: PICC + Reviewed labs and imaging and agree with A/P as documented in Gilda's note. A: RUE Infected Dog Bite Right Radial Fracture Dog bite occurred on 07/20, tetanus vaccine given in ED, wound was suture and Augmentin prescribed.Patient took one dose. Returned on 07/23 with worsening swelling in RUE 07/24: CT RUE: Acute comminuted fracturing of the lateral distal radial metadiaphysis with completefracture extension and displaced fracture cortical bone fragments. Soft tissue laceration injury compatible with dogbite noted at and proximal to the aforementioned distal radial fracture. Suspect injury to the extensor carpi radialis regional to the fracture. Additional proximal forearm soft tissue injury also compatible with dogbite. Increased ESR and CRP on admission, now normalized 07/24: Blood Cultures NGTD 07/25 s/p Irrigation and debridement of right type II open distal radius fracture including skin, subcutaneous tissue, fascia, and bone Pathology: viable cortical bone with focal acute inflammation Fungus Cx: NGTD Wound Cx: Strep gallolyticus, strep sanguinis Anaerobic Cx: gram positive rods, gram negative rods, suspect Prevotella species Rabies Vaccine: Day 0 (07/25), Day 3 (07/28), Day 7 (08/01) Hepatitis C antibody positive HTN JUAN Anxeity H/o of IVDU Plan: Continue on IV Unasyn. Anticipate end date is 09/04/25. Patient is not a candidate for outpatient antibiotic therapy Still needs Day 14 (08/08) and Day 28 (08/22) Rabies Vaccine Hep C antibody positive - obtain and follow up results of HCV RNA Obtain CBC w/diff, CMP, ESR and CRP weekly while on IV antibiotics Wound Care Monitor fever/BP curve, I/O's, serum electrolytes, WBC & platelet trend, Liver and renal function, ESR and CRP Discussed with patient and RN. ID will continue to follow * Shilpa Beck MD - 08/05/2025 2:41 PM EDT Pulmonary Attending Progress Note Subjective: Patient has no complaints, no fevers or chills, arm pain controlled Exam: Vitals: 08/05/25 1123 BP: (!) 80/43 Pulse: 83 Resp: 16 Temp: 98.1 ??F (36.7 ??C) SpO2: 94% Vitals: 08/05/25 0101 08/05/25 0543 08/05/25 0752 08/05/25 1123 BP: (!) 87/56 97/62 113/76 (!) 80/43 Pulse: 79 88 83 Resp: 18 16 16 Temp: 97.7 ??F (36.5 ??C) 98.4 ??F (36.9 ??C) 98.1 ??F (36.7 ??C) 98.1 ??F (36.7 ??C) TempSrc: Oral Oral Oral Oral SpO2: 98% 94% 97% 94% Weight: Height: Constitutional awake and alert, no distress Respiratory CTA Cardiovascular rrr, no mrg, no edema Abdomen soft NT Ndnl bowel sounds Ext rue enrrique wrap in place, nl cap refill NeuroPsych awake and alert, non focal exam Labs: Recent Labs Lab Units 08/04/25 1156 SODIUM mmol/L 135* POTASSIUM mmol/L 4.3 CHLORIDE mmol/L 103 CO2 mmol/L 23 BUN mg/dL 14 CREATININE mg/dL 0.82 EGFR mL/min/1.73 m2 93 GLUCOSE mg/dL 96 CALCIUM mg/dL 8.9 ANION GAP mmol/L 9 Recent Labs Lab Units 08/04/25 0246 WHITE BLOOD CELLS x10(3)/mcL 6.7 RBC AUTO x10(6)/mcL 4.03 HEMOGLOBIN g/dL 12.7 HEMATOCRIT % 39.1 MCV fL 97.0 MCH pg 31.5 MCHC g/dL 32.5 MPV fL 9.6 PLATELETS AUTO x10(3)/mcL 420* A: Patient Active Problem List Diagnosis Primary hypertension Obstructive sleep apnea syndrome Migraine without aura, not refractory Infection caused by Streptococcus gallolyticus Open fracture of right radius Cardiomyopathy Dog bite Osteomyelitis Full Resuscitation P: Reviewed vitals, medications, labs, micro Continue abx - unasyn Continue wound care OOB to chair and ambulate bid at least Multi-Disciplinary Doctor Rounds completed today Scheduled/Continuous Medications Scheduled Acidophilus Lactobacillus 1 each 1 each, PO, BID ampicillin-sulbactam (UNASYN) 3 g in sterile water IV syringe 3 g, IV, Q6H PHANI carvedilol (COREG) tablet 6.25 mg 6.25 mg, PO, BID with meals Electrolyte Replacement No Dose/Rate, XX, Once a day Empagliflozin (JARDIANCE) tablet 25 mg 25 mg, PO, Once a day enoxaparin (LOVENOX) syringe 40 mg 40 mg, SC, Q24H PHANI furosemide (LASIX) tablet 40 mg 40 mg, PO, Once a day melatonin tablet 6 mg 6 mg, PO, Nightly pantoprazole (PROTONIX) EC/DR tablet 40 mg 40 mg, PO, Once a day potassium chloride (MICRO-K) CR capsule 10 mEq 10 mEq, PO, Once a day rabies (RABAVERT) vaccine 1 mL 1 mL, IM, Once sacubitril-valsartan (ENTRESTO) 24-26 MG tablet 2 tablet 2 tablet, PO, BID spironolactone (ALDACTONE) tablet 25 mg 25 mg, PO, Once a day SHILPA BECK MD This note was completed using voice recognition software and manual typing. It may contain unintended words, typos, etc. despite my review of the draft note prior to final signature. Please do not hesitate to contact me through the hospital paging system if there are questions or concerns. documented in this encounter H&P Notes * Shilpa Beck MD - 08/04/2025 12:23 PM EDT Images from the original note were not included. History and Physical NAME: NITA OQUENDO : 1985 Admit Date: 08/03/2025 Length of Stay: 1 CC: Right arm pain History of present illness: 39-year-old female with a history of cardiomyopathy was attacked by a dog with right proximal lateral forearm by seen in the emergency room and placed on antibiotics. She had worsening pain and redness and presented to the emergency department again. She was found to have a fracture and required incision and drainage with washout of type 2 open fracture of the right radius. Tetanus shot was updated. Patient also given rabies vaccination x3. One more dose due 08/08/2025. Patient transferred to LT[facility] for ongoing wound care and antibiotics. Currently pain is controlled. No new complaints. Pathology from surgery showed viable cortical bone with focal acute inflammation. Reason for Admission: Problem List[1] Medical/Surgical History: Past Medical History: Diagnosis Date Cardiomyopathy 07/25/2025 Dog bite 07/23/2025 Gastroesophageal reflux disease Infection caused by Streptococcus gallolyticus 07/28/2025 Migraine without aura, not refractory 07/28/2017 Obstructive sleep apnea syndrome 07/25/2025 Open fracture of right radius 07/24/2025 Osteomyelitis 08/03/2025 Primary hypertension 07/29/2025 Past Surgical History: Procedure Laterality Date INCISION AND DRAINAGE FOREARM / WRIST DEEP Right WRIST FRACTURE SURGERY Right 2014 Allergies[2] Medications/Allergies: Prescriptions Prior to Admission[3] Current Medications[4] Social History: Social History[5] Family History: History reviewed. No pertinent family history. Review of Systems - General ROS: negative for - chills, fever, or night sweats Respiratory ROS: no cough, shortness of breath, or wheezing Cardiovascular ROS: no chest pain or dyspnea on exertion Gastrointestinal ROS: no abdominal pain, change in bowel habits, or black or bloody stools Objective Vital Signs: Vitals: 08/04/25 0850 BP: 128/68 Pulse: 82 Resp: 18 Temp: 98 ??F (36.7 ??C) SpO2: 97% Vitals: 08/03/25 1853 08/04/25 0022 08/04/25 0333 08/04/25 0850 BP: 102/72 102/57 96/66 128/68 Pulse: 94 77 75 82 Resp: 18 18 18 18 Temp: 98.1 ??F (36.7 ??C) 98.1 ??F (36.7 ??C) 98 ??F (36.7 ??C) 98 ??F (36.7 ??C) TempSrc: Oral Oral Oral Oral SpO2: 97% 97% 97% 97% Weight: 121 lb (54.9 kg) Height: 5' 5 (1.651 m) Ht./ Wt./ BMI: Height: 5' 5 (165.1 cm) Weight: 121 lb (54.9 kg) Body mass index is 20.14 kg/m??. Physical Exam: Constitutional Nita is awake alert in no distress [id number] normal sclera, dry oral mucosa Neck supple Respiratory clear to auscultation Cardiovascular regular rate and rhythm, intact peripheral pulses, no edema Abdomen soft nontender nondistended normal bowel sounds NeuroPsych oriented x4, nonfocal exam Extremities normal capillary refill in all extremities, right upper extremity Enrrique wrap in place Skin wound care photos noted Studies Latest Reference Range & Units 08/03/25 19:24 08/04/25 02:46 08/04/25 11:56 Glucose 70 - 99 mg/dL 123 (H) 96 BUN 6 - 20 mg/dL 13 14 Creatinine S 0.51 - 1.30 mg/dL 0.81 0.82 Sodium 136 - 145 mmol/L 137 135 (L) Potassium 3.5 - 5.0 mmol/L 3.7 4.3 Chloride 98 - 107 mmol/L 103 103 CO2 22 - 29 mmol/L 20 (L) 23 Calcium 8.6 - 10.4 mg/dL 8.6 8.9 Total Protein 6.4 - 8.3 gm/dL 6.8 AST <=40 U/L 18 Alkaline phosphatase 36 - 123 U/L 72 Albumin 3.5 - 5.2 gm/dL 3.7 Bili Total 0.2 - 1.3 mg/dL 0.7 ALT <=41 U/L 17 AGAP 7 - 16 mmol/L 14 9 Mg 1.6 - 2.4 mg/dL 2.2 EGFR >=60 mL/min/1.73 m2 94 93 Hemoglobin 11.2 - 15.7 g/dL 12.7 White Blood Cells 3.7 - 10.3 x10(3)/mcL 6.7 RBC 3.90 - 5.20 x10(6)/mcL 4.03 Hematocrit 34.0 - 45.0 % 39.1 MCV 80.0 - 100.0 fL 97.0 MCH 26.0 - 34.0 pg 31.5 MCHC 30.7 - 35.5 g/dL 32.5 Red Cell Distribution Width <=14.9 % 14.4 MPV 8.8 - 12.5 fL 9.6 Automated platelet count 155 - 369 x10(3)/mcL 420 (H) Baso Auto % 0.7 Basophils Absolute 0.0 - 0.1 x10(3)/mcL 0.1 Eosinophils Absolute 0.0 - 0.5 x10(3)/mcL 0.1 Eosinophils Relative % 1.2 Immature Granulocytes 0.0 - 0.1 x10(3)/mcL 0.0 Lymph Abs Auto 1.2 - 3.9 x10(3)/mcL 2.6 [place] Auto % 8.3 Monocytes Absolute 0.3 - 0.9 x10(3)/mcL 0.6 Neutro Abs Auto 1.6 - 6.1 x10(3)/mcL 3.4 Neutro Auto % 51.0 BASIC METABOLIC PANEL Rpt ! CBC AUTO DIFFERENTIAL Rpt ! COMPREHENSIVE METABOLIC PANEL Rpt ! IMMATURE GRANULOCYTES/100 LEUKOCYTES IN BLOOD % 0.3 Lymphocyte % % 38.5 MAGNESIUM Rpt (H): Data is abnormally high (L): Data is abnormally low !: Data is abnormal Rpt: View report in Results Review for more information Narrative & Impression XR CHEST AP PORTABLE, 07/30/2025 10:06 AM [...] contact the office of the ordering clinician. ANAEROBIC CULTURE (NO STAIN) (Order [id number]) Microbiology Date: 07/25/2025 Department: [facility]o Medsurg Released By: Esther Niño RN Authorizing:Andre Lucas MD ANAEROBIC CULTURE (NO STAIN): Patient Communication Add MyChart Message Not seen Lab Collection Information Type:: Swab Source: Hand, Right Collected: 07/25/2025 5:29 PM ANDRE LUCAS Result Information Flag: Abnormal Abnormal Status: Final result (Collected: 07/25/2025 17:29) Order Tracking Ordered 07/25 17: Collected 07/25 17: Received in Lab 07/25 19:58 [facility] Final Result 07/31 10:20 Questions Order Question Answer Sensitivities Requested Contains abnormal data ANAEROBIC CULTURE (NO STAIN) Order: [id number] Status: Final result Next appt: 08/17/2025 at 09:00 AM in Cardiology (Corona Devine MD) Dx: Dog bite, initial encounter Test Result Released: No (inaccessible in MyChart) Specimen Information: Hand, Right; Swab 0 Result Notes Culture Positive Growth Abnormal Sparse growth of Anaerobic gram negative marlena, suspect Prevotella species. No further workup. Beta Lactamase Positive Sparse growth of Anaerobic Gram Positive Rods Unable to identify by Maldi-tof. No further workup. Resulting Agency: [facility] Specimen Collected: 07/25/25 17:29 Last Resulted: 07/31/25 10:20 Assessment: Right radial open fracture from dog bite due to strep gallolyticus, prevotella, and an aerobic organism and strep sanguinous Chronic heart failure with reduced ejection fraction Hypertension Gastroesophageal reflux disease History of migraines Nutrition Prophylaxis Full code Plan: Continue Unasyn Consult infectious disease to follow Continue p.o. diet Up to chair and ambulate Q shift Last dose of rabies vaccine on 08/08 Reviewed records from [facility] Ordered: Admission order set Scheduled/Continuous Medications Scheduled Acidophilus Lactobacillus 1 each 1 each, PO, BID ampicillin-sulbactam (UNASYN) 3 g in sterile water IV syringe 3 g, IV, Q6H [facility] carvedilol (COREG) tablet 6.25 mg 6.25 mg, PO, BID with meals Electrolyte Replacement No Dose/Rate, XX, Once a day Empagliflozin (JARDIANCE) tablet 25 mg 25 mg, PO, Once a day enoxaparin (LOVENOX) syringe 40 mg 40 mg, SC, Q24H PHANI furosemide (LASIX) tablet 40 mg 40 mg, PO, Once a day melatonin tablet 6 mg 6 mg, PO, Nightly pantoprazole (PROTONIX) EC/DR tablet 40 mg 40 mg, PO, Once a day potassium chloride (MICRO-K) CR capsule 10 mEq 10 mEq, PO, Once a day rabies (RABAVERT) vaccine 1 mL 1 mL, IM, Once sacubitril-valsartan (ENTRESTO) 24-26 MG tablet 2 tablet 2 tablet, PO, BID spironolactone (ALDACTONE) tablet 25 mg 25 mg, PO, Once a day SHILPA BECK MD 08/04/25 12:25 PM EDT [1] Patient Active Problem List Diagnosis Primary hypertension Obstructive sleep apnea syndrome Migraine without aura, not refractory Infection caused by Streptococcus gallolyticus Open fracture of right radius Cardiomyopathy Dog bite Osteomyelitis [2] No Known Allergies [3] Medications Prior to Admission Medication Sig Dispense Refill Last Dose/Taking Dapagliflozin Propanediol (FARXIGA) 5 MG tablet Take 2 tablets (10 mg total) by mouth in the morning. Taking furosemide (LASIX) 40 MG tablet Take 1 tablet (40 mg total) by mouth in the morning. Taking losartan (COZAAR) 50 MG tablet Take 1 tablet (50 mg total) by mouth in the morning. Taking naproxen (NAPROSYN) 500 MG tablet Take 1 tablet (500 mg total) by mouth 2 (two) times a day as needed for mild pain. Taking As Needed potassium chloride (K-DUR) 10 MEQ CR tablet Take 1 tablet (10 mEq total) by mouth in the morning. Taking spironolactone (ALDACTONE) 25 MG tablet Take 1 tablet (25 mg total) by mouth in the morning. Taking [4] Current Facility-Administered Medications: acetaminophen (TYLENOL) tablet 650 mg, 650 mg, Oral, Q6H PRN, Shilpa Beck MD, 650 mg at 08/04/25 0853 Acidophilus Lactobacillus 1 each, 1 each, Oral, 2 times per day, Shilpa Beck MD, 1 each at 08/04/25 0854 ampicillin-sulbactam (UNASYN) 3 g in sterile water IV syringe, 3 g, Intravenous, Q6H PHANI, Rodrigo Trevino MD carvedilol (COREG) tablet 6.25 mg, 6.25 mg, Oral, 2 times per day, Shilpa Beck MD, 6.25 mg at 08/04/25 08 Electrolyte Replacement, , Does not apply, Once a day, Shilpa Beck MD Empagliflozin (JARDIANCE) tablet 25 mg, 25 mg, Oral, Once a day, Shilpa Beck MD, 25 mg at 08/04/25 0853 enoxaparin (LOVENOX) syringe 40 mg, 40 mg, Subcutaneous, Q24H PHANI, Shilpa Beck MD, 40 mg at 08/04/25 0853 furosemide (LASIX) tablet 40 mg, 40 mg, Oral, Once a day, Shilpa Beck MD, 40 mg at 08/04/25 0852 magnesium oxide tablet 400 mg, 400 mg, PO/Per Tube, Q6H PRN OR magnesium sulfate infusion 2 g 50 mL, 2 g, Intravenous, PRN, Shilpa Beck MD melatonin tablet 6 mg, 6 mg, Oral, Nightly, Shilpa Beck MD, 6 mg at 08/03/25 2257 pantoprazole (PROTONIX) EC/DR tablet 40 mg, 40 mg, Oral, Once a day, Shilpa Beck MD, 40 mg at 08/04/25 08 potassium chloride (KLOR-CON) ER tablet 40 mEq, 40 mEq, Oral, Q4H PRN OR potassium chloride 20 mEq in 100 mL IVPB premix, 20 mEq, Intravenous, Q2H PRN, Shilpa Beck MD potassium chloride (MICRO-K) CR capsule 10 mEq, 10 mEq, Oral, Once a day, Shilpa Beck MD, 10mEq at 08/04/25 0852 prochlorperazine (COMPAZINE) injection 10 mg, 10 mg, Intravenous, Q6H PRN, Shilpa Beck MD [START ON 08/08/2025] rabies (RABAVERT) vaccine 1 mL, 1 mL, Intramuscular, Once, Shilpa Beck MD sacubitril-valsartan (ENTRESTO) 24-26 MG tablet 2 tablet, 2 tablet, Oral, 2 times per day, Shilpa Beck MD, 2 tablet at 08/04/25 0851 spironolactone (ALDACTONE) tablet 25 mg, 25 mg, Oral, Once a day, Shilpa Beck MD, 25 mg at 08/04/25 0852 [5] Social History Tobacco Use Smoking status: Every Day Current packs/day: 0.25 Types: Cigarettes Smokeless tobacco: Former Substance Use Topics Alcohol use: Never documented in this encounter Consult Notes * Gilda Giron APRN - 08/04/2025 2:32 PM EDTAssociated Order(s): IP CONSULT TO INFECTIOUS DISEASES SEP Infectious Diseases Consult Note Date of Admission: 08/03/2025 Date of Consultation: 08/04/2025 Consulting Physician: GILDA GIRON APRN Referring Physician: Rodrigo Trevino MD Primary Care Physician: No primary care provider on file. Reason for Consult: Abx HPI: Nita Oquendo is a 39 y.o. female with history of cardiomyopathy and IVDU. [facility] on 07/20 following a dog bite. XR right radius revealed a radial fracture. She wasgiven a tdap vaccine, prescribed Augmentin, and provided an ortho referral for outpatient evaluation. She returned to the ED on 07/23 due to worsening right arm swelling and numbness in the fingers. She had not started her antibiotics until 07/23. Lab work revealed elevated inflammatory markers. A CT of the RUE showed acute comminuted fracturing of the lateral distal radial metadiaphysis with complete fracture extension and displaced fracture cortical bone fragments, Soft tissue laceration injury compatible with dogbite noted at and proximal to the aforementioned distal radial fracture. Suspect injury to the extensor carpi radialis regional to the fracture. Ortho was consulted and patient had I/D of open distal radius fracture on 09/24/25. Cultures showed Anaerobic gram negative rods, suspect Prevotella species, anerorib gram positive rods, streptococcus gallolyticus and streptococcus sanguinis. ID at [facility] placed patient on IV Unasyn x 6 weeks till 09/04/25. ID is consulted for continuation of care. 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7 ??C) Oral 82 18 97 % -- -- 08/04/25 0333 96/66 98 ??F (36.7 ??C) Oral 75 18 97 % -- -- 08/04/25 0022 102/57 98.1 ??F (36.7 ??C) Oral 77 18 97 % -- -- 08/03/25 1853 102/72 98.1 ??F (36.7 ??C) Oral 94 18 97 % 5' 5 (1.651 m) 121 lb (54.9 kg) @WEIGHT@ Immunization History Administered Date(s) Administered Rabies, Intradermal 07/25/2025, 07/28/2025, 08/01/2025 Tdap 07/20/2025 Physical Exam: General Appearance: Alert, cooperative, no distress Head: Normocephalic, without obvious abnormality, atraumatic Eyes: PERRL, conjunctiva/corneas clear Nose: Nares normal Mouth: mucosa moist Lungs: Good AE B/L, respirations unlabored Heart: Regular rate and rhythm, S1 and S2 normal Abdomen: Soft, non-tender Extremities: RUE with bandage in place, images reviewed in the media Skin: no rashes, + tattoos Lymph nodes: No Submandibular LAD Neurologic: Grossly normal Line: PICC+ Labs: Lab Results Component Value Date WBC 6.7 08/04/2025 HGB 12.7 08/04/2025 HCT 39.1 08/04/2025 MCV 97.0 08/04/2025 PLT 420 (H) 08/04/2025 Lab Results Component Value Date NA 135 (L) 08/04/2025 K 4.3 08/04/2025 CO2 23 08/04/2025 CL 103 08/04/2025 BUN 14 08/04/2025 CREATININE 0.82 08/04/2025 Labs: 08/03: CRP <3 ESR 18 08/04: WBC 6.7 Plt 420 08/04: BUN/Cr: 14/0.82 08/04: T bili 0.7 ALT 17 AST 18 Alk Phos 72 Imagin/19: CT RUE: Acute comminuted fracturing of the lateral distal radial metadiaphysis with completefracture extension and displaced fracture cortical bone fragments. Soft tissue laceration injury compatible with dogbite noted at and proximal to the aforementioned distal radial fracture. Suspect injury to the extensor carpi radialis regional to the fracture. Additional proximal forearm soft tissue injury also compatible with dogbite. Assessment: RUE Infected Dog Bite Right Radial Fracture Dog bite occurred on 07/20, tetanus vaccine given in ED, wound was suture and Augmentin prescribed.Patient took one dose. Returned on 07/23 with worsening swelling in RUE 07/24: CT RUE: Acute comminuted fracturing of the lateral distal radial metadiaphysis with completefracture extension and displaced fracture cortical bone fragments. Soft tissue laceration injury compatible with dogbite noted at and proximal to the aforementioned distal radial fracture. Suspect injury to the extensor carpi radialis regional to the fracture. Additional proximal forearm soft tissue injury also compatible with dogbite. Increased ESR and CRP on admission, now normalized 07/24: Blood Cultures NGTD 07/25 s/p Irrigation and debridement of right type II open distal radius fracture including skin, subcutaneous tissue, fascia, and bone Pathology: viable cortical bone with focal acute inflammation Fungus Cx: NGTD Wound Cx: Strep gallolyticus, strep sanguinis Anaerobic Cx: gram positive rods, gram negative rods, suspect Prevotella species Rabies Vaccine: Day 0 (07/25), Day 3 (07/28), Day 7 (08/01) HTN JUAN Anxeity Hx of IVDU Plan: Continue on IV Unasyn. Anticipate end date is 09/04/25. Patient is not a candidate for outpatient antibiotic therapy Still needs Day 14 (08/08) and Day 28 (08/22) Rabies Vaccine Obtain Acute Hepatitis Panel and HIV Obtain CBC w/diff, CMP, ESR and CRP weekly while on IV antibiotics Wound Care Do not insert permanent lines until surveillance blood cx negative for 48-72 hours. Monitor fever/BP curve, I/O's, serum electrolytes, WBC & platelet trend, Liver and renal function Case reviewed and patient seen with Thanks for consulting. Discussed with patient and RN. ID will continue to follow. Please call with any questions. Gilda Giron APRN Cosigned by Vijay Griffin MD at 08/07/2025 6:45 PM EST Associated attestation - Vijay Griffin MD - 08/07/2025 6:45 PM EST I have interviewed and examined this patient with Gilda Giron APRN. I have reviewed the HPI, past medical history, social history, allergic history, review of systems, medications and available laboratory and imaging studies. History obtained from talking to the patient and chart review. I have participated in the care of this patient and agree with the outlined assessment and plan. Afebrile. Awake, alert and answering questions. O/n events reviewed with RN. Physical exam: General Appearance: Alert, cooperative, NAD Head: Normocephalic, without obvious abnormality, atraumatic Eyes: PERRL, conjunctiva/corneas clear Nose: Nares normal, septum midline, mucosa normal, no drainage Mouth: mucosa moist Neck: trach+ Lungs: decreased bibasilar, ventilated Heart: Regular rate and rhythm, S1 and S2 normal Abdomen: Soft, non-tender Extremities: RUE with dressing in place. Viewed images Skin: no rashes, tattoos present Lymph nodes: No Submandibular LAD Line: PICC + Reviewed labs and imaging and agree with A/P as documented in Gilda's note. A: RUE Infected Dog Bite Right Radial Fracture Dog bite occurred on 07/20, tetanus vaccine given in ED, wound was suture and Augmentin prescribed.Patient took one dose. Returned on 07/23 with worsening swelling in RUE 07/24: CT RUE: Acute comminuted fracturing of the lateral distal radial metadiaphysis with completefracture extension and displaced fracture cortical bone fragments. Soft tissue laceration injury compatible with dogbite noted at and proximal to the aforementioned distal radial fracture. Suspect injury to the extensor carpi radialis regional to the fracture. Additional proximal forearm soft tissue injury also compatible with dogbite. Increased ESR and CRP on admission, now normalized 07/24: Blood Cultures NGTD 07/25 s/p Irrigation and debridement of right type II open distal radius fracture including skin, subcutaneous tissue, fascia, and bone Pathology: viable cortical bone with focal acute inflammation Fungus Cx: NGTD Wound Cx: Strep gallolyticus, strep sanguinis Anaerobic Cx: gram positive rods, gram negative rods, suspect Prevotella species Rabies Vaccine: Day 0 (07/25), Day 3 (07/28), Day 7 (08/01) HTN JUAN Anxeity H/o of IVDU Plan: Continue on IV Unasyn. Anticipate end date is 09/04/25. Patient is not a candidate for outpatient antibiotic therapy Still needs Day 14 (08/08) and Day 28 (08/22) Rabies Vaccine Obtain Acute Hepatitis Panel and HIV screen and follow up results Obtain CBC w/diff, CMP, ESR and CRP weekly while on IV antibiotics Wound Care Monitor fever/BP curve, I/O's, serum electrolytes, WBC & platelet trend, Liver and renal function, ESR and CRP Thanks for consulting. Discussed with patient and RN. Total time spent 80 minutes. >50% time wasspent educating and counseling the patient. Patient expressed understanding. ID will continue to follow * Ana Schmidt, GWYN - 08/04/2025 1:16 PM EDTAssociated Order(s): IP CONSULT TO NUTRITION SERVICES Nutrition Initial Assessment Note Date: 08/04/2025 Time: 1:47 PM EDT Patient Name: Nita Oquendo Date of : 1985 Sex: Female Room/Bed: [facility]/3404- Principal Problem: Open fracture of right radius Admit Date/Time: 08/03/2025 6:46 PM 39 y/o female with hx of cardiomyopathy was seen in ER with dog bite to R forearm. She was found tohave a fracture and had I and D with washout. She is at [facility] for long course of IV antibiotics until 09/04. Relevant Medications: Scheduled/Continuous Medications Scheduled Acidophilus Lactobacillus 1 each 1 each, PO, BID ampicillin-sulbactam (UNASYN) 3 g in sterile water IV syringe 3 g, IV, Q6H PHANI carvedilol (COREG) tablet 6.25 mg 6.25 mg, PO, BID with meals Electrolyte Replacement No Dose/Rate, XX, Once a day Empagliflozin (JARDIANCE) tablet 25 mg 25 mg, PO, Once a day enoxaparin (LOVENOX) syringe 40 mg 40 mg, SC, Q24H PHANI furosemide (LASIX) tablet 40 mg 40 mg, PO, Once a day melatonin tablet 6 mg 6 mg, PO, Nightly pantoprazole (PROTONIX) EC/DR tablet 40 mg 40 mg, PO, Once a day potassium chloride (MICRO-K) CR capsule 10 mEq 10 mEq, PO, Once a day rabies (RABAVERT) vaccine 1 mL 1 mL, IM, Once sacubitril-valsartan (ENTRESTO) 24-26 MG tablet 2 tablet 2 tablet, PO, BID spironolactone (ALDACTONE) tablet 25 mg 25 mg, PO, Once a day Relevant Labs: CBC: Recent Labs Lab Units 08/04/25 0246 WHITE BLOOD CELLS x10(3)/mcL 6.7 RBC AUTO x10(6)/mcL 4.03 HEMOGLOBIN g/dL 12.7 HEMATOCRIT % 39.1 MCV fL 97.0 PLATELETS AUTO x10(3)/mcL 420* MG/PHOS: Recent Labs Lab Units 08/04/25 1156 MAGNESIUM mg/dL 2.2 CMP: Recent Labs Lab Units 08/04/25 1156 SODIUM mmol/L 135* POTASSIUM mmol/L 4.3 CHLORIDE mmol/L 103 CO2 mmol/L 23 BUN mg/dL 14 CREATININE mg/dL 0.82 GLUCOSE mg/dL 96 TOTAL PROTEIN gm/dL 6.8 CALCIUM mg/dL 8.9 ALBUMIN gm/dL 3.7 BILIRUBIN TOTAL mg/dL 0.7 ALKALINE PHOSPHATASE U/L 72 ALT U/L 17 AST U/L 18 ANION GAP mmol/L 9 EGFR mL/min/1.73 m2 93 Glucose Last 3 Days: Weight: Admit Weight: 121 lb (54.9 kg) Latest Weight: 121 lb (54.9 kg) (08/03/25 1853) Weight Comment: Patient denies any recent weight changes. 137# 6 months ago (office visit/no edema)-11.6% in 6 months. Diet Order: Diet Orders (From admission, onward) Start Ordered 08/03/251911 Adult Diet Regular; 7 Regular (Regular Texture); 0 Thin (All Liquids) Diet effective now End/Expires: Until Specified References: [employer] Website Question Answer Comment Diet Type: Regular Diet Texture: 7 Regular (Regular Texture) Liquid Consistency: 0 Thin (All Liquids) Place order in third green party system. Done 08/03/251910 Prior to Admission Food/Nutrient Intake: Nutrition Intake History Poor Oral Intake for Four or More Days Prior to Admission: No Difficulty Chewing or Swallowing: No Nausea/Vomiting/Diarrhea/Constipation: (patient denies.) Diet History/Previous Diets: Watches salt. Eats only one meal per day. Vitamin Intake: Potassium Physical Activity History Change in Functional Status: No Current Food/Nutrient Intake Nutrition Intake Current Average Meal Intake (%): (ate just soup for lunch; disliked entree. Did not want to order another meal.) Difficulty Chewing or Swallowing: No Tolerance: Good Other Information/Communication: L arm wrapped. Patient in bed; pleasant conversant. Assistance with Feeding: (able to feed herself.) Anthropometrics: Height and Weight Height: 5' 5 (165.1 cm) Height Method: Actual Weight: 121 lb (54.9 kg) Weight Method: Standing scale BSA (Calculated - sq m): 1.58 sq meters BMI (Calculated): 20.1 Weight in (lb) to have BMI = 25: 149.9 Nutrition Focused Physical Findings: Head to Toe Physical Assessment Physical Assessment: Yes Overall Appearance: well nourished. multiple tatoos. Scalp/Hair: WDL Face: WDL [place] (Temporalis muscle): WDL Orbital Region: WDL Nose: WDL Lips: WDL Mouth/Mucose: WDL Neck: WDL Shoulders Region: WDL Scapular Bone Region: WDL Upper Arm Region: WDL Skin: WDL Edema: No edema Nails: WDL Patellar Region: WDL Posterior Calf Region: WDL Clinical Characteristics of Malnutrition: Findings: No malnutrition indicated from assessment Nutrition Concerns: Nutrition Related Concerns: Wound(s) (08/04/25 1332) Wound Concerns: surgical R arm wound/sutures. (08/04/25 1332) Nutrition Needs: Total Energy Estimated Needs: 6870-3229 Method for Estimating Needs: 30-35 kcals per kg CBW (54.9 kg) Total Protein Estimated Needs: 66-82 grams Method for Estimating Needs: 1.2-1.5 grams per kg CBW (54.9 kg) Total Fluid Estimated Needs: 1657 ml or per MD Plan of Care - Nutrition Care Plans 1 Author: Ana Schmidt RD Service: -- Author Type: Registered Dietitian Filed: 08/04/2025 1:45 PM Date of Service: 08/04/2025 1:45 PM Status: Signed Hand Touch Up Painter: Ana Schmidt RD (Registered Dietitian) Problem: Increased Nutrient Needs Description: Increased need for a specific nutrient compared to established reference standards or recommendations based on physiological needs. Related to: Increased demand for nutrient As evidenced by: R arm surgical wound/infection. Goal: Promote Wound Healing Flowsheets (Taken 08/04/2025 1344) Collaboration and Referral of Nutrition Care: Collaboration with Interdisciplinary Team Meals and Snacks: General healthful diet Medical Food Supplement Therapy: (yfn BID) Commercial beverage/Oral nutrition supplement Vitamin and Mineral Supplement Therapy: (K) Multi-Vitamin Mineral Nutrition-Related Medication Management: (entresto) -- Indicator/Monitor: PO/wound healing/labs and weight trends. Additional Comments/Recommendations: Regular diet-patient plans self limit sodium Yfn BID MVI Monitor po and wound healing/weight trends. Additional ONS if needed for weight maintenance/healing. Monitor K on entresto/k supplement. ANA SCHMIDT RD 08/04/25 1:47 PM EDT documented in this encounter Nursing Notes * Mala Manzano RN - 08/08/2025 5:56 PM EST Tox screen ran due to issues on seasonal recruiter ( low pressures, N/V/D). Ly +MD informed and requested no visitors or whatever policy we follow first. CNO informed and stated no visitors and to search belongings for gummies. Pt verbalized understanding and agreed to search. No gummies found but multiple vapes, lighters and a bottle of Naproxen- 16 pills inside, A tube with 10 yellow, 7 white and 1 blue pill found. Pt informed that we typically confiscate and give to security to hold onto and/or have family take this home. Pt was asked if how she would like to proceed she stated I can remove it. Items placed in pt belonging bag and asked HUCs to call security to take while she resides with us. About 45 minutes later, pt called out, NA answered and she stated that pt told us she wants to leave AMA. This RN entered pt room and she calmly was stating her ride is on the way and she plans to leave AMA. Questioned as to why and if there was anything we can do to make her consider, she stated she was just done with all this and the no vistor thing isnt gonna work and that she's been in thehospital too long and just ready to get the H*ll out of here . RN educated the risk of leaving AMA due to needing another rabies shot, wound care and IV ABX until 09/04. Also stated that per the CNO she can have supervised visits as of 30 mins ago via message. Pt agreed that she knows all of this but still wants to leave. I asked if I could give her her due dose of Unasyn prior to leaving and while I wait on the dr to cherelle back- pt agreed and stated she will wait the length of time it takes to administer it then she's gone . Offered one last wound care as well to which she declined as it was done yesterday. MD and CNO made aware. MD asked that I ask her to consider staying until AM and PO ABX can be given. Pt again stated absolutely not as her ride is here and down stairs. Med give, PICC and tele removed. AMA paper reviewed one last time with another RN present and signed by patient. Pt left the unit with no issues and all belongings.MD and CNO made aware of he departure. * Mala Manzano RN - 08/08/2025 3:58 PM EST This RN assumed care from previous RN at this time * Tavia Ramirez RN - 08/08/2025 8:30 AM EST Patient A&O x4. Held 0800 Coreg d/t SBP <110. VSS. Assessment completed. Denies pain or SOB/distress at this time. Patient independent with all ADL's and able to ambulate independently. Call light in reach and safety measures in place. documented in this encounter Miscellaneous Notes * Care Conference Note - Talia Parry - 08/08/2025 11:37 AM EST Care Conference Note Date: 08/08/2025 Time: 4:27 PM EST Patient Name: Nita Oquendo Date of : 1985 Sex: Female Room/Bed: 3404/3404-1 Payor Info: No coverage found. 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 07/28/2025 Obstructive sleep apnea syndrome 07/25/2025 Cardiomyopathy 07/25/2025 Open fracture of right radius 07/24/2025 Dog bite 07/23/2025 Migraine without aura, not refractory 07/28/2017 CASE MANAGEMENT CARE CONFERENCE: Team Members Present: Case Management, Placing Judge Assessed by: Simulation Engineer Status: Participated Participated: Alert and Oriented Oriented: Person, Time, Place and Situation Formal introduction of family and staff: Yes Introduction to the [facility] level of care: Yes Opportunities and limitations of hospital based programs discussed: Yes Confirm attending physician/group: Yes Team members reviewed evaluation findings, treatment plan, recovery goals and barriers: Yes Patient/Family Goals for After Discharge: Return to pre-hospital living environment CM must remind WCN to verify Nursing Wound Acknowledgement Form is signed: This is completed Simulation Engineer summarized meeting: Yes Request patient/family participation in the Patient Satisfaction Survey process: Yes Reviewed any outstanding documents from Form Acknowledgement/admission: Yes Advance Directive: Informed patient does not have an Advance Directive Refer to Legal section of navigator DC plan home after IV ABX completed. * Plan of Care - Tavia Krueger RN - 08/07/2025 8:10 PM EST Problem: Infection Goal: Absence of infection and prevention of transmission during hospitalization Outcome: Progressing Problem: Knowledge Deficit Goal: Patient and/or family demonstrate readiness to learn Outcome: Progressing Goal: Patient and/or family verbalizes understanding of education, and/or performs desired skill Outcome: Progressing Problem: Discharge Planning Goal: Discharge to home or other facility with appropriate resources Outcome: Progressing Goal: summer child caregiver will develop a plan to decrease their burden and enhance comfort in role Outcome: Progressing Problem: Delirium Goal: Prevent and Manage Delirium Outcome: Progressing Problem: Fall Safety: [place] Precautions Goal: Free from fall injury Outcome: Progressing Goal: Toilet Magnet Status ([facility] Only) Outcome: Progressing Problem: Fall Prevention: Medication Bundle Goal: Patient will be free from Fall Injury Outcome: Progressing Problem: Fall Prevention: Continence Bundle Goal: Patient will be free from Fall Injury Outcome: Progressing Problem: Fall Prevention: Environment/Sensory Bundle Goal: Patient will be free from Fall Injury Outcome: Progressing Problem: Fall Prevention Across Bundles Goal: Patient will be free from Fall Injury Outcome: Progressing Problem: Knowledge Deficit Goal: Patient/family/caregiver demonstrates understanding of disease process, treatment plan, medications, and discharge instructions Outcome: Progressing Problem: Potential for Compromised Skin Integrity Goal: Skin integrity is maintained or improved Outcome: Progressing Goal: Nutritional status is improving Outcome: Progressing Problem: Pain Goal: Patient's Pain/Discomfort is Manageable Outcome: Progressing * Plan of Care - Marco Teixeira RN - 08/07/2025 7:43 AM EST Problem: Infection Goal: Absence of infection and prevention of transmission during hospitalization Outcome: Progressing Flowsheets (Taken 08/07/2025 0743) Absence of infection and prevention of transmission during hospitalization: Monitor all insertion sites i.e., indwelling lines, tubes and drains, obtain order to remove devicewhen no longer clinically necessary Assess and monitor for signs and symptoms of infection and vital signs Problem: Fall Safety: [place] Precautions Goal: Free from fall injury Outcome: Progressing Flowsheets (Taken 08/07/2025 0743) Free from fall injury: Put call light within reach and teach how to call for assistance, respond to call light immediately Perform fall risk assessment and identifiers in place (as applicable) Problem: Fall Prevention Across Bundles Goal: Patient will be free from Fall Injury Outcome: Progressing Flowsheets (Taken 08/07/2025 0743) Interventions: Bed alarm Low bed * Plan of Care - Tavia Krueger RN - 08/06/2025 8:10 PM EDT Problem: Infection Goal: Absence of infection and prevention of transmission during hospitalization Outcome: Progressing Problem: Knowledge Deficit Goal: Patient and/or family demonstrate readiness to learn Outcome: Progressing Goal: Patient and/or family verbalizes understanding of education, and/or performs desired skill Outcome: Progressing Problem: Discharge Planning Goal: Discharge to home or other facility with appropriate resources Outcome: Progressing Goal: summer child caregiver will develop a plan to decrease their burden and enhance comfort in role Outcome: Progressing Problem: Delirium Goal: Prevent and Manage Delirium Outcome: Progressing Problem: Fall Safety: [place] Precautions Goal: Free from fall injury Outcome: Progressing Goal: Toilet Magnet Status ([facility] Only) Outcome: Progressing Problem: Fall Prevention: Medication Bundle Goal: Patient will be free from Fall Injury Outcome: Progressing Problem: Fall Prevention: Continence Bundle Goal: Patient will be free from Fall Injury Outcome: Progressing Problem: Fall Prevention: Environment/Sensory Bundle Goal: Patient will be free from Fall Injury Outcome: Progressing Problem: Fall Prevention Across Bundles Goal: Patient will be free from Fall Injury Outcome: Progressing Problem: Knowledge Deficit Goal: Patient/family/caregiver demonstrates understanding of disease process, treatment plan, medications, and discharge instructions Outcome: Progressing Problem: Potential for Compromised Skin Integrity Goal: Skin integrity is maintained or improved Outcome: Progressing Goal: Nutritional status is improving Outcome: Progressing Problem: Pain Goal: Patient's Pain/Discomfort is Manageable Outcome: Progressing * Plan of Care - Marco Teixeira RN - 08/06/2025 8:06 AM EDT Problem: Infection Goal: Absence of infection and prevention of transmission during hospitalization Outcome: Progressing Flowsheets (Taken 08/06/2025 08) Absence of infection and prevention of transmission during hospitalization: Monitor endotracheal (as able) and nasal secretions for changes in amount and color Monitor all insertion sites i.e., indwelling lines, tubes and drains, obtain order to remove devicewhen no longer clinically necessary Problem: Discharge Planning Goal: Discharge to home or other facility with appropriate resources Outcome: Progressing Flowsheets (Taken 08/06/2025805) Discharge to home or other facility with appropriate resources: Arrange for needed discharge resources and transportation as appropriate Identify barriers to discharge with patient and caregiver Problem: Fall Safety: [place] Precautions Goal: Free from fall injury Outcome: Progressing Flowsheets (Taken 08/06/2025805) Free from fall injury: Put call light within reach and teach how to call for assistance, respond to call light immediately Perform fall risk assessment and identifiers in place (as applicable) * Plan of Care - Jumana Nava RN - 08/06/2025 12:23 AM EDT Problem: Delirium Goal: Prevent and Manage Delirium Outcome: Progressing Problem: Fall Safety: [place] Precautions Goal: Free from fall injury Outcome: Progressing Problem: Pain Goal: Patient's Pain/Discomfort is Manageable Outcome: Progressing * Plan of Care - Juliane Alejandro RN - 08/05/2025 4:09 PM EDT Problem: Infection Goal: Absence of infection and prevention of transmission during hospitalization Outcome: Progressing Problem: Knowledge Deficit Goal: Patient and/or family demonstrate readiness to learn Outcome: Progressing Goal: Patient and/or family verbalizes understanding of education, and/or performs desired skill Outcome: Progressing Problem: Discharge Planning Goal: Discharge to home or other facility with appropriate resources Outcome: Progressing Goal: summer child caregiver will develop a plan to decrease their burden and enhance comfort in role Outcome: Progressing Problem: Delirium Goal: Prevent and Manage Delirium Outcome: Progressing Problem: Fall Safety: [place] Precautions Goal: Free from fall injury Outcome: Progressing Goal: Toilet Magnet Status ([facility] Only) Outcome: Progressing Problem: Fall Prevention: Medication Bundle Goal: Patient will be free from Fall Injury Outcome: Progressing Problem: Fall Prevention: Continence Bundle Goal: Patient will be free from Fall Injury Outcome: Progressing Problem: Fall Prevention: Environment/Sensory Bundle Goal: Patient will be free from Fall Injury Outcome: Progressing Problem: Fall Prevention Across Bundles Goal: Patient will be free from Fall Injury Outcome: Progressing Problem: Knowledge Deficit Goal: Patient/family/caregiver demonstrates understanding of disease process, treatment plan, medications, and discharge instructions Outcome: Progressing Problem: Potential for Compromised Skin Integrity Goal: Skin integrity is maintained or improved Outcome: Progressing Goal: Nutritional status is improving Outcome: Progressing * Plan of Care - Josefa Hernadez RN - 08/04/2025 8:18 PM EDT Problem: Infection Goal: Absence of infection and prevention of transmission during hospitalization Outcome: Progressing Flowsheets (Taken 08/04/20252017) Absence of infection and prevention of transmission during hospitalization: Assess and monitor for signs and symptoms of infection and vital signs Monitor all insertion sites i.e., indwelling lines, tubes and drains, obtain order to remove devicewhen no longer clinically necessary Monitor endotracheal (as able) and nasal secretions for changes in amount and color Administer medications as ordered Review infection history-place in appropriate transmission precautions Identify and instruct in appropriate isolation precautions for identified infection/condition, ensure compliance with posted infection prevention precautions Educate patient/family regarding signs and symptoms of infection Educate patient/family on proper hand washing and infection prevention techniques [place] appropriate cooling/warming therapies per order Monitor lab/diagnostic results * Wound Progress Note - Willow Sheikh RN - 08/04/2025 2:39 PM EDT Wound Progress Note 08/04/2025, 2:05 PM, I met with Nita Oquendo to discuss the wound plan of care including: Introduced the patient and family to the wound team members, wound team availability and how to contact the wound care team Wound care expectations: How often wound team sees Nita Oquendo Wound Plan of Care including: List of current, active wounds, etiology and treatment plan Projected healing process and advanced care needs Offered to review the wound photos with them Reviewed Prevention Plan of Care Addressed questions or concerns Signature: WILLOW SHEIKH RN Date: 08/04/2025 Time: 2:39 PM EDT * Wound Progress Note - Willow Sheikh RN - 08/04/2025 2:38 PM EDT Images from the original note were not included. Wound Progress Note Reason for wound Consult: Admission skin assessment Patient is awake, alert, and oriented Nita Oquendo is a 39 y.o. female with the following Problems. 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 Andres Score: Andres Scale Score: 20 Wound/Ulcer Assessment: Wound Surgical Wound Arm Anterior;Lower;Right (Active) Date First Assessed/Time First Assessed: 08/03/251915 Wound Type - REQUIRED: Surgical Wound Pre-Existing Wound: Yes Anatomical Site: Arm Wound Location Orientation: Anterior;Lower;Right Assessments 08/04/2025 2:00 PM Wound Image Wound Length (cm) 11.4 cm Wound Width (cm) 10 cm Wound Depth (cm) 0.1 Calculated Wound Size (cm^2) 114 cm^2 Calculated Wound Size (cm^3) 11.4 cm^3 Closure Sutures Epithelialization 75% to <100% wound covered and/or epithelial tissue extends >0.5 cm into wound bed Other Wound Bed Characteristics Dermis/[place] Tissue Wound Edges Distinct, outline clearly visible, attached and even with wound base Periwound Skin Color [place] or normal for ethnic group Exudate Type None Exudate Amount None, dry wound Odor None Wound Management Bismuth petroleum gauze;Abdominal dressing;Compression wrap Dressing Changed Changed Dressing Status Clean;Dry;Intact Active Orders Date Order Order Summary Order Comments Authorizing Provider 08/04/25 6437 Wound Management: Use Associated Wounds location; Wound care per specified algorithm/order; Dry; Normal Saline; Prep with skin prep and allow to dry, If patient has pain, may apply non-adherent contact layer; Other; ABD (APPLY XEROFORM, ABD PAD); ... Routine, Every Other Day, First occurrence on 08/06/25 at 1000, Until Specified Wound Surgical Wound Arm Anterior;Lower;Right Wound Surgical Wound Arm Anterior;Distal;Right;Upper Wound Location: Use Associated Wounds location Wound Management: Wound care per specified algorithm/order Type: Dry Cleanse: Normal Saline Prep: Prep with skin prep and allow to dry, If patient has pain, may apply non- adherent contact layer Fill/Apply: Other Cover: ABD / APPLY XEROFORM, ABD PAD Secure with: Other / 4 ENRRIQUE WRAP Change/PRN: Dressing no longer intact (i.e. lifting, leaking, damaged), Dressing damp, moist or saturated - Shilpa Beck MD 08/03/251922 Support Surface Routine, Until discontinued, Starting on Fri08/03/25 at 1921, Until Specified Wound Surgical Wound Arm Anterior;Lower;Right Wound Surgical Wound Arm Anterior;Distal;Right;Upper Type of Support Surface: SABAS Size of Support Surface: Standard - Shilpa Beck MD 08/03/251922 Wound Management: Use Associated Wounds location; Wound care per algorithm Routine, Per algorithm, On Fri08/03/25 at 1921, For 1 occurrence Wound Surgical Wound Arm Anterior;Lower;Right Wound Surgical Wound Arm Anterior;Distal;Right;Upper Wound Location: Use Associated Wounds location Wound Management: Wound care per algorithm - Shilpa Beck MD Wound Surgical Wound Arm Anterior;Distal;Right;Upper (Active) Date First Assessed/Time First Assessed: 08/03/25 1916 Wound Type - REQUIRED: Surgical Wound Pre-Existing Wound: Yes Anatomical Site: Arm Wound Location Orientation: Anterior;Distal;Right;Upper Assessments 08/04/2025 2:03 PM Wound Image Wound Length (cm) 0.2 cm Wound Width (cm) 2 cm Wound Depth (cm) 0.1 Calculated Wound Size (cm^2) 0.4 cm^2 Calculated Wound Size (cm^3) 0.04 cm^3 Closure Sutures Epithelialization 75% to <100% wound covered and/or epithelial tissue extends >0.5 cm into wound bed Other Wound Bed Characteristics Dermis/Evarts Tissue;Intact Skin Wound Edges Distinct, outline clearly visible, attached and even with wound base Periwound Skin Color Evarts or normal for ethnic group Exudate Type None Exudate Amount None, dry wound Odor None Wound Management Bismuth petroleum gauze;Silicone dressing Dressing Changed Reinforced Dressing Status Clean;Dry;Intact Active Orders Date Order Order Summary Order Comments Authorizing Provider 08/04/25 1437 Wound Management: Use Associated Wounds location; Wound care per specified algorithm/order; Dry; Normal Saline; Prep with skin prep and allow to dry, If patient has pain, may apply non-adherent contact layer; Other; ABD (APPLY XEROFORM, ABD PAD); ... Routine, Every Other Day, First occurrence on 08/06/25 at 1000, Until Specified Wound Surgical Wound Arm Anterior;Lower;Right Wound Surgical Wound Arm Anterior;Distal;Right;Upper Wound Location: Use Associated Wounds location Wound Management: Wound care per specified algorithm/order Type: Dry Cleanse: Normal Saline Prep: Prep with skin prep and allow to dry, If patient has pain, may apply non- adherent contact layer Fill/Apply: Other Cover: ABD / APPLY XEROFORM, ABD PAD Secure with: Other / 4 ENRRIQUE WRAP Change/PRN: Dressing no longer intact (i.e. lifting, leaking, damaged), Dressing damp, moist or saturated - Shilpa Beck MD 08/03/251922 Support Surface Routine, Until discontinued, Starting on Fri08/03/25 at 1921, Until Specified Wound Surgical Wound Arm Anterior;Lower;Right Wound Surgical Wound Arm Anterior;Distal;Right;Upper Type of Support Surface: SABAS Size of Support Surface: Standard - Shilpa Beck MD 08/03/251922 Wound Management: Use Associated Wounds location; Wound care per algorithm Routine, Per algorithm, On Fri08/03/25 at 1921, For 1 occurrence Wound Surgical Wound Arm Anterior;Lower;Right Wound Surgical Wound Arm Anterior;Distal;Right;Upper Wound Location: Use Associated Wounds location Wound Management: Wound care per algorithm - Shilpa Beck MD Patient has several puncture wounds to right lower arm and right distal upper arm, several with sutures, several scabbed over. 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 Open fracture of right radius Cardiomyopathy Dog bite Osteomyelitis * Plan of Care - Willow Sheikh RN - 08/04/2025 2:38 PM EDT Problem: Knowledge Deficit Goal: Patient/family/caregiver demonstrates understanding of disease process, treatment plan, medications, and discharge instructions Outcome: Progressing Flowsheets (Taken 08/04/2025 1437) Patient/family/caregiver demonstrates understanding of disease process, treatment plan, medications, and discharge instructions: Provide teaching at a level of understanding Problem: Potential for Compromised Skin Integrity Goal: Skin integrity is maintained or improved Outcome: Progressing Flowsheets (Taken 08/04/2025 1437) Skin Integrity is Maintained or Improved: Assess skin and skin risk for breakdown Goal: Nutritional status is improving Outcome: Progressing Flowsheets (Taken 08/04/2025 1437) Nutritional Status is Improving: Collaborate with clinical transmission maintenance supervisor * Plan of Care - Ana Schmidt RD - 08/04/2025 1:45 PM EDT Problem: Increased Nutrient Needs Description: Increased need for a specific nutrient compared to established reference standards or recommendations based on physiological needs. Related to: Increased demand for nutrient As evidenced by: R arm surgical wound/infection. Goal: Promote Wound Healing Flowsheets (Taken 08/04/2025 9354) Collaboration and Referral of Nutrition Care: Collaboration with Interdisciplinary Team Meals and Snacks: General healthful diet Medical Food Supplement Therapy: (yfn BID) Commercial beverage/Oral nutrition supplement Vitamin and Mineral Supplement Therapy: (K) Multi-Vitamin Mineral Nutrition-Related Medication Management: (entresto) -- Indicator/Monitor: PO/wound healing/labs and weight trends. * OT Discharge Summary - Ashley Palma OT - 08/04/2025 10:50 AM EDT Occupational Therapy Discharge Summary Patient Name: Nita Oquendo Patient Birthdate: 1985 Patient Status: Patient Status: Discharge from Treatment OT Current Functional Status: OT eval complete and pt IND with all ADLs and functional mobility. No skilled OT needs at this time Patient needs assistance with the following activities: No deficits noted Will patient require a prosthetic or orthotic device upon discharge: No RUE: No weight-bearing Weight-bearing additional comments: OK for light use of RUE and 1# WB -per ortho note CARE Scores May: 6: Independent. Monroe provides no assistance with tasks. A device may or may not have been used. 5: Set-up or clean-up assistance. Monroe sets up or cleans up, but does not assist with tasks. Monroe may have assisted prior to or following the activity. 4: Supervision or touching assistance. Monroe provides verbal cues or touching/steadying or contactguard assistance. Assistance may be provided throughout the activity or intermittently. 3: Partial/moderate assistance. Monroe does less than half the effort. Monroe lifts, holds, or supports trunk or limbs, but provides less than half the effort. 2: Substantial/maximal assistance. Monroe does more than half the effort. Monroe lifts or holds trunk or limbs, and provides more than half the effort. 1: Dependent. Monroe does all of the effort, or the assistance of two or more helpers is required for the patient to complete the activity. -: Inconsistent or incomplete documentation Activity not attempted values: 7: Patient refused 9: Not applicable - Not attempted and the patient did not perform this activity prior to the current illness, exacerbation, or injury. 10: Not attempted due to environmental limitations (e.g., lack of equipment, weather constraints) 88: Not attempted due to medical condition or safety concerns Goals: Goal Goal Status Discharge Status N/A or No Goal Listed Roll Left and Right - CARE Score: 6 (08/04/251038) N/A or No Goal Listed Eating - CARE Score: 6 (08/04/251038) N/A or No Goal Listed Oral Hygiene - CARE Score: 6 (08/04/251038) N/A or No Goal Listed Toilet Transfer - CARE Score: 6 (08/04/251038) N/A or No Goal Listed Toileting Hygiene - CARE Score: 6 (08/04/251038) N/A or No Goal Listed N/A or No Goal Listed Picking Up Object - CARE Score: 6 (08/04/251038) N/A or No Goal Listed Car Transfer - CARE Score: 10 (08/04/251038) Other Goals: Goal Goal Status Discharge Status N/A or No Goal Listed N/A or No Goal Listed N/A or No Goal Listed N/A or No Goal Listed N/A or No Goal Listed N/A or No Goal Listed N/A or No Goal Listed N/A or No Goal Listed N/A or No Goal Listed N/A or No Goal Listed N/A or No Goal Listed N/A or No Goal Listed Additional Goals: N/A Discharge Instructions given to patient: OT Discharge Instructions Pt Independent with all mobility and ADL tasks. IND with ASHLEY FELIPE OT 08/04/2025 * PT Initial Evaluation - Maynor Echavarria PT - 08/04/2025 10:00 AM EDT Physical Therapy Evaluation Patient Name: Nita Oquendo Patient Birthdate: 1985 Pain Assessment Pain Context: Therapy Assessment During Treatment (08/04/25 1000) Pain Assessment: NRS 0-10 (08/04/25 1000) Pain Score: 3 - Mild Pain (08/04/25 1000) Pain Severity - NRS (Calculated): Mild (08/04/25 1000) Pain Location: Arm (08/04/25 1000) Pain Orientation: Right (08/04/25 1000) Critical-Care Pain Observation Tool Facial Expression: Relaxed, neutral (08/04/25828) Body Movements: Absence of movements or normal position (08/04/25828) Vocalization (Extubated Patients): Talking in normal tone or no sound (08/04/25828) Muscle Tension: Relaxed (08/04/25828) Critical-Care Pain Observation Score: 0 (08/04/25828) Pain Severity - CPOT (Calculated): No pain (08/04/25828) Home Living Type of Home: House (08/04/25 1000) # steps into the home: 4 (08/04/25 1033) Home Layout: One level (08/04/25 103) Home Living Comments: 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 No skilledneeds identified during PT eval. Pt I amb in room and hallway without asst device. Discharge PT after eval. Cognition: Overall Cognitive Status: Within Functional Limits Safety Awareness: Safety Awareness: Good SM [facility] PT EVAL ASSESSMENT: Posture: Posture: Within Normal Limits RLE Assesment: Within Functional Limits LLE Assessment: Within Functional Limits Bed Mobility: Short sit to - from supine Bed Mobility Level of Assistance: Independent Bed Mobility Comment: Pt I with bed mobility, transfers and amb Balance/Activity: Static Sitting: Static Sitting Balance Support: Feet supported Static Sitting Level of Assistance: Independent Dynamic Sitting: Dynamic Sitting Balance: Lateral lean, Forward lean, Reaching for objects and Reaching across midline Dynamic Sitting Level of Assistance: Independent Static Standing: Static Standing Balance Support: No upper extremity supported Static Standing Level of Assistance: Independent Dynamic Standing: Dynamic Standing Balance: Reaching across midline and Lateral lean Dynamic Standing Level of Assistance: Independent Functional Endurance: Functional Endurance: Good Functional Activity Level: Good Assistive Device: No Device Ambulation Level of Assistance: Independent Distance (feet): 150 Gait Analysis: Pt I amb without asst device community distances Transfer to 1: Toilet Transfer from 1: Bed Technique 1: Ambulatory Transfer Level of Assistance 1: Independent Patient's and/or Caregiver's Goals: Goals (in their own words): Return home Goals Generated By: Patient generated response independently CARE Score May: 6: Independent. Monroe provides no assistance with tasks. A device may or may not have been used. 5: Set-up or clean-up assistance. Monroe sets up or cleans up, but does not assist with tasks. Monroe may have assisted prior to or following the activity. 4: Supervision or touching assistance. Monroe provides verbal cues or touching/steadying or contactguard assistance. Assistance may be provided throughout the activity or intermittently. 3: Partial/moderate assistance. Monroe does less than half the effort. Monroe lifts, holds, or supports trunk or limbs, but provides less than half the effort. 2: Substantial/maximal assistance. Monroe does more than half the effort. Monroe lifts or holds trunk or limbs, and provides more than half the effort. 1: Dependent. Monroe does all of the effort, or the assistance of two or more helpers is required for the patient to complete the activity. -: Inconsistent or incomplete documentation Activity not attempted values: 7: Patient refused 9: Not applicable - Not attempted and the patient did not perform this activity prior to the current illness, exacerbation, or injury. 10: Not attempted due to environmental limitations (e.g., lack of equipment, weather constraints) 88: Not attempted due to medical condition or safety concerns Goals: Status on Admission Goal Sit to Lying CARE Score : 6 (08/04/251034) Lying to Sitting on Side of Bed CARE Score : 6 (08/04/251034) Sit to Stand CARE Score : 6 (08/04/251034) Chair/Tee-fj-Hzegg CARE Score : 6 (08/04/251034) Walk 10 feet CARE Score : 6 (08/04/251034) Walk 10 Feet on Uneven Surfaces CARE Score : 9 (08/04/251034) Walk 50 Feet with Two Turns CARE Score : 6 (08/04/251034) Walk 150 Feet CARE Score : 6 (08/04/251034) 1 Step (Curb) CARE Score : 6 (08/04/251034) 4 Steps CARE Score : 6 (08/04/251034) 12 Steps CARE Score : 6 (08/04/251034) Wheel 50 Feet with Two Turns CARE Score : 9 (08/04/25 1035) Wheel 150 Feet CARE Score : 9 (08/04/25 1035) Other Goals: Status on Admission Goal Additional Status &Goals: N/A Number of Caregivers:: Independent Transfer Technique: Pt independent amb in room and hallway Plan of Care and Recommendations: Evaluation Summary: Orders recd, chart reviewed, PT eval and treat completed. Pt with no further PTneeds at this time. Discharge further PT intervention. 39 year old female seen in ER on 07/20 with dog bite, sutured, given brace and prescribed ABX, admitted 07/24 with infected bite wound. CT RUE: Acute comminuted fracture of lateral distal radial metaphysis with complete fracture extraction and displaced fracture cortical bone fragment. Vertical Cortical bone with focal acute inflammation (being treated as osteomyelitis) S/p OR Right type II open distal radius [...] to do 6 weeks of IV ABX to 09/04/25, on 08/03 discharge note states pt needs to return to orthoin 10-14 days for wound check PMH: heart failure with reduced EF, HTM, JUAN, cardiomyopathy Fall PreventIon and Other Recommendations: Pt I amb in room and hallway, needs met Communicated Via: Posted in room Is Therapy Indicated?: No Duration: 1 eval visit Pain Evaluation and Follow-up Nursing notified of patient's pain assessment: Primary Nurse (08/04/25 1000) Therapy Minutes: Enter Time Entry for Evaluations and Service Based Charges Here: Time In : 0940 Time Out: 1024 Time calculation (min): 44 min Enter Time Entry for Time Based Charges Here: Time In : 0829 Time Out: 0856 Total Time with Patient (Min): 27 min Therapeutic Activities: 27 Total Time to be Billed (Min): 27 MAYNOR ECHAVARRIA, WILLIAM 08/04/2025 * OT Initial Evaluation - Ashley Palma OT - 08/04/2025 9:55 AM EDT Occupational Therapy Evaluation Patient Name: Nita Oquendo Patient Birthdate: 1985 Pain Assessment Pain Context: Therapy Assessment During Treatment (08/04/25954) Pain Assessment: NRS 0-10 (08/04/25954) Pain Score: 3 - Mild Pain (08/04/25954) Pain Severity - NRS (Calculated): Mild (08/04/25954) Paredes Agitation Sedation Scale (RASS)/CAM-S: Alert and calm (spontaneously pays attention to caregiver) (08/04/25954) Pain Location: Arm (08/04/25954) Pain Orientation: Right (08/04/25954) Pain Interventions Education Provided: Patient (08/04/25954) Non-Pharmacologic Pain Interventions: Rest, Position/Reposition (08/04/25954) Critical-Care Pain Observation Tool Paredes Agitation Sedation Scale (RASS)/CAM-S: Alert and calm (spontaneously pays attention to caregiver) (08/04/25954) Home Living # steps into the home: 4 (08/04/25 103) Home Layout: One level (08/04/25 103) Home Living Comments: 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, 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, 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 (08/04/25 103) Prior Function Level of [place]: Independent with ambulation, Independent with ADLs and function transfers (08/04/25 103) Lives With: Significant other (08/04/25 103) Receives Help From: Family (08/04/25 103) Patient Subjective Report - Pt agreeable to OT eval Cognition: Overall Cognitive Status: Within Functional Limits Vision: Visual Field: Intact [facility] OT EVAL ADLS: Grooming: Grooming Level of Assist: Independent Grooming Where Assessed: Standing at sink Toileting: Toileting Level of Assist: Independent Toileting Where Assessed: Toilet Upper Body Dressing: Upper Body Dressing Level of Assist: Independent Lower Body Dressing: Lower Body Dressing Level of Assist: Independent Lower Body Dressing Where Assessed: Edge of bed Sitting Tolerance: Good Sitting Tolerance Level of Assist: Independent Standing Tolerance: Good Standing Tolerance Level of Assist: Independent Functional Mobility: Bed Mobility: Roll Left and Right Level of Assist: Independent Sit to Lying Level of Assistance: Independent Lying to Sitting Edge of Bed-Level of Assistance: Independent Sit to Stand: Sit to Stand Level of Assist: Independent Device: None Bed/Chair Transfer: Bed to/from Chair Level of Assist: Independent Device: None Toilet Transfer: Toilet Level of Assist: Independent Device: None UE Assessment: RUE Assessment - ROM: Within Functional Limits RUE Assessment MMT: NT formally tested due to sx but demo full mvmt against gravity. LUE Assessment - ROM: Within Functional Limits LUE Assessment - MMT: Within Funcitonal Limits Hand Function: Hand Dominance: Right Optical Effects Layout Person Strength: Right Optical Effects Layout Person: Other(comment) (full finger flex/ext, OK for light use only) Left Optical Effects Layout Person: WFL Fine Motor Coordination: Fine Motor Coordination: Functional Gross Motor Coordination: Gross Motor Coordination: Intact CARE Score May: 6: Independent. Monroe provides no assistance with tasks. A device may or may not have been used. 5: Set-up or clean-up assistance. Monroe sets up or cleans up, but does not assist with tasks. Monroe may have assisted prior to or following the activity. 4: Supervision or touching assistance. Monroe provides verbal cues or touching/steadying or contactguard assistance. Assistance may be provided throughout the activity or intermittently. 3: Partial/moderate assistance. Monroe does less than half the effort. Monroe lifts, holds, or supports trunk or limbs, but provides less than half the effort. 2: Substantial/maximal assistance. Monroe does more than half the effort. Monroe lifts or holds trunk or limbs, and provides more than half the effort. 1: Dependent. Monroe does all of the effort, or the assistance of two or more helpers is required for the patient to complete the activity. -: Inconsistent or incomplete documentation Activity not attempted values: 7: Patient refused 9: Not applicable - Not attempted and the patient did not perform this activity prior to the current illness, exacerbation, or injury. 10: Not attempted due to environmental limitations (e.g., lack of equipment, weather constraints) 88: Not attempted due to medical condition or safety concerns Goals: Status on Admission Goal Roll Left and Right - CARE Score: 6 (08/04/25 1039) Eating CARE Score : 6 (08/04/25 1039) Oral Hygiene CARE Score : 6 (08/04/25 103) Toilet Transfer - CARE Score: 6 (08/04/25 1039) Toileting Hygiene CARE Score : 6 (08/04/25 1039) Picking Up Object CARE Score : 6 (08/04/25 1039) Car Transfer CARE Score : 10 (08/04/25 1039) Other Goals: Status on Admission Goal Additional Status &Goals: N/A Plan of Care/Recommendations: Evaluation Summary: 39 year old female seen in ER on 07/20 with dog bite, sutured, given brace and prescribed ABX, admitted 07/24 with infected bite wound. CT RUE: Acute comminuted fracture of lateral distal radial metaphysis with complete fracture extraction and displaced fracture cortical bone fragment. Vertical Cortical bone with focal acute inflammation (being treated as osteomyelitis) S/p ORRight type II open distal radius fracture irrigation and debridement 07-25-2025 of Radial fracture.Osteomyelitis could not be ruled out on imaging and ID managing antibiotics. Hx of IVDU and plans Continue IV ampicillin-sulbactam to cover for these streps, but also anaerobes given nature of wound.Per ortho no further interventions. Given bone involvement will need to do 6 weeks of IV ABX to 09/04/25, on 08/03 discharge note states pt needs to return to ortho in 10-14 days for wound check PMH: heart failure with reduced EF, HTM, JUAN, cardiomyopathy CHArt reviewed and nurse cleared for therapy. Pt with good marlon of eval and demo IND with all functional mobility and ADL tasks. RUE in enrrique wrap elbow to wrist, demo full AROM. Encouraged to perform AROM throughout day and amb in [place] several times daily. Pt declines HEP for LUE. Ed in 1# WB restriction and light use only, per ortho notes. No need for skilled OT at this time but instructed pt to notify therapy if any change in status. Fall Prevention/ Other Recommendations: Bed low, call light in reach, 3 rails up Communicated Via: Verbal instruction with staff, Patient/family education and Posted in room OT Plan of Care: Is Therapy Indicated?: No (No skilled OT needs at this time) Number of Caregivers:: Independent Transfer Technique: Pt IND in room and hallway without AD Pain Evaluation and Follow-up Nursing notified of patient's pain assessment: Not indicated - pain score 2 or less (08/04/25 0955) Therapy Minutes Enter Time Entry for Evaluations and Service Based Charges Here: Time In : 0955 Time Out: 1015 Time calculation (min): 20 min ASHLEY PALMA OT 08/04/2025 * Plan of Care - Jaylin Velazquez RN - 08/04/2025 4:02 AM EDT Problem: Knowledge Deficit Goal: Patient and/or family demonstrate readiness to learn 08/04/2025 0402 by Jaylin Velazquez RN Outcome: Progressing 08/04/2025 0401 by Jaylin Velazquez RN Outcome: Progressing 08/04/2025 0337 by Jaylin Velazquez RN Outcome: Progressing Problem: Fall Safety: [place] Precautions Goal: Free from fall injury Outcome: Progressing * Plan of Care - Jaylin Velazquez RN - 08/04/2025 4:02 AM EDT Problem: Knowledge Deficit Goal: Patient and/or family demonstrate readiness to learn 08/04/2025 0401 by Jaylin Velazquez RN Outcome: Progressing 08/04/2025 0337 by Jaylin Velazquez RN Outcome: Progressing Problem: Fall Safety: [place] Precautions Goal: Free from fall injury Outcome: Progressing * Plan of Care - Jaylin Velazquez RN - 08/04/2025 3:37 AM EDT Problem: Knowledge Deficit Goal: Patient and/or family demonstrate readiness to learn Outcome: Progressing documented in this encounter Plan of Treatment Not on file documented as of this encounter Procedures Procedure Name Priority Date/Time Associated Diagnosis Comments TOXICOLOGY SCREEN, URINE STAT 08/08/2025 1:32 PM EST CBC WITH AUTO DIFFERENTIAL Routine 08/08/2025 3:09 AM EST MAGNESIUM Routine 08/08/2025 3:09 AM EST COMPREHENSIVE METABOLIC PANEL Routine 08/08/2025 3:09 AM EST HIV 1/2 AG/AB Routine 08/05/2025 3:12 AM EDT HEPATITIS C RNA QUANTITATION Routine 08/05/2025 3:12 AM EDT HEPATITIS PANEL, ACUTE Routine 3:12 AM EDT MAGNESIUM Routine 08/04/2025 11:56 AM EDT COMPREHENSIVE METABOLIC PANEL Routine 08/04/2025 11:56 AM EDT CBC WITH AUTO DIFFERENTIAL Routine 08/04/2025 2:46 AM EDT BASIC METABOLIC PANEL Routine 08/03/2025 7:24 PM EDT documented in this encounter Results * (ABNORMAL) TOXICOLOGY SCREEN, URINE (08/08/2025 1:32 PM EST) 6 AM, Urine Absent Cutoff 10 ng/mL 08/08/2025 1:32 PM EST [facility] Amphetamines Absent Cutoff 500 ng/mL 08/08/2025 1:32 PM EST [facility] Barbiturates Absent Cutoff 200 ng/mL 08/08/2025 1:32 PM EST [facility] Benzodiazepines Absent Cutoff 200 ng/mL 08/08/2025 1:[address] [facility] Buprenorphine Absent Cutoff 5 ng/mL 08/08/2025 1:32 PM [facility] Cannabinoid Presumptive Pos(A) Cutoff 50 ng/mL 08/08/2025 1:32 PM EST [facility] Cocaine Metabolite Absent Cutoff 150 ng/mL 08/08/2025 1:32 PM EST [facility] Fentanyl, Ur Absent Cutoff 5 ng/mL 08/08/2025 1:32 PM EST [facility] Methadone Absent Cutoff 300 ng/mL 08/08/2025 1:[address] [facility] Opiates Absent Cutoff 300 ng/mL 08/08/2025 1:32 PM EST [facility] Oxycodone Absent Cutoff 100 ng/mL 08/08/2025 1:32 PM [facility] Urine creatinine 111.0 mg/dL 08/08/20 25 1:32 PM EST [facility] Comment: Greater than 20: Consistent with valid sample Greater than 2 but less than 20: Possible dilution Less than 2: Questionable valid sample Urine (Voided/Clean Catch) 08/08/2025 1:32 PM EST 08/08/2025 1:40 PM EST Narrative [facility] - 08/08/2025 2:20 PM EST These drug classes have been qualitatively screened [...] vaginal pool/amniotic fluid could cause erroneous results. Irma Clay DO LAB URINE ORDERABLES Final Result [facility] [address] [place] [address] * (ABNORMAL) CBC AUTO DIFFERENTIAL (08/08/2025 3:09 AM EST) White Blood Cells 10.5(H) 3.7 - 10.3 x10(3)/mcL 08/08/2025 3:09 AM EST [facility] RBC 3.29(L) 3.90 - 5.20 x10(6)/mcL 08/08/2025 3:09 AM EST [facility] Hemoglobin 10.4(L) 11.2 - 15.7 g/dL 08/08/2025 3:09 AM EST [facility] Hematocrit 31.8(L) 34.0 - 45.0 % 08/08/2025 3:09 AM EST [facility] MCV 96.7 80.0 - 100.0 fL 08/08/2025 3:09 AM EST [facility] MCH 31.6 26.0 - 34.0 pg 08/08/2025 3:09 AM EST [facility] MCHC 32.7 30.7 - 35.5 g/dL 08/08/2025 3:09 AM EST [facility] Red Cell Distribution Width 13.7 <=14.9 % 08/08/2025 3:09 AM EST [facility] Platelets 315 155 - 369 x10(3)/mcL 08/08/2025 3:09 AM EST [facility] MPV 9.3 8.8 - 12.5 fL 08/08/2025 3:09 AM EST [facility] Neutrophils Relative 75.9 % 08/08/2025 3:09 AM EST [facility] Comment:Neutrophils equals s egs plus bands IMMATURE GRANULOCYTES/100 LEUKOCYTES IN BLOOD 0.4 % 08/08/2025 3:09 AM EST [facility] Comment:Automated count of m etamyelocytes, myelocytes and promyelocytes. Lymphocyte % 13.5 % 08/08/2025 3:09 AM EST [facility] Monocytes Relative 8.0 % 08/08/2025 3:09 AM EST [facility] Eosinophils Relative 1.6 % 08/08/2025 3:09 AM EST [facility] Basophils Relative 0.6 % 08/08/2025 3:09 AM EST [facility] Neutrophils Absolute 8.0(H) 1.6 - 6.1 x10(3)/mcL 08/08/2025 3:09 AM EST [facility] Comment:Neutrophils equals s egs plus bands Immature Granulocytes 0.0 0.0 - 0.1 x10(3)/mcL 08/08/2025 3:09 AM EST [facility] Comment:Automated count of m etamyelocytes, myelocytes and promyelocytes. An absolute IG <0.1 is reported as 0.0. Lymphocytes Absolute 1.4 1.2 - 3.9 x10(3)/mcL 08/08/2025 3:09 AM EST [facility] Monocytes Absolute 0.8 0.3 - 0.9 x10(3)/mcL 08/08/2025 3:09 AM EST [facility] Eosinophils Absolute 0.2 0.0 - 0.5 x10(3)/mcL 08/08/2025 3:09 AM EST [facility] Basophils Absolute 0.1 0.0 - 0.1 x10(3)/mcL 08/08/2025 3:09 AM EST [facility] Blood (Blood, Venous) 08/08/2025 3:09 AM EST 08/08/2025 5:36 AM EST Shilpa Beck MD LAB BLOOD ORDERABLES Final Result [facility] [address] , [place] [address] * (ABNORMAL) COMPREHENSIVE METABOLIC PANEL (08/08/2025 3:09 AM EST) Sodium 131(L) 136 - 145 mmol/L 08/08/2025 3:09 AM EST [facility] Potassium 4.1 3.5 - 5.0 mmol/L 08/08/2025 3:09 AM EST [facility] Chloride 97(L) 98 - 107 mmol/L 08/08/2025 3:09 AM EST [facility] CO2 21(L) 22 - 29 mmol/L 08/08/2025 3:09 AM EST [facility] Anion Gap 13 7 - 16 mmol/L 08/08/2025 3:09 AM EST [facility] Calcium 8.2(L) 8.6 - 10.4 mg/dL 08/08/2025 3:09 AM EST [facility] Glucose 98 70 - 99 mg/dL 08/08/2025 3:09 AM EST [facility] BUN 24(H) 6 - 20 mg/dL 08/08/2025 3:09 AM EST [facility] Creatinine 1.12 0.51 - 1.30 mg/dL 08/08/2025 3:09 AM EST [facility] Albumin 3.5 3.5 - 5.2 gm/dL 08/08/2025 3:09 AM EST [facility] Total Protein 6.4 6.4 - 8.3 gm/dL 08/08/2025 3:09 AM EST [facility] Total Bilirubin 0.4 0.2 - 1.3 mg/dL 08/08/2025 3:09 AM EST [facility] [place], [facility] ALT (SGPT) 12 <=41 U/L 08/08/2025 3:09 AM EST [facility] [place], [facility] AST 16 <=40 U/L 08/08/2025 3:09 AM EST [facility] Alkaline phosphatase 74 36 - 123 U/L 08/08/2025 3:09 AM EST [facility] eGFR 64 >=60 mL/min/1.7 3 m2 08/08/2025 3:09 AM EST [facility], [facility] Comment:Estimated GFR was ca lculated using the CKD-EPIcr (2020) equation refit without race. The equation is recommended by the National Kidney Foundation - [place] [employer] of Nephrology Task Force. Blood (Blood, Venous) 08/08/2025 3:09 AM EST 08/08/2025 5:37 AM EST Shilpa Beck MD LAB BLOOD ORDERABLES Final Result [facility] [place], [facility] [address] , [place] [address] * Magnesium (08/08/2025 3:09 AM EST) Pathologist [facility] Magnesium 2.3 1.6 - 2.4 mg/dL 08/08/2025 3:09 AM EST [facility], [facility] Blood (Blood, Venous) 08/08/2025 3:09 AM EST 08/08/2025 5:37 AM EST Shilpa Beck MD LAB BLOOD ORDERABLES Final Result Performing Organization Address City/[facility]/ZIP Co de Phone Number [facility], [facility] [address] , [place] [address] * HEPATITIS C RNA QUANTITATION (08/05/2025 3:12 AM EDT) Pathologist [facility] HEPATITIS C RNA-PCR - QUANT Not Detected IU/mL 08/05/2025 3:12 AM EDT [facility], [facility] HCV RNA Log Not Detected log IU/mL 08/05/2025 3:12 AM EDT [facility] HCV Quantitative Interpretation Not Detected Not Detected 08/05/2025 3:12 AM EDT [facility] [employer] [facility] Comment:A result of Not Det ected does not rule out the presence of inhibitors in the patient specimen or hepatitis C virus RNA concentrations below the level of detection of the test. Care should be taken when interpreting any single viral load determination. 08/05/2025 3:12 AM EDT 08/05/2025 5:37 AM EDT Narrative [facility] [employer] [facility] - 08/08/2025 9:45 AM EST The quantification range of this assay is 15 to 100,000,000 IU/mL (1.18 log to 8.00 log IU/mL). Testing was performed using the anjelica HCV test ([employer] with the anjelica Sidecar.me0 System. Gilda Giron APRN LAB BLOOD ORDERABLES Final Result Performing Organization Address City/[facility]/ZIP Co de Phone Number [facility] [employer] [facility] [address] [place] [address] * HIV 1/2 Ag/Ab (08/05/2025 3:12 AM EDT) [facility] HIV 12 AG/AB Non-Reacti ve Non-Reacti ve 08/05/2025 3:12 AM EDT [facility] Comment:Negative for HIV-1 a ntigen and anti-HIV-1/anti-HIV-2 antibodies. Blood (Blood, Venous) 08/05/2025 3:12 AM EDT 08/05/2025 5:37 AM EDT Brittni [facility] [employer] [facility] - 08/05/2025 9:04 AM EDT Test performed using [employer] Elecsys electrochemiluminescence immunassay (ECLIA). Gilda Giron APRN LAB BLOOD ORDERABLES Final Result Performing Organization Address City/[facility]/ZIP Co de Phone Number [facility] [employer] [facility] [address] [place] [address] [address] * (ABNORMAL) Hepatitis panel, acute (08/05/2025 3:12 AM EDT) Pathologist [facility] Hep B Surface Ag Blood Non-Reacti ve Non-React maricarmen 08/05/2025 3:12 AM EDT [facility] [employer] [facility] Comment:HBsAg not detected. Does not exclude possibility of exposure to HBV. Hepatitis B Core IgM Non-Reacti ve Non-React maricarmen 08/05/2025 3:12 AM EDT [facility] Hep A Ab IgM Blood Non-Reacti ve Non-React maricarmen 08/05/2025 3:12 AM EDT [facility], [facility] Hep C Ab Reactive(A ) Non-React maricarmen 08/05/2025 3:12 AM EDT [facility] [employer] [facility] Comment: Antibodies to HCV detected. HCV RNA QUANT will be performed. Blood (Blood, Venous) 08/05/2025 3:12 AM EDT 08/05/2025 5:37 AM EDT Narrative [facility] 08/05/2025 6:27 AM EDT Test performed using [employer] Ele[employer] electrochemiluminescence immunassay (ECLIA). Gilda Giron APRN LAB BLOOD ORDERABLES Final Result [facility] [address] [address] [place] [address] * (ABNORMAL) COMPREHENSIVE METABOLIC PANEL (08/04/2025 11:56 AM EDT) Pathologist [facility] Sodium 135(L) 136 - 145 mmol/L 08/04/2025 11:56 AM EDT [facility] Potassium 4.3 3.5 - 5.0 mmol/L 08/04/2025 11:56 AM EDT [facility] Chloride 103 98 - 107 mmol/L 08/04/2025 11:56 AM EDT [facility] CO2 23 22 - 29 mmol/L 08/04/2025 11:56 AM EDT [facility] Anion Gap 9 7 - 16 mmol/L 08/04/2025 11:56 AM EDT [facility] Calcium 8.9 8.6 - 10.4 mg/dL 08/04/2025 11:56 AM EDT [facility] Glucose 96 70 - 99 mg/dL 08/04/2025 11:56 AM EDT [facility] BUN 14 6 - 20 mg/dL 08/04/2025 11:56 AM EDT [facility] Creatinine 0.82 0.51 - 1.30 mg/dL 08/04/2025 11:56 AM EDT [facility] Albumin 3.7 3.5 - 5.2 gm/dL 08/04/2025 11:56 AM EDT [facility] Total Protein 6.8 6.4 - 8.3 gm/dL 08/04/2025 11:56 AM EDT [facility] Total Bilirubin 0.7 0.2 - 1.3 mg/dL 08/04/2025 11:56 AM EDT [facility] ALT (SGPT) 17 <=41 U/L 08/04/2025 11:56 AM EDT [facility] AST 18 <=40 U/L 08/04/2025 11:56 AM EDT [facility] Alkaline phosphatase 72 36 - 123 U/L 08/04/2025 11:56 AM EDT [facility] eGFR 93 >=60 mL/min/1.7 3 m2 08/04/2025 11:56 AM EDT [facility] Comment:Estimated GFR was ca lculated using the CKD-EPIcr (2020) equation refit without race. The equation is recommended by the National Kidney Foundation - [place] Society of Nephrology Task Force. Blood (Blood, Venous) 08/04/2025 11:56 AM EDT 08/04/2025 12:02 PM EDT Shilpa Beck MD LAB BLOOD ORDERABLES Final Result [facility] [address] [facility] [address] * Magnesium (08/04/2025 11:56 AM EDT) [facility] Magnesium 2.2 1.6 - 2.4 mg/dL 08/04/2025 11:56 AM EDT [facility] Blood (Blood, Venous) 08/04/2025 11:56 AM EDT 08/04/2025 12:02 PM EDT Shilpa Beck MD LAB BLOOD ORDERABLES Final Result [facility] [address] [facility] [address] * (ABNORMAL) CBC AUTO DIFFERENTIAL (08/04/2025 2:46 AM EDT) [facility] White Blood Cells 6.7 3.7 - 10.3 x10(3)/mcL 08/04/2025 2:[address] [facility] RBC 4.03 3.90 - 5.20 x10(6)/mcL 08/04/2025 2:[address] [facility] Hemoglobin 12.7 11.2 - 15.7 g/dL 08/04/2025 2:[address] [facility] Hematocrit 39.1 34.0 - 45.0 % 08/04/2025 2:[address] [facility] MCV 97.0 80.0 - 100.0 fL 08/04/2025 2:[address] [facility] MCH 31.5 26.0 - 34.0 pg 08/04/2025 2:[address] [facility] MCHC 32.5 30.7 - 35.5 g/dL 08/04/2025 2:[address] [facility] Red Cell Distribution Width 14.4 <=14.9 % 08/04/2025 2:[address] [facility] Platelets 420(H) 155 - 369 x10(3)/mcL 08/04/2025 2:[address] [facility] MPV 9.6 8.8 - 12.5 fL 08/04/2025 2:46 AM EDT [facility] Neutrophils Relative 51.0 % 08/04/2025 2:46 AM EDT [facility] Comment:Neutrophils equals s egs plus bands IMMATURE GRANULOCYTES/100 LEUKOCYTES IN BLOOD 0.3 % 08/04/2025 2:46 AM EDT [facility] Comment:Automated count of m etamyelocytes, myelocytes and promyelocytes. Lymphocyte % 38.5 % 08/04/2025 2:46 AM EDT [facility] Monocytes Relative 8.3 % 08/04/2025 2:46 AM EDT [facility] Eosinophils Relative 1.2 % 08/04/2025 2:46 AM EDT [facility] Basophils Relative 0.7 % 08/04/2025 2:46 AM EDT [facility] Neutrophils Absolute 3.4 1.6 - 6.1 x10(3)/mcL 08/04/2025 2:46 AM EDT [facility] Comment:Neutrophils equals s egs plus bands Immature Granulocytes 0.0 0.0 - 0.1 x10(3)/mcL 08/04/2025 2:46 AM EDT [facility] Comment:Automated count of m etamyelocytes, myelocytes and promyelocytes. An absolute IG <0.1 is reported as 0.0. Lymphocytes Absolute 2.6 1.2 - 3.9 x10(3)/mcL 08/04/2025 2:46 AM EDT [facility] Monocytes Absolute 0.6 0.3 - 0.9 x10(3)/mcL 08/04/2025 2:46 AM EDT [facility] Eosinophils Absolute 0.1 0.0 - 0.5 x10(3)/mcL 08/04/2025 2:46 AM EDT [facility] Basophils Absolute 0.1 0.0 - 0.1 x10(3)/mcL 08/04/2025 2:46 AM EDT [facility] Blood (Blood, Venous) 08/04/2025 2:46 AM EDT 08/04/2025 3:12 AM EDT Shilpa Beck MD LAB BLOOD ORDERABLES Final Result Performing Organization Address [facility] Co de Phone Number [facility] [address] [place] [address] * (ABNORMAL) BASIC METABOLIC PANEL (08/03/2025 7:24 PM EDT) Sodium 137 136 - 145 mmol/L 08/03/2025 7:24 PM EDT [facility] Potassium 3.7 3.5 - 5.0 mmol/L 08/03/2025 7:24 PM EDT [facility] Chloride 103 98 - 107 mmol/L 08/03/2025 7:24 PM EDT [facility] CO2 20(L) 22 - 29 mmol/L 08/03/2025 7:24 PM EDT [facility] Anion Gap 14 7 - 16 mmol/L 08/03/2025 7:24 PM EDT [facility] Calcium 8.6 8.6 - 10.4 mg/dL 08/03/2025 7:24 PM EDT [facility] Glucose 123(H) 70 - 99 mg/dL 08/03/2025 7:24 PM EDT [facility] BUN 13 6 - 20 mg/dL 08/03/2025 7:24 PM EDT [facility] Creatinine 0.81 0.51 - 1.30 mg/dL 08/03/2025 7:24 PM EDT [facility] eGFR 94 >=60 mL/min/1.7 3 m2 08/03/2025 7:24 PM EDT [facility] Comment:Estimated GFR was ca lculated using the CKD-EPIcr (2020) equation refit without race. The equation is recommended by the National Kidney Foundation - [place] Society of Nephrology Task Force. Blood (Blood, Venous) 08/03/2025 7:24 PM EDT 08/03/2025 7:59 PM EDT Shilpa Beck MD LAB BLOOD ORDERABLES Final Result Performing Organization Address [facility] Co de Phone Number [facility] [address] [place] [address] documented in this encounter Visit Diagnoses Diagnosis Open fracture of right radius- Primary Abscess of bone of forearm Primary hypertension Obstructive sleep apnea syndrome Migraine without aura, not refractory Infection caused by Streptococcus gallolyticus Dog bite Cardiomyopathy Osteomyelitis documented in this encounter Admitting Diagnoses Diagnosis Osteomyelitis documented in this encounter Administered Medications Inactive Administered Medications - up to 3 most recent administrations Medication Order MAR Action Action Date Dose Rate Site acetaminophen (TYLENOL) tablet 650 mg 650 mg, Oral, Every 6 hours PRN, Starting on Fri08/03/25 at 1911, Until Fri08/08/25 at 2007, mild pain, Temp > or equal to 101F (38.3C) Given 08/08/2025 12:57 PM EST 650 mg Given 08/07/2025 10:46 PM EST 650 mg Given 08/07/2025 3:07 PM EST 650 mg Acidophilus Lactobacillus 1 each 1 each, Oral, 2 times daily (2 times per day), First dose on Fri08/03/25 at 2200, Until Discontinued Given 08/08/2025 11:00 AM EST 1 each Given 08/07/2025 10:46 PM EST 1 each Given 08/07/2025 9:22 AM EST 1 each ampicillin-sulbactam (UNASYN) 3 g in sterile water IV syringe 3 g, Intravenous, Administer over 10 Minutes, Every 6 hours, 128 doses, First dose on Fri08/04/25 at 0000, Last dose on Fri09/04/25 at 1800, Administer over 10 minutes by administering a small volume IV Push every 15 seconds. Reconstitue with 3.2ml Diluent for Injection and draw the entire volume from the vial for the dose., Indications: Animal Bite Infection, OsteomyelitisIndications:Animal Bite Infection,Osteomyelitis Given 08/04/2025 5:34 AM EDT 3 g Given 08/03/2025 11:03 PM EDT 3 g ampicillin-sulbactam (UNASYN) 3 g in sterile water IV syringe 3 g, Intravenous, Administer over 10 Minutes, Every 6 hours, 124 doses, First dose on Fri08/04/25 at 1200, Last dose on 09/04/25 at 0600, Administer over 10 minutes by administering a small volume IV Push every 15 seconds. Reconstitue with 6.4ml Diluent for Injection and draw the entire volume from the vial for the dose. Administer over 10 minutes by administering a small volume IV Push every 15 seconds. Reconstitue with 6.4ml Diluent for Injection and draw the entire volume from the vial for the dose., Indications: Animal Bite Infection, OsteomyelitisIndications:Animal Bite Infection,Osteomyelitis Given 08/08/2025 12:57 PM EST 3 g Given 08/08/2025 8:01 AM EST 3 g Given 08/07/2025 10:46 PM EST 3 g carvedilol (COREG) tablet 6.25 mg 6.25 mg, Oral, 2 times daily with meals (2 times per day), First dose on Verena 08/04/25 at 0800, Until Discontinued, Hold if HR (bpm) less than: 60, Hold if SBP (mmHg) less than: 110 Given 08/06/2025 9:06 AM EDT 6.25 mg Given 08/05/2025 9:57 AM EDT 6.25 mg Given 08/04/2025 8:52 AM EDT 6.25 mg Empagliflozin (JARDIANCE) tablet 25 mg 25 mg, Oral, Daily, First dose on Fri08/04/25 at 1000, Until Discontinued, Indications: Heart FailureIndications:Heart Failure Given 08/08/2025 11:00 AM EST 25 mg Given 08/07/2025 9:22 AM EST 25 mg Given 08/06/2025 9:07 AM EDT 25 mg enoxaparin (LOVENOX) syringe 40 mg 40 mg, Subcutaneous, Every 24 hours, First dose on Fri08/04/25 at 1000, Until Discontinued, HIGH RISK MEDICATION, Indications: Deep Vein Thrombosis ProphylaxisIndications:Deep Vein Thrombosis Prophylaxis Given 08/08/2025 11:00 AM EST 40 mg Abdominal Tissue Given 08/07/2025 9:21 AM EST 40 mg Ab dominal Tissue Given 08/06/2025 9:06 AM EDT 40 mg Ab dominal Tissue furosemide (LASIX) tablet 40 mg 40 mg, Oral, Daily, First dose on Fri08/04/25 at 1000, Until Discontinued Given 08/08/2025 11:01 AM EST 40 mg Given 08/07/2025 9:22 AM EST 40 mg Given 08/06/2025 9:07 AM EDT 40 mg magnesium oxide tablet 400 mg 400 mg, PO/Per Tube, Every 6 hours PRN, Starting on Fri08/03/25 at 1911, Until Fri08/08/25 at 2007 magnesium sulfate infusion 2 g 50 mL 2 g, Intravenous, at 25 mL/hr, Administer over 2 Hours, As needed, Starting on Fri08/03/25 at 1910, Until Fri08/08/25 at 2007 melatonin tablet 6 mg 6 mg, Oral, Nightly, First dose on Fri08/03/25 at 2200, Until Discontinued Given 08/06/2025 10:50 PM EDT 6 mg Given 08/05/2025 9:26 PM EDT 6 mg Given 08/04/2025 9:13 PM EDT 6 mg pantoprazole (PROTONIX) EC/DR tablet 40 mg 40 mg, Oral, Daily, First dose on Fri08/04/25 at 1000, Until Discontinued, Do not crush, chew, or break the tablet. Swallow it whole. Given 08/08/2025 11:01 AM EST 40 mg Given 08/07/2025 9:22 AM EST 40 mg Given 08/06/2025 9:07 AM EDT 40 mg Pharmacy Communication Does not apply, As needed, Starting on Fri08/05/25 at 1601, Until Fri08/08/25 at 2007, Other: Day 14 Rabies Vaccine on 08/08 potassium chloride (KLOR-CON) ER tablet 40 mEq 40 mEq, Oral, Every 4 hours PRN (2 times per day), Starting on Fri08/03/25 at 1910, Until Fri08/08/25 at 2007 potassium chloride (MICRO-K) CR capsule 10 mEq 10 mEq, Oral, Daily, First dose on Fri08/04/25 at 1000, Until Discontinued, DO NOT CRUSH, CUT, OR CHEW. Given 08/08/2025 11:00 AM EST 10 mEq Given 08/07/2025 9:21 AM EST 10 mEq Given 08/06/2025 9:06 AM EDT 10 mEq potassium chloride 20 mEq in 100 mL IVPB premix 20 mEq, Intravenous, at 50 mL/hr, Administer over 120 Minutes, Every 2 hour PRN, Starting on Fri08/03/25 at 1910, Until Fri08/08/25 at 2007 prochlorperazine (COMPAZINE) injection 10 mg 10 mg, Intravenous, Every 6 hours PRN, Starting on Fri08/03/25 at 1910, Until Fri08/08/25 at 2008, nausea, vomiting, Indications: Nausea and VomitingIndications:Nausea and Vomiting Given 08/08/2025 12:36 AM EST 10 mg Given 08/06/2025 11:59 AM EDT 10 mg Given 08/05/2025 3:47 PM EDT 10 mg sacubitril-valsartan (ENTRESTO) 24-26 MG tablet 2 tablet 2 tablet, Oral, 2 times daily (2 times per day), First dose on Fri08/03/25 at 2200, Until Discontinued Given 08/08/2025 11:01 AM EST 2 tablets Given 08/07/2025 10:46 PM EST 2 tablets Given 08/07/2025 9:22 AM EST 2 tablets sodium chloride 0.9 % infusion 500 mL 500 mL, Intravenous, at 967.74 mL/hr, Administer over 31 Minutes, Once, 1 dose, On Fri08/08/25 at 0130 New Bag 08/08/2025 1:28 AM EST 500 mL 967.74 mL/hr spironolactone (ALDACTONE) tablet 25 mg 25 mg, Oral, Daily, First dose on Fri08/04/25 at 1000, Until Discontinued Given 08/08/2025 11:01 AM EST 25 mg Given 08/07/2025 9:22 AM EST 25 mg Given 08/06/2025 9:07 AM EDT 25 mg traZODone (DESYREL) tablet 50 mg 50 mg, Oral, Nightly PRN, Starting on Fri08/05/25 at 2211, Until Fri08/08/25 at 2007, sleep Given 08/07/2025 10:46 PM EST 50 mg documented in this encounter Active and Recently Administered Medications Due to Daylight Saving Time, this section may contain times in both EDT and EST. Scheduled Medication Order 08/06/2025 08/07/2025 08/08/2025 Acidophilus Lactobacillus 1 each 1 each, Oral, 2 times daily (2 times per day), First dose on Fri08/03/25 at 2200, Until Discontinued 905 (Given - Provider: Marco Teixeira RN)2250 (Given - Provider: Tavia Krueger RN) 09 (Given - Provider: Marco Teixeira RN)2246 (Given - Provider: Tavia Krueger RN) 1100 (Given - Provider: Tavia Ramirez, SHANIA) ampicillin-sulbactam (UNASYN) 3 g in sterile water IV syringe 3 g, Intravenous, Administer over 10 Minutes, Every 6 hours, 124 doses, First dose on Verena 08/04/25 at 1200, Last dose on 09/04/25 at 0600, Administer over 10 minutes by administering a small volume IV Push every 15 seconds. Reconstitue with 6.4ml Diluent for Injection and draw the entire volume from the vial for the dose. Administer over 10 minutes by administering a small volume IV Push every 15 seconds. Reconstitue with 6.4ml Diluent for Injection and draw the entire volume from the vial for the dose., Indications: Animal Bite Infection, Osteomyelitis 0009 (Given - Provider: Jumana Nava RN - Comment: 6.4 ml diluted used)0619 (Given - Provider: Jumana Nava RN)1147 (Given - Provider: Marco Teixeira RN)1705 (Given - Provider: Marco Teixeira RN)2303 (Given - Provider: Tavia Krueger RN) 0635 (Given - Provider: Tavia Krueger RN)1133 (Given - Provider: Marco Teixeira RN)1800 (Canceled Entry - Provider: Marco Teixeira RN - Comment: Given early.)2246 (Given - Provider: Tavia Krueger RN)2250 (Canceled Entry - Provider: Tavia Krueger RN - Comment: Given at 2246 w/HS meds; [facility] care) 0801 (Given - Provider: Tavia Krueger RN)1257 (Given - Provider: Tavia Ramirez, SHANIA)1740 (Incomplete - Provider: Mala Manzano RN) carvedilol (COREG) tablet 6.25 mg 6.25 mg, Oral, 2 times daily with meals (2 times per day), First dose on Verena 08/04/25 at 0800, Until Discontinued, Hold if HR (bpm) less than: 60, Hold if SBP (mmHg) less than: 110 0906 (Given - Provider: Marco Teixeira RN)1656 (Not Given - Provider: Marco Teixeira RN - Reason: Order parameters not met) 0824 (Not Given - Provider: Marco Teixeira RN - Reason: Order parameters not met)1600 (Not Given - Provider: Marco Teixeira RN - Reason: Order parameters not met) 0830 (Not Given - Provider: Tavia Ramirez RN - Reason: Order parameters not met)1656 (Hold - Provider: Mala Manzano RN - Reason: Order parameters not met) Electrolyte Replacement Does not apply, Daily, First dose on Verena 08/04/25 at 1000, Until Discontinued 1000 (Hold - Provider: Marco Teixeira RN - Reason: Order parameters not met) 1000 (Hold - Provider: Marco Teixeira RN - Reason: Order parameters not met) 1101 (Information Noted - Provider: Tavia Ramirez RN) Empagliflozin (JARDIANCE) tablet 25 mg 25 mg, Oral, Daily, First dose on Verena 08/04/25 at 1000, Until Discontinued, Indications: Heart Failure 0907 (Given - Provider: Marco Teixeira RN) 0922 (Given - Provider: Marco Teixeira RN) 1100 (Given - Provider: Tavia Ramirez RN) enoxaparin (LOVENOX) syringe 40 mg 40 mg, Subcutaneous, Every 24 hours, First dose on Verena 08/04/25 at 1000, Until Discontinued, HIGH RISK MEDICATION, Indications: Deep Vein Thrombosis Prophylaxis 0906 (Given - Provider: Marco Teixeira RN) 0921 (Given - Provider: Marco Teixeira RN) 1100 (Given - Provider: Tavia Ramirez RN) furosemide (LASIX) tablet 40 mg 40 mg, Oral, Daily, First dose on Verena 08/04/25 at 1000, Until Discontinued 09 (Given - Provider: Marco Teixeira RN) 0922 (Given - Provider: Marco Teixeira RN) 1101 (Given - Provider: Tavia Ramirez RN) melatonin tablet 6 mg 6 mg, Oral, Nightly, First dose on Fri08/03/25 at 2200, Until Discontinued 2250 (Given - Provider: Tavia Krueger RN) 224 (Not Given - Provider: Tavia Krueger RN - Reason: Patient/family refused) pantoprazole (PROTONIX) EC/DR tablet 40 mg 40 mg, Oral, Daily, First dose on Fri08/04/25 at 1000, Until Discontinued, Do not crush, chew, or break the tablet. Swallow it whole. 0907 (Given - Provider: Marco Teixeira RN) 09 (Given - Provider: Marco Teixeira RN) 110 (Given - Provider: Tavia Ramirez, SHANIA) potassium chloride (MICRO-K) CR capsule 10 mEq 10 mEq, Oral, Daily, First dose on Fri08/04/25 at 1000, Until Discontinued, DO NOT CRUSH, CUT, OR CHEW. 0906 (Given - Provider: Marco Teixeira RN) 0921 (Given - Provider: Marco Teixeira RN) 1100 (Given - Provider: Tavia Ramirez RN) sacubitril-valsartan (ENTRESTO) 24-26 MG tablet 2 tablet 2 tablet, Oral, 2 times daily (2 times per day), First dose on Fri08/03/25 at 2200, Until Discontinued 09 (Given - Provider: Marco Teixeira RN)225 (Given - Provider: Tavia Krueger RN) 09 (Given - Provider: Marco Teixeira RN)224 (Given - Provider: Tavia Krueger RN) 110 (Given - Provider: Tavia Ramirez RN) sodium chloride 0.9 % infusion 500 mL (COMPLETED) 500 mL, Intravenous, at 967.74 mL/hr, Administer over 31 Minutes, Once, 1 dose, On Fri08/08/25 at 0130 0128 (New Bag - Provider: Tavia Krueger RN)0209 (Stopped - Provider: Tavia Krueger RN) spironolactone (ALDACTONE) tablet 25 mg 25 mg, Oral, Daily, First dose on Fri08/04/25 at 1000, Until Discontinued 09 (Given - Provider: Marco Teixeira RN) 0922 (Given - Provider: Marco Teixeira, SHANIA) 1101 (Given - Provider: Tavia Ramirez, RN) PRN Medication Order 08/06/2025 08/07/2025 08/08/2025 acetaminophen (TYLENOL) tablet 650 mg 650 mg, Oral, Every 6 hours PRN, Starting on Fri08/03/25 at 1910, Until Fri08/08/25 at 2007, mild pain, Temp > or equal to 101F (38.3C) 0619 (Given - Provider: Jumana Nava RN)1159 (Given - Provider: Marco Teixeira, SHANIA)2250 (Given - Provider: Tavia Krueger, RN) 1507 (Given - Provider: Marco Teixeira, SHANIA)2246 (Given - Provider: Tavia Krueger, RN) 1257 (Given - Provider: Tavia Ramirez, RN) magnesium oxide tablet 400 mg(Linked Group 1) 400 mg, PO/Per Tube, Every 6 hours PRN, Starting on Fri08/03/25 at 1910, Until Fri08/08/25 at 2007 magnesium sulfate infusion 2 g 50 mL(Linked Group 1) 2 g, Intravenous, at 25 mL/hr, Administer over 2 Hours, As needed, Starting on Fri08/03/25 at 1910, Until Fri08/08/25 at 2007 Pharmacy Communication Does not apply, As needed, Starting on Fri08/05/25 at 1601, Until Fri08/08/25 at 2007, Other: Day 14 Rabies Vaccine on 08/08 potassium chloride (KLOR-CON) ER tablet 40 mEq(Linked Group 2) 40 mEq, Oral, Every 4 hours PRN (2 times per day), Starting on Fri08/03/25 at 1910, Until Fri08/08/25 at 2007 potassium chloride 20 mEq in 100 mL IVPB premix(Linked Group 2) 20 mEq, Intravenous, at 50 mL/hr, Administer over 120 Minutes, Every 2 hour PRN, Starting on Fri08/03/25 at 1910, Until Fri08/08/25 at 2007 prochlorperazine (COMPAZINE) injection 10 mg 10 mg, Intravenous, Every 6 hours PRN, Starting on Fri08/03/25 at 1910, Until Fri08/08/25 at 2007, nausea, vomiting, Indications: Nausea and Vomiting 1159 (Given - Provider: Marco Teixeira, SHANIA) 0036 (Given - Provider: Taiva Krueger, SHANIA) traZODone (DESYREL) tablet 50 mg 50 mg, Oral, Nightly PRN, Starting on Fri08/05/25 at 2211, Until Fri08/08/25 at 2007, sleep 2246 (Given - Provider: Tavia Krueger, SHANIA) Linked Groups Order Group 1: magnesium oxide tablet 400 mgJump to med 400 mg, PO/Per Tube, Every 6 hours PRN, Starting on Fri08/03/25 at 191, Until Fri08/08/25 at 2007 Or magnesium sulfate infusion 2 g 50 mLJump to med 2 g, Intravenous, at 25 mL/hr, Administer over 2 Hours, As needed, Starting on Fri08/03/25 at 191, Until Fri08/08/25 at 2007 Group 2: potassium chloride (KLOR-CON) ER tablet 40 mEqJump to med 40 mEq, Oral, Every 4 hours PRN (2 times per day), Starting on Fri08/03/25 at 191, Until Fri08/08/25 at 2007 Or potassium chloride 20 mEq in 100 mL IVPB premixJump to med 20 mEq, Intravenous, at 50 mL/hr, Administer over 120 Minutes, Every 2 hour PRN, Starting on Fri08/03/25 at 191, Until Fri08/08/25 at 2007 documented in this encounter 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
[2025-08-10 18:36] VITALS: BP 108/80; PULSE 96; RESP 18; TEMP 36.8; O2SAT 100; BMI 20.7
--- OUTSIDE RECORDS SUMMARY | 2025-08-10 18:57 | XMS_ITS | Clinical Summary ---
Author Organization [facility] Address [address] [place] [phone] Phone Care Team Providers Care Furnace Keeper Name Role Phone Jim Claudio APRN Primary Care Physician [phone] Conditions or Problems Problem Name Problem Code Onset Date Status Entry Date Provider Comment Standard Description Annotate Body mass index (BMI) 25.0-25.9; adult Z68.25 (ICD-10-CM) Active Jim Claudio APRN Body mass index [BMI] 25.0-25.9, adult Body mass index (BMI) 25.0-25.9; adult Z68.25 (ICD-10-CM) Correction Jim Claudio APRN Body mass index [BMI] 25.0-25.9, adult Physical exam, routine [id number] (SNOMED CT) Inactive Jim Claudio APRN Physical examination Dizziness / vertigo [id number] (SNOMED CT) Active Jim Claudio APRN Dizziness Body mass index (BMI) 25.0-25.9; adult Z68.25 (ICD-10-CM) Removed Lilian Geo VALDEZ Body mass index [BMI] 25.0-25.9, adult Body mass index (BMI) 24.0-24.9; adult Z68.24 (ICD-10-CM) Correction Lilian Geo JOSÉ MIGUEL Body mass index [BMI] 24.0-24.9, adult Pain in cervical spine for less than 3 months [id number] (SNOMED CT) Active Lilian Guardado APRN Pain in cervical spine Body mass index (BMI) 24.0-24.9; adult Z68.24 (ICD-10-CM) Removed Tavia Landry APRN Body mass index [BMI] 24.0-24.9, adult Back pain [id number] (SNOMED CT) Inactive Tavia Landry APRN Backache Body mass index (BMI) 23.0-23.9; adult Z68.23 (ICD-10-CM) Correction Tavia Landry APRN Body mass index [BMI] 23.0-23.9, adult Body mass index (BMI) 23.0-23.9; adult Z68.23 (ICD-10-CM) Removed Jim Claudio APRN Body mass index [BMI] 23.0-23.9, adult Anxiety [id number] (SNOMED CT) Active Jim Claudio APRN Anxiety Medications Medication Instructions Start Date Stop Date Generic Name NDC Provider IBUPROFEN 800 MG TABS TAKE 1 TABLET BY MOUTH EVERY 8 HOURS NEEDED IBUPROFEN [id number] Lilian Guardado APRN HYDROXYZINE HCL 50 MG TABS TAKE 1 TABLET BY MOUTH EVERY 6-8 HOURS NEEDED HYDROXYZINE HCL [id number] Jim Claudio APRN BUSPIRONE HCL 10 MG TABS TAKE 1 TABLET BY MOUTH TWICE A DAY BUSPIRONE HCL [id number] Jim Claudio APRN CITALOPRAM HYDROBROMIDE 20 MG TABS TAKE 1 TAB DAILY CITALOPRAM HYDROBROMIDE [id number] Jim Claudio APRN Medications Administered No information available. Allergies, Adverse Reactions, Alerts Observed no known allergies at Results Date Name Value Unit Range Flag Description Office Visit: fever, back pa in rm20 SPEC GR URIN 1.015 Specific gravity of Urine by Test strip PH URINE 6.5 pH of Urine by Test strip GLUCOSE, URN negative Glucose [Mass/volume] in Urine by Test strip BILIRUBIN UR negative Bilirub in.total [Presence] in Urine by Test strip KETONES URN negative Ketones [Mass/volume] in Urine by Test strip BLOOD UR DIP negative blood i n urine (hemoglobin) by dipstick PROTEIN, URN negative protein , urine, semiquantitative (dipstick) UROBILINOGEN 2 Urobilin ogen [Presence] in Urine by Test strip NITRITE URN negative Nitrite [Presence] in Urine by Test strip WBC DIPSTK U trace Leukocyt e esterase [Presence] in Urine by Test strip Lab Report: COMPREHENSIVE ME TABOLIC PANEL, CBC (INCLUDES DIFF/PLT), TSH ... TSH 0.64 u[iU]/mL N Thyrotropin [Units/volume] in Serum or Plasma BASO % MANU 0.3 % N basophils as percent of blood leukocytes, manual count EOS % MANU 0.3 % N eosinophil s as percent of blood leukocytes, manual count MONOCYTE % 13.9 % N Monocytes/ 100 leukocytes in Blood by Automated count LYMPH% P BLD 26.8 % N lymphocy pablo as percent of blood leukocytes PMN % 58.7 % N Neutrophils/1 00 leukocytes in Blood by Automated count ABS BASOS 19 {Cells}/ uL 0-200 N Basophils [#/volume] in Blood ABS EOS 19 {Cells}/ uL 15-500 N Eosinophils [#/volume] in Blood ABS MONOS 876 {Cells}/ uL 200-950 N Monocytes [#/volume] in Blood ABSLYMPHCT 1688 {Cells}/ uL 850-3900 N Lymphocytes [#/volume] in Blood ABS NEUTROPH 3698 CELLS/UL 10*3/uL 0174-7039 N Neutrophils [#/volume] in Blood MPV 9.3 fL 7.5-12.5 N Platelet bree n volume [Entitic volume] in Blood by Itzel PLATELETK/UL 271 THOUSAND/UL 10*3/uL 140-400 N platelet count RDW 12.0 % 11.0-15.0 N Erythrocyte distribution width [Ratio] by Automated count OL-MCHC 34.8 g/dL 32.0-36.0 N mean corpus cular hemoglobin concentration, rbc MCH 33.3 pg 27.0-33.0 H MCH [Entiti c mass] by Automated count MCV 95.8 fL 80.0-100. 0 N MCV [Entitic volume] by Automated count HCT 36.2 % 35.0-45.0 N Hematocrit [Volume Fraction] of Blood by Automated count HGB 12.6 g/dL 11.7-15.5 N Hemoglobin [Mass/volume] in Blood RBC M/UL 3.78 MILLION/UL 10*6/uL 3.80-5.10 L red blood count WBC CT BLOOD 6.3 10*3/uL 3.8-10.8 N leukocy te count, blood SGPT (ALT) 147 U/L 6-29 H Alanine aminotransferase [Enzymatic activity/volume] in Serum or Plasma SGOT (AST) 62 U/L 10-30 H Aspartate aminotransferase [Enzymatic activity/volume] in Serum or Plasma ALK PHOS 174 U/L 33-115 H Alkaline phosphatase [Enzymatic activity/volume] in Blood BILI TOTAL 0.8 mg/dL 0.2-1.2 N Bilirubin. total [Mass/volume] in Serum or Plasma A/G RATIO 1.1 (calc) 1.0-2.5 N Albumin/ Globulin [Mass Ratio] in Serum or Plasma GLOBULIN TOT 3.8 G/DL (CALC) g/dL 1.9-3.7 H Globulin [Mass/volume] in Serum ALBUMIN EOP 4.2 g/dL 3.6-5.1 N Albumin [Mass/volume] in Serum or Plasma by Electrophoresis PROTEIN, TOT 8.0 g/dL 6.1-8.1 N Protein [Mass/volume] in Serum or Plasma CALCIUM 9.0 mg/dL 8.6-10.2 N Calcium [Moles/volume] in Serum or Plasma CO2 27 mmol/L 20-31 N Carbon dioxid e, total [Moles/volume] in Venous blood CHLORIDE BLD 105 mmol/L 98-110 N chloride , blood POTASSIUM 3.9 mmol/L 3.5-5.3 N Potassium [Moles/volume] in Serum or Plasma SODIUM 137 mmol/L 135-146 N Sodium [Moles/volume] in Serum or Plasma BUN/CREAT NOT APPLICABLE (calc) 6-22 Urea nitrogen/Creatinine [Mass Ratio] in Serum or Plasma EGFR IF AFA 112 mL/min/1 .73m2 >OR = 60 N Glomerular filtration rate/1.73 sq M.predicted among blacks [Volume Rate/Area] in Serum, Plasma or Blood by Creatinine-based formula (MDRD) EGFR 97 mL/min/1 .73m2 >OR = 60 N Glomerular filtration rate/1.73 sq M.predicted [Volume Rate/Area] in Serum, Plasma or Blood by Creatinine-based formula (MDRD) CREATININE 0.81 mg/dL 0.50-1.10 N Creatini ne [Mass/volume] in Serum or Plasma BUN 7 mg/dL 7-25 N Urea nitrogen [Mass/volume] in Serum or Plasma GLUCOSE SER 73 mg/dL 65-139 N Glucose [Mass/volume] in Serum or Plasma Plan of Care Type Date Detail Referral [facility] Psyc [facility]iatry Psychiatry [facility], [address] [place] [address], [id number] Referral excluded fr om report: Pending order T1 CBC with diff Pending order T1 CMP Pending order T1 TSH reflex to free T4 Pending order CT Spine Cervica l w-out contrast Pending order CT Spine Thoraci c w-out contrast Pending order Urine Dip Manual 78957 Pending order T1 Urine Culture Pending order Injection(s) Ord ered Pending order Toradol per 15 m g Procedures Code Procedure Name Date Entry Date CPT-3074F Most recent systolic blood pressure <130 mm Hg CPT-3079F Most recent diastoli c blood pressure 80-89 mm Hg SCT-[id number] Medication Reconciliation [facility] 6399 T1 CBC with diff [facility] 54922 T1 CMP [facility] 77924 T1 TSH reflex to free T4 201 05/10/24 ct cervial w-out edg CT Spine Cervical w-out contrast ct thoracic w-out ed CT Spine Thoracic w-out contrast CPT-3075F Most recent systolic blood pressure 130-139 mm Hg CPT-3079F Most recent diastoli c blood pressure 80-89 mm Hg [id number] Giving encouragement to exercise SCT-[id number] Medication Reconciliation CPT-3074F Most recent systolic blood pressure <130 mm Hg CPT-3079F Most recent diastoli c blood pressure 80-89 mm Hg SCT-[id number] SNOMED-CT: [id number] Smoking Cessation Counseling SCT-[id number] Medication Reconciliation SCT-[id number] SNOMED-CT: [id number] 386327 Current Medications Documented CPT-13921 Urine Dip Manual 77002 01/12 IMM-ORDER Injection(s) Ordered CPT-J1885 Toradol per 15 mg [facility] 395 T1 Urine Culture PSYCH [facility] 01/01 CPT-3075F Most recent systolic blood pressure 130-139 mm Hg [facility]-[id number] Medication Reconciliation Vital Signs Date Name Value Unit Description BMI (Body Mass Index) 25.05 kg/m2 Bod y Mass Index (Ratio) Body Temperature 99.4 [degF] temperat ure E&M Body Temperature 37.44 Yanna temperat ure in centigrade E&M BP Diastolic 88 mm[Hg] blood pressu re, diastolic BP Systolic 124 mm[Hg] blood pressur e, systolic BSA (Body Surface Area) 1.77 b ti surface area Heart Rate 105 /min pulse rate Height 65 [in_us] height E&M Height 165.1 cm height in cent imeters E&M Weight Measured 68.18 kg weight in kilograms E&M Weight Measured 150 [lb_av] weight E& M Weight Measured 150 [lb_av] weight E& M Immunizations Vaccine Administration Date Standard Description CVX Co de Dose Preload Unspecified Influenza Vaccine Preload Unspecified Influenza Vaccine 88 Unknown Not given: Patient d ecision Advance Directives No information available.
--- OUTSIDE RECORDS SUMMARY | 2025-08-10 18:58 | XMS_ITS | Clinical Summary ---
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 ADMIT Routine 07/23/2025 8:26 PM EDT XR RADIUS ULNA RIGHT AP AND LATERAL ROMMEL 07/20/2025 6:40 PM EDT [facility] CYTOLOGY REPORT Routine 08/22/2010 12:16 AM EST from Last 3 Months or Most Recently Relevant to Health Maintenance Results * (ABNORMAL) DRUGS OF ABUSE WITH REFLEX TO CONFIRMATION, URINE (08/08/2025 1:32 PM EST) Only the most recent of2 resultswithin the time period is included. [facility] 6 AM (Heroin) Absent Cutoff 10 ng/mL 08/08/2025 2:20 PM EST [facility] Amphetamines Absent Cutoff 500 ng/mL 08/08/2025 2:20 PM [facility] Barbiturates Absent Cutoff 200 ng/mL 08/08/2025 2:20 PM EST [facility] Benzodiazepines Absent Cutoff 200 ng/mL 08/08/2025 2:20 PM EST [facility] Buprenorphine Absent Cutoff 5 ng/mL 08/08/2025 2:20 PM EST [facility] Cannabinoid Metabolite Presumptive Pos(A) Cutoff 50 ng/mL 08/08/2025 2:20 PM EST [facility] Cocaine Metabolite Absent Cutoff 150 ng/mL 08/08/2025 2:20 PM [facility] Fentanyl Absent Cutoff 5 ng/mL 08/08/2025 2:20 PM [facility] Methadone and Metabolite Absent Cutoff 300 ng/mL 08/08/2025 2:20 PM [facility] Opiate Absent Cutoff 300 ng/mL 08/08/2025 2:20 PM [facility] Oxycodone Lvl Absent Cutoff 100 ng/mL 08/08/2025 2:20 PM [facility] Urine Creatinine 111.0 mg/dL 08/08/20 25 2:20 PM [facility] Comment: Greater than 20: Consistent with valid sample Greater than 2 but less than 20: Possible dilution Less than 2: Questionable valid sample Urine STRUCTURE OF URINARY TRACT PROPER / Unknown 08/08/2025 1:32 PM EST 08/08/2025 1:40 PM EST [facility] - 08/08/2025 2:20 PM EST These [...] vaginal pool/amniotic fluid could cause erroneous results. Dhanunjay S Boyalakuntla DO URINE ORDERABLES Fin al Result Performing Organization Address City/[facility]/ZIP Co de Phone Number [facility] [address] [place] [id number] * (ABNORMAL) DRUG CONFIRMATION, CANNABINOIDS - URINE (08/08/2025 1:32 PM EST) Only the most recent of2 resultswithin the time period is included. THC 97(H) Cutoff 10 ng/mL ng/mL 08/10/2025 10:29 AM EST [facility] THC Glucuronide >200(H) Cutoff 10 ng/mL ng/mL 08/10/2025 10:29 AM EST [facility] Urine STRUCTURE OF URINARY TRACT PROPER / Unknown 08/08/2025 1:32 PM EST 08/08/2025 1:40 PM EST Hunter Alvarengacarsonkjosephinejustino DO URINE ORDERABLES Fin al Result Performing Organization Address [facility]/ZIP Co de Phone Number [facility], [facility] [address] [facility] [address] , [place] [address] * (ABNORMAL) CBC WITH DIFF (08/08/2025 3:09 AM EST) Only the most recent of4 resultswithin the time period is included. WBC 10.5(H) 3.7 - 10.3 x10(3)/mcL 08/08/2025 5:48 AM EST [facility] RBC 3.29(L) 3.90 - 5.20 x10(6)/mcL 08/08/2025 5:48 AM EST [facility] Hgb 10.4(L) 11.2 - 15.7 g/dL 08/08/2025 5:48 AM EST [facility] Hct 31.8(L) 34.0 - 45.0 % 08/08/2025 5:48 AM EST [facility] MCV 96.7 80.0 - 100.0 fL 08/08/2025 5:48 AM EST [facility] MCH 31.6 26.0 - 34.0 pg 08/08/2025 5:48 AM EST [facility], [facility] MCHC 32.7 30.7 - 35.5 g/dL 08/08/2025 5:48 AM EST [facility] RDW 13.7 <=14.9 % 08/08/2025 5:48 AM EST [facility] Platelet 315 155 - 369 x10(3)/mcL 08/08/2025 5:48 AM EST [facility] MPV 9.3 8.8 - 12.5 fL 08/08/2025 5:48 AM EST [facility] Neut Percent 75.9 % 08/08/2025 5:48 AM EST [facility] Comment:Neutrophils equals s egs plus bands Imm Gran% 0.4 % 08/08/2025 5:48 AM EST [facility] Comment:Automated count of m etamyelocytes, myelocytes and promyelocytes. Lymph Percent 13.5 % 08/08/2025 5:48 AM EST [facility] [place] Percent 8.0 % 08/08/2025 5:48 AM EST [facility] Eos Percent 1.6 % 08/08/2025 5:48 AM EST [facility] Baso Percent 0.6 % 08/08/2025 5:48 AM EST [facility] Neut # 8.0(H) 1.6 - 6.1 x10(3)/[facility] 08/08/2025 5:48 AM EST [facility] Comment:Neutrophils equals s egs plus bands IMMGRAN# 0.0 0.0 - 0.1 x10(3)/[facility] 08/08/2025 5:48 AM EST [facility] Comment:Automated count of m etamyelocytes, myelocytes and promyelocytes. An absolute IG <0.1 is reported as 0.0. Lymph # 1.4 1.2 - 3.9 x10(3)/mcL 08/08/2025 5:48 AM EST [facility] [place] # 0.8 0.3 - 0.9 x10(3)/mcL 08/08/2025 5:48 AM EST [facility] Eos# 0.2 0.0 - 0.5 x10(3)/[facility] 08/08/2025 5:48 AM EST [facility] Baso # 0.1 0.0 - 0.1 x10(3)/mcL 08/08/2025 5:48 AM EST [facility] Blood VENOUS BLOOD / Unknown Venipuncture / Unknown 08/08/2025 3:09 AM EST 08/08/2025 4:05 AM EST [facility] Jasper Beck MD HEMATOLOGY ORDERABLE S Final Result Performing Organization Address [facility] de Phone Number [address] , [place] [address] * MAGNESIUM LEVEL (08/08/2025 3:09 AM EST) Only the most recent of4 resultswithin the time period is included. Pathologist [facility] Magnesium 2.3 1.6 - 2.4 mg/dL 08/08/2025 6:32 AM EST [facility] Blood VENOUS BLOOD / Unknown Venipuncture / Unknown 08/08/2025 3:09 AM EST 08/08/2025 4:05 AM EST [facility] Jasper Beck MD CHEMISTRY ORDERABLES Final Result Performing Organization Address [facility] de Phone Number [address] , [place] [address] * (ABNORMAL) COMPREHENSIVE METABOLIC PANEL (08/08/2025 3:09 AM EST) Only the most recent of7 resultswithin the time period is included. Sodium 131(L) 136 - 145 mmol/L 08/08/2025 6:32 AM EST [facility] Potassium 4.1 3.5 - 5.0 mmol/L 08/08/2025 6:32 AM EST [facility] Chloride 97(L) 98 - 107 mmol/L 08/08/2025 6:32 AM EST [facility] Total CO2 21(L) 22 - 29 mmol/L 08/08/2025 6:32 AM EST [facility] Anion Gap 13 7 - 16 mmol/L 08/08/2025 6:32 AM EST [facility] Calcium 8.2(L) 8.6 - 10.4 mg/dL 08/08/2025 6:32 AM EST [facility] Glucose Lvl 98 70 - 99 mg/dL 08/08/2025 6:32 AM EST [facility] BUN 24(H) 6 - 20 mg/dL 08/08/2025 6:32 AM EST [facility] Creatinine 1.12 0.51 - 1.30 mg/dL 08/08/2025 6:32 AM EST [facility] Albumin 3.5 3.5 - 5.2 gm/dL 08/08/2025 6:32 AM EST [facility] Total Protein 6.4 6.4 - 8.3 gm/dL 08/08/2025 6:32 AM EST [facility] Bili Total 0.4 0.2 - 1.3 mg/dL 08/08/2025 6:32 AM EST [facility] ALT 12 <=41 U/L 08/08/2025 6:32 AM EST [facility] AST 16 <=40 U/L 08/08/2025 6:32 AM EST [facility] Alk Phos 74 36 - 123 U/L 08/08/2025 6:32 AM EST [facility] eGFR (CKD-EPIcr 2020) 64 >=60 mL/min/1.7 3 m2 08/08/2025 6:32 AM EST [facility], [facility] Comment:Estimated GFR was ca lculated using the CKD-EPIcr (2020) equation refit without race. The equation is recommended by the National Kidney Foundation - [place] [employer] of Nephrology Task Force. Blood VENOUS BLOOD / Unknown Venipuncture / Unknown 08/08/2025 3:09 AM EST 08/08/2025 4:05 AM EST Shilpa Beck MD CHEMISTRY ORDERABLES Final Result [facility] [address] [facility] [address] , [place] [address] * HIV AG/AB (08/05/2025 3:12 AM EDT) [facility] HIV Ag/AB Non-Reacti ve Non-Reacti ve 08/05/2025 9:04 AM EDT [facility] Comment:Negative for HIV-1 a ntigen and anti-HIV-1/anti-HIV-2 antibodies. Blood VENOUS BLOOD / Unknown Venipuncture / Unknown 08/05/2025 3:12 AM EDT 08/05/2025 3:36 AM EDT Narrative [facility] - 08/05/2025 9:04 AM EDT Test performed using Maximus Elecsys electrochemiluminescence immunassay (ECLIA). us Arianna Granados MEATCUTTER IMMUNOLOGY ORDERABLES Final Result [facility] [address] [facility] [address] , [place] [address] * HCV RNA QUANT PCR (08/05/2025 3:12 AM EDT) [facility] HCV Quant (IU/mL) Not Detected IU/mL 08/08/2025 9:45 AM EST [facility] HCV Quant (log IU/mL) Not Detected log IU/mL 08/08/2025 9:45 AM EST [facility] HCV Quant Interp Not Detected Not Detected 08/08/2025 9:45 AM EST [facility] Comment:A result of Not Det ected does not rule out the presence of inhibitors in the patient specimen or hepatitis C virus RNA concentrations below the level of detection of the test. Care should be taken when interpreting any single viral load determination. Blood VENOUS BLOOD / Unknown Venipuncture / Unknown 08/05/2025 3:12 AM EDT 08/05/2025 3:36 AM EDT [facility], [facility] - 08/08/2025 9:45 AM EST The quantification range of this assay is 15 to 100,000,000 IU/mL (1.18 log to 8.00 log IU/mL). Testing was performed using the anjelica HCV test ([employer] with the anjelica [id number] System. us Arianna Granados APRN IMMUNOLOGY ORDERABLES Final Result Performing Organization Address [facility] Co de Phone Number [facility] , [place] [phone] * (ABNORMAL) ACUTE HEPATITIS PANEL (08/05/2025 3:12 AM EDT) Hep Bs Ag Non-Reacti ve Non-React maricarmen 08/05/2025 6:27 AM EDT [facility] Comment:HBsAg not detected. Does not exclude possibility of exposure to HBV. Hep B Core IgM Non-Reacti ve Non-React maricarmen 08/05/2025 6:27 AM EDT [facility] Hep A IgM Non-Reacti ve Non-React maricarmen 08/05/2025 6:27 AM EDT [facility], [facility] Hep C Ab Reactive(A ) Non-React maricarmen 08/05/2025 6:27 AM EDT [facility] Comment: Antibodies to HCV detected. HCV RNA QUANT will be performed. Blood VENOUS BLOOD / Unknown Venipuncture / Unknown 08/05/2025 3:12 AM EDT 08/05/2025 3:36 AM EDT Narrative [facility] 08/05/2025 6:27 AM EDT Test performed using Maximus Elecsys electrochemiluminescence immunassay (ECLIA). Arianna Granados APRN CHEMISTRY ORDERABLES Final Result Performing Organization Address [facility] de Phone Number [facility] , [place] [address] * (ABNORMAL) BASIC METABOLIC PANEL (08/03/2025 7:24 PM EDT) Only the most recent of7 resultswithin the time period is included. Sodium 137 136 - 145 mmol/L 08/03/2025 8:16 PM EDT [facility] Potassium 3.7 3.5 - 5.0 mmol/L 08/03/2025 8:16 PM EDT [facility] Chloride 103 98 - 107 mmol/L 08/03/2025 8:16 PM EDT [facility] Total CO2 20(L) 22 - 29 mmol/L 08/03/2025 8:16 PM EDT [facility] Anion Gap 14 7 - 16 mmol/L 08/03/2025 8:16 PM EDT [facility] Calcium 8.6 8.6 - 10.4 mg/dL 08/03/2025 8:16 PM EDT [facility] Glucose Lvl 123(H) 70 - 99 mg/dL 08/03/2025 8:16 PM EDT [facility] BUN 13 6 - 20 mg/dL 08/03/2025 8:16 PM EDT [facility] Creatinine 0.81 0.51 - 1.30 mg/dL 08/03/2025 8:16 PM EDT [facility] eGFR (CKD-EPIcr 2020) 94 >=60 mL/min/1.7 3 m2 08/03/2025 8:16 PM EDT [facility] Comment:Estimated GFR was ca lculated using the CKD-EPIcr (2020) equation refit without race. The equation is recommended by the National Kidney Foundation - [place] Society of Nephrology Task Force. Blood VENOUS BLOOD / Unknown Venipuncture / Unknown 08/03/2025 7:24 PM EDT 08/03/2025 7:59 PM EDT Shilpa Beck MD CHEMISTRY ORDERABLES Final Result [facility] [address] [place] [address] * SEDIMENTATION RATE AUTOMATED (08/03/2025 4:55 AM EDT) Only the most recent of2 resultswithin the time period is included. Sed Rate 18 0 - 20 mm/hr 08/03/2025 5:36 AM EDT [facility] Blood VENOUS BLOOD / Unknown Venipuncture / Unknown 08/03/2025 4:55 AM EDT 08/03/2025 5:20 AM EDT Peyton Jayne Estebanaleta MEATCUTTER HEMATOLOGY ORDERABLE S Final Result Performing Organization Address City/[facility]/ZIP Co de Phone Number [facility] [address] [place] [phone] * C-REACTIVE PROTEIN (08/03/2025 4:55 AM EDT) Only the most recent of2 resultswithin the time period is included. Pathologist [facility] CRP <3.00 <=5.00 mg/L 08/03/2025 8:06 AM EDT [facility] Blood VENOUS BLOOD / Unknown Venipuncture / Unknown 08/03/2025 4:55 AM EDT 08/03/2025 5:20 AM EDT Peyton Jayne Estebanaleta MEATCUTTER CHEMISTRY ORDERABLES Final Result Performing Organization Address [facility] Co de Phone Number [facility] [address] [place] [address] , [address] [place] [phone] * (ABNORMAL) CBC (08/02/2025 5:01 AM EDT) Only the most recent of6 resultswithin the time period is included. Pathologist [facility] WBC 11.6(H) 3.7 - 10.3 x10(3)/mcL 08/02/2025 5:35 AM EDT [facility] RBC 4.11 3.90 - 5.20 x10(6)/mcL 08/02/2025 5:35 AM EDT [facility] Hgb 13.4 11.2 - 15.7 g/dL 08/02/2025 5:35 AM EDT [facility] Hct 38.7 34.0 - 45.0 % 08/02/2025 5:35 AM EDT [facility] MCV 94.2 80.0 - 100.0 fL 08/02/2025 5:35 AM EDT [facility] MCH 32.6 26.0 - 34.0 pg 08/02/2025 5:35 AM EDT [facility] MCHC 34.6 30.7 - 35.5 g/dL 08/02/2025 5:35 AM EDT [facility] RDW 14.5 <=14.9 % 08/02/2025 5:35 AM EDT [facility] Platelet 479(H) 155 - 369 x10(3)/mcL 08/02/2025 5:35 AM EDT [facility] MPV 9.4 8.8 - 12.5 fL 08/02/2025 5:35 AM EDT [facility] Blood VENOUS BLOOD / Unknown Venipuncture / Unknown 08/02/2025 5:01 AM EDT 08/02/2025 5:32 AM EDT Vida Devine APRN HEMATOLOGY ORDERABLES Fi nal Result [facility] [address] [place], [place] [phone] * EC ECHOCARDIOGRAM COMPLETE W DOPPLER AND [...] artery systolic pressure. us Vida Devine APRN IMG ECHO ORDERABLES Barbara l Result * FECAL WHITE BLOOD CELLS (07/30/2025 3:14 PM EDT) Pathologist [facility] Fecal WBCs Negative Negative 07/30/2025 11:26 PM EDT [facility] [employer] Stool COLON STRUCTURE / Unknown 07/30/2025 3:14 PM EDT 07/30/2025 3:20 PM EDT Narrative [facility] [employer] - 07/30/2025 11:26 PM EDT NEGATIVE for elevated levels of lactoferrin from white blood cells. us Vida Devine APRN MICROBIOLOGY - GENERAL O RDERABLES Final Result [facility] [address] [facility] [address] , [place] [address] * (ABNORMAL) URINALYSIS REFLEX (07/30/2025 2:56 PM EDT) Only the most recent of2 resultswithin the time period is included. Pathologist [facility] UA Color Yellow 07/30/2025 3:14 PM EDT [facility] UA Appear Clear Clear 07/30/2025 3:14 PM EDT [facility] UA Glucose 500(A) Negative mg/dL 07/30/2025 3:14 PM EDT [facility] UA Ketones Negative Negative mg/dL 07/30/2025 3:14 PM EDT [facility] UA Blood Negative Negative 07/30/2025 3:14 PM EDT [facility] UA pH 6.5 5.0 - 8.0 pH 07/30/2025 3:14 PM EDT [facility] UA Protein Negative Negative mg/dL 07/30/2025 3:14 PM EDT [facility] UA Urobilinogen 0.2 <=1 mg/dL 3:14 PM EDT [facility] UA Bili Negative Negative 07/30/2025 3:14 PM EDT [facility] UA Nitrite Negative Negative 07/30/2025 3:14 PM EDT [facility] UA Leuk Est Negative Negative 07/30/2025 3:14 PM EDT [facility] UA Spec Grav 1.015 1.001 - 1.035 no units 07/30/2025 3:14 PM EDT [facility] Comment:Reference range taylor d for random specimens only. UA WBC <1 0 - 4 /HPF 07/30/2025 3:14 PM EDT [facility] UA RBC <1 0 - 3 /HPF 07/30/2025 3:14 PM EDT [facility] UA Squam Epi Few /LPF 07/30/2025 3:14 PM EDT [facility] Urine STRUCTURE OF URINARY TRACT PROPER / Unknown 07/30/2025 2:56 PM EDT 07/30/2025 2:59 PM EDT Vida Kruger I, MEATCUTTER URINE ORDERABLES Final R esult Performing Organization Address [facility] Co de Phone Number [facility] [address] [place] [address] * EXTRA WILEY URINE CX (07/30/2025 2:56 PM EDT) Only the most recent of2 resultswithin the time period is included. Urine STRUCTURE OF URINARY TRACT PROPER / Unknown 07/30/2025 2:56 PM EDT 07/30/2025 2:59 PM EDT Vida Kruger I, MEATCUTTER MICROBIOLOGY - GENERAL O RDERABLES Final Result Performing Organization Address [facility] de Phone Number [facility] [address] [place] [address] * (ABNORMAL) NT PROBNP (07/30/2025 11:31 AM EDT) NT Pro-BNP 18,119(H) <=192 pg/mL 07/30/2025 11:56 AM EDT [facility] Blood VENOUS STRUCTURE / Unknown Arterial / Unknown 07/30/2025 11:31 AM EDT 07/30/2025 11:37 AM EDT Narrative [facility] - 07/30/2025 11:56 AM EDT An NT pro-BNP level less than 300 pg/mL in any patient, regardless of age, effectively rules out acute CHF with a 99% negative predictive value. Ingestion of alise doses of biotin (>5 mg/day) taken within 8 hours of drawing blood sample can interfere with this immunoassay test. 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1985 Requested By: FAHAD LAKE Order Number: [id number] Reading MD: Jacqueline Payton DO Measurements Intervals [place] Rate: 105 P: 51 OK: 172 QRS: 25 QRSD: 158 T: 42 QT: 409 QTc: 541 Interpretive Statements SINUS TACHYCARDIA LEFT ATRIAL ENLARGEMENT LEFT BUNDLE BRANCH BLOCK Electronically Signed On 07-30-2025 09:41:26 EDT by Jacqueline Payton DO us [place] APRN IMG ECG ORDERABLES Final Resu lt * BEDSIDE PICC INSERTION (PICC TEAM RN) (07/29/2025 2:10 PM EDT) Narrative [facility] - 07/29/2025 2:10 PM EDT Rodolfo [...] MD PROCEDURE/MINOR SURG ICAL ORDERABLES Final Result [facility] [address] [place] [address] * VANCOMYCIN LEVEL TROUGH (07/29/2025 11:19 AM EDT) Vanco Tr 12.6 10.0 - <20.0 mcg/mL 07/29/2025 12:03 PM EDT [facility] Blood VENOUS BLOOD / Unknown Venipuncture / Unknown 07/29/2025 11:19 AM EDT 07/29/2025 11:41 AM EDT Narrative [facility] - 07/29/2025 12:03 PM EDT Minimum serum concentration for infection control is 10 mcg/mL; a target therapeutic range of 15-20 mcg/mL is recommended for significant infections such as S. aureus. Toxicity does not correlate well with serum concentrations. Supratherapeutic levels are considered to be > 20 mcg/mL. us Edmond Cannon MD CHEMISTRY ORDERABLES Final R esult Performing Organization Address [facility] Co de Phone Number [facility] [address] [place] [address] * (ABNORMAL) HEMOGLOBIN AND HEMATOCRIT (07/27/2025 6:31 AM EDT) Pathologist [facility] [place] Hgb 9.3(L) 11.2 - 15.7 g/dL 07/27/2025 6:37 AM EDT [facility] Hct 28.2(L) 34.0 - 45.0 % 07/27/2025 6:37 AM EDT [facility] Blood VENOUS BLOOD / Unknown Venipuncture / Unknown 07/27/2025 6:31 AM EDT 07/27/2025 6:34 AM EDT us Edmond Cannon MD HEMATOLOGY ORDERABLES Final Result Performing Organization Address [facility] de Phone Number [facility] [address] [place] [address] * (ABNORMAL) GLUCOSE METER POC (07/26/2025 9:14 PM EDT) [facility] Glucose Meter POC 106(H) 70 - 100 mg/dL 07/26/2025 9:15 PM EDT [facility] Sample Type Capillary 07/26/2025 9:15 PM EDT [facility] Patient Status Non-Critical Patient 07/26/2025 9:15 PM EDT [facility] Blood BLOOD SPECIMEN / Unknown 07/26/2025 9:14 PM EDT 07/26/2025 9:15 PM EDT us Freddie Cruz MD POINT OF CARE TEST ORDERABLES F inal Result Performing Organization Address [facility] Co de Phone Number [facility] [address] [place] [address] * VANCOMYCIN LEVEL AUC2 (07/26/2025 8:46 PM EDT) [facility] Vancomycin AUC2 15.1 mcg/mL 10/21/202 5 9:09 PM EDT [facility] Blood VENOUS BLOOD / Unknown Venipuncture / Unknown 07/26/2025 8:46 PM EDT 07/26/2025 8:51 PM EDT Edmond Cannon MD CHEMISTRY ORDERABLES Final R esult Performing Organization Address [facility] Co de Phone Number [facility] [address] [place] [address] * VANCOMYCIN LEVEL AUC1 (07/26/2025 3:51 PM EDT) Pathologist [facility] [place] Vancomycin AUC1 22.9 mcg/mL 4:17 PM EDT [facility] Blood VENOUS BLOOD / Unknown Venipuncture / Unknown 07/26/2025 3:51 PM EDT 07/26/2025 3:55 PM EDT Edmond Cannon MD CHEMISTRY ORDERABLES Final R esult Performing Organization Address City/[facility] Co de Phone Number [facility] [address] [place] [address] * ECG AND WAVEFORMS - TELEMETRY (07/25/2025 6:30 PM EDT) Pathologist [facility] [place] ECG INTERPRET NSR [facility] Comment:BBB 07/25/2025 6:30 PM EDT Narrative [facility] - 07/25/2025 6:38 PM EDT [place] 0.14 QRS 0.13 See Clinical Report link for waveform capture Unknown Provider POINT OF CARE CARDIOLOGY Final Result Performing Organization Address City/[facility] Co de Phone Number [facility] [address] [place] [address] * PATHOLOGY TISSUE REQUEST (07/25/2025 5:37 PM EDT) CASE REPORT Surgical Pathology Case: [id number] Authorizing Provider: Andre Sen, Collected: 07/25/2025 1737 Ordering Location: [facility] Received: 07/25/2025 1833 Pathologist: Leticia Nye MD Specimen: Arm, Right, right distal radius bone for pathology 07/28/2025 3:16 PM EDT [facility] FINAL DIAGNOSIS Bone, right distal radius, excision: - Viable cortical bone with focal acute inflammation. 07/28/2025 3:16 PM EDT [facility] at 1516 EDT GROSS DESCRIPTION A. Received in formalin in a container labeled with the patient's name, hospital number, and right distal radius bone for pathology , is a 1.7 x 0.5 x 0.2 cm luna-white, irregular, jagged bone fragment. The specimen entirely submitted following decalcification in A1. MARIN Delgado PA (ASCP) 07/26/2025 07/28/2025 3:16 PM EDT [facility] MICROSCOPIC DESCRIPTION The microscopic examination may have been rendered in whole, or in part, by analyzing high-resolution digital images (whole slide images) on the [employer] Digital Pathology platform validated at [facility]. 07/28/2025 3:16 PM EDT [facility] EMBEDDED IMAGES 07/28/2025 3:16 PM EDT [facility] Tissue STRUCTURE OF PART OF RIGHT UPPER LIMB / Unknown 07/25/2025 5:37 PM EDT 07/25/2025 6:33 PM EDT Andre Sen MD PATHOLOGY ORDERABLES F inal Result [facility] [address] [place] [address] [address] * (ABNORMAL) WOUND CULTURE (STAIN INCLUDED) (07/25/2025 5:29 PM EDT) Culture Positive Growth(A) 07/31/2025 9:59 AM EDT [facility], [facility] Culture Very sparse growth of Streptococcus gallolyticus [...] MD MICROBIOLOGY - GENERAL ORDERABLES Final Result Performing Organization Address [facility] Co de Phone Number [facility] [place], [address] , [place] [address] * (ABNORMAL) ANAEROBIC CULTURE (NO STAIN) (07/25/2025 5:29 PM EDT) Culture Positive Growth(A) 07/31/2025 10:20 AM EDT [facility], [facility] Culture Sparse growth of Anaerobic gram negative marlena, suspect Prevotella species. SUSCEPTIBI LITY RESULT 07/31/2025 10:20 AM EDT [facility], [facility] Comment:No further workup. Beta Lactamase Positive 07/31/2025 10:20 AM EDT [facility], [facility] Culture Sparse growth of Anaerobic Gram Positive Rods SUSCEPTIBI LITY RESULT 07/31/2025 10:20 AM EDT [place], [facility] Comment: Unable to identify by Maldi-tof. No further workup. Swab STRUCTURE OF RIGHT HAND / Unknown 07/25/2025 5:29 PM EDT 07/25/2025 6:35 PM EDT Andre Sen MD MICROBIOLOGY - GENERAL ORDERABLES Final Result Performing Organization Address [facility]/ZIP Co de Phone Number [place], [address] , [place] [address] * INTRAOP AIRWAY PLACEMENT (07/25/2025 5:14 PM EDT) Narrative [facility] - 07/25/2025 5:14 PM EDT Marlys Bui, DEMAND GENERATOR MANAGER 07/25/2025 5:17 PM Intraop Airway Placement: Date/Time: [...] Unchanged and Atraumatic Insertion attempts: 1 Title: DEMAND GENERATOR MANAGER us Gricelda Garvin MD [place] ANESTHESIA Final Res ult [facility] [address] [place] [address] * CT UPPER EXTREMITY RIGHT WO CONTRAST [...] A) Not Detected 07/24/2025 2:38 PM EDT [facility], [facility] MRSA PCR Detected( A) Not Detected 07/24/2025 2:38 PM EDT [facility], [facility] Swab BOTH ANTERIOR NARES / Unknown 07/24/2025 10:58 AM EDT 07/24/2025 11:02 AM EDT Narrative [facility] - 07/24/2025 2:38 PM EDT MRSA [...] assay utilizes real time PCR on the [employer] GeneXpert Infinity, and its performance has been verified by the [facility]. A negative result does not [...] has been developed and validated by the [facility] laboratory. Detailed methodology is available upon request. S Juju DO MICROBIOLOGY - GENERAL ORDERA BLES Final Result Performing Organization Address City/[facility]/ZIP Co de Phone Number [facility] [address] [place] [address] , [place] [address] * BLOOD CULTURE (NO STAIN) (07/24/2025 2:52 AM EDT) Only the most recent of2 resultswithin the time period is included. Culture Result No Growth at 120 hours. BLOOD CULTURE (NO STAIN) 07/29/2025 6:00 AM EDT [facility] Blood VENOUS BLOOD / Unknown Venipuncture / Unknown 07/24/2025 2:52 AM EDT 07/24/2025 2:54 AM EDT [place] [employer]TER MICROBIOLOGY - GENERAL ORDERA BLES Final Result Performing Organization Address City/[facility] Co de Phone Number [facility] [address] [place] [address] , [place] [address] * PROCALCITONIN (07/23/2025 9:02 PM EDT) Procalcitonin 0.05 <=0.49 ng/mL 07/24/2025 9:41 AM EDT [facility] Blood VENOUS BLOOD / Unknown Venipuncture / Unknown 07/23/2025 9:02 PM EDT 07/23/2025 9:14 PM EDT Narrative [facility] - 07/24/2025 9:41 AM EDT Procalcitonin <0.50 [...] progression to severe sepsis and/or septic shock. Suzanne [employer] BURGESSN CHEMISTRY ORDERABLES Final Result Performing Organization Address City/[facility]/ZIP Co de Phone Number [facility] [address] [place] [address], [place] [address] * HUMAN CHORIONIC GONADOTROPIN QUANTITATIVE (07/23/2025 9:02 PM EDT) [facility] Hcg Quant <1 <5 mIU/mL 07/23/2025 9:34 PM EDT [facility] Blood VENOUS BLOOD / Unknown Venipuncture / Unknown 07/23/2025 9:02 PM EDT 07/23/2025 9:14 PM EDT Narrative [facility] - 07/23/2025 9:34 PM EDT [...] can interfere with this immunoassay test. Suzanne [employer] MEATCUTTER CHEMISTRY ORDERABLES Final Result Performing Organization Address City/[facility]/ZIP Co de Phone Number [facility] [address] [place] [address] * LACTIC ACID (07/23/2025 9:02 PM EDT) Lactic Acid 1.0 0.5 - 1.9 mmol/L 07/23/2025 9:31 PM EDT [facility] Blood VENOUS BLOOD / Unknown Venipuncture / Unknown 07/23/2025 9:02 PM EDT 07/23/2025 9:14 PM EDT Suzanne Donovan MEATCUTTER CHEMISTRY ORDERABLES Final Result [facility] [address] [place] [address] * XR RADIUS ULNA RIGHT AP AND LATERAL (07/23/2025 8:46 PM EDT) Only the most recent of2 resultswithin the time period is included. Anatomical Region Laterality Modality Forearm Radiographic Rosio [...] IMG DIAGNOSTIC IMAGING ORD ERABLES Final Result * [facility] CYTOLOGY REPORT (08/22/2010 12:16 AM EST) [facility] Cytology Report PATIENT NAME:NITA MCDANIELS [facility] Cytology Report Accession Number Collected Date/Time Received Date/Time [id number] 08/22/10 00:16 EST 08/23/10 00:16 EST GY Specimen Source Specimen Vag/Cerv/Endocx?: Vaginal/Cervical/ Endocervical Statement of Adequacy Satisfactory for Evaluation. Transformation Zone Present. Diagnosis EPITHELIAL CELL ABNORMALITIES (ASC-US) Atypical Squamous Cells of Undetermined Significance. Comment Trichonomas Vaginalis organisms present. HPV DNA Reflex testing for high-risk subtypes will be performed in our laboratory. Results will be reported separately. The Pap Smear is a screening test that aids in the detection of cervical cancer and cancer precursors. Both false positive and false negative results can occur. The test should be used at regular intervals, and positive results should be confirmed before definitive therapy. Processed using the ThinPrep Steward/Stewardess Third Class automated cytology screening device ([employer]). Propellant Assembler : DO ODESSA 08/28/2010 Completed by: OLAYINKA FELDMAN MD (Electronically signed by) 08/29/[address] 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 07/24/2025 Insurance [facility] Advance Directives For more information, please contact: [phone] * Full Code (Latest Code Status on File) Date Activated Date Inactivated Comments 07/24/2025 2:35 AM 08/03/2025 6:47 PM * Full Code Date Activated Date Inactivated Comments 07/23/2025 8:25 PM 07/24/2025 2:14 AM Care Teams Home School Coordinator Relationship Specialty Start Date End Date Nonstaff, Referring PCP - General 07/20/25
--- OUTSIDE RECORDS SUMMARY | 2025-08-10 18:58 | XMS_ITS | Clinical Summary ---
Author Organization [facility] Address [address] [place] [address] Care Team Providers Care Grain Roaster Name Role Phone Yvonne Cordoba DO Primary Care Provider [phone] Allergies No known active allergies Medications Dapagliflozin Propanediol (FARXIGA) 5 MG tablet Take 2 tablets (10 mg total) by mouth in the morning. Active furosemide (LASIX) 40 MG tablet Take 1 tablet (40 mg total) by mouth in the morning. Active losartan (COZAAR) 50 MG tablet Take 1 tablet (50 mg total) by mouth in the morning. Active naproxen (NAPROSYN) 500 MG tablet Take 1 tablet (500 mg total) by mouth 2 (two) times a day as needed for mild pain. Active potassium chloride (K-DUR) 10 MEQ CR tablet Take 1 tablet (10 mEq total) by mouth in the morning. Active spironolactone (ALDACTONE) 25 MG tablet Take 1 tablet (25 mg total) by mouth in the morning. 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 [address] Rodrigo Trevino MD Discharge Disposition: Left Against Advice or Discontinued from Last 3 Months Immunizations Immunization Administration Dates Next Due Rabies 08/08/2025 Rabies, Intradermal 08/01/2025,07/28/2025,2024 Tdap 07/20/2025 Social History Tobacco Use Types Packs/Day Years [...] 08/04/2025 How often do you attend chur or confucianism services? Never 08/04/2025 Do you belong to any clubs o r organizations such as hinduism groups, unions, fraternal or athletic groups, or [...] care, and heating? Not very hard 08/04/2025 [facility] - Occupational Stress [...] money to buy more. Never true 08/04/20 25 Within the past 12 months, t he food you bought just didn't last and you didn't have money to get more. Never true 08/04/2025 Housing Stability Vital Sign Answer Abilio e Recorded Unable to Pay for Housing in the Last Year Not o n file 08/10/2025 Number of Times Moved in the Last Year Not on fi le 08/10/2025 [facility] the [facility] were you homeless or living in a long-term (including now)? No 08/10/2025 [facility] Utilities Answer Date Recorded In the [...] from medical appointments or from getting medications? Patient declines to respond 08/10/2025 Has lack of transportation k ept you from meetings, work, or from getting things needed for daily living? Patient declines to respond 08/10/2025 HRSN Depression PHQ-2 Answer Date Recor ded [...] Mass Index 20.87 08/03/2025 6:53 PM EDT Plan of Treatment Health Maintenance Due Date Last Done Comments HPV/PAP 1986 Annual Visit Topic 12/23/1987 MMR Vaccines (1 of 1 - Stand nelly series) 12/23/1987 Varicella Vaccines (1 of 2 - 13+ 2-dose series) 12/23/1999 Hepatitis B Vaccines (1 of 3 - 19+ 3-dose series) 2005 Pneumococcal Vaccine: Pediat rics (0 to 5 years) and At-Risk Patients (6 to 64 Years) (1 of 4 - PCV) 2005 Pap Smear 12/23/2007 HPV Vaccines (1 - 3-dose SCD M series) 2013 Cervical Cancer Screening 2016 HPV/Cotest 2016 HPV 2016 DTaP/Tdap/Td Vaccines (2 - T d or Tdap) 07/20/2035 07/20/2025 Hepatitis C Screening Completed 08/05/2025 HIB Vaccines Aged Out No longer eligi ble based on patient's age to complete this topic Hepatitis A Vaccines Aged Out No long er eligible based on patient's age to complete this topic IPV Vaccines Aged Out No longer eligi ble based on patient's age to complete this topic Meningococcal Vaccine Aged Out No chacorta connie eligible based on patient's age to complete this topic Procedures Procedure Name Priority Date/Time Associated Diagnosis Comments TOXICOLOGY SCREEN, URINE STAT 08/08/2025 1:32 PM EST CBC WITH AUTO DIFFERENTIAL Routine 08/08/2025 3:09 AM EST COMPREHENSIVE METABOLIC PANEL Routine 08/08/2025 3:09 AM EST MAGNESIUM Routine 08/08/2025 3:09 AM EST HEPATITIS C RNA QUANTITATION Routine 08/05/2025 3:12 AM EDT HIV 1/2 AG/AB Routine 08/05/2025 3:12 AM EDT HEPATITIS PANEL, ACUTE Routine 3:12 AM EDT COMPREHENSIVE METABOLIC PANEL Routine 08/04/2025 11:56 AM EDT MAGNESIUM Routine 08/04/2025 11:56 AM EDT CBC WITH AUTO DIFFERENTIAL Routine 08/04/2025 2:46 AM EDT BASIC METABOLIC PANEL Routine 08/03/2025 7:24 PM EDT from Last 3 Months Results * (ABNORMAL) TOXICOLOGY SCREEN, URINE (08/08/2025 1:32 PM EST) 6 AM, Urine Absent Cutoff 10 ng/mL 08/08/2025 1:32 PM EST [facility] Amphetamines Absent Cutoff 500 ng/mL 08/08/2025 1:32 PM EST [facility] Barbiturates Absent Cutoff 200 ng/mL 08/08/2025 1:32 PM EST [facility] Benzodiazepines Absent Cutoff 200 ng/mL 08/08/2025 1:32 PM EST [facility] Buprenorphine Absent Cutoff 5 ng/mL 08/08/2025 1:32 PM EST [facility] Cannabinoid Presumptive Pos(A) Cutoff 50 ng/mL 08/08/2025 1:32 PM EST [facility] Cocaine Metabolite Absent Cutoff 150 ng/mL 08/08/2025 1:32 PM EST [facility] Fentanyl, Ur Absent Cutoff 5 ng/mL 08/08/2025 1:32 PM EST [facility] Methadone Absent Cutoff 300 ng/mL 08/08/2025 1:32 PM EST [facility] Opiates Absent Cutoff 300 ng/mL 08/08/2025 1:32 PM EST [facility] Oxycodone Absent Cutoff 100 ng/mL 08/08/2025 1:32 PM EST [facility] Urine creatinine 111.0 mg/dL 08/08/20 25 1:32 PM EST [facility] Comment: Greater than 20: Consistent with valid sample Greater than 2 but less than 20: Possible dilution Less than 2: Questionable valid sample Urine (Voided/Clean Catch) 08/08/2025 1:32 PM EST 08/08/2025 1:40 PM EST Narrative [facility] - 08/08/2025 2:20 PM EST [...] vaginal pool/amniotic fluid could cause erroneous results. Hunter Martinez DO LAB URINE ORDERABLES Final Result [facility] [address] [place] [address] * (ABNORMAL) CBC AUTO DIFFERENTIAL (08/08/2025 3:09 AM EST) Only the most recent of2 resultswithin the time period is included. White Blood Cells 10.5(H) 3.7 - 10.3 x10(3)/mcL 08/08/2025 3:09 AM EST [facility] RBC 3.29(L) 3.90 - 5.20 x10(6)/mcL 08/08/2025 3:09 AM EST [facility] Hemoglobin 10.4(L) 11.2 - 15.7 g/dL 08/08/2025 3:09 AM EST [facility] Hematocrit 31.8(L) 34.0 - 45.0 % 08/08/2025 3:09 AM EST [facility] MCV 96.7 80.0 - 100.0 fL 08/08/2025 3:09 AM EST [facility] MCH 31.6 26.0 - 34.0 pg 08/08/2025 3:09 AM EST [facility] MCHC 32.7 30.7 - 35.5 g/dL 08/08/2025 3:09 AM EST [facility] Red Cell Distribution Width 13.7 <=14.9 % 08/08/2025 3:09 AM EST [facility] Platelets 315 155 - 369 x10(3)/mcL 08/08/2025 3:09 AM EST [facility] MPV 9.3 8.8 - 12.5 fL 08/08/2025 3:09 AM EST [facility] Neutrophils Relative 75.9 % 08/08/2025 3:09 AM EST [facility] Comment:Neutrophils equals s egs plus bands IMMATURE GRANULOCYTES/100 LEUKOCYTES IN BLOOD 0.4 % 08/08/2025 3:09 AM EST [facility] Comment:Automated count of m etamyelocytes, myelocytes and promyelocytes. Lymphocyte % 13.5 % 08/08/2025 3:09 AM EST [facility] Monocytes Relative 8.0 % 08/08/2025 3:09 AM EST [facility] Eosinophils Relative 1.6 % 08/08/2025 3:09 AM EST [facility] Basophils Relative 0.6 % 08/08/2025 3:09 AM EST [facility] Neutrophils Absolute 8.0(H) 1.6 - 6.1 x10(3)/mcL 08/08/2025 3:09 AM EST [facility] Comment:Neutrophils equals s egs plus bands Immature Granulocytes 0.0 0.0 - 0.1 x10(3)/mcL 08/08/2025 3:09 AM EST [facility] Comment:Automated count of m etamyelocytes, myelocytes and promyelocytes. An absolute IG <0.1 is reported as 0.0. Lymphocytes Absolute 1.4 1.2 - 3.9 x10(3)/mcL 08/08/2025 3:09 AM EST [facility] Monocytes Absolute 0.8 0.3 - 0.9 x10(3)/mcL 08/08/2025 3:09 AM EST [facility] Eosinophils Absolute 0.2 0.0 - 0.5 x10(3)/mcL 08/08/2025 3:09 AM EST [facility] Basophils Absolute 0.1 0.0 - 0.1 x10(3)/mcL 08/08/2025 3:09 AM EST [facility] Blood (Blood, Venous) 08/08/2025 3:09 AM EST 08/08/2025 5:36 AM EST Juve Beck MD LAB BLOOD ORDERABLES Final Result Performing Organization Address City/[facility]/ZIP Co de Phone Number [facility], [address] , [place] [address] * Magnesium (08/08/2025 3:09 AM EST) Only the most recent of2 resultswithin the time period is included. Magnesium 2.3 1.6 - 2.4 mg/dL 08/08/2025 3:09 AM EST [facility] Blood (Blood, Venous) 08/08/2025 3:09 AM EST 08/08/2025 5:37 AM EST Juve Beck MD LAB BLOOD ORDERABLES Final Result Performing Organization Address [facility] Co de Phone Number [facility], [facility] [address] [facility] , [place] [address] * (ABNORMAL) COMPREHENSIVE METABOLIC PANEL (08/08/2025 3:09 AM EST) Only the most recent of2 resultswithin the time period is included. Sodium 131(L) 136 - 145 mmol/L 08/08/2025 3:09 AM EST [facility] Potassium 4.1 3.5 - 5.0 mmol/L 08/08/2025 3:09 AM EST [facility] Chloride 97(L) 98 - 107 mmol/L 08/08/2025 3:09 AM EST [facility] CO2 21(L) 22 - 29 mmol/L 08/08/2025 [...] 08/08/2025 3:09 AM EST [facility] Total Protein 6.4 6.4 - 8.3 gm/dL 08/08/2025 3:09 AM EST [facility] Total Bilirubin 0.4 0.2 - 1.3 mg/dL 08/08/2025 3:09 AM EST [facility] ALT (SGPT) 12 <=41 U/L 08/08/2025 3:09 AM EST [facility] AST 16 <=40 U/L 08/08/2025 3:09 AM EST [facility] Alkaline phosphatase 74 36 - 123 U/L 08/08/2025 3:09 AM EST [facility] eGFR 64 >=60 mL/min/1.7 3 m2 08/08/2025 3:09 AM EST [facility] Comment:Estimated GFR was ca lculated using the CKD-EPIcr (2020) equation refit without race. The equation is recommended by the National Kidney Foundation - [employer] Nephrology Task Force. Blood (Blood, Venous) 08/08/2025 3:09 AM EST 08/08/2025 5:37 AM EST Juve Beck MD LAB BLOOD ORDERABLES Final Result [facility] [address] [facility] , [place] [address] * HIV 1/2 Ag/Ab (08/05/2025 3:12 AM EDT) [facility] HIV 12 AG/AB Non-Reacti ve Non-Reacti ve 08/05/2025 3:12 AM EDT [facility] Comment:Negative for HIV-1 a ntigen and anti-HIV-1/anti-HIV-2 antibodies. Blood (Blood, Venous) 08/05/2025 3:12 AM EDT 08/05/2025 5:37 AM EDT [employer] [facility] - 08/05/2025 9:04 AM EDT Test performed using [employer] Ele[employer]ys electrochemiluminescence immunassay (ECLIA). Arianna Granados APRN LAB BLOOD ORDERABLES Final Result Performing Organization Address [facility] Co de Phone Number [facility] [employer] [facility] [address] [facility] [place] [address] * HEPATITIS C RNA QUANTITATION (08/05/2025 3:12 AM EDT) [facility] HEPATITIS C RNA-PCR - QUANT Not Detected IU/mL 08/05/2025 3:12 AM EDT [facility] HCV RNA Log Not Detected log IU/mL 08/05/2025 3:12 AM EDT [employer] [facility] HCV Quantitative Interpretation Not Detected Not Detected 08/05/2025 3:12 AM EDT [facility] Comment:A result of Not Det ected does not rule out the presence of inhibitors in the patient specimen or hepatitis C virus RNA concentrations below the level of detection of the test. Care should be taken when interpreting any single viral load determination. 08/05/2025 3:12 AM EDT 08/05/2025 5:37 AM EDT [employer] [facility] - 08/08/2025 9:45 AM EST The quantification range of this assay is 15 to 100,000,000 IU/mL (1.18 log to 8.00 log IU/mL). Testing was performed using the anjelica HCV test ([employer] with the anjelica App[employer]ive0 System. Arianna Granados APRN LAB BLOOD ORDERABLES Final Result Performing Organization Address City/[facility]/ZIP Co de Phone Number [facility] [employer] , [place] [address] * (ABNORMAL) Hepatitis panel, acute (08/05/2025 3:12 AM EDT) Pathologist [facility] Hep B Surface Ag Blood Non-Reacti ve Non-React maricarmen 08/05/2025 3:12 AM EDT [facility] [employer] [facility] Comment:HBsAg not detected. Does not exclude possibility of exposure to HBV. Hepatitis B Core IgM Non-Reacti ve Non-React maricarmen 08/05/2025 3:12 AM EDT [facility] [employer], [facility] Hep A Ab IgM Blood Non-Reacti ve Non-React maricarmen 08/05/2025 3:12 AM EDT [facility] [employer], [facility] Hep C Ab Reactive(A ) Non-React maricarmen 08/05/2025 3:12 AM EDT [facility] [employer] [facility] Comment: Antibodies to HCV detected. HCV RNA QUANT will be performed. Blood (Blood, Venous) 08/05/2025 3:12 AM EDT 08/05/2025 5:37 AM EDT Narrative [facility] - 08/05/2025 6:27 AM EDT Test performed using [employer] Ele[employer]ys electrochemiluminescence immunassay (ECLIA). Arianna Granados APRN LAB BLOOD ORDERABLES Final Result Performing Organization Address [facility] de Phone Number [facility] [employer] , [place] [address] * (ABNORMAL) BASIC METABOLIC PANEL (08/03/2025 7:24 PM EDT) Pathologist [facility] Sodium 137 136 - 145 mmol/L 08/03/2025 7:24 PM EDT [facility] Potassium 3.7 3.5 - 5.0 mmol/L 08/03/2025 7:24 PM EDT [facility] Chloride 103 98 - 107 mmol/L 08/03/2025 7:24 PM EDT [facility] CO2 20(L) 22 - 29 mmol/L 08/03/2025 7:24 PM EDT [facility] Anion Gap 14 7 - 16 mmol/L 08/03/2025 7:24 PM EDT [facility] Calcium 8.6 8.6 - 10.4 mg/dL 08/03/2025 7:24 PM EDT [facility] Glucose 123(H) 70 - 99 mg/dL 08/03/2025 7:24 PM EDT [facility] BUN 13 6 - 20 mg/dL 08/03/2025 7:24 PM EDT [facility] Creatinine 0.81 0.51 - 1.30 mg/dL 08/03/2025 7:24 PM EDT [facility] eGFR 94 >=60 mL/min/1.7 3 m2 08/03/2025 7:24 PM EDT [facility] Comment:Estimated GFR was ca lculated using the CKD-EPIcr (2020) equation refit without race. The equation is recommended by the National Kidney Foundation - [place] of Nephrology Task Force. Blood (Blood, Venous) 08/03/2025 7:24 PM EDT 08/03/2025 7:59 PM EDT Juve Beck MD LAB BLOOD ORDERABLES Final Result [facility] [address] [place] [address] from Last 3 Months Advance Directives * Full Resuscitation (Latest Code Status on File) Date Activated Date Inactivated Comments 08/03/2025 7:11 PM 08/08/2025 8:08 PM Question Answer Comments I have discussed this order with the patient or his/her surrogate and have received informed consent. Yes Care Teams Grain Roaster Relationship Specialty Start Date End Date Yvonne Cordoba DO [address] [place] [address] [place] [address] PCP - General Family Medicine 08/04/25
--- OUTSIDE RECORDS SUMMARY | 2025-08-10 18:59 | XMS_ITS | Encounter Summary ---
Author Organization [facility] Address [address] [place] [address] Care Team Providers Care Pig Iron Loader Name Role Phone Nonstaff, Referring Primary Care Provider Troy francois Reason for Visit * Reason Onset Date Comments Patient Question 07/22/2025 Schedule Appointment 07/22/2025 Encounter Details Date Type Department Care Team (Late st Contact Info) Description 07/22/[address] [address] Tobin Dewitt MD [address] [place] [address] Patient Question; Schedule Appointment Social History Tobacco Use Types Packs/Day Years [...] on file documented as of this encounter Miscellaneous Notes * Telephone Encounter - Danielle Duarte Ortho Tech - 07/22/2025 2:26 PM EDT called pt and schedule pt for a new pt appt on 07/26 @ [facility] with Dr. Dewitt at 4pm. * Telephone Encounter - Cecilia Nolan - 07/22/2025 1:20 PM EDTSummary: ER Visit Patient was seen in [facility] on 07/20 stephani a dog bite. She received 17 stitches and also she said a broken arm. She only wants [facility] location. You are there on 07/26 but have a full schedule . I looked at [place] protocol and I do not see if we can double book or not. Patient would like a callback to see when she can come in to be seen. documented in this encounter Plan of Treatment Upcoming Encounters Date Type Department Care Team (Late st Contact Info) Description 08/17/2025 9:00 AM EST Appointment [facility] [address] [place] [address] [place] [address] Corona Devine MD [address] [place] [address] documented as of this encounter Goals Goal Patient Goal Type Associated Problems Recent Progress Patient-Stated? Author Maintain a healthy diet, exercise regularly and maintain an ideal body weight General No Greg Urrutia RMA Stay Tobacco Free Lifestyle No Greg Urrutia RMA documented as of this encounter Visit Diagnoses Not on filedocumented in this encounter Care Teams Pig Iron Loader Relationship Specialty Start Date End Date Nonstaff, Referring PCP - General 07/20/25 documented as of this encounter
--- NOTE | 2025-08-10 20:25 | ED_ITS ---
Discharge Plan Disposition Patient Disposition: Home, Self-Care Prescriptions Prescriptions: New amoxicillin-pot clavulanate 875-125 mg tablet 1 tab PO BID 7 Days Qty: 14 0RF Referrals Follow up/Referrals: Provider,Referral, [Primary Care Provider, Medical] - See instructions Activity Restrictions/Add. Instructions Additional Instructions/Restrictions: I highly encourage you to follow-up with one of the primary doctors provided to you today. You are being prescribed a weeks worth of antibiotics but it is very important that this be followed closely for any worsening infection. If you develop any new or worsening symptoms, such as increased redness or swelling, pus draining from the wound, fever, worsening pain, or if you become concerned for your health for any reason, return to the emergency department for evaluation. Clinical Impressions Clinical Impression: Dog bite of right forearm Print Language Print Language: Malagasy Discharge ED Provider: Scott Sharma Adult HPI General Chief complaint: PAIN Stated complaint: pain in right arm for dog bite Time Seen by Provider: 08/10/25 20:04 Mode of Arrival: Ambulatory Source of Information: Patient Description of Symptoms (Recalled from ER Triage Doc. by RN): patient presents for oral antibiotics for a dog bit that occured 07/20 that she was seen and treated for at [facility]. she was admitted 07/23 to [facility] in [place] for abx through a PICC but she ultimately AMA for issues she was having at that hospital. she only presents for oral antibiotics since she left [facility]. History of Present Illness HPI narrative: Vicenta Stringer is a 39-year-old female with no significant past medical history who presents to the emergency department requesting antibiotics after dog bite. Patient states that on 20 July, she was bit by a dog and was admitted to [facility] on the . She states that the dog bite broke her arm and she was on Unasyn from the to the third of this month and then she left AMA at that time. She states that she was told that there was an oral antibiotic that they could put her on that is the same as Unasyn. She states that since then, she has not had any increased redness, swelling, fevers, pain to the area and that nothing is draining from the wounds. She wants to prevent it from being infected so she is here for antibiotics. She states that she does not want to be admitted to the hospital again. Related Data Previous Rx's ?Medication ?Instructions ?Recorded amoxicillin 875 mg-potassium 1 tab PO BID 7 days #14 t abs 08/10/25 clavulanate 125 mg tablet Allergies Allergy/AdvReac Type Severity Reaction Status Date / Time No Known Allergies Allergy Verified 08/10/25 20:24 [facility] Disclaimer: The information contained in this section may have been updated after the patient was seen, as this information can be updated by other users. Social History Smoking Status: Current every day smoker alcohol intake: never current occupational status: other Travel in the last 8 weeks?: None ROS Obtained: Yes Systems reviewed as appropriate & no additional complaints except as documented Physical Exam General General appearance: alert and in no apparent distress Head Head exam: atraumatic Eye Eye exam: Present normal appearance ENT ENT exam: Present normal external ear exam Neck Neck exam: Present full ROM Chest Chest inspection: Present symmetric chest wall rise Respiratory Respiratory exam: Present normal lung sounds bilaterally; Absent respiratory distress Cardiovascular Cardiovascular exam: Present regular rate and normal rhythm Abdominal Exam Abdominal exam: Present soft; Absent tenderness or guarding Extremities Exam Extremities exam: Present normal inspection Expanded Upper Extremity Exam Right: Comment: RUE: Healing laceration with sutures in place to right forearm and right distal bicep. No erythema, pus or swelling noted. 2+ radial pulse intact. Back Exam Back exam: Present normal inspection Neurological Exam Neurological exam: Present alert and oriented X3 Psychiatric Psychiatric exam: Present normal affect Skin Skin exam: Present warm and dry Medical Decision Making Medical Records Screening: Per USPSTF and CDC recommendations, given the prevalence of disease in our region, it is our hospital?s policy to screen for HIV and viral Hepatitis for all patients aged 18 and over and those with ongoing risk factors. Aldo Inquiry Pt receiving controlled substance: No Vital Signs: 08/10/25 18:36 08/10/25 20:27 Temperature 98.2 F 98.2 F Temperature Source Oral Pulse Rate 87 Pulse Rate [Right Radial] 96 H Respiratory Rate 18 20 Blood Pressure 112/87 Blood Pressure [Right Arm] 108/80 L Blood Pressure Mean [Right Arm] 89 Blood Pressure Source [Right Arm] Automatic Cuff Blood Pressure Position [Right Arm] Sitting 02 Sat by Pulse Oximetry 100 Oxygen Delivery Method Room Air Room Air Medical Decision Narrative: Vicenta Stringer is a 39-year-old female with no significant past medical history who presents to the emergency department requesting antibiotics after dog bite. Patient states that on 20 July, she was bit by a dog and was admitted to [facility] on the . She states that the dog bite broke her arm and she was on Unasyn from the to the third of this month and then she left AMA at that time. She states that she was told that there was an oral antibiotic that they could put her on that is the same as Unasyn. She states that since then, she has not had any increased redness, swelling, fevers, pain to the area and that nothing is draining from the wounds. She wants to p revent it from being infected so she is here for antibiotics. She states that she does not want to be admitted to the hospital again. On arrival, patient is hemodynamically stable, afebrile, oxygen saturation 10 percent on room air. Normotensive. Physical exam, stated above, revealed healing lacerations to the right forearm with sutures in place. There is no erythema, pus, swelling or drainage from the wounds. She has 2+ radial pulses. I have low concern for worsening infection given patient's lack of fever and lack of worsening symptoms and reassuring physical exam. She does not want to be admitted and is only here for oral antibiotics. She stated that she was supposed to be on IV antibiotics until the end of this month for a total course of 6 weeks. I do feel it is appropriate for short course of Augmentin but did state to her that it is vitally important that she obtain close follow-up for this. I do not feel that laboratory studies or imaging studies are indicated at this time as patient does not want them and she has no worsening signs of infection. She states that she does not have a primary care doctor currently but is interested in getting established with one. Will provide patient with a list of primary care doctors. Will also send patient with a 7-day course of Augmentin and instructed her to follow-up with the primary care doctors for further management and antibiotics if needed. I did give patient strict return precautions for any worsening signs of infection and she demonstrated understanding and was in agreement with this plan. She was then discharged from the emergency department in stable condition. Critical Care Critical Care Time Critical Care Time: No
[2025-08-10 20:27] VITALS: BP 112/87; PULSE 87; RESP 20; TEMP 36.8; O2SAT 98
== END 2025-08-10 20:35 | disposition home or self-care (01) ==
PROVIDERS: Emergency Provider Student in an Organized Health Care Education/Training Program
DX: S51.851A Open bite of right forearm, initial encounter (principal); W54.0XXA Bitten by dog, initial encounter
CPT/HCPCS: 99282; 99283